=== PATIENT | female | born 1965 | race Caucasian/White ===

== ENCOUNTER 2023-01-03 08:41 | Emergency (ER) | payer OTHER, SELFPAY ==
[2023-01-03 08:52] VITALS: BP 118/71; PULSE 103; RESP 18; TEMP 38; O2SAT 95; BMI 29.5
--- NOTE | 2023-01-03 09:05 | ED.SOB1 ---
HPI - SOB/Dyspnea General Chief Complaint: Shortness of Breath/Dyspnea Time Seen by Provider: 01/03/23 08:57 Source: patient Mode of arrival: walk-in Limitations: no limitations History of Present Illness HPI Narrative: 57-year-old female presents for cough back pain and some shortness of breath. She was found to have a fever at triage and had had Tylenol and Motrin about an hour ago. She has an area of pain in her left back that started after coughing. There was no trauma. symptoms present for a week. Related Data Home Medications Medication Instructions Recorded Confirmed albuterol sulfate 90 mcg/actuation 2 puff inhalation Q6H PRN 01/03/23 01/03/23 aerosol inhaler shortness of breath or wheezing amantadine HCl 100 mg capsule mg 01/03/23 amitriptyline 50 mg tablet 50 mg PO 01/03/23 baclofen 10 mg tablet 10 mg PO Q8H 01/03/23 01/03/23 bupropion HCl 150 mg 24 hr tablet, 150 mg PO .morning 01/03/23 01/03/23 extended release buspirone 30 mg tablet 30 mg PO BID 01/03/23 01/03/23 dalfampridine 10 mg 10 mg PO Q12H 01/03/23 01/03/23 tablet,extended release,12 hr diazepam 5 mg tablet 5 mg PO Q8H PRN muscle spasm 01/03/23 01/03/23 glatiramer 40 mg/mL subcutaneous 40 mg subcut Q24H 01/03/23 01/03/23 syringe meclizine 25 mg tablet 25 mg PO .every 6 hours PRN 01/03/23 01/03/23 dizziness montelukast 10 mg tablet 10 mg PO QDAY 01/03/23 01/03/23 omeprazole 40 mg capsule,delayed 40 mg PO DAILY 01/03/23 01/03/23 release primidone 50 mg tablet 50 mg PO Q8H 01/03/23 01/03/23 propranolol 40 mg tablet 40 mg PO Q12H 01/03/23 01/03/23 quetiapine 50 mg tablet 50 mg PO .qhs 01/03/23 01/03/23 rizatriptan 10 mg tablet 10 mg PO .daily 01/03/23 01/03/23 sucralfate 1 gram tablet 1 g PO Q6H 01/03/23 01/03/23 Previous Rx's Medication Instructions Recorded benzonatate 100 mg capsule 100 mg PO TID PRN cough #20 caps 01/03/23 levofloxacin 750 mg tablet 750 mg PO DAILY 7 days #7 tabs 01/03/23 Allergies Allergy/AdvReac Type Severity Reaction Status Date / Time codeine Allergy Intermediate Verified 01/03/23 08:52 acetaminophen [From Percocet] AdvReac Intermediate Verified 01/03/23 09:06 amoxicillin AdvReac Intermediate Verified 01/03/23 08:52 clavulanic acid AdvReac Intermediate Verified 01/03/23 08:52 [From Augmentin] fentanyl AdvReac Intermediate Verified 01/03/23 08:52 morphine AdvReac Intermediate Verified 01/03/23 08:52 oxycodone [From Percocet] AdvReac Intermediate Verified 01/03/23 09:06 tizanidine [From Zanaflex] AdvReac Intermediate Verified 01/03/23 08:52 Review of Systems ROS Narrative A ten point review of systems is negative except as noted above. PFSH PFSH Social History Smoking status: Current every day smoker Exam Narrative Exam Narrative: Nurses note and vital signs reviewed and patient is not hypoxic. General: The patient appears well and in no apparent distress. Patient is resting comfortably on cart. Skin: Warm, dry, no pallor noted. There is no rash noted. Head: Normocephalic, atraumatic Eye: Normal conjunctiva, no drainage Ears, Nose, Mouth, and Throat: oral mucosa is moist. Nares patent. Mouth without vesicles. Ear canals patent. Tm's without Erythema Cardiovascular: Regular Rate and Rhythm Respiratory: patient seems reluctant to take in a deep breath. No rhonchi noted. Right thoracotomy scar well-healed. Back: non-tender, no CVA tenderness bilaterally to percussion. GI: nontender Musculoskeletal: The patient has no evidence of calf tenderness, no pitting edema, symmetrical pulses noted bilaterally Neurological: A&O, normal speech Psychiatric: Cooperative Constitutional Vital Signs, click to edit/add: Last Vital Signs Temp 100.4 F 01/03/23 08:52 Pulse 103 H 01/03/23 08:52 Resp 18 01/03/23 08:52 BP 118/71 01/03/23 08:52 Pulse Ox 95 01/03/23 08:52 O2 Del Method Room Air 01/03/23 08:52 Course Vital Signs Vital signs: Vital Signs Temperature 100.4 F 01/03/23 08:52 Pulse Rate 103 H 01/03/23 08:52 Respiratory Rate 18 01/03/23 08:52 Blood Pressure 118/71 01/03/23 08:52 Pulse Oximetry 95 01/03/23 08:52 Oxygen Delivery Method Room Air 01/03/23 08:52 Temperature 100.4 F 01/03/23 08:52 Pulse Rate 103 H 01/03/23 08:52 Respiratory Rate 18 01/03/23 08:52 Blood Pressure 118/71 01/03/23 08:52 Pulse Oximetry 95 01/03/23 08:52 Oxygen Delivery Method Room Air 01/03/23 08:52 MDM - SOB/Dyspnea MDM Narrative Medical decision making narrative: chest x-ray is improved from a year ago and Covid test is negative. She is prescribed Levaquin and Tessalon and she'll follow-up with her doctor. Treatment diagnosis and follow-up were discussed with the patient. I've no clinical suspicion of pulmonary embolism. Differential Diagnosis Differential diagnosis: Likely community acquired pneumonia and other (Covid, upper respiratory infection) Lab Data Attestation: I reviewed the patient's lab results. Labs: Lab Results 01/03/23 Range/Units 09:10 SARS-CoV-2 (PCR) Negative (NEGATIVE) Imaging Data Chest x-ray: Radiologist's impression: Procedure: XR chest 1V EXAMINATION: XR chest 1V HISTORY: cough, fever COMPARISON: XR chest 01/09/2022 FINDINGS: LUNGS: Underexpanded lungs with mild infiltrates within right lung apex. VASCULATURE: No increased pulmonary vasculature. PLEURA: No pneumothorax, effusion, or pleural thickening. CARDIAC: No cardiomegaly or cardiac silhouette abnormality. MEDIASTINUM: No visible mass or adenopathy. BONES: No fracture or visible bone lesion. OTHER: Negative. IMPRESSION: 1. Mild right apical infiltrates but significantly improved compared to 01/09/2022. Electronically authenticated by: ALIN ALEXANDRE Date: 01/03/2023 09:41 Discharge Plan Discharge Chief Complaint: Shortness of Breath/Dyspnea Clinical Impression: Upper respiratory infection Patient Disposition: Home, Self-Care Time of Disposition Decision: 09:51 Condition: Good Mode of Transportation: Private Vehicle Prescriptions / Home Meds: New levofloxacin 750 mg tablet 750 mg PO DAILY 7 Days Qty: 7 0RF benzonatate 100 mg capsule 100 mg PO TID PRN (Reason: cough) Qty: 20 0RF No Action albuterol sulfate 90 mcg/actuation HFA aerosol inhaler 2 puff INHALATION Q6H PRN (Reason: shortness of breath or wheezing) amantadine HCl 100 mg capsule amitriptyline 50 mg tablet 50 mg PO Patient Comments: 1 and 03/27 tab baclofen 10 mg tablet 10 mg PO Q8H bupropion HCl 150 mg tablet extended release 24 hr 150 mg PO .morning buspirone 30 mg tablet 30 mg PO BID dalfampridine 10 mg tablet extended release 12 hr 10 mg PO Q12H diazepam 5 mg tablet 5 mg PO Q8H PRN (Reason: muscle spasm) glatiramer 40 mg/mL syringe 40 mg SUBCUT Q24H meclizine 25 mg tablet 25 mg PO .every 6 hours PRN (Reason: dizziness) montelukast 10 mg tablet 10 mg PO QDAY omeprazole 40 mg capsule,delayed release(DR/EC) 40 mg PO DAILY primidone 50 mg tablet 50 mg PO Q8H propranolol 40 mg tablet 40 mg PO Q12H quetiapine 50 mg tablet 50 mg PO .qhs rizatriptan 10 mg tablet 10 mg PO .daily sucralfate 1 gram tablet 1 g PO Q6H Patient Comments: with meals Instructions: Upper Respiratory Infection (ED) Stand Alone Forms: Portal Instructions Referrals: Physician,Non-Staff, MD [Primary Care Provider] - 1 week
--- NOTE | 2023-01-03 09:15 | XR_ITS ---
The [address] [address] Patient Name: ELVIRA STAPLETON MRN: [id number] date: 1965 Sex: F Assigned Patient Location: ER Current Patient Location: ER Accession/Order Number: [id number] Exam Date: 01/03/2023 09:10 Report Date: 01/03/2023 09:41 At the request of: СЕРГЕЙ LOZANO Procedure: XR chest 1V EXAMINATION: XR chest 1V HISTORY: cough, fever COMPARISON: XR chest 01/09/2022 FINDINGS: LUNGS: Underexpanded lungs with mild infiltrates within right lung apex. VASCULATURE: No increased pulmonary vasculature. PLEURA: No pneumothorax, effusion, or pleural thickening. CARDIAC: No cardiomegaly or cardiac silhouette abnormality. MEDIASTINUM: No visible mass or adenopathy. BONES: No fracture or visible bone lesion. OTHER: Negative. XR/XR chest 1V IMPRESSION: 1. Mild right apical infiltrates but significantly improved compared to 01/09/2022. Electronically authenticated by: ALIN ALEXANDRE Date: 01/03/2023 09:41
[2023-01-03 09:34] LABS: SARS-CoV-2 Ag NEGATIVE (NEGATIVE)
[2023-01-03 16:00] LABS: SARS-CoV-2 NAA NOT DETECTED (NOT DETECTE)
== END 2023-01-03 10:01 | disposition home or self-care (01) ==
PROVIDERS: Emergency Provider Emergency Medicine
DX: J06.9 Acute upper respiratory infection, unspecified (principal); Z20.822 Contact with and (suspected) exposure to COVID-19
CPT/HCPCS: 71045; 87635; 87811; 99284; U0003

== ENCOUNTER 2023-01-22 06:02 | Emergency (ER) | payer OTHER, SELFPAY ==
[2023-01-22 06:06] VITALS: BP 146/75; PULSE 79; RESP 18; TEMP 36.8; O2SAT 95; BMI 28.3
--- NOTE | 2023-01-22 06:25 | ED_ITS ---
HPI - SOB/Dyspnea General Chief Complaint: Shortness of Breath/Dyspnea Stated Complaint: COUGH UP BLOOD Time Seen by Provider: 01/22/23 06:14 Source: patient Mode of arrival: walk-in Limitations: no limitations History of Present Illness HPI Narrative: ex smoker with history of COPD. Known history of inflammatory pulmonary nodules. Had PET scan ordered by her PCP 09/2022 which demonstrated inflammatory nodules. Had CT chest ordered last week by her [employer]. She does not know the results of the recent CT. Hemoptysis started 3 days ago. Hemoptysis again this AM and she feels short of breath. has pain right posterior chest which is reminiscent of the last time she had pneumonia. fever, nausea, abdominal pain. Does not take blood thinners Related Data Home Medications Medication Instructions Recorded Confirmed albuterol sulfate 90 mcg/actuation 2 puff inhalation Q6H PRN 01/03/23 01/03/23 aerosol inhaler shortness of breath or wheezing amantadine HCl 100 mg capsule mg 01/03/23 amitriptyline 50 mg tablet 50 mg PO 01/03/23 baclofen 10 mg tablet 10 mg PO Q8H 01/03/23 01/03/23 bupropion HCl 150 mg 24 hr tablet, 150 mg PO .morning 01/03/23 01/03/23 extended release buspirone 30 mg tablet 30 mg PO BID 01/03/23 01/03/23 dalfampridine 10 mg 10 mg PO Q12H 01/03/23 01/03/23 tablet,extended release,12 hr diazepam 5 mg tablet 5 mg PO Q8H PRN muscle spasm 01/03/23 01/03/23 glatiramer 40 mg/mL subcutaneous 40 mg subcut Q24H 01/03/23 01/03/23 syringe meclizine 25 mg tablet 25 mg PO .every 6 hours PRN 01/03/23 01/03/23 dizziness montelukast 10 mg tablet 10 mg PO QDAY 01/03/23 01/03/23 omeprazole 40 mg capsule,delayed 40 mg PO DAILY 01/03/23 01/03/23 release primidone 50 mg tablet 50 mg PO Q8H 01/03/23 01/03/23 propranolol 40 mg tablet 40 mg PO Q12H 01/03/23 01/03/23 quetiapine 50 mg tablet 50 mg PO .qhs 01/03/23 01/03/23 rizatriptan 10 mg tablet 10 mg PO .daily 01/03/23 01/03/23 sucralfate 1 gram tablet 1 g PO Q6H 01/03/23 01/03/23 Previous Rx's Medication Instructions Recorded benzonatate 100 mg capsule 100 mg PO TID PRN cough #20 caps 01/03/23 levofloxacin 750 mg tablet 750 mg PO DAILY 7 days #7 tabs 01/03/23 Allergies Allergy/AdvReac Type Severity Reaction Status Date / Time hydromorphone [From Dilaudid] Allergy Severe Verified 01/22/23 06:14 codeine Allergy Intermediate Verified 01/22/23 06:14 doxycycline Allergy Mild Rash Verified 01/22/23 06:14 acetaminophen [From Percocet] AdvReac Intermediate Verified 01/22/23 06:14 amoxicillin AdvReac Intermediate Verified 01/22/23 06:14 clavulanic acid AdvReac Intermediate Verified 01/22/23 06:14 [From Augmentin] fentanyl AdvReac Intermediate Verified 01/22/23 06:14 morphine AdvReac Intermediate Verified 01/22/23 06:14 oxycodone [From Percocet] AdvReac Intermediate Verified 01/22/23 06:14 tizanidine [From Zanaflex] AdvReac Intermediate Verified 01/22/23 06:14 Review of Systems ROS Status of ROS 10 or more systems reviewed and unremarkable except as noted in history and below Cardiovascular Reports: chest pain Respiratory Reports: shortness of breath and cough PFSH PFSH Social History Smoking status: Current every day smoker Exam Constitutional Vital Signs, click to edit/add: Last Vital Signs Temp 98.3 F 01/22/23 06:06 Pulse 79 01/22/23 06:06 Resp 18 01/22/23 06:06 BP 146/75 H 01/22/23 06:06 Pulse Ox 95 01/22/23 06:06 O2 Del Method Room Air 01/22/23 06:06 Common normals: no apparent distress, average body habitus, oriented x3, healthy appearing, alert and well nourished [facility] Common normals: normocephalic and head/scalp atraumatic Eye Common normals: EOMs intact bilaterally Respiratory Common normals: normal respiratory effort, no retractions, no use of accessory muscles and clear to auscultation bilaterally Cardio Common normals: regular rate, regular rhythm, S1 normal heart sound and S2 normal heart sound GI Common normals: Normal to inspection, nondistended, normoactive bowel sounds pre sent, soft to palpation and non-tender Extremity Common normals: normal to inspection and full ROM Neuro Common normals: oriented x3, CN's II-XII intact bilaterally, moves all extremities, no focal motor deficits and no sensory deficits noted Psych Appearance: grossly normal Course Vital Signs Vital signs: Vital Signs Temperature 98.3 F 01/22/23 06:06 Pulse Rate 79 01/22/23 06:06 Respiratory Rate 18 01/22/23 06:06 Blood Pressure 146/75 H 01/22/23 06:06 Pulse Oximetry 95 01/22/23 06:06 Oxygen Delivery Method Room Air 01/22/23 06:06 Temperature 98.3 F 01/22/23 06:06 Pulse Rate 79 01/22/23 06:06 Respiratory Rate 18 01/22/23 06:06 Blood Pressure 146/75 H 01/22/23 06:06 Pulse Oximetry 95 01/22/23 06:06 Oxygen Delivery Method Room Air 01/22/23 06:06 MDM - SOB/Dyspnea MDM Narrative Medical decision making narrative: patient had PET scan performed 09/2022 by her PCP that demonstrated inflammatory nodules DD included neoplastic vs sarcoidosis. She is ex cigarette smoker. Had CT performed last week ordered by her [employer] but does not know the results. Presents now with complaint of hemoptysis that first occurred this past Sunday. States she feels short of breath. Her exam is normal and she does not appear SOB. Has RR 18 and is afebrile. Pain right posterior chest reminiscent of the last time she had pneumonia. EKG NSR with RAD. Workup initiated to included d-dimer , troponin and cxray. Care transferred to Dr Landis at change of shift. Lab Data Labs: Lab Results 01/22/23 Range/Units 06:30 WBC 11.6 H (4.0-11.0) 10^3/uL RBC 4.32 (4.20-5.40) 10^6/uL Hgb 12.7 (12.0-16.0) g/dL Hct 40.9 (36.0-48.0) % MCV 94.7 (81.0-99.0) fL MCH 29.4 (26.7-34.0) pg MCHC 31.1 (29.9-35.2) g/dL RDW 13.9 (11.0-15.0) % Plt Count 282 (150-450) 10^3/uL MPV 10.1 (9.5-13.5) fL Neut % (Auto) 67.7 (43.0-75.0) % Lymph % (Auto) 16.7 L (20.5-60.0) % [place] % (Auto) 9.4 (1.7-12.0) % Eos % (Auto) 5.4 (0.9-7.0) % Baso % (Auto) 0.5 (0.2-2.0) % Neut # (Auto) 7.9 H (1.4-6.5) 10^3/uL Lymph # (Auto) 1.9 (1.2-3.8) 10^3/uL [place] # (Auto) 1.1 H (0.3-0.8) 10^3/uL Eos # (Auto) 0.6 (0.0-0.7) 10^3/uL Baso # (Auto) 0.1 (0.0-0.1) 10^3/uL Abs Immat Gran (auto) 0.04 H (0.00-0.03) 10^3/uL Imm/Tot Granulo (auto) 0.3 (0.0-0.5) % Discharge Plan Discharge Patient Disposition: Still a Patient
--- NOTE | 2023-01-22 06:33 | PC.NURSE ---
pt presents to ED because patient states that she was here 2 weeks ago for cough and fever. patient had swabs and chest x-ray done and everything came back negative and pt was dx with uri and sent home on an antibiotic. pt states that she got better and then on Sunday started up with a cough and occasionally would have blood mixed in with sputum. patient states that this morning around 5am she woke up and was coughing and states that she coughed up a lot of blood and that it covered her bathroom sink. patient stats that there were some clumps mixed in with blood. patient is c/o pain to right upper back and sob and states that it feels similar to when she has had pneumonia in the past. patient has been seeing her doctor out of [place] and had a ct scan done in august that showed a nodule in the left upper lung. patient states that she had a pet scan on Sunday that showed multiple pulmonary lesions with mildly enlarged lymph nodes and suspicious for multifocal metastatic neoplastic process vs sarcoidosis. patient is suppose to have a follow up ct scan with contrast done based on the past ct and pet scan results.
--- NOTE | 2023-01-22 06:34 | ECG_ITS ---
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
--- NOTE | 2023-01-22 06:34 | XR_ITS ---
The [address] [address] Patient Name: ELVIRA STAPLETON MRN: [id number] date: 1965 Sex: F Assigned Patient Location: ER Current Patient Location: ER Accession/Order Number: [id number] Exam Date: 01/22/2023 06:50 Report Date: 01/22/2023 07:06 At the request of: PATRICIA BROUSSARD Procedure: XR chest 1V EXAMINATION: XR chest 1V HISTORY: hemoptysis COMPARISON: XR chest 01/03/2023, 01/09/2022, 12/28/2021 FINDINGS: LUNGS: Patchy and strandy opacities within right lung apex. Left lung is clear. VASCULATURE: No increased pulmonary vasculature. PLEURA: No pneumothorax, effusion, or pleural thickening. CARDIAC: No cardiomegaly or cardiac silhouette abnormality. MEDIASTINUM: No visible mass or adenopathy. BONES: No fracture or visible bone lesion. OTHER: Negative. XR/XR chest 1V IMPRESSION: 1. Right upper lobe patchy and strandy opacities which appears stable dating back to 12/28/2021 and may represent scarring, but an underlying neoplastic process cannot be excluded. CT chest with IV contrast should be considered for comparison to the November 13, 2019 CT chest study showing what was suspected to be pneumonia at that time. Electronically authenticated by: ALIN ALEXANDRE Date: 01/22/2023 07:06
[2023-01-22 06:41] VITALS: PULSE 86; RESP 27; O2SAT 96
[2023-01-22 06:46] LABS: Basophils Absolute Auto 0.1 10^3/uL (0.0-0.1); Basophils Percent Auto 0.5 % (0.2-2.0); Eosinophils Absolute Auto 0.6 10^3/uL (0.0-0.7); Eosinophils Percent Auto 5.4 % (0.9-7.0); Hematocrit 40.9 % (36.0-48.0); Hemoglobin 12.7 g/dL (12.0-16.0); Immature Granulocytes Abs Auto 0.04 10^3/uL (0.00-0.03); Immature Granulocytes Pct Auto 0.3 % (0.0-0.5); Lymphocytes Absolute Auto 1.9 10^3/uL (1.2-3.8); Lymphocytes Percent Auto 16.7 % (20.5-60.0); Mean Corpuscular HGB Conc 31.1 g/dL (29.9-35.2); Mean Corpuscular Hemoglobin 29.4 pg (26.7-34.0); Mean Corpuscular Volume 94.7 fL (81.0-99.0); Mean Platelet Volume 10.1 fL (9.5-13.5); Monocytes Absolute Auto 1.1 10^3/uL (0.3-0.8); Monocytes Percent Auto 9.4 % (1.7-12.0); Neutrophils Absolute Auto 7.9 10^3/uL (1.4-6.5); Neutrophils Percent Auto 67.7 % (43.0-75.0); Platelet Count 282 10^3/uL (150-450); Red Blood Count 4.32 10^6/uL (4.20-5.40); Red Cell Distribution Width 13.9 % (11.0-15.0); White Blood Count 11.6 10^3/uL (4.0-11.0)
[2023-01-22 06:50] VITALS: PULSE 92; RESP 19; O2SAT 95
[2023-01-22 07:00] VITALS: PULSE 84; RESP 24; O2SAT 98
[2023-01-22 07:02] LABS: Anion Gap 9.9; BUN Creatinine Ratio 16.2; Calcium 8.6 mg/dL (8.5-10.1); Carbon Dioxide 29.9 mmol/L (21.0-32.0); Chloride 103 mmol/L (98-107); Estimated GFR (African America >60 (>=60); Estimated GFR (Non-African Ame >60 (>=60); Glucose 98 mg/dL (74-106); Potassium 3.8 mmol/L (3.5-5.1); Sodium 139 mmol/L (136-145); Troponin I High Sensitivity 5.6 pg/mL (4.0-51.3)
[2023-01-22 07:10] VITALS: PULSE 82; RESP 22; O2SAT 95
== END 2023-01-22 07:19 | disposition home or self-care (01) ==
PROVIDERS: Emergency Provider Internal Medicine
DX: R04.2 Hemoptysis (principal); J44.9 Chronic obstructive pulmonary disease, unspecified; R91.8 Other nonspecific abnormal finding of lung field; Z87.891 Personal history of nicotine dependence; Z79.899 Other long term (current) drug therapy
CPT/HCPCS: 36415; 71045; 80048; 84484; 85025; 85378; 93005; 99285

== ENCOUNTER 2023-02-06 20:00 | Emergency (ER) | payer OTHER, SELFPAY ==
[2023-02-06] VITALS (16 sets, daily range): BP systolic 118–142; BP diastolic 48–74; PULSE 83–104; RESP 18–20; TEMP 37.6; O2SAT 93–97; BMI 29.3
--- NOTE | 2023-02-06 20:43 | ECG_ITS ---
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
--- NOTE | 2023-02-06 20:44 | XR_ITS ---
The [address] [address] Patient Name: ELVIRA STAPLETON MRN: [id number] date: 1965 Sex: F Assigned Patient Location: ER Current Patient Location: ER Accession/Order Number: [id number] Exam Date: 02/06/2023 20:55 Report Date: 02/06/2023 21:12 At the request of: TATE BOURGEOIS Procedure: XR chest 1V EXAMINATION: CHEST RADIOGRAPH (PORTABLE SINGLE VIEW AP) Exam Date/Time: 02/06/2023 8:55 PM EST Clinical History: Cough Comparison: 01/22/2023 RESULT: Lines, tubes, and devices: None. Lungs and pleura: Interval worsening right upper lobe airspace opacity, since 01/22/2023, concerning for worsening pneumonia. No pneumothorax. No pleural effusion. Cardiomediastinal silhouette: Stable cardiomediastinal silhouette. Other: No acute osseous process. XR/XR chest 1V IMPRESSION: Interval worsening right upper lobe airspace opacity, concerning for worsening pneumonia. Recommend further evaluation with CT of the chest. Electronically authenticated by: ROGER HENSLEY Date: 02/06/2023 21:12
--- NOTE | 2023-02-06 21:08 | ED.GENADUL1 ---
Documented by User: MARY KATE Smart 02/06/23 21:49 HPI - General Adult General Chief complaint: Upper Respiratory Infection Stated complaint: COUGH FEVER Time Seen by Provider: 02/06/23 20:15 Source: patient Mode of arrival: walk-in Limitations: no limitations History of Present Illness HPI narrative: patient is a 57-year-old female who returns to the emergency department for continued cough, congestion, shortness of breath. Patient states she has been seen multiple times in this emergency department as well as by her telephone exchange operator in her PCP. This is been ongoing for weeks. Her telephone exchange operator ordered an outpatient CT scan of her chest, results show multiple groundglass opacities and cavitary lesions as well as nodules. She has been on azithromycin, she recently just finished prednisone and a Medrol Dosepak. She uses regular breathing treatments. Her PCP gave her Tessalon Perles. She states she is coughing up blood. She has had no objective fevers or vomiting. Her telephone exchange operator is at [facility]. Related Data Home Medications Medication Instructions Recorded Confirmed albuterol sulfate 90 mcg/actuation 2 puff inhalation Q6H PRN 01/03/23 01/03/23 aerosol inhaler shortness of breath or wheezing amantadine HCl 100 mg capsule mg 01/03/23 amitriptyline 50 mg tablet 50 mg PO 01/03/23 baclofen 10 mg tablet 10 mg PO Q8H 01/03/23 01/03/23 bupropion HCl 150 mg 24 hr tablet, 150 mg PO .morning 01/03/23 01/03/23 extended release buspirone 30 mg tablet 30 mg PO BID 01/03/23 01/03/23 dalfampridine 10 mg 10 mg PO Q12H 01/03/23 01/03/23 tablet,extended release,12 hr diazepam 5 mg tablet 5 mg PO Q8H PRN muscle spasm 01/03/23 01/03/23 glatiramer 40 mg/mL subcutaneous 40 mg subcut Q24H 01/03/23 01/03/23 syringe meclizine 25 mg tablet 25 mg PO .every 6 hours PRN 01/03/23 01/03/23 dizziness montelukast 10 mg tablet 10 mg PO QDAY 01/03/23 01/03/23 omeprazole 40 mg capsule,delayed 40 mg PO DAILY 01/03/23 01/03/23 release primidone 50 mg tablet 50 mg PO Q8H 01/03/23 01/03/23 propranolol 40 mg tablet 40 mg PO Q12H 01/03/23 01/03/23 quetiapine 50 mg tablet 50 mg PO .qhs 01/03/23 01/03/23 rizatriptan 10 mg tablet 10 mg PO .daily 01/03/23 01/03/23 sucralfate 1 gram tablet 1 g PO Q6H 01/03/23 01/03/23 Previous Rx's Medication Instructions Recorded benzonatate 100 mg capsule 100 mg PO TID PRN cough #20 caps 01/03/23 levofloxacin 750 mg tablet 750 mg PO DAILY 7 days #7 tabs 01/03/23 Allergies Allergy/AdvReac Type Severity Reaction Status Date / Time hydromorphone [From Dilaudid] Allergy Severe Verified 01/22/23 06:14 codeine Allergy Intermediate Verified 01/22/23 06:14 doxycycline Allergy Mild Rash Verified 01/22/23 06:14 acetaminophen [From Percocet] AdvReac Intermediate Verified 01/22/23 06:14 amoxicillin AdvReac Intermediate Verified 01/22/23 06:14 clavulanic acid AdvReac Intermediate Verified 01/22/23 06:14 [From Augmentin] fentanyl AdvReac Intermediate Verified 01/22/23 06:14 morphine AdvReac Intermediate Verified 01/22/23 06:14 oxycodone [From Percocet] AdvReac Intermediate Verified 01/22/23 06:14 tizanidine [From Zanaflex] AdvReac Intermediate Verified 01/22/23 06:14 Review of Systems ROS Constitutional Reports: chills; Denies: fever Ears, nose, mouth, and throat Reports: nasal congestion Respiratory Reports: shortness of breath, cough, wheezing and coughing up blood Gastrointestinal Denies: nausea or vomiting Genitourinary Denies: painful urination Musculoskeletal Denies: back pain Integumentary/Breast Denies: rash Neurological Denies: headache PFSH PFSH Social History Smoking status: Former smoker Exam Narrative Exam Narrative: Gen.: Awake, alert, in no distress Head: Normocephalic, atraumatic ENT: Moist mucous membranes Respiratory: No respiratory distress, lungs clear bilaterally Cardio: Regular rate and rhythm Gastrointestinal: Abdomen is soft, nondistended and nontender to palpation Extremities: Moves extremities equally, no injuries noted Psych: Normal mood and affect Neuro: No focal neuro deficit Skin: Warm, dry, intact Constitutional Vital Signs, click to edit/add: Last Vital Signs Temp 99.7 F 02/06/23 20:10 Pulse 83 02/06/23 21:37 Resp 18 02/06/23 21:37 BP 118/48 L 02/06/23 21:14 Pulse Ox 95 02/06/23 22:00 O2 Del Method Room Air 02/06/23 21:37 Course Vital Signs Vital signs: Vital Signs Temperature 99.7 F 02/06/23 20:10 Pulse Rate 104 H 02/06/23 20:10 Respiratory Rate 20 02/06/23 20:10 Blood Pressure 142/74 H 02/06/23 20:10 Pulse Oximetry 95 02/06/23 20:10 Oxygen Delivery Method Room Air 02/06/23 20:10 Temperature 99.7 F 02/06/23 20:10 Pulse Rate 83 02/06/23 21:37 Respiratory Rate 18 02/06/23 21:37 Blood Pressure 118/48 L 02/06/23 21:14 Pulse Oximetry 95 02/06/23 22:00 Oxygen Delivery Method Room Air 02/06/23 21:37 Medical Decision Making [facility] Narrative Medical decision making narrative: 2139: respiratory panel, lab studies ordered for the patient in addition to fluids, breathing treatments and Solu-Medrol. She was given Hycodan for cough. The chest x-ray was read by the radiologist showing a worsening opacity in the right upper lobe concerning for pneumonia versus neoplasm. A CT of the chest was recommended. I discussed the CT of the chest with contrast with the patient and her significant other at bedside as she recently had a noncontrast CT. Results of that CT show groundglass opacities and multiple lesions, there is no mention of a specific right upper lobe mass or opacity per her online report. Patient is in agreement with doing the CT, this is pending as well as the remainder of her lab studies and respiratory panel at this time. Case is turned over to attending physician at this time. Medical Records Medical records reviewed: Yes I reviewed the patient's medical records Lab Data Lab results reviewed: Yes I reviewed the patient's lab results Labs: Lab Results 02/06/23 02/06/23 Range/Units 21:10 21:53 WBC 16.5 H (4.0-11.0) 10^3/uL RBC 3.60 L (4.20-5.40) 10^6/uL Hgb 10.4 L (12.0-16.0) g/dL Hct 33.1 L (36.0-48.0) % MCV 91.9 (81.0-99.0) fL MCH 28.9 (26.7-34.0) pg MCHC 31.4 (29.9-35.2) g/dL RDW 14.1 (11.0-15.0) % Plt Count 360 (150-450) 10^3/uL MPV 9.2 L (9.5-13.5) fL Neut % (Auto) 82.6 H (43.0-75.0) % Lymph % (Auto) 8.5 L (20.5-60.0) % Posey % (Auto) 5.9 (1.7-12.0) % Eos % (Auto) 1.7 (0.9-7.0) % Baso % (Auto) 0.2 (0.2-2.0) % Neut # (Auto) 13.6 H (1.4-6.5) 10^3/uL Lymph # (Auto) 1.4 (1.2-3.8) 10^3/uL Posey # (Auto) 1.0 H (0.3-0.8) 10^3/uL Eos # (Auto) 0.3 (0.0-0.7) 10^3/uL Baso # (Auto) 0.0 (0.0-0.1) 10^3/uL Abs Immat Gran (auto) 0.18 H (0.00-0.03) 10^3/uL Imm/Tot Granulo (auto) 1.1 H (0.0-0.5) % PT 10.2 (9.0-11.6) sec INR 0.96 Sodium 139 (136-145) mmol/L Potassium 3.5 (3.5-5.1) mmol/L Chloride 102 (98-107) mmol/L Carbon Dioxide 25.6 (21.0-32.0) mmol/L Anion Gap 14.9 BUN 14.0 (7.0-18.0) mg/dL Creatinine 0.90 (0.55-1.02) mg/dL Est GFR ( Amer) >60 (>=60) Est GFR (Non-Af Amer) >60 (>=60) BUN/Creatinine Ratio 15.6 Glucose 159 H (74-106) mg/dL Lactate 2.1 H (0.4-2.0) mmol/L Calcium 8.3 L (8.5-10.1) mg/dL Total Bilirubin 0.2 (0.2-1.0) mg/dL AST 33 (15-37) U/L ALT 61 H (14-59) U/L Alkaline Phosphatase 164 H (46-116) U/L Troponin I High Sens 5.1 (4.0-51.3) pg/mL NT-Pro-B Natriuret Pep 318.0 (<=900.0) pg/mL Total Protein 6.6 (6.4-8.2) g/dL Albumin 2.1 L (3.4-5.0) g/dL Globulin 4.5 g/dL Albumin/Globulin Ratio 0.5 Adenovirus (PCR) Not detected (NOT DETECTE) C. pneumoniae DNA (PCR) Not detected (NOT DETECTE) Coronavirus Type OC43 Not detected (NOT DETECTE) Coronavirus Type HKU1 Not detected (NOT DETECTE) Coronavirus Type 229E Not detected (NOT DETECTE) Coronavirus Type NL63 Not detected (NOT DETECTE) Human Metapneumovir PCR Not detected (NOT DETECTE) M. pneumoniae (PCR) Not detected (NOT DETECTE) Parainfluenza PCR Not detected (NOT DETECTE) Parainfluenza 2 (PCR) Not detected (NOT DETECTE) Parainfluenza 3 (PCR) Not detected (NOT DETECTE) Parainfluenza 4 (PCR) Not detected (NOT DETECTE) RSV (RT-PCR) Not detected (NOT DETECTE) Entero/Rhino (PCR) Not detected (NOT DETECTE) SARS-CoV-2 (PCR) Not detected (NOT DETECTE) Bordetella pertussis (PCR) Not detected (NOT DETECTE) B parapertussis DNA PCR Not detected (NOT DETECTE) Influenza Type A (PCR) Not detected (NOT DETECTE) Influenza Type B (PCR) Not detected (NOT DETECTE) Imaging Data Chest x-ray: Attestation: I have reviewed the pertinent imaging results. Radiologist's impression: Procedure: XR chest 1V EXAMINATION: CHEST RADIOGRAPH (PORTABLE SINGLE VIEW AP) Exam Date/Time: 02/06/2023 8:55 PM EST Clinical History: Cough Comparison: 01/22/2023 RESULT: Lines, tubes, and devices: None. Lungs and pleura: Interval worsening right upper lobe airspace opacity, since 01/22/2023, concerning for worsening pneumonia. No pneumothorax. No pleural effusion. Cardiomediastinal silhouette: Stable cardiomediastinal silhouette. Other: No acute osseous process. IMPRESSION: Interval worsening right upper lobe airspace opacity, concerning for worsening pneumonia. Recommend further evaluation with CT of the chest. Electronically authenticated by: ROGER HENSLEY Date: 02/06/2023 21:12 ECG Data Attestation: I personally reviewed and interpreted this ECG as follows: (normal sinus rhythm at a rate of ninety, no acute ST elevation or ectopy. EKG reviewed by attending physician) Discharge Plan Discharge Chief Complaint: Upper Respiratory Infection Clinical Impression: Shortness of breath, Cough with hemoptysis, Pneumonia Patient Disposition: Home, Self-Care Prescriptions / Home Meds: No Action albuterol sulfate 90 mcg/actuation HFA aerosol inhaler 2 puff INHALATION Q6H PRN (Reason: shortness of breath or wheezing) amantadine HCl 100 mg capsule amitriptyline 50 mg tablet 50 mg PO Patient Comments: 1 and 1/2 tab baclofen 10 mg tablet 10 mg PO Q8H bupropion HCl 150 mg tablet extended release 24 hr 150 mg PO .morning buspirone 30 mg tablet 30 mg PO BID dalfampridine 10 mg tablet extended release 12 hr 10 mg PO Q12H diazepam 5 mg tablet 5 mg PO Q8H PRN (Reason: muscle spasm) glatiramer 40 mg/mL syringe 40 mg SUBCUT Q24H meclizine 25 mg tablet 25 mg PO .every 6 hours PRN (Reason: dizziness) montelukast 10 mg tablet 10 mg PO QDAY omeprazole 40 mg capsule,delayed release(DR/EC) 40 mg PO DAILY primidone 50 mg tablet 50 mg PO Q8H propranolol 40 mg tablet 40 mg PO Q12H quetiapine 50 mg tablet 50 mg PO .qhs rizatriptan 10 mg tablet 10 mg PO .daily sucralfate 1 gram tablet 1 g PO Q6H Patient Comments: with meals levofloxacin 750 mg tablet 750 mg PO DAILY 7 Days Qty: 7 0RF benzonatate 100 mg capsule 100 mg PO TID PRN (Reason: cough) Qty: 20 0RF Instructions: Community Acquired Pneumonia (ED) Additional Instructions: follow up with Dr Degroot Stand Alone Forms: Portal Instructions Referrals: Physician,Non-Staff, MD [Primary Care Provider] - 1 week Documented by User: Moose Valencia MD 02/07/23 00:05 HPI - General Adult General Chief complaint: Upper Respiratory Infection Stated complaint: COUGH FEVER Time Seen by Provider: 02/06/23 20:15 Related Data Home Medications Medication Instructions Recorded Confirmed albuterol sulfate 90 mcg/actuation 2 puff inhalation Q6H PRN 01/03/23 01/03/23 aerosol inhaler shortness of breath or wheezing amantadine HCl 100 mg capsule mg 01/03/23 amitriptyline 50 mg tablet 50 mg PO 01/03/23 baclofen 10 mg tablet 10 mg PO Q8H 01/03/23 01/03/23 bupropion HCl 150 mg 24 hr tablet, 150 mg PO .morning 01/03/23 01/03/23 extended release buspirone 30 mg tablet 30 mg PO BID 01/03/23 01/03/23 dalfampridine 10 mg 10 mg PO Q12H 01/03/23 01/03/23 tablet,extended release,12 hr diazepam 5 mg tablet 5 mg PO Q8H PRN muscle spasm 01/03/23 01/03/23 glatiramer 40 mg/mL subcutaneous 40 mg subcut Q24H 01/03/23 01/03/23 syringe meclizine 25 mg tablet 25 mg PO .every 6 hours PRN 01/03/23 01/03/23 dizziness montelukast 10 mg tablet 10 mg PO QDAY 01/03/23 01/03/23 omeprazole 40 mg capsule,delayed 40 mg PO DAILY 01/03/23 01/03/23 release primidone 50 mg tablet 50 mg PO Q8H 01/03/23 01/03/23 propranolol 40 mg tablet 40 mg PO Q12H 01/03/23 01/03/23 quetiapine 50 mg tablet 50 mg PO .qhs 01/03/23 01/03/23 rizatriptan 10 mg tablet 10 mg PO .daily 01/03/23 01/03/23 sucralfate 1 gram tablet 1 g PO Q6H 01/03/23 01/03/23 Previous Rx's Medication Instructions Recorded benzonatate 100 mg capsule 100 mg PO TID PRN cough #20 caps 01/03/23 levofloxacin 750 mg tablet 750 mg PO DAILY 7 days #7 tabs 01/03/23 Allergies Allergy/AdvReac Type Severity Reaction Status Date / Time hydromorphone [From Dilaudid] Allergy Severe Verified 01/22/23 06:14 codeine Allergy Intermediate Verified 01/22/23 06:14 doxycycline Allergy Mild Rash Verified 01/22/23 06:14 acetaminophen [From Percocet] AdvReac Intermediate Verified 01/22/23 06:14 amoxicillin AdvReac Intermediate Verified 01/22/23 06:14 clavulanic acid AdvReac Intermediate Verified 01/22/23 06:14 [From Augmentin] fentanyl AdvReac Intermediate Verified 01/22/23 06:14 morphine AdvReac Intermediate Verified 01/22/23 06:14 oxycodone [From Percocet] AdvReac Intermediate Verified 01/22/23 06:14 tizanidine [From Zanaflex] AdvReac Intermediate Verified 01/22/23 06:14 PFS PFS Social History Smoking status: Former smoker Exam Constitutional Vital Signs, click to edit/add: Last Vital Signs Temp 99.7 F 02/06/23 20:10 Pulse 83 02/06/23 21:37 Resp 18 02/06/23 21:37 BP 118/48 L 02/06/23 21:14 Pulse Ox 95 02/06/23 22:00 O2 Del Method Room Air 02/06/23 21:37 Course Vital Signs Vital signs: Vital Signs Temperature 99.7 F 02/06/23 20:10 Pulse Rate 104 H 02/06/23 20:10 Respiratory Rate 20 02/06/23 20:10 Blood Pressure 142/74 H 02/06/23 20:10 Pulse Oximetry 95 02/06/23 20:10 Oxygen Delivery Method Room Air 02/06/23 20:10 Temperature 99.7 F 02/06/23 20:10 Pulse Rate 83 02/06/23 21:37 Respiratory Rate 18 02/06/23 21:37 Blood Pressure 118/48 L 02/06/23 21:14 Pulse Oximetry 95 02/06/23 22:00 Oxygen Delivery Method Room Air 02/06/23 21:37 Medical Decision Making MDM Narrative Medical decision making narrative: 2139: respiratory panel, lab studies ordered for the patient in addition to fluids, breathing treatments and Solu-Medrol. She was given Hycodan for cough. The chest x-ray was read by the radiologist showing a worsening opacity in the right upper lobe concerning for pneumonia versus neoplasm. A CT of the chest was recommended. I discussed the CT of the chest with contrast with the patient and her significant other at bedside as she recently had a noncontrast CT. Results of that CT show groundglass opacities and multiple lesions, there is no mention of a specific right upper lobe mass or opacity per her online report. Patient is in agreement with doing the CT, this is pending as well as the remainder of her lab studies and respiratory panel at this time. Case is turned over to attending physician at this time. care transferred at change of shift. CT with finding of large confluent areas within the right lung suspicious for chronic consolidation intermixed with fluid filled cavitary lesions. Areas of Neoplasm cannot be excluded . Patient informed of the above report. She received levaquin here in the department and is discharged home with levaquin and Tussionex cough syrup. She is to follow up with Pulmonary Lab Data Labs: Lab Results 02/06/23 02/06/23 Range/Units 21:10 21:53 WBC 16.5 H (4.0-11.0) 10^3/uL RBC 3.60 L (4.20-5.40) 10^6/uL Hgb 10.4 L (12.0-16.0) g/dL Hct 33.1 L (36.0-48.0) % MCV 91.9 (81.0-99.0) fL MCH 28.9 (26.7-34.0) pg MCHC 31.4 (29.9-35.2) g/dL RDW 14.1 (11.0-15.0) % Plt Count 360 (150-450) 10^3/uL MPV 9.2 L (9.5-13.5) fL Neut % (Auto) 82.6 H (43.0-75.0) % Lymph % (Auto) 8.5 L (20.5-60.0) % Posey % (Auto) 5.9 (1.7-12.0) % Eos % (Auto) 1.7 (0.9-7.0) % Baso % (Auto) 0.2 (0.2-2.0) % Neut # (Auto) 13.6 H (1.4-6.5) 10^3/uL Lymph # (Auto) 1.4 (1.2-3.8) 10^3/uL Posey # (Auto) 1.0 H (0.3-0.8) 10^3/uL Eos # (Auto) 0.3 (0.0-0.7) 10^3/uL Baso # (Auto) 0.0 (0.0-0.1) 10^3/uL Abs Immat Gran (auto) 0.18 H (0.00-0.03) 10^3/uL Imm/Tot Granulo (auto) 1.1 H (0.0-0.5) % PT 10.2 (9.0-11.6) sec INR 0.96 Sodium 139 (136-145) mmol/L Potassium 3.5 (3.5-5.1) mmol/L Chloride 102 (98-107) mmol/L Carbon Dioxide 25.6 (21.0-32.0) mmol/L Anion Gap 14.9 BUN 14.0 (7.0-18.0) mg/dL Creatinine 0.90 (0.55-1.02) mg/dL Est GFR ( Amer) >60 (>=60) Est GFR (Non-Af Amer) >60 (>=60) BUN/Creatinine Ratio 15.6 Glucose 159 H (74-106) mg/dL Lactate 2.1 H (0.4-2.0) mmol/L Calcium 8.3 L (8.5-10.1) mg/dL Total Bilirubin 0.2 (0.2-1.0) mg/dL AST 33 (15-37) U/L ALT 61 H (14-59) U/L Alkaline Phosphatase 164 H (46-116) U/L Troponin I High Sens 5.1 (4.0-51.3) pg/mL NT-Pro-B Natriuret Pep 318.0 (<=900.0) pg/mL Total Protein 6.6 (6.4-8.2) g/dL Albumin 2.1 L (3.4-5.0) g/dL Globulin 4.5 g/dL Albumin/Globulin Ratio 0.5 Adenovirus (PCR) Not detected (NOT DETECTE) C. pneumoniae DNA (PCR) Not detected (NOT DETECTE) Coronavirus Type OC43 Not detected (NOT DETECTE) Coronavirus Type HKU1 Not detected (NOT DETECTE) Coronavirus Type 229E Not detected (NOT DETECTE) Coronavirus Type NL63 Not detected (NOT DETECTE) Human Metapneumovir PCR Not detected (NOT DETECTE) M. pneumoniae (PCR) Not detected (NOT DETECTE) Parainfluenza PCR Not detected (NOT DETECTE) Parainfluenza 2 (PCR) Not detected (NOT DETECTE) Parainfluenza 3 (PCR) Not detected (NOT DETECTE) Parainfluenza 4 (PCR) Not detected (NOT DETECTE) RSV (RT-PCR) Not detected (NOT DETECTE) Entero/Rhino (PCR) Not detected (NOT DETECTE) SARS-CoV-2 (PCR) Not detected (NOT DETECTE) Bordetella pertussis (PCR) Not detected (NOT DETECTE) B parapertussis DNA PCR Not detected (NOT DETECTE) Influenza Type A (PCR) Not detected (NOT DETECTE) Influenza Type B (PCR) Not detected (NOT DETECTE) Discharge Plan Discharge Chief Complaint: Upper Respiratory Infection Clinical Impression: Shortness of breath, Cough with hemoptysis, Pneumonia Patient Disposition: Home, Self-Care Prescriptions / Home Meds: No Action albuterol sulfate 90 mcg/actuation HFA aerosol inhaler 2 puff INHALATION Q6H PRN (Reason: shortness of breath or wheezing) amantadine HCl 100 mg capsule amitriptyline 50 mg tablet 50 mg PO Patient Comments: 1 and 1/2 tab baclofen 10 mg tablet 10 mg PO Q8H bupropion HCl 150 mg tablet extended release 24 hr 150 mg PO .morning buspirone 30 mg tablet 30 mg PO BID dalfampridine 10 mg tablet extended release 12 hr 10 mg PO Q12H diazepam 5 mg tablet 5 mg PO Q8H PRN (Reason: muscle spasm) glatiramer 40 mg/mL syringe 40 mg SUBCUT Q24H meclizine 25 mg tablet 25 mg PO .every 6 hours PRN (Reason: dizziness) montelukast 10 mg tablet 10 mg PO QDAY omeprazole 40 mg capsule,delayed release(DR/EC) 40 mg PO DAILY primidone 50 mg tablet 50 mg PO Q8H propranolol 40 mg tablet 40 mg PO Q12H quetiapine 50 mg tablet 50 mg PO .qhs rizatriptan 10 mg tablet 10 mg PO .daily sucralfate 1 gram tablet 1 g PO Q6H Patient Comments: with meals levofloxacin 750 mg tablet 750 mg PO DAILY 7 Days Qty: 7 0RF benzonatate 100 mg capsule 100 mg PO TID PRN (Reason: cough) Qty: 20 0RF Instructions: Community Acquired Pneumonia (ED) Additional Instructions: follow up with Dr Degroot Stand Alone Forms: Portal Instructions Referrals: Physician,Non-Staff, MD [Primary Care Provider] - 1 week
[2023-02-06 21:25] LABS: Basophils Percent Auto 0.2 % (0.2-2.0); Eosinophils Absolute Auto 0.3 10^3/uL (0.0-0.7); Eosinophils Percent Auto 1.7 % (0.9-7.0); Hematocrit 33.1 % (36.0-48.0); Hemoglobin 10.4 g/dL (12.0-16.0); Immature Granulocytes Abs Auto 0.18 10^3/uL (0.00-0.03); Immature Granulocytes Pct Auto 1.1 % (0.0-0.5); Lymphocytes Absolute Auto 1.4 10^3/uL (1.2-3.8); Lymphocytes Percent Auto 8.5 % (20.5-60.0); Mean Corpuscular HGB Conc 31.4 g/dL (29.9-35.2); Mean Corpuscular Hemoglobin 28.9 pg (26.7-34.0); Mean Corpuscular Volume 91.9 fL (81.0-99.0); Mean Platelet Volume 9.2 fL (9.5-13.5); Monocytes Percent Auto 5.9 % (1.7-12.0); Neutrophils Absolute Auto 13.6 10^3/uL (1.4-6.5); Neutrophils Percent Auto 82.6 % (43.0-75.0); Platelet Count 360 10^3/uL (150-450); Red Cell Distribution Width 14.1 % (11.0-15.0); White Blood Count 16.5 10^3/uL (4.0-11.0)
[2023-02-06] MEDS: METHYLPREDNISOLONE SOD SUCC PF 125 MG/2 ML VIAL IVP (21:29)
[2023-02-06] MEDS: 0.9 % SODIUM CHLORIDE 1,000 ML 999 ML IV (21:29)
--- NOTE | 2023-02-06 21:33 | CT_ITS ---
[address] [address] Patient Name: ELVIRA STAPLETON MRN: [id number] date: 1965 Sex: F Assigned Patient Location: ER Current Patient Location: Accession/Order Number: [id number] Exam Date: 02/06/2023 22:05 Report Date: 02/06/2023 22:35 At the request of: TATE BOURGEOIS Procedure: CT chest w con EXAMINATION: CT chest w con HISTORY: hemoptysis, abnormal CT , cough, shortness of breath with exertion COMPARISON: CT chest 11/13/2019 TECHNIQUE: Multi-planar CT images were obtained without and/or with IV contrast as indicated by examination type. Axial, Coronal, and Sagittal images. Dose reduction techniques were achieved by using automated exposure control and/or adjustment of mA and/or kV according to patient size and/or use of iterative reconstruction technique. FINDINGS: LUNGS: Heterogeneous enhancement and density of multiple small and large areas of consolidation versus infiltrates versus masses within right lung and scattered small areas within left lung. A few scattered pockets of air within right lung consolidations suspected represent sequela of previously seen cavitary lesions. PLEURA: No mass, effusion, or pneumothorax. VASCULATURE: No abnormality. TAD: No mass or adenopathy. MEDIASTINUM: No mass or adenopathy. CARDIAC: No enlargement, pericardial thickening, or significant calcification. AORTA: No aneurysm or dissection. CHEST WALL: No mass or axillary adenopathy. BONES: No bone lesion or fracture. LIMITED ABDOMEN: No suspicious findings Limited images of the upper abdomen. OTHER: Negative. CT/CT chest w con IMPRESSION: 1. Progression of bilateral lung disease compared to 11/13/2019 with multiple large confluent areas within the right lung demonstrate heterogeneous enhancement and density suspicious for chronic consolidation intermixed with fluid-filled cavitary lesions. Areas of neoplasm cannot be excluded. Scattered infiltrates versus additional small soft tissue masses within left lung; also increased since prior study. 2. No lymphadenopathy. 3. No pulmonary embolism, aortic dissection, or aneurysm. Electronically authenticated by: ALIN ALEXANDRE Date: 02/06/2023 22:35
[2023-02-06] MEDS: IPRATROPIUM/ALBUTEROL SULFATE 3 ML AMPUL.NEB IH (21:35)
[2023-02-06 21:42] LABS: INR 0.96; Prothrombin Time 10.2 sec (9.0-11.6)
[2023-02-06 21:52] LABS: Alanine Aminotransferase 61 U/L (14-59); Albumin Globulin Ratio 0.5; Albumin Level 2.1 g/dL (3.4-5.0); Alkaline Phosphatase 164 U/L (46-116); Anion Gap 14.9; Aspartate Amino Transferase 33 U/L (15-37); BUN Creatinine Ratio 15.6; Bilirubin Total 0.2 mg/dL (0.2-1.0); Calcium 8.3 mg/dL (8.5-10.1); Carbon Dioxide 25.6 mmol/L (21.0-32.0); Chloride 102 mmol/L (98-107); Estimated GFR (African America >60 (>=60); Estimated GFR (Non-African Ame >60 (>=60); Globulin 4.5 g/dL; Glucose 159 mg/dL (74-106); Potassium 3.5 mmol/L (3.5-5.1); Sodium 139 mmol/L (136-145); Total Protein 6.6 g/dL (6.4-8.2); Troponin I High Sensitivity 5.1 pg/mL (4.0-51.3)
[2023-02-06 21:57] LABS: Lactate/Lactic Acid 2.1 mmol/L (0.4-2.0)
[2023-02-06 22:30] LABS: Adenovirus NOT DETECTED (NOT DETECTE); Bordetella parapertussis NOT DETECTED (NOT DETECTE); Coronavirus 229E NOT DETECTED (NOT DETECTE); Coronavirus HKU1 NOT DETECTED (NOT DETECTE); Coronavirus NL63 NOT DETECTED (NOT DETECTE); Coronavirus OC43 NOT DETECTED (NOT DETECTE); Human Metapneumovirus NOT DETECTED (NOT DETECTE); Human Rhinovirus/Enterovirus NOT DETECTED (NOT DETECTE); Influenza A NOT DETECTED (NOT DETECTE); Influenza B NOT DETECTED (NOT DETECTE); Mycoplasma pneumoniae NOT DETECTED (NOT DETECTE); Parainfluenza Virus 1 NOT DETECTED (NOT DETECTE); Parainfluenza Virus 2 NOT DETECTED (NOT DETECTE); Parainfluenza Virus 3 NOT DETECTED (NOT DETECTE); Parainfluenza Virus 4 NOT DETECTED (NOT DETECTE); Respiratory Syncytial Virus NOT DETECTED (NOT DETECTE); SARS-CoV-2 NOT DETECTED (NOT DETECTE)
[2023-02-06] MEDS: LEVOFLOXACIN IN DEXTROSE 5 % 750 MG/150 ML IV.SOLN 100 MG IV (22:45)
== END 2023-02-07 00:45 | disposition home or self-care (01) ==
PROVIDERS: Physician Assistant; Emergency Provider Internal Medicine
DX: J18.9 Pneumonia, unspecified organism (principal); R04.2 Hemoptysis; R06.02 Shortness of breath; Z79.899 Other long term (current) drug therapy; Z87.891 Personal history of nicotine dependence; R05.9 Cough, unspecified
CPT/HCPCS: 0202U; 36415; 71045; 71260; 80053; 83605; 83880; 84484; 85025; 85610; 87040; 93005; 94640; 96374; 96375; 99285; J2930; Q9967

== ENCOUNTER 2023-03-15 16:46 | Emergency (ER) | payer OTHER, SELFPAY ==
[2023-03-15 16:51] VITALS: BP 106/62; PULSE 97; RESP 20; TEMP 37.3; O2SAT 96; BMI 28.2
--- OUTSIDE RECORDS SUMMARY | 2023-03-15 16:55 | XMS_ITS | CCD ---
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 Name Role Phone Cyndie Hopkins DO Primary Care Provider Kristen Arias Unavailable BILL, DR GAO Primary Care Unavailable YOLANDA ., DR ZUNIGA Admitting Unavailable YOLANDA ., DR ZUNIGA Attending Unavailable MALACHI .KANDCAE Consulting Unavailable YOLANDA ., DR ZUNIGA Consulting Unavailable Farhad Ramírez Consulting Unavailable JUDITH VAUGHAN Admitting Unavailable JUDITH VAUGHAN Attending Unavailable BILL, DR GAO Primary Care Unavailable CHRISTELLE .MARY KATE Consulting UnavailNANY Ramirez Consulting Unavailable PABLITO JONES Consulting Unavailable PATRICIA CANNON Consulting Unavailable BILL, DR GAO Primary Care Unavailable JUDITH VAUGHAN Admitting Unavailable JUDITH VAUGHAN Attending Unavailable CHRISTELLE .MARY KATE Consulting Unavailarmani e Minda, Cady Consulting Unavailable TRAM CARBONE Referring Unavailable CYNDIE HOPKINS Primary Care Unavailable STEVEN ZUNIGA Attending Unavailable AL-TKRIT, SURYA Attending Unavailable PASTOR, CLAUDE Attending Unavailable STUART, SAMEH Attending Unavailable ASSALY, RAGHEB Referring Unavailable AL AZZAWI MOHAMMED Attending Unavailable HINCH JEROMY Referring Unavailable TRAM, FRIEDA Referring Unavailable ASSALY, RAGHEB Attending Unavailable ASSALY, RAGHEB Referring Unavailable ASSALY, RAGHEB Admitting Unavailable ASSALY, RAGHEB Referring Unavailable Allergies Allergy Classification Reported Allergen(s) Allergy Type Date of Onset Reaction(s) Facility (3 sources) Acetaminophen; Translations: [ACETAMINOPHEN] Drug Allergy 08-25-19 21 [facility] (3 sources) Acetaminophen / oxyCODONE; Translations: [OXYCODONE-ACETAM INOPHEN] Drug Allergy 03-13-20 14 Itching [facility] Work Phone: (3 sources) Amoxicillin; Translations: [AMOXICILLIN] Drug Allergy 08-25-19 21 [facility] Phone: (4 sources) Azithromycin; Translations: [AZITHROMYCIN] Drug Allergy 03-13-20 14 Itching [facility] Other (3 sources) Codeine; Translations: [CODEINE] Drug Allergy 03-13-20 14 Itching [facility] Work Phone: (3 sources) Doxycycline Drug Allergy 09-15-19 16 Rash [facility] Other (4 sources) fentaNYL; Translations: [FENTANYL] Drug Allergy 03-13-20 14 Itching [facility] Other (4 sources) HYDROmorphone; Translations: [HYDROMORPHONE] Drug Allergy 03-13-20 14 Itching, Rash [facility] Other (4 sources) Morphine; Translations: [MORPHINE] Drug Allergy 03-13-20 14 Itching [facility] Other (4 sources) tiZANidine; Translations: [TIZANIDINE] Drug Allergy 03-14-20 17 Rash [facility] Other (4 sources) traZODone; Translations: [TRAZODONE] Drug Allergy 03-13-20 14 Unknown [facility] Other (1 source) Acetaminophen / oxyCODONE Drug Allergy Unknown [facility] Other (1 source) Amoxicillin-Pot Clavulanate Propensity to adverse reactions to drug 12-29-19 21 [facility] (1 source) Acetaminophen / oxyCODONE Drug Allergy 09-15-19 16 [facility] (1 source) Amoxicillin Drug Allergy [facility] (1 source) Codeine Drug Allergy 09-15-19 16 [facility] (1 source) Doxycycline Drug Allergy 09-15-19 16 [facility] (1 source) fentaNYL Drug Allergy 09-15-19 16 [facility] (1 source) HYDROmorphone Drug Allergy 09-15-19 16 [facility] (1 source) Morphine Drug Allergy 09-15-19 16 [facility] (1 source) tiZANidine Drug Allergy 02-13-20 19 [facility] (1 source) traZODone Drug Allergy 09-15-19 16 [facility] (1 source) benzonatate; Translations: [BENZONATATE] Drug Allergy 02-14-20 23 [facility] (1 source) Doxycycline; Translations: [DOXYCYCLINE HYCLATE] Drug Allergy 03-13-20 14 [facility] Medications Current Medications Medication Drug Class(es) Dates Sig (Normalized) Sig (Original) [id number] 200 actuat albuterol 0.09 mg/actuat metered dose inhaler (3 sources) beta2-Adrenergic Agonist take 2 puff(s) by inhalation every six hours as needed albuterol sulfate HFA 108 (90 Base) MCG/ACT inhaler Inhale 2 puffs into the lungs every 6 hours as needed 0 Active Albuterol Sulfat e HFA Active amantadine hydrochloride 100 mg oral capsule (3 sources) Influenza A M2 Protein Inhibitor Start: 08-25-2021 take 1 capsule by mouth twice daily amantadine (SYMMETREL) 100 MG capsule Take 1 capsule by mouth 2 times daily 180 capsule 1 08/25/2021 Active Start: 03-29-2021 take 1 capsule by mo [facility] twice daily amantadine (SYMMETREL) 100 MG capsule Take 1 capsule by mouth 2 times daily 180 capsule 1 03/29/2021 Active Amantadine HCl A ctive amitriptyline hydrochloride 50 mg oral tablet (3 sources) Tricyclic Antidepressant Start: 05-31-2021 End: 05-31-2022 take 1.5 tablets by mouth once daily amitriptyline (ELAVIL) 50 MG tablet Take 1.5 tablets by mouth nightly 135 tablet 3 05/31/2021 05/31/2022 Active Elavil Active azithromycin 250 mg oral tablet (3 sources) Macrolide Antimicrobial take 1 tablet by mouth every other day azithromycin (ZITHROMAX) 250 MG tablet Take 250 mg by mouth every other day 0 Active Azithromycin Act michelet baclofen 10 mg oral tablet (3 sources) gamma-Aminobutyric Acid-ergic Agonist Start: 05-31-2021 End: 05-31-2022 take 1.5 tablets by mouth three times daily baclofen (LIORESAL) 10 MG tablet Indications: Multiple sclerosis (HCC) Take 1.5 tablets by mouth 3 times daily 405 tablet 3 05/31/2021 05/31/2022 Active Baclofen Active 24 hr buPROPion hydrochloride 300 mg extended release oral tablet (3 sources) Aminoketone take 1 tablet by mouth once daily buPROPion (WELLBUTRIN XL) 300 MG extended release tablet Take 300 mg by mouth daily 0 Active take 1 tablet by mouth once courtney y buPROPion (WELLBUTRIN XL) 150 MG extended release tablet Take 150 mg by mouth daily 0 Active buPROPion HCl ER (XL) Active busPIRone hydrochloride 30 m g oral tablet (3 sources) take 1 tablet by flaco th twice daily busPIRone (BUSPAR) 30 MG tablet Take 30 mg by mouth 2 times daily 0 Active busPIRone HCl Ac tive cyclobenzaprine hydrochloride 5 mg oral tablet (2 sources) Muscle Relaxant cyclobenzaprine (FLEXERIL) 5 MG tablet Take 5 mg by mouth as needed 0 Active 12 hr dalfampridine 10 mg extended release oral tablet (3 sources) Potassium Channel Jovon Start: 09-21-19 take 1 tablet by mouth every twelve hours dalfampridine (AMPYRA) 10 MG extended release tablet Indications: Multiple sclerosis (HCC) Take 1 tablet by mouth every 12 hours 180 tablet 1 09/20/2021 Active Start: 03-11-2021 take 1 tablet by flaco th every twelve hours dalfampridine (AMPYRA) 10 MG extended release tablet Indications: Multiple sclerosis (HCC) Take 1 tablet by mouth every 12 hours 180 tablet 1 03/11/2021 Active Dalfampridine Ac tive diazePAM 5 mg oral tablet (2 sources) Benzodiazepine Start: 05-29-2021 take 1 tablet by mouth once daily diazePAM (VALIUM) 5 MG tablet Take 5 mg by mouth nightly. 0 05/29/2021 Active docosahexaenoic acid 120 mg / eicosapentaenoic acid 180 mg oral capsule (2 sources) take 1 capsule by mouth three times daily Gorman-3 Fatty Acids (FISH OIL) 1000 MG CAPS Take 2,000 mg by mouth 3 times daily 0 Active take 1 capsule by mouth three ti mes daily Gorman-3 Fatty Acids (FISH OIL) 1000 MG CAPS Take 3,000 mg by mouth 3 times daily 0 Active Eszopiclone (1 source) Lunesta Active fluticasone (1 source) Corticosteroid Fluticasone Prop ionate (Inhal) Active gabapentin 100 mg oral capsule (1 source) Anti-epileptic Agent Start: 11-29-2021 End: 05-28-2022 gabapentin (NEURONTIN) 100 MG capsule Take 1 capsule by mouth 2 times daily for 180 days. Intended supply: 30 90 capsule 5 11/29/2021 05/28/2022 Active 1 ml glatiramer acetate 40 mg/ml prefilled syringe (3 sources) Start: 09-22-2021 glatiramer (COPAXONE) 40 MG/ML injection Indications: Multiple sclerosis (HCC) INJECT ONE SYRINGE SUBCUTANEOUSLY 3 TIMES A WEEK AT LEAST 48 HOURS APART. ALLOW TO WARM TO ROOM TEMP FOR 20 MINUTES. REFRIGERATE. 36 each 3 09/22/2021 Active Start: 03-30-2021 glatiramer (CO PAXONE) 40 MG/ML injection Indications: Multiple sclerosis (HCC) Inject 1 mL into the skin three times a week 36 each 1 03/30/2021 Active Glatiramer Aceta te Active ibuprofen 600 mg oral tablet (1 source) Nonsteroidal Anti-inflammatory Drug Start: 2021 take 1 tablet by mouth three times daily at mealtime as needed ibuprofen (ADVIL;MOTRIN) 600 MG tablet TAKE 1 TABLET BY MOUTH THREE TIMES A DAY WITH FOOD OR MILK NEEDED FOR 30 DAYS 0 2021 Active meclizine hydrochloride 25 mg oral tablet (1 source) Antiemetic Start: 11-29-2021 End: 12-09-2021 take 1 tablet by mouth three times daily as needed for dizziness meclizine (ANTIVERT) 25 MG tablet Take 1 tablet by mouth 3 times daily as needed for Dizziness 15 tablet 0 11/29/2021 12/09/2021 Active methylPREDNISolone 4 mg oral tablet (1 source) Corticosteroid Start: 12-09-2015 Medrol (Mookie) 4 MG as directed Orally Nov, Active montelukast 10 mg oral tablet (3 sources) Leukotriene Receptor Antagonist take 1 tablet by mouth once daily montelukast (SINGULAIR) 10 MG tablet Take 10 mg by mouth nightly 0 Active Montelukast Sodi um Active Multiple Vitamins-Minerals (THERAPEUTIC MULTIVITAMIN-MINERALS) tablet (2 sources) take 1 tablet by mouth once daily Multiple Vitamins-Minerals (THERAPEUTIC MULTIVITAMIN-MINERALS) tablet Take 1 tablet by mouth daily 0 Active omeprazole 20 mg delayed release oral capsule (2 sources) Proton Pump Inhibitor take 1 capsule by mouth once daily omeprazole (PRILOSEC) 20 MG delayed release capsule Take 20 mg by mouth daily 0 Active predniSONE 20 mg oral tablet (1 source) Start : 01-21 take 1 tablet by mouth every twelve hours predniSONE 20 MG 1 tablet Orally bid for 5 day(s) Dec, Active primidone 50 mg oral tablet (2 sources) Anti-epileptic Agent Start : 08-25 take 1 tablet by mouth three times daily primidone (MYSOLINE) 50 MG tablet Indications: Multiple sclerosis (HCC) Take 1 tablet by mouth 3 times daily 270 tablet 1 08/25/2021 Active Start: 02-28-2021 take 1 tablet by flaco th three times daily primidone (MYSOLINE) 50 MG tablet Indications: Multiple sclerosis (HCC) Take 1 tablet by mouth 3 times daily 90 tablet 5 02/28/2021 Active promethazine hydrochloride 25 mg oral tablet (3 sources) Phenothiazine take 1 tablet by mouth every six hours as needed promethazine (PHENERGAN) 25 MG tablet Take 25 mg by mouth every 6 hours as needed 0 Active Promethazine HCl Active propranolol hydrochloride 40 mg oral tablet (3 sources) beta-Adrenergic Jovon take 1 tablet by mouth three times daily propranolol (INDERAL) 40 MG tablet Take 40 mg by mouth 3 times daily 0 Active Propranolol HCl Active rimegepant 75 mg disintegrating oral tablet (1 source) Start: 05-31-2021 Rimegepant Sulfate (NURTEC) 75 MG TBDP Take 75 mg by mouth as needed (as needed) 15 tablet 2 05/31/2021 Active rizatriptan 10 mg oral tablet (1 source) Serotonin-1b and Serotonin-1d Receptor Agonist Start: 11-29-2021 rizatriptan (MAXALT) 10 MG tablet Take 1 tablet by mouth once as needed for Migraine May repeat in 2 hours if needed 10 tablet 3 11/29/2021 Active sucralfate 1000 mg oral tablet (1 source) Aluminum Complex Start: 11-18-2021 take 1 tablet by mouth every 30 days before mealtime sucralfate (CARAFATE) 1 GM tablet TAKE 1 TABLET ON AN EMPTY STOMACH ORALLY BEFORE MEALS AND BEDTIME 30 DAY(S) 0 11/18/2021 Active VITAMIN D PO (2 sources) VITAMIN D PO Demetri e by mouth daily 0 Active Problems Active Problems Problem Classification Problem Date Documented Da te Episodic/Chronic Chronic obstructive pulmonary disease and bronchiectasis (6 sources) Unspecified chronic bronchitis; Translations: [Bronchiectasis, uncomplicated] Onset: 12-14-2021 Chronic Conditions associated with dizziness or vertigo (5 sources) Dizziness and giddiness; Translations: [DIZZINESS AND GIDDINESS] Onset: 12-29-2021 Episodic Multiple sclerosis (3 sources) Multiple sclerosis; Translations: [Multiple sclerosis] Onset: 11-29-2021 Chronic Nutritional deficiencies (2 sources) Vitamin D deficiency; Translations: [Vitamin D deficiency, unspecified] Onset: 11-29-2021 Chronic Other aftercare (1 source) Other fci (current) drug therapy; Translations: [OTH WARHEAD 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 CURRENT DRUG THERAPY] Onset: 06-12-2022 Episodic Other ear and sense organ disorders (1 source) Impacted cerumen, right ear; Translations: [IMPACTED CERUMEN RIGHT EAR] Onset: 06-12-2022 Episodic Pneumonia (except that caused by tuberculosis or sexually transmitted disease) (5 sources) Pneumonia, unspecified organism; Translations: [Pneumonia due to Pseudomonas] Onset: 01-10-2022 Episodic Unclassified (1 source) Cough, unspecified; Translations: [Cough, unspecified] Onset: 05-03-2022 Viral infection (1 source) COVID-19; Translations: [COVID-19] Onset: 01-10-2022 Past or Other Problems Problem Classification Problem Date Documented Date Episodic/Chronic Allergic reactions (1 source) Unspecified contact dermatitis, unspecified cause; Translations: [Contact dermatitis, unspecified contact dermatitis type, unspecified trigger L25.9] Onset: 01-21-2021 Resolved: 01-21-2021 Episodic Chronic obstructive pulmonary disease and bronchiectasis (2 sources) Bronchitis, not specified as acute or chronic; Translations: [Bronchitis, not specified as acute or chronic] Onset: 05-03-2022 Episodic E Codes: Struck by; against (1 source) Walked into wall, initial encounter; Translations: [WALKED INTO WALL INITIAL ENCOUNTER] Onset: 12-29-2021 Episodic Intestinal infection (2 sources) Enterocolitis due to Clostridium difficile, not specified as recurrent; Translations: [Enterocolitis due to Clostridium difficile, not specified as recurrent] Onset: 04-05-2022 Episodic Other injuries and conditions due to external causes (1 source) Other specified injuries of head, initial encounter; Translations: [OTH SPEC INJURIES HEAD INITIAL ENC] Onset: 12-29-2021 Episodic Other lower respiratory disease (3 sources) Shortness of breath; Translations: [SHORTNESS OF BREATH] Onset: 01-09-2022 Episodic Other upper respiratory infections (2 sources) Postnasal drip; Translations: [Postnasal drip] Onset: 04-05-2022 Episodic Residual codes; unclassified (1 source) Acquired absence of lung [part of]; Translations: [ACQUIRED ABSENCE OF LUNG] Onset: 01-10-2022 Episodic Screening and history of mental health and substance abuse codes (1 source) Personal history of nicotine dependence; Translations: [PERSONAL HISTORY OF NICOTINE DEPEND] Onset: 01-10-2022 Episodic Syncope (4 sources) Syncope and collapse; Translations: [SYNCOPE AND COLLAPSE] Onset: 12-28-2021 Episodic Unclassified (1 source) Cough, unspecified; Translations: [Cough, unspecified] Onset: 05-03-2022 Results Test Name Value Interpretation Reference Range Facility 36on 03-13-2023 36 I called the patient and let her know we will need her to get this done again. I am faxing the order to [facility] 36 Thank you Cecilia [facility] Follow-Upon 02-13-2023 Follow-Up [id number] Diamante Stapleton 1965 F Date Provider Department Center 02/13/2023 [id number] [facility] Comprehensiv No family history on file Level of Service:67363 MS OFFICE/OUTPATIENT ESTABLISHED MOD MDM 30-39 MIN (GC) [facility] 36on 02-05-2023 36 I spoke with patient , she will be coming to see you in clinic next week at [facility] 36on 01-29-2023 36 Surya. Can you call t he patient, thanks [facility] Telephoneon 01-22-2023 Telephone [id number] Diamante Stapleton 1965 F Date Provider Department [place] 01/22/2023 CLAUDE LORENZ [facility] No family history on file [facility] Refillon 01-04-2023 Refill [id number] Diamante Stapleton 1965 F Date Provider Department [place] 01/04/2023 STEVEN HOUSE [facility] No family history on file Reason for Visit and Comments: Med Refill [[id number]] [facility] Orders Onlyon 12-29-2022 Orders Only [id number] Diamante Stapleton 1965 Provider Department [place] 12/29/2022 [id number], SURYA [facility] MED Comprehensiv No family history on file [facility] Office Visiton 11-15-2022 Follow-up visit [id number] Diamante Stapleton 1965 Provider Department [place] 11/15/2022 [id number], SURYA [facility] No family history on file Level of Service:96342 MS OFFICE/OUTPATIENT ESTABLISHED LOW MDM 20-29 MIN (GC) Reason for Visit and Comments: Follow-up [[id number]] - Results for ct and pets scan [facility] Refillon 09-14-2022 Refill [id number] Diamante Stapleton 1965 F Date Provider Department [place] 09/14/2022 STEVEN HOUSE [facility] No family history on file Reason for Visit and Comments: Med Refill [[id number]] [facility] 36on 09-06-2022 36 Called and left message on patients voicemail. [facility] Telephoneon 09-05-2022 Telephone [id number] Diamante Stapleton 1965 Date Provider Department [place] 09/05/2022 CLAUDE LORENZ [facility] No family history on file [facility] 3608-22-2022 36 Pt reports pharmacy did not receive rx for Singulair. When it was approved, the status was set to 'print', so it did not go electronically. I called in and left on pharmacy voicemail. [facility] Orders 08-19-2022 Orders Only [id number] Diamante Stapleton 1965 [facility] Department [place] 08/19/2022 MaikolCLAUDE MONAE [facility] No family history on file [facility] Refillon 08-18-2022 Refill [id number] Diamante Stapleton 1965 [facility] 08/18/2022 STEVEN HOUSE [facility] No family history on file Reason for Visit and Comments: Med Refill [[id number]] [facility] 37on 08-16-2022 37 IgG, IgM, IgA, IgE Singulair, Azithromycin CT chest w/o contrast RTC in 3 months [facility] Follow-Upon 08-16-2022 Follow-Up [id number] Diamante Stapleton 1965 [facility] 08/16/2022 CLAUDE LORENZ [facility] No family history on file Level of Service:24240 MS OFFICE/OUTPATIENT ESTABLISHED MOD MDM 30-39 MIN (GC) Reason for Visit and Comments: Follow-up [[id number]] - 3 month follow up [facility] 36on 06-20-2022 36 Spoke with patient, she said she went to her PCP, the dizziness came from her having wax in her ear. She did do the labs. I let Dr. Zuniga know that has been done patient is due to russian her antibiotic on today [facility] Orders Onlyon 06-16-2022 Orders Only [id number] Diamante Stapleton 1965 Provider Department [place] 06/16/2022 ELIZABETH DOMINGO [facility] No family history on file [facility] 36on 06-14-2022 36 I called and left a message on the voicemail for the patient. Detailed message letting her know that lab work is needed. Normal [facility] Orders Onlyon 06-14-2022 Orders Only [id number] Diamante Stapleton 1965 F Date Provider Department Center 06/14/2022 STEVEN HOUSE [facility] No family history on file [facility] CBC AUTO DIFFon 06-08-2022 BASO # 0.0 103/ul Normal 0.0-0.1 [facility] Comment on above: Performed By: #### T SH, CMP, HSTROPN #### [facility] [address] [place] [address] Dr. Addy Reyes Basophils/100 WBC (Bld) 0.5 % Normal 0.2-2.0 [facility] Comment on above: Performed By: #### T SH, CMP, HSTROPN #### [facility] [address] [place] [address] Dr. Addy Reyes EO # 0.4 103/ul Normal 0.0-0.7 [facility] Comment on above: Performed By: #### T SH, CMP, HSTROPN #### [facility] [address] [place] [address] Dr. Addy Reyes Eosinophils/100 WBC (Bld) 5.0 % Normal 0.9-7.0 [facility] Comment on above: Performed By: #### T SH, CMP, HSTROPN #### [facility] [address] [address] [address] Addy Reyes Erythrocyte distribution width (RBC) [Ratio] 13.9 % Normal 11.0-15.0 [facility] Comment on above: Performed By: #### T SH, CMP, HSTROPN #### [facility] [address] [place] [address] Dr. Addy Reyes Hematocrit (Bld) [Volume fraction] 41.5 % Normal 36.0-48.0 [facility] Comment on above: Performed By: #### T SH, CMP, HSTROPN #### [facility] [address] [place] [address] Dr. Addy Reyes Hemoglobin (Bld) [Mass/Vol] 13.2 g/dL Normal 12.0-16.0 [facility] Comment on above: Performed By: #### T SH, CMP, HSTROPN #### [facility] [address] [place] [address] Dr. Addy Reyes IG # 0.01 10e3/ul Normal 0.00-0.03 [facility] Comment on above: Performed By: #### T SH, CMP, HSTROPN #### [facility] [address] [place] [address] Dr. Addy Reyes IG % 0.1 % Normal 0.0-0.5 [facility] Comment on above: Performed By: #### T SH, CMP, HSTROPN #### [facility] [address] [place] [address] Dr. Addy Reyes LYMPH # 1.7 103/ul Normal 1.2-3.8 [facility] Comment on above: Performed By: #### T SH, CMP, HSTROPN #### [facility] [address] [place] [address] Dr. Addy Reyes Lymphocytes/100 WBC (Bld) 22.4 % Normal 20.5-60.0 [facility] Comment on above: Performed By: #### T SH, CMP, HSTROPN #### [facility] [address] [place] [address] Dr. Addy Reyes MANUAL DIFF REQ NO Normal [facility] Comment on above: Performed By: #### T SH, CMP, HSTROPN #### [facility] [address] [place] [address] Dr. Addy Reyes MCH (RBC) [Entitic mass] 29.5 pg Normal 26.7-34.0 [facility] Comment on above: Performed By: #### T SH, CMP, HSTROPN #### [facility] [address] [place] [address] Dr. Addy Reyes MCHC (RBC) [Mass/Vol] 31.8 g/dL Normal 29.9-35.2 [facility] Comment on above: Performed By: #### T SH, CMP, HSTROPN #### [facility] [address] [place] [address] Dr. Addy Reyes MCV (RBC) [Entitic vol] 92.8 fL Normal 81.0-99.0 [facility] Comment on above: Performed By: #### T SH, CMP, HSTROPN #### [facility] [address] [place] [address] Dr. Addy Reyes MONO # 0.7 103/ul Normal 0.3-0.8 [facility] Comment on above: Performed By: #### T SH, CMP, HSTROPN #### [facility] [address] [place] [address] Dr. Addy Reyes Monocytes/100 WBC (Bld) 8.5 % Normal 1.7-12.0 [facility] Comment on above: Performed By: #### T SH, CMP, HSTROPN #### [facility] [address] [place] [address] Dr. Addy Reyes NEUT # 4.9 103/ul Normal 1.4-6.5 [facility] Comment on above: Performed By: #### T SH, CMP, HSTROPN #### [facility] [address] [place] [address] Dr. Addy Reyes Neutrophils/100 WBC (Bld) 63.5 % Normal 43.0-75.0 [facility] Comment on above: Performed By: #### T SH, CMP, HSTROPN #### [facility] [address] [place] [address] Dr. Addy Reyes Platelet mean volume (Bld) [Entitic vol] 10.7 fL Normal 9.5-13.5 [facility] Comment on above: Performed By: #### T SH, CMP, HSTROPN #### [facility] [address] [place] [address] Dr. Addy Reyes PLT 221 103/ul Normal 150-450 [facility] Comment on above: Performed By: #### T CAROLYN CMP, HSTROPN #### [facility] [address] [address] [address] Addy Reyes RBC 4.47 106/ul Normal 4.20-5.40 [facility] Health Comment on above: Performed By: #### T CAROLYN CMP, HSTROPN #### [facility] [address] [address] [address] Addy Reyes WBC 7.7 103/ul Normal 4.0-11.0 [facility] Comment on above: Performed By: #### T CAROLYN CMP, HSTROPN #### [facility] [address] HEAD WO CONon 06-08-2022 CT HEAD WO CON EXAMINATION: CT HEAD WO CON HISTORY: BENIGN PAROXYSMAL VERTIGO, UNSPECIFIED EAR COMPARISON: 12/28/2021 TECHNIQUE: CT examination of the head without IV contrast. Dose reduction techniques were achieved by using automated exposure control and/or adjustment of mA and/or kV according to patient size and/or use of iterative reconstruction technique. FINDINGS: No acute intracranial hemorrhage. No acute loss of barba/white differentiation. The ventricles and sulci are normal in appearance. The osseous structures are unremarkable. No soft tissue abnormality identified. The paranasal sinuses and mastoid air cells are clear. IMPRESSION: 1. No acute intracranial abnormality. Electronically authenticated by: CADY BROWNLEE Date: 2022-06-08 16:26 Normal [facility] PROF CHEM 8 (BAS METB)on Anion gap [Moles/Vol] 10.4 mmol/L Normal [facility] Comment on above: Performed By: #### T CAROLYN CMP, HSTROPN #### [facility] [id number] Addy Reyes Calcium [Mass/Vol] 8.6 mg/dL Normal 8.5-10.1 [facility] Comment on above: Performed By: #### T SH, CMP, HSTROPN #### [facility] [address] [address] [address] Addy Reyes Chloride [Moles/Vol] 106 mmol/L Normal 98-107 [facility] Comment on above: Performed By: #### T SH, CMP, HSTROPN #### [facility] [address] [place] [address] Dr. Addy Reyes CO2 [Moles/Vol] 28.3 mmol/L Normal 21.0-32.0 [facility] Comment on above: Performed By: #### T SH, CMP, HSTROPN #### [facility] [address] [address] [address] Addy Reyes Creatinine [Mass/Vol] 0.76 mg/dL Normal 0.55-1.02 [facility] Comment on above: Performed By: #### T SH, CMP, HSTROPN #### [facility] [address] [place] [address] Dr. Addy Reyes EGFR-AF QATARI >60 Normal >=60 [facility] Comment on above: Performed By: #### T SH, CMP, HSTROPN #### [facility] [address] [place] [address] Dr. Addy Reyes EGFR-NON AF QATARI >60 Normal >=60 [facility] Comment on above: Performed By: #### T SH, CMP, HSTROPN #### [facility] [address] [place] [address] Dr. Addy Reyes Glucose [Mass/Vol] 104 mg/dL Normal 74-106 [facility] Comment on above: Performed By: #### T SH, CMP, HSTROPN #### [facility] [address] [address] [address] Addy Reyes Potassium [Moles/Vol] 3.7 mmol/L Normal 3.5-5.1 [facility] Comment on above: Performed By: #### T SH, CMP, HSTROPN #### [facility] [address] [address] [address] Addy Reyes Sodium [Moles/Vol] 141 mmol/L Normal 136-145 [facility] Comment on above: Performed By: #### T SH, CMP, HSTROPN #### [facility] [address] [address] [address] Addy Reyes Urea nitrogen [Mass/Vol] 18.0 mg/dL Normal 7.0-18.0 [facility] Comment on above: Performed By: #### T SH, CMP, HSTROPN #### [facility] [address] [address] [address] Addy Reyes Urea nitrogen/Creatinine [Mass ratio] 23.7 mg/mg Normal [facility] Comment on above: Performed By: #### T SH, CMP, HSTROPN #### [facility] [address] [address] [address] Addy Reyes Telephoneon 06-08-2022 Telephone [id number] Diamante Stapleton 1965 Provider Department Center 06/08/2022 [facility] No family history on file [facility] 36on 05-23-2022 [address] 08/16/22. Does he need one sooner. 3 mo supply ordered. [facility] 36 Approving, but needs appt for additional refills. Normal [facility] 36 I called and left a message on the voicemail for patient letting her know that [facility] doesn't normally deal with nebulizers, she would need to get that from a [facility] company. I asked her to call back if the message was to be something different. [facility] Telephoneon 05-23-2022 Telephone [id number] Diamante Stapleton 1965 Provider Department Center 05/23/2022 [facility] No family history on file Reason for Visit and Comments: Med Refill [643939] Nebulizer [Other] [facility] Follow-Upon 05-17-2022 Follow-Up [id number] Diamante Stapleton 1965 Provider Department Center [facility] family history on file Level of Service:31937 MS OFFICE/OUTPATIENT ESTABLISHED MOD MDM 30-39 MIN () Reason for Visit and Comments: Follow-up [[id number]] - Go over test results from Bronch and discuss medications. [facility] Letter (Out)on 05-12-2022 Letter (Out) [id number] Diamante Stapleton 1965 F Provider Department Center 05/12/[address] [place] [address] [facility] OR [facility] C No family history on file [facility] Orders Onlyon 05-12-2022 Orders Only [id number] Diamante Stapleton 1965 F Provider Department Center 05/12/[address] [place] [address] OR [facility] C No family history on file [facility] Telephoneon 05-12-2022 Telephone [id number] Diamante Stapleton 1965 F Provider Department [place] 05/12/2022 [facility] No family history on file Reason for Visit and Comments: Med Refill [[id number]] - Pharmacy states they need additional info on the sig for the tobramycin inhaler. Please give them a call. [facility] Orders Onlyon 05-10-2022 Orders Only [id number] Diamante Stapleton 1965 Provider Department Center 05/10/2022 [facility] Comprehensiv No family history on file [facility] Orders Onlyon 05-05-2022 Orders Only [id number] Ofelia Stapletonalanna Parish 1965 Provider Department Center 05/05/2022 [facility] No family history on file [facility] 29on 05-03-2022 29 Encounter addended b y: Jimmy Burciaga MD on: 07/12/2022 4:53 PM Actions taken: Clinical Note Signed [facility] 29 Encounter addended b y: Lalito Bourgeois MD on: 07/13/2022 1:15 PM Actions taken: Cosign clinical note with attestation [facility] Center AFB CULTUREon 05-03-2022 AFB CULTURE No growth at 42 days Normal [facility] Comment on above: Performed By: #### L [id number] #### [facility] [address] [place] [address] AFB STAIN No acid fast bacilli seen Normal [facility] Comment on above: Performed By: #### L [id number] #### [facility] ([facility]) [address] [place] [address] AFB CULTURE No growth at 42 days Normal [facility] Comment on above: Performed By: #### L [id number] #### [facility]) [address] [place] [address] AFB STAIN No acid fast bacilli seen Normal [facility] Comment on above: Performed By: #### L [id number] #### [facility]) [address] [place] [address] ANESon 05-03-2022 ANES -- Attestation signed by Lalito Bourgeois MD at 05/03/2022 10:19 AM Agree Indication Bronchiectasis unknown etiology immotile cilia? 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 Previously had normal immunoglobulins and negative hypersensitivity panel Negative work-up for Ig E Negative work-up for cystic fibrosis with negative sweat chloride in the past She had infectious bronchiectasis in the right upper lobe. She required multiple rounds of antibiotics. She also had complications of collapsed lung after a transbronchial biopsy was performed. She had empyema with a subsegment of the right middle lobe ultimately being removed. Currently maintained on LABA/ICS, 3 times weekly Zithromax due to recurrent exacerbations of bronchiectasis.She does have shortness of breath with considerable exertion but does not feel that this is worsening. Patient was seen in the clinic on 04/05/2022 and plan was schedule for bronch. Past Medical History Anxiety COPD (chronic obstructive pulmonary disease) ([facility]) Depression Migraines Vertigo Allergies Acetaminophen Other reaction(s): Rash Zanaflex [Tizanidine] Amoxicillin Rash Other reaction(s): Rash Azithromycin Itching and Rash Codeine Itching and Rash Doxycycline Hyclate Itching and Rash Fentanyl Itching and Rash Hydromorphone Itching and Rash Morphine Itching and Rash Oxycodone-Acetaminophe n Itching and Rash Trazodone Itching and Rash Medications Reviewed Review of Systems All other systems reviewed and are negative. test completed prior to procedure on any menstruating female: none NPO guidelines met: Yes Physical Exam Airway Mallampati: 3 Neck ROM: full Cardiovascular Rhythm: regular (-) murmur, friction rub Dental Pulmonary (-) rhonchi, decreased breath sounds, wheezes, rales Normal [facility] BODY FLUID CELL DIFFERENTIAL on 05-03-2022 BASOPHILS TOTAL PER COUNTED LEUKOCYTES IN BODY FLUID BY MANUAL COUNT Normal [facility] Comment on above: Order Comment: Diffe rential performed on cytospin Performed By: #### L [id number] ####[facility] ([facility])[address] [place] [address] CELLS COUNTED TOTAL (#) IN BODY FLUID 100 Normal [facility] Comment on above: Order Comment: Diffe rential performed on cytospin Performed By: #### L [id number] ####[facility] ([facility])[address] [place] [address] EOSINOPHILS TOTAL PER COUNTED LEUKOCYTES IN BODY FLUID BY MANUAL COUNT Normal [facility] Comment on above: Order Comment: Diffe rential performed on cytospin Performed By: #### L [id number] ####[facility] ([facility])[address] [place] [address] LYMPHOCYTES TOTAL PER COUNTED LEUKOCYTES IN BODY FLUID BY MANUAL COUNT 6 [facility] Comment on above: Order Comment: Diffe rential performed on cytospin Performed By: #### L [id number] ####[facility] [place] [address] MESOTHELIAL CELLS TOTAL PER COUNTED LEUKOCYTES IN BODY FLUID BY MANUAL COUN [facility] Comment on above: Order Comment: Diffe rential performed on cytospin Performed By: #### L [id number] ####[facility] ([facility])[address] [place] [address] MONOCYTES+MACROPHAG ES TOTAL PER COUNTED LEUKOCYTES IN BODY FLUID BY MANUAL 5 [facility] Comment on above: Order Comment: Diffe rential performed on cytospin Performed By: #### L [id number] ####[facility] ([facility])[address] [place] [address] NEUTROPHILS TOTAL PER COUNTED LEUKOCYTES IN BODY FLUID BY MANUAL COUNT 89 [facility] Comment on above: Order Comment: Diffe rential performed on cytospin Performed By: #### L [id number] ####[facility] ([facility])[address] [place] [address] OTHER CELLS BODY FLUID (MANUAL) [facility] Comment on above: Order Comment: Diffe rential performed on cytospin Performed By: #### L [id number] ####[facility] ([facility])[address] [place] [address] ELECTRON MICROSCOPYon 2022 LAB AP DIAGNOSIS COMMENT [facility] Comment on above: Result Comment: I am reluctant to diagnose Ms. Diamante Stapleton with Kartagener syndrome for three specific reasons: 1). She does not have situs inversus (present in ~50% of Kartagener patients), 2). Synchronous ciliary motion was observed, albeit less frequent than expected at 4-5 beats per second (normal ~7-22 bps), 3). Some cilia observed on cross section appear to have normal outer dynein arms. Inner dynein arms are rarely seen but the inner arms are extremely difficult to observe in any evaluation of ciliary morphology. Kartagener syndrome has been diagnosed in some studies with as few as 25% of the cilia lacking outer dynein arms. If situs inversus was present, I would state that the ciliary abnormalities would support a diagnosis of Kartagener syndrome. Performed By: #### E LECTRON MICROSCOPY ####[facility] ([facility])[address] [place] [address] LAB AP MICROSCOPIC DESCRIPTION Normal [facility] Comment on above: Result Comment: A. T maynor brushing biopsy: Numerous ciliated cells are identified upon review by light microscopy. Many fragments of tissue are observed related to the mechanical damage related to the biopsy technique. Necrosis is not present nor are inflammatory cells. At the ultrastructural level, there is no evidence of pathologic alteration of ciliary cell structure including kinetochores, basal feet, and anchoring cytoplasmic filaments. The ciliary necklace is intact with no evidence ciliary shaft fractures. Cilia examined in cross section have a normal number of microtubules (9 + 2) with associated radial spikes and no evidence of translocation of doublets or singlet microtubules. There is also no evidence of compound cilia. However, many of the outer dynein arms of microtubular doublets appear to be abnormal. Some dynein arms appear to be residual or totally lacking and some cilia have a normal complement of dynein arms (see images). B. Right lower lobe bronchial brushing biopsy: Examination of a wet prep for light microscopy reveals some ciliated cells with robust ciliary motion that appears to be synchronous. The ciliary beat frequency is less than expected with approximately 4-5 beats per second (normal 7-22 bps). The number of ciliated cells are few. This sample was subsequently placed into 3% glutaraldehyde and processed for ultrastructural examination. Using light microscopy to inspect epoxy embedded tissue, fewer ciliated cells were observed than in sample A, the tracheal brushing biopsy. Similar fragmented cells were also observed as in sample A, but some necrotic tissue and associated neutrophils were found. Using electron microscopy, ciliated cells had similar morphology to that observed in sample A. C. Right upper lobe bronchial brushing biopsy: Most of the sample at the light microscopic level is necrotic with numerous neutrophils present. At the ultrastructural level, a few ciliated cells are observed with only the cytoplasmic apparatus present as ciliary shafts have been sheared form the apex of all cells observed. As noted by light microscopy, essentially the entire mucosa is necrotic with a number of neutrophils phagocytizing diplococcal organisms. Performed By: #### E LECTRON MICROSCOPY ####[facility] ([facility])[address] [place] [address] LAB AP CASE REPORT Normal [facility] Comment on above: Result Comment: Elec simona Microscopy Case: [id number] Authorizing Provider: James Bourgeois Collected: 05/03/2022 0000 Ordering Location: [facility] Received: 05/03/2022 1319 Pathologist: Wade Patten, PhD Cosigner: Cheryl Nolan MD Specimen: Bronchial brushing Performed By: #### E LECTRON MICROSCOPY ####[facility] [place] [address] Result Comment: Non- gynecologic Cytology Case: [id number] Authorizing Provider: Lalito Bourgeois MD Collected: 05/03/2022 1052 Ordering Location: [facility] Received: 05/03/2022 1222 [facility] Pathologist: Cheryl Nolan MD Specimen: Bronchoalveolar lavage, right upper lobe Performed By: #### L [id number] #### [facility] ([facility]) [address] [place] [address] LAB AP GROSS DESCRIPTION Normal [facility] Comment on above: Result Comment: A. B ronchial brushing. Received fresh is a brushing biopsy of tracheal mucosa submitted for electron microscopy to evaluate ciliary morphology. Dimensions: the tip of a cytology biopsy brush which is immediately placed into 3% glutaraldehyde fixative. B. Bronchial brushing. Received fresh is a brushing biopsy of bronchial mucosa from the right lower lung lobe, submitted for electron microscopy to evaluate ciliary morphology. Dimensions: the tip of a cytology biopsy brush which is submitted fresh for light microscopic evaluation of ciliary motion and subsequently placed into 3% glutaraldehyde fixative. C. Bronchial brushing. Received fresh is a brushing biopsy of bronchial mucosa from the right upper lung lobe, submitted for electron microscopy to evaluate ciliary morphology. Dimensions: the tip of a cytology biopsy brush which is immediately placed into 3% glutaraldehyde fixative. . Performed By: #### E LECTRON MICROSCOPY ####[facility] ([facility])[address] [place] [address] Result Comment: 15 m L pink, cloudy fluid Performed By: #### L [id number] #### [facility] ([facility]) [address] [place] [address] LAB AP REPORT FINAL DIAGNOSIS NARRATIVE Normal [facility] Comment on above: Result Comment: A., B., and C. Tracheal and right lung brushing biopsies have abnormal microtubular dynein arms, suggestive of ciliary dyskinesia. (See comment, microscopy descriptions, and direct marketing representative images). Performed By: #### E LECTRON MICROSCOPY ####[facility] ([facility])[address] [place] [address] Result Comment: A. L demond, right upper lobe, bronchoalveolar lavage: - Negative for malignancy. - Marked acute inflammation and blood. B. Trachea, brushing: - Specimen received for electron microscopy. (See [id number]). C. Lung, right upper lobe, bronchial brushing. - Specimen received for electron microscopy. (See [id number]). D. Lung, right lower lobe, bronchial brushing: - Specimen received for electron microscopy. (See [id number]). Performed By: #### L [id number] #### [facility] ([facility]) [address] [place] [address] FUNGAL CULTUREon 05-03-2022 FUNGAL SMEAR No yeast or fungal elements seen Normal [facility] Comment on above: Performed By: #### L [id number] #### [facility] ([facility]) [address] [place] [address] FUNGAL SMEAR No yeast or fungal elements seen Normal [facility] Comment on above: Performed By: #### L [id number] #### [facility] ([facility]) [address] [place] [address] [facility] 05-03-2022 -- Attestation signed by Lalito Bourgeois MD at 07/13/2022 12:50 PM (Updated) I personally saw and examined the patient on the same date of service as resident/fellow salvatore. I discussed the findings and therapeutic plan with the resident/fellow salvatore. I agree with the documentation, except for any edits/updates below. Teaching Physician's Revisions: Lalito Bourgeois MD Pulmonology Note Patient : Diamante Stapleton : 1965 Location: No information available for this encounter. 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 Previously had normal immunoglobulins and negative hypersensitivity panel Negative work-up for Ig E Negative work-up for cystic fibrosis with negative sweat chloride in the past She had infectious bronchiectasis in the right upper lobe. She required multiple rounds of antibiotics. She also had complications of collapsed lung after a transbronchial biopsy was performed. She had empyema with a subsegment of the right middle lobe ultimately being removed. Currently maintained on LABA/ICS, 3 times weekly Zithromax due to recurrent exacerbations of bronchiectasis.She does have shortness of breath with considerable exertion but does not feel that this is worsening. Patient was seen in the clinic on 04/05/2022 and plan was schedule for bronch. Assessment: Chronic bronchitis, unspecified chronic bronchitis Bronchiectasis without acute exacerbation Plan: Will proceed with Bronch with BAL and cytology Patient has been NPO since midnight Consent in the chart Further recommendations to follow Past History/Allergies?Soci al History: Past Medical History: Diagnosis Date Anxiety COPD (chronic obstructive pulmonary disease) ([facility]) Depression Migraines Vertigo Allergies Allergen Reactions Acetaminophen Other reaction(s): Rash Zanaflex [Tizanidine] Amoxicillin Rash Other reaction(s): Rash Azithromycin Itching and Rash Codeine Itching and Rash Doxycycline Hyclate Itching and Rash Fentanyl Itching and Rash Hydromorphone Itching and Rash Morphine Itching and Rash Oxycodone-Acetaminophe n Itching and Rash Trazodone Itching and Rash Social History Socioeconomic History Marital status: Spouse name: Not on file Number of children: Not on file Years of education: Not on file Highest education level: Not on file Occupational History Not on file Tobacco Use Smoking status: Never Smokeless tobacco: Never Substance and Sexual Activity Alcohol use: Never Drug use: Never Sexual activity: Yes Partners: Male Other Topics Concern Not on file Social History Narrative Not on file Social Determinants of Health Financial Resource Strain: Not on file Food Insecurity: Not on file Transportation Needs: Not on file Physical Activity: Not on file Stress: Not on file Social Connections: Not on file Intimate Partner Violence: Not on file Housing Stability: Not on file Family History: No family history on file. Outpatient Medications: Current Outpatient Medications: albuterol 2.5 mg /3 mL (0.083 %) nebulizer solution, Inhale 3 mL every 4-6 hours by nebulization route as needed., Disp: , Rfl: albuterol 90 mcg/actuation inhaler, Inhale 2 puffs every 4 hours by inhalation route for 90 days., Disp: 18 g, Rfl: 11 amantadine (Symmetrel) 100 mg capsule, amantadine HCl 100 mg capsule TAKE 1 CAPSULE BY MOUTH TWICE A DAY, Disp: , Rfl: amitriptyline (Elavil) 50 mg tablet, amitriptyline 50 mg tablet TAKE 1 AND 1/2 TABLETS BY MOUTH NIGHTLY, Disp: , Rfl: azithromycin (Zithromax) 250 mg tablet, Zithromax 250 mg tablet Take 1 tablet every 72 hours by oral route in the morning for 365 days., Disp: 90 tablet, Rfl: 1 baclofen (Lioresal) 10 mg tablet, baclofen 10 mg tablet TAKE 1.5 TABLETS BY MOUTH 3 TIMES DAILY., Disp: , Rfl: benzonatate (Tessalon) 100 mg capsule, benzonatate 100 mg capsule TAKE 1 CAPSULE BY MOUTH THREE TIMES A DAY NEEDED, Disp: , Rfl: buPROPion XL (Wellbutrin XL) 300 mg 24 hr tablet, bupropion HCl XL 300 mg 24 hr tablet, extended release TAKE 1 TABLET BY MOUTH EVERY DAY IN THE MORNING, Disp: , Rfl: busPIRone (Buspar) 30 mg tablet, Take 30 mg by mouth., Disp: , Rfl: cyclobenzaprine (Flexeril) 10 mg tablet, cyclobenzaprine 10 mg tablet, Disp: , Rfl: cyclobenzaprine (Flexeril) 5 mg tablet, cyclobenzaprine 5 mg tablet TAKE 1 TABLET BY MOUTH THREE TIMES A DAY NEEDED, Disp: , Rfl: dalfampridine 10 mg tablet extended release 12 hr, dalfampridine ER 10 mg tablet,extended release,12 hr, Disp: , Rfl: diazePAM (Valium) 5 mg tablet, Take 5 mg by mouth., Disp: , Rfl: fish oil concentrate (Gorman-3) 120-180 mg ca (more content not included)... Normal [facility] NON-BOILER INSPECTOR CYTOLOGY - CELLULAR EXAMon 05-03-2022 LAB AP CLINICAL INFORMATION J47.9 - Bronchiectasis without acute exacerbation (CMS/HCC) [ICD-10-CM]. [facility] Comment on above: Performed By: #### L [id number] #### [facility]) [address] [place] [address] OPNOTEon 05-03-2022 OPNOTE -- Attestation signed by Lalito Bourgeois MD at 07/13/2022 12:50 PM agree Flexible fiberoptic bronchoscopy with BAL Pre-op Diagnosis: Chronic bronchitis and bronchiectasis Post-op Diagnosis: Same Attending physician: Dr. Bourgeois was present during the entire procedure Fellow: Jimmy Burciaga Anesthesia: 8 mg of Versed used during the procedure Starting time: 10:30 am, ending time 11am Procedure: 1. Flexible fiberoptic bronchoscopy with BAL, and cytology brush Indications and History (Please see today's progress notes for the latest issues, physical exam and lab data) Consent to Procedure The risks, benefits, complications, treatment options and expected outcomes were discussed with patient. The possibilities of reaction to medication, pulmonary aspiration, perforation of a viscus, bleeding, failure to diagnose a condition and creating a complication requiring transfusion or operation were discussed with the patient and/or POA who freely signed the consent. Description of Procedure Patient was placed on nasal cannula A Time Out was held and the above information confirmed. Lidocaine gel was applied in the left nostril, The bronchoscope was then passed into left nostril. Lidocaine 1% solution 10 ml at a time was applied topically to the vocal cord tre. After careful inspection of the tracheal, lidocaine was applied to the tre and then the bronchoscope was sequentially passed into all segments of right and left endobronchial trees to the second and/or third divisions. Then a brush cytology was applied in the trachea/ right lower and upper lobe. Then the bronch was wedged in the right upper lobe and about 60 ml instilled with 25 ml of fluid retrieved, after the BAL bleeding was noticed from the right upper lobe, bronch was immediatly wedged there for tamponading and epinephrine was injected to control the bleeding. Bleeding was stopped after and quick inspection with the bronch didn't show any further bleeding, airway was cleaned and Bronch was removed. Endobronchial findings Distal trachea: Normal with no significant lesion. Tre: Sharp with no mass. Right endobronchial trees: Normal with no significant lesion. Left endobronchial trees: Normal with no significant lesion. Specimens Taken: cytological brush from the trachea, right upper and lower lobe. BAL from the right upper lobe. After the procedure, patient was having high blood pressure to 220s/110s mmHg, at which 10 mg of hydralazine was given. Patient was moved to PACU after. In PACU, patient blood pressure dropped to mid 80s which was improved after the fluid bolus. Also she had a panic attack and she received 1 dose of Ativan. Patient was observed in PACU for 5 hrs, patient reports improvement in her breathing also she was vitally stable. Patient to be discharged home and to [facility] Dr[facility] and critical [facility] fellow [facility] Normal [facility] PATHOLOGY REVIEWon PATHOLOGY REVIEW Electronically reji d by Carissa Mancuso MD on 05/08/22 at 12:20 PM. Normal [facility] Comment on above: Order Comment: Intra cellular bacteria present. Performed By: #### L [id number] ####[facility])[address] [place] [address] RESPIRATORY CULTUREon 2022 Bacteria identified Cx Nom (Unsp spec) Abnormal [facility] Comment on above: Result Comment: STAP HYLOCOCCUS AUREUS >27959 CFU/mL Staphylococcus aureus For Susceptibility Results Please Refer to PSEUDOMONAS AERUGINOSA >01447 CFU/mL Pseudomonas aeruginosa For Susceptibility Results Please Refer to Performed By: #### L [id number] #### [facility]) [address] [place] [address] GRAM STAIN RESULT Normal [facility] Comment on above: Result Comment: Poly morphonuclear leukocytes Gram positive cocci in clusters Cytocentrifuge sample Performed By: #### L [id number] #### [facility] [address] [place] [address] Aztreonam [Susc] <=2 Susceptible [facility] Comment on above: Performed By: #### L [id number] ####[facility])[address] [place] [address] Cefepime [Susc] 8 ug/ml Susceptible [facility] Comment on above: Performed By: #### L [id number] ####[facility])[address] [facility] [place] [address] Ciprofloxacin [Susc] >2 Resistant [facility] Comment on above: Performed By: #### L [id number] ####[facility])[address] [facility] [place] [address] Gentamicin [Susc] <=2 Susceptible [facility] Comment on above: Performed By: #### L [id number] ####[facility])[address] [facility] [place] [address] levoFLOXacin [Susc] 4 ug/ml Resistant [facility] Comment on above: Result Comment: This is an appended report. These results have been appended to a previously final verified report. Performed By: #### L [id number] ####[facility])[address] [facility] [place] [address] Meropenem [Susc] <=0.5 Susceptible [facility] Comment on above: Performed By: #### L [id number] ####[facility])[address] [facility] [place] [address] Piperacillin+Tazoba ctam [Susc] <=2/4 Susceptible [facility] Comment on above: Performed By: #### L [id number] ####[facility])[address] [facility] [place] [address] Tobramycin [Susc] <=2 Susceptible [facility] Comment on above: Performed By: #### L [id number] ####[facility])[address] [facility] [place] [address] Prep for Procedureon 023 Prep for Procedure [id number] Diamante Stapleton 1965 F Date Provider Department Center 04/14/2022 [facility] Medical C No family history on file Normal [facility] SCREENING MAMMOGRAM W/LIBRA, BILATERAL*on 04-14-2022 SCREENING MAMMOGRAM W/LIBRA, BILATERAL* COMPARISON: Dating back to January 21, 2021, January 20, 2020 and September 04, 2018. TECHNIQUE: 2D and 3D Tomosynthesis of the right and left breasts was performed. FINDINGS: Breast composition demonstrates scattered fibroglandular densities. Overall appearance stable. No suspicious microcalcifications, dominant mass lesions, or distortion is present. IMPRESSION: BI-RADS 1- Negative Mammogram Board Certified Radiologist. Accredited by the ACR and FDA. MAMMOGRAPHY IS VERY IMPORTANT TO YOUR HEALTH. THE CURRENT [employer] OF [employer] AND N[employer] COMPREHENSIVE CANC[employer] NETWORK GUIDELINES RECOMMENDS ANNUAL MAMMOGRAPHY BEGINNING AT AGE 39 THIS FACILITY USES A REMINDER SYSTEM TO ENSURE ALL PATIENTS RECEIVE REMINDER NOTIFICATIONS AT THE APPROPRIATE TIME BASED ON THE RECOMMENDATIONS OF THIS EXAM. Report reported and signed by Gopi Renteria on 04/14/2022 1009 Normal [facility] XR Chest 2 Views*on 04-13-19 23 XR Chest 2 Views* FINDINGS: Comparison made with prior chest x-ray December 04, 2019. Right hilar surgical material, post-surgical volume loss status post right middle lobectomy. New blunting of the right lateral CP angle with slight diffuse interstitial prominence within the remaining right lower lobe. Decreased nodularity within the upper lobe and retracted minor and major fissures. No pulmonary edema. IMPRESSION: 1. Right lower lobe interstitial findings can be consistent with interstitial pneumonia given this history 2. Severe right upper lobe bullous formation, presumed bronchiectassis status post right middle lobectomy, thoracotomy Report reported and signed by Gopi Renteria on 04/14/2022 0741 Normal [facility] Orders Onlyon 04-12-2022 Orders Only [id number] Diamnate Stapleton 1965 F Date Provider Department Center 04/12/2022 [facility] No family history on file Normal [facility] Follow-Upon 04-05-2022 Follow-Up [id number] Diamante Stapleton 1965 F Date Provider Department Center 04/05/2022 [facility] No family history on file Level of Service:88085 MS OFFICE/OUTPATIENT ESTABLISHED [facility] 30-39 MIN () Reason for Visit and Comments: Follow-up [[id number]] - 4 month f/u Normal [facility] XR CHEST 1 Von 01-09-2022 XR CHEST 1 V EXAM: XR CHEST 1 V a t 1652 hours HISTORY: SHORTNESS OF BREATH . The patient also has cough and a history of Covid-19. COMPARISON: 12/28/2021 TECHNIQUE: AP upright portable chest x-ray FINDINGS: Significant interval worsening of the infiltrate involving the upper right lung, with multiple small cavities. The right lower lung and left lung remain clear and there is no evidence of effusion or pneumothorax. The heart is not enlarged and the vasculature is not distended. The osseous structures are grossly intact. IMPRESSION: Significant interval worsening of the infiltrate with multiple small cavities seen in the mid to upper right lung. There is no evidence of overt cardiac decompensation. The overall appearance of the chest is otherwise unchanged. Electronically authenticated by: FARHAD RAMÍREZ Date: 2022-01-09 17:43 Normal [facility] CBC AUTO DIFFon 12-28-2021 BASO # 0.0 103/ul Normal 0.0-0.1 [facility] Comment on above: Performed By: #### T SH, CMP, HSTROPN #### [facility] [address] [address] [address] Addy Reyes Basophils/100 WBC (Bld) 0.3 % Normal 0.2-2.0 [facility] Comment on above: Performed By: #### T SH, CMP, HSTROPN #### [facility] [address] [address] [address] Addy Reyes EO # 0.2 103/ul Normal 0.0-0.7 [facility] Comment on above: Performed By: #### T SH, CMP, HSTROPN #### [facility] [address] [address] [address] Addy Reyes Eosinophils/100 WBC (Bld) 1.3 % Normal 0.9-7.0 [facility] Comment on above: Performed By: #### T SH, CMP, HSTROPN #### [facility] [address] [address] [address] Addy Reyes Erythrocyte distribution width (RBC) [Ratio] 13.8 % Normal 11.0-15.0 [facility] Comment on above: Performed By: #### T SH, CMP, HSTROPN #### [facility] [address] [place] [address] Dr. Addy Reyes Hematocrit (Bld) [Volume fraction] 40.1 % Normal 36.0-48.0 [facility] Comment on above: Performed By: #### T SH, CMP, HSTROPN #### [facility] [address] [place] [address] Dr. Addy Reyes Hemoglobin (Bld) [Mass/Vol] 13.0 g/dL Normal 12.0-16.0 [facility] Comment on above: Performed By: #### T SH, CMP, HSTROPN #### [facility] [address] [place] [address] Dr. Addy Reyes IG # 0.05 10e3/ul Critically high 0.00-0.03 [facility] Comment on above: Performed By: #### T SH, CMP, HSTROPN #### [facility] [address] [place] [address] Dr. Addy Reyes IG % 0.4 % Normal 0.0-0.5 [facility] Comment on above: Performed By: #### T SH, CMP, HSTROPN #### [facility] [address] [place] [address] Dr. Addy Reyes LYMPH # 1.4 103/ul Normal 1.2-3.8 [facility] Comment on above: Performed By: #### T SH, CMP, HSTROPN #### [facility] [address] [place] [address] Dr. Addy Reyes Lymphocytes/100 WBC (Bld) 11.9 % Critically low 20.5-60.0 [facility] Comment on above: Performed By: #### T SH, CMP, HSTROPN #### [facility] [address] [place] [address] Dr. Addy Reyes MANUAL DIFF REQ NO Normal [facility] Comment on above: Performed By: #### T SH, CMP, HSTROPN #### [facility] [address] [place] [address] Dr. Addy Reyes MCH (RBC) [Entitic mass] 30.2 pg Normal 26.7-34.0 [facility] Comment on above: Performed By: #### T SH, CMP, HSTROPN #### [facility] [address] [place] [address] Dr. Addy Reyes MCHC (RBC) [Mass/Vol] 32.4 g/dL Normal 29.9-35.2 [facility] Comment on above: Performed By: #### T SH, CMP, HSTROPN #### [facility] [address] [place] [address] Dr. Addy Reyes MCV (RBC) [Entitic vol] 93.3 fL Normal 81.0-99.0 [facility] Comment on above: Performed By: #### T SH, CMP, HSTROPN #### [facility] [address] [place] [address] Dr. Addy Reyes MONO # 1.0 103/ul Critically high 0.3-0.8 [facility] Comment on above: Performed By: #### T SH, CMP, HSTROPN #### [facility] [address] [place] [address] Dr. Addy Reyes Monocytes/100 WBC (Bld) 8.1 % Normal 1.7-12.0 [facility] Comment on above: Performed By: #### T SH, CMP, HSTROPN #### [facility] [address] [place] [address] Dr. Addy Reyes NEUT # 9.2 103/ul Critically high 1.4-6.5 [facility] Comment on above: Performed By: #### T SH, CMP, HSTROPN #### [facility] [address] [place] [address] Dr. Addy Reyes Neutrophils/100 WBC (Bld) 78.0 % Critically high 43.0-75.0 [facility] Comment on above: Performed By: #### T SH, CMP, HSTROPN #### [facility] [address] [place], [place] [address] Dr. Addy Reyes Platelet mean volume (Bld) [Entitic vol] 10.2 fL Normal 9.5-13.5 [facility] Comment on above: Performed By: #### T SH, CMP, HSTROPN #### [facility] [address] [place], [place] [address] Dr. Addy Reyes PLT 213 103/ul Normal 150-450 [facility] Comment on above: Performed By: #### T SH, CMP, HSTROPN #### [facility] [address] [address] [address] Addy Reyes RBC 4.30 106/ul Normal 4.20-5.40 [facility] Comment on above: Performed By: #### T SH, CMP, HSTROPN #### [facility] [address] [address] [address] Addy Reyes WBC 11.8 103/ul Critically high 4.0-11.0 [facility] Comment on above: Performed By: #### T SH, CMP, HSTROPN #### [facility] [address] CSPINE WO CONon 2 CT CSPINE WO CON CT CERVICAL SPINE WITHOUT IV CONTRAST. INDICATION: Syncope. COMPARISON: CTA chest dated 11/13/2019 TECHNIQUE: CT of the cervical spine without contrast. Orthogonal sagittal and coronal multiplanar reformatted images were created. . FINDINGS: BONY ALIGNMENT: There is normal cervical lordosis. No spondylolisthesis. VERTEBRAL BODY: No acute fracture of the cervical spine. Intervertebral disc spaces are intact. CENTRAL CANAL/NEURAL FORAMINA: No high-grade central canal or neuroforaminal stenosis. Moderate right C3-C4 neural foraminal stenosis. SOFT TISSUE: No mass or inflammation. UPPER LUNGS: Redemonstrated cavitary nodules in the apices. IMPRESSION: 1. No acute cervical spinal fracture. 2. No high-grade central canal or neuroforaminal stenosis. 3. Moderate right C3-C4 neural foraminal stenosis. 4. Redemonstrated biapical cavitary pulmonary nodules. Electronically authenticated by: PATRICIA CANNON Date: 2021-12-28 16:58 Normal [facility] CT HEAD WO CONon 12-28-2021 CT HEAD WO CON CT head without contrast CLINICAL: Syncope. History of MS. TECHNIQUE: Contiguous transaxial images were obtained from skull base to vertex without administration of intravenous contrast. Dose reduction: mA and/or kV are were adjusted by automated exposure control software based upon patients height and weight. FINDINGS: Comparison made to brain MRI dated 12/23/[address] dated 10/08/2011. There is no focal scalp soft tissue swelling or acute calvarial fracture. The visualized globes and orbits are grossly normal. There is opacification of the right maxillary sinus. There are no paranasal sinus air-fluid levels Bilateral mastoid air cells are clear. The ventricles and sulci are normal and symmetric bilaterally. There is minimal periventricular and deep subcortical white matter low-attenuation. There is no intraparenchymal hemorrhage, extraaxial fluid collection, mass lesion, or acute large territory ischemia by noncontrast CT. IMPRESSION: 1. No acute intracranial hemorrhage or acute large territory ischemia by noncontrast CT. 2. Minimal periventricular and deep subcortical white matter low-attenuation may represent sequela of small vessel ischemic disease versus demyelinating disease given patient's history of MS. Electronically authenticated by: NANY CHOWDHURY Date: 2021-12-28 16:46 Normal [facility] ER URINE PROFILEon 2 Bilirubin Ql (U) Negative Normal NEGATIVE [facility] Comment on above: Performed By: #### T CAROLYN, CMP, HSTROPN #### [facility] [address] [place] [address] Dr. Addy Reyes Clarity (U) CLEAR Normal CLEAR [facility] Comment on above: Performed By: #### T SH, CMP, HSTROPN #### [facility] [address] [address] [address] Addy Ryees Color (U) LT. YELLOW Normal YELLOW [facility] Comment on above: Performed By: #### T SH, CMP, HSTROPN #### [facility] [address] [place] [address] Dr. Addy Reyes ERUAHD A micrscopic examination will be performed if indicated. Normal [facility] Comment on above: Performed By: #### T SH, CMP, HSTROPN #### [facility] [address] [address] [address] Addy Reyes Glucose Ql (U) Negative Normal NEGATIVE [facility] Comment on above: Performed By: #### T SH, CMP, HSTROPN #### [facility] [address] [address] [address] Addy Reyes Hemoglobin Ql (U) Negative Normal NEGATIVE [facility] Comment on above: Performed By: #### T SH, CMP, HSTROPN #### [facility] [address] [address] [address] Addy Reyes Ketones Ql (U) Negative Normal NEGATIVE [facility] Comment on above: Performed By: #### T SH, CMP, HSTROPN #### [facility] [address] [place] [address] Dr. Addy Reyes LEUKOCYTES TRACE Abnormal NEGATIVE [facility] Comment on above: Performed By: #### T SH, CMP, HSTROPN #### [facility] [address] [address] [address] Addy Reyes Nitrite Ql (U) Negative Normal NEGATIVE [facility] Comment on above: Performed By: #### T SH, CMP, HSTROPN #### [facility] [address] [address] [address] Addy Reyes pH (U) 6.0 [pH] Normal 5-9 [facility] Comment on above: Performed By: #### T SH, CMP, HSTROPN #### [facility] [address] [address] [address] Addy Reyes SPEC GRAVITY <=1.005 Abnormal 1.005-<=1.025 [facility] Comment on above: Performed By: #### T SH, CMP, HSTROPN #### [facility] [address] [address] [address] Addy Reyes UA PROTEIN Negative Normal NEGATIVE/ TRACE [facility] Comment on above: Performed By: #### T SH, CMP, HSTROPN #### [facility] [address] [place] [address] Dr. Addy Reyes UR MICRO IND INDICATED Normal [facility] Comment on above: Performed By: #### T SH, CMP, HSTROPN #### [facility] [address] [address] [address] Addy Reyes Urobilinogen Qn (U) 0.2 {Ritesh'U}/dL Normal 0.2 - 1. 0 [facility] Comment on above: Performed By: #### T SH, CMP, HSTROPN #### [facility] [address] [address] [address] Addy Reyes PROF 14(COMP METB)on 022 Albumin [Mass/Vol] 3.3 g/dL Critically low 3.4-5.[address] [facility] Comment on above: Performed By: #### T SH, CMP, HSTROPN #### [facility] [address] [address] [address] Addy Reyes Albumin/Globulin [Mass ratio] 0.9 {ratio} Normal [facility] Comment on above: Performed By: #### T SH, CMP, HSTROPN #### [facility] [address] [place] [address] Dr. Addy Reyes ALP [Catalytic activity/Vol] 115 U/L Normal 46-116 [facility] Comment on above: Performed By: #### T SH, CMP, HSTROPN #### [facility] [address] [place] [address] Dr. Addy Reyes ALT [Catalytic activity/Vol] 32 U/L Normal 14-59 [facility] Comment on above: Performed By: #### T SH, CMP, HSTROPN #### [facility] [address] [place] [address] Dr. Addy Reyes Anion gap [Moles/Vol] 4.6 mmol/L Normal [facility] Comment on above: Performed By: #### T SH, CMP, HSTROPN #### [facility] [address] [address] [address] Addy Reyes AST [Catalytic activity/Vol] 17 U/L Normal 15-37 [facility] Comment on above: Performed By: #### T SH, CMP, HSTROPN #### [facility] [address] [place] [address] Dr. Addy Reyes Bilirubin [Mass/Vol] 0.3 mg/dL Normal 0.2-1.0 [facility] Comment on above: Performed By: #### T SH, CMP, HSTROPN #### [facility] [address] [address] [address] Addy Reyes Calcium [Mass/Vol] 8.7 mg/dL Normal 8.5-10.1 [facility] Comment on above: Performed By: #### T SH, CMP, HSTROPN #### [facility] [address] [place] [address] Dr. Addy Reyes Chloride [Moles/Vol] 103 mmol/L Normal 98-107 [facility] Comment on above: Performed By: #### T SH, CMP, HSTROPN #### [facility] [address] [place] [address] Dr. Addy Reyes CO2 [Moles/Vol] 32.3 mmol/L Critically high 21.0-32.0 [facility] Comment on above: Performed By: #### T SH, CMP, HSTROPN #### [facility] [address] [place] [address] Dr. Addy Reyes Creatinine [Mass/Vol] 0.90 mg/dL Normal 0.55-1.02 [facility] Comment on above: Performed By: #### T SH, CMP, HSTROPN #### [facility] [address] [place] [address] Dr. Addy Reyes EGFR-AF QATARI >60 Normal >=60 [facility] Comment on above: Performed By: #### T SH, CMP, HSTROPN #### [facility] [address] [place] [address] Dr. Addy Reyes EGFR-NON AF QATARI >60 Normal >=60 [facility] Comment on above: Performed By: #### T SH, CMP, HSTROPN #### [facility] [address] [address] [address] Addy Reyes Globulin (S) [Mass/Vol] 3.7 g/dL Normal [facility] Comment on above: Performed By: #### T SH, CMP, HSTROPN #### [facility] [address] [address] [address] Addy Reyes Glucose [Mass/Vol] 101 mg/dL Normal 74-106 [facility] Comment on above: Performed By: #### T SH, CMP, HSTROPN #### [facility] [address] [place] [address] Dr. Addy Reyes Potassium [Moles/Vol] 3.9 mmol/L Normal 3.5-5.1 [facility] Comment on above: Performed By: #### T SH, CMP, HSTROPN #### [facility] [address] [place] [address] Dr. Addy Reyes Protein [Mass/Vol] 7.0 g/dL Normal 6.4-8.2 [facility] Comment on above: Performed By: #### T SH, CMP, HSTROPN #### [facility] [address] [place] [address] Dr. Addy Reyes Sodium [Moles/Vol] 136 mmol/L Normal 136-145 [facility] Comment on above: Performed By: #### T SH, CMP, HSTROPN #### [facility] [address] [place] [address] Dr. Addy Reyes Urea nitrogen [Mass/Vol] 17.0 mg/dL Normal 7.0-18.0 [facility] Comment on above: Performed By: #### T SH, CMP, HSTROPN #### [facility] [address] [place] [address] Dr. Addy Reyes Urea nitrogen/Creatinine [Mass ratio] 18.9 mg/mg Normal [facility] Comment on above: Performed By: #### T SH, CMP, HSTROPN #### [facility] [address] [place] [address] Dr. Addy Reyes PROTIMEon 12-28-2021 INR Coag (PPP) [Relative time] 0.98 {INR} Normal [facility] Comment on above: Performed By: #### P TT, PT #### [facility] [address] [place] [address] Dr. Addy Reyes INR GUIDELINES SEE BELOW Normal [facility] Comment on above: Result Comment: ANDREI RED INR: 2.0 - 3.0 CONDITIONS NOT LISTED BELOW 2.5 - 3.5 FOR PROSTHETIC HEART VALVE REPLACEMENT 2.5 - 3.5 RECURRENT THROMBOSIS Performed By: #### P TT, PT #### [facility] [address] [place] [address] Dr. Addy Reyes PT Coag (PPP) [Time] 10.6 s Normal 9.0-11.6 [facility] Comment on above: Performed By: #### P TT, PT #### [facility] [address] [place] [address] Dr. Addy Reyes PTTon 12-28-2021 aPTT Coag (Bld) [Time] 30.8 s Normal 22.3-36.2 [facility] Comment on above: Performed By: #### P TT, PT #### [facility] [address] [place] [address] Dr. Addy Reyes TROPONIN, HIGH SENSITIVITYon 12-28-2021 HSTROP 5.3 pg/mL Normal 4.0-51.3 [facility] Comment on above: Result Comment: CUT- OFF POINTS HAVE BEEN ESTABLISHED BASED ON THE FOURTH UNIVERSAL DEFINITIONS OF MYOCARDIAL INFARCTION. THE UPPER REFERENCE LIMIT (URL) OF TROPONIN, DEFINED THE 99TH PERCENTILE OF cTnI DISTRIBUTION IN A REFERENCE POPULATION, HAS BEEN CONFIRMED THE DECISION THRESHOLD FOR WI DIAGNOSIS. Performed By: #### T SH, CMP, HSTROPN #### [facility] [address] [place] [address] Dr. Addy Reyes TSHon 12-28-2021 TSH 0.969 uIU/mL Normal 0.358-3.740 [facility] Comment on above: Performed By: #### T SH, CMP, HSTROPN #### [facility] [address] [address] [address] Addy Reyes URINE MICROSCOPIC ONLYon BACTERIA NONE SEEN Normal NONE SEEN [facility] Comment on above: Performed By: #### T SH, CMP, HSTROPN #### [facility] [address] [address] [address] Addy Reyes Bacteria identified Cx Nom (U) NOT INDICATED Normal [facility] Comment on above: Performed By: #### T SH, CMP, HSTROPN #### [facility] [address] [address] [address] Addy Reyes CAST NONE SEEN Normal NONE SEEN [facility] Comment on above: Performed By: #### T SH, CMP, HSTROPN #### [facility] [address] [place] [address] Dr. Addy Reyes Crystals LM Nom (Urine sed) NONE SEEN Normal NONE SEEN [facility] Comment on above: Performed By: #### T SH, CMP, HSTROPN #### [facility] [address] [address] [address] Addy Reyes Epithelial cells LM Ql (Urine sed) RARE Normal NONE SEEN /RARE [facility] Comment on above: Performed By: #### T SH, CMP, HSTROPN #### [facility] [address] [place] [address] Dr. Addy Reyes MUCOUS TRACE Abnormal NONE SEEN [facility] Comment on above: Performed By: #### T SH, CMP, HSTROPN #### [facility] [address] [address] [address] Addy Reyes RBC 0-2 Normal 0-2 [facility] Comment on above: Performed By: #### T SH, CMP, HSTROPN #### [facility] [address] [place] [address] Dr. Addy Reyes WBC 0-2 Abnormal NONE SEEN [facility] Comment on above: Performed By: #### T SH, CMP, HSTROPN #### [facility] [address] [place], [place] [address] Dr. Addy Reyes XR CHEST 2 Von 12-28-2021 XR CHEST 2 V EXAM: XR CHEST 2 V HISTORY: Syncope COMPARISON: Chest CT 11/13/2019 TECHNIQUE: PA and lateral chest FINDINGS: Again demonstrated are numerous cavitary foci within the right upper lobe with adjacent consolidation. No gross visualized acute consolidation or infiltrate. Persistent prominence of the right major fissure. No pneumothorax or pleural effusion. The cardiac, mediastinal and hilar contours are unremarkable. IMPRESSION: Persistent right upper lobe cavitary foci suggestive of a fungal infection. CT imaging with contrast is recommended and compared with the prior CT on 11/13/2019. Electronically authenticated by: PABLITO JONES Date: 2021-12-28 17:49 Normal [facility] CBC with Diffon 11-30-2021 Abs. Basophil 0.04 k/uL Normal 0.00-0.20 [facility] Comment on above: Performed By: #### FRANCOISE Shea, CP #### [facility] [employer] [address] [place] [address] [employer]ist: Zion Mcgee MD Abs.Imm.Granulocyte <0.03 Normal 0.00-0.30 [facility] Comment on above: Performed By: #### FRANCOISE Shea, CP #### [facility] [address] [place] [address] [employer]gr[employer]ist: Zion Mcgee MD Abs.Neutrophil (Seg) 5.85 k/uL Normal 1.50-8.10 [facility] Comment on above: Performed By: #### FRANCOISE Shea, CP #### [facility] [employer] [address] [place] [address] [employer]ist: Zion Mcgee MD Basophils/100 WBC (Bld) 0 % Normal 0-2 [facility] Comment on above: Performed By: #### FRANCOISE Shea, CP #### [facility] [employer] [address] [place] [address] [employer]ist: Zion Mcgee MD Eosinophils (Bld) [#/Vol] 0.37 10*3/uL Normal 0.00-0.44 [facility] Comment on above: Performed By: #### FRANCOISE Shea, CP #### [address] [address] [employer]ist: Zion Mcgee MD Eosinophils/100 WBC (Bld) 4 % Normal 1-4 [facility] Comment on above: Performed By: #### FRANCOISE Shea, CP #### [facility] [employer] [address] [place] [address] [employer]ist: Zion Mcgee MD Erythrocyte distribution width (RBC) [Ratio] 13.6 % Normal 11.8-14.4 [facility] Comment on above: Performed By: #### FRANCOISE Shea, CP #### [place] [address] [employer]ist: Zion Mcgee MD Hematocrit (Bld) [Volume fraction] 44.4 % Normal 36.3-47.1 [facility] Comment on above: Performed By: #### FRANCOISE Shea, CP #### [address] [address] [employer]ist: Zion Mcgee MD Hemoglobin (Bld) [Mass/Vol] 13.5 g/dL Normal 11.9-15.1 [facility] Comment on above: Performed By: #### FRANCOISE Shea, CP #### [facility] [address] [place] [address] [employer]ist: Zion Mcgee MD Immature granulocytes/100 WBC (Bld) 0 % Normal 0 [facility] Comment on above: Performed By: #### FRANCOISE Shea, CP #### [facility] [address] [place] [address] [employer]ist: Zion Mcgee MD Lymphocytes (Bld) [#/Vol] 2.06 10*3/uL Normal 1.10-3.70 [facility] Comment on above: Performed By: #### FRANCOISE Shea, CP #### [address] [address] [employer]ist: Zion Mcgee MD Lymphocytes/100 WBC (Bld) 22 % Low 24-43 [facility] Comment on above: Performed By: #### FRANCOISE Shea, CP #### [address] [address] [employer]ist: Zion Mcgee MD MCH (RBC) [Entitic mass] 29.3 pg Normal 25.2-33.5 [facility] Comment on above: Performed By: #### FRANCOISE Shea, CP #### [address] [address] [employer]ist: Zion Mcgee MD MCHC (RBC) [Mass/Vol] 30.4 g/dL Normal 28.4-34.8 [facility] Comment on above: Performed By: #### FRANCOISE Shea, CP #### [address] [address] [employer]ist: Zion Mcgee MD MCV (RBC) [Entitic vol] 96.3 fL Normal 82.6-102.9 [facility] Comment on above: Performed By: #### FRANCOISE Shea, CP #### [address] [address] [employer]ist: Zion Mcgee MD Monocytes (Bld) [#/Vol] 0.87 10*3/uL Normal 0.10-1.20 [facility] Comment on above: Performed By: #### FRANCOISE Shea, CP #### [facility] [employer] [address] [place] [address] [employer]ist: Zion Mcgee MD Monocytes/100 WBC (Bld) 9 % Normal 3-12 [facility] Comment on above: Performed By: #### V D25, CDP, CP #### [address] [address] [employer]ist: Zion Mcgee MD Neutrophil (Seg) 65 % Normal 36-65 [facility] Comment on above: Performed By: #### V D25, CDP, CP #### [address] [address] [employer]ist: Zion Mcgee MD NRBC Automated 0.0 per 100 WBC Normal 0.0 [facility] Comment on above: Performed By: #### V D25, CDP, CP #### [address] [address] [employer]ist: Zion Mcgee MD Platelet mean volume (Bld) [Entitic vol] 11.1 fL Normal 8.1-13.5 [facility] Comment on above: Performed By: #### V D25, CDP, CP #### [address] [address] [employer]ist: Zion Mcgee MD Platelets (Bld) [#/Vol] 278 10*3/uL Normal 138-453 [facility] Comment on above: Performed By: #### V D25, CDP, CP #### [address] [address] [employer]ist: Zion Mcgee MD RBC (Bld) [#/Vol] 4.61 10*6/uL Normal 3.95-5.11 [facility] Comment on above: Performed By: #### V D25, CDP, CP #### [address] [address] [employer]ist: Zion Mcgee MD WBC (Bld) [#/Vol] 9.2 10*3/uL Normal 3.5-11.3 [facility] Comment on above: Performed By: #### FRANCOISE Shea, CP #### [facility] [address] [place] [address] [employer]gr[employer]ist: Zion Mcgee MD Comp Metabolic Profon 2021 Bilirubin [Mass/Vol] mg/dL Low 0.3-1.2 [facility] Comment on above: Performed By: #### V FRANCOISE Orr, CP #### [facility] [address] [place] [address] [employer] Agr[employer]ist: Zion Mcgee MD (cont.) [facility] Comment on above: Result Comment: Aver age GFR for 50-59 years old: 93 mL/min/1.73sq m Chronic Kidney Disease: <60 mL/min/1.73sq m Kidney failure: <15 mL/min/1.73sq m eGFR calculated using average adult body mass. Additional eGFR calculator available at: http://www.ecoInsight/multiple_crcl_2012.htm Performed By: #### FRANCOISE Shea, CP #### [facility] [address] [place] [address] [employer]ist: Zion Mcgee MD Albumin [Mass/Vol] 4.1 g/dL Normal 3.5-5.2 [facility] Comment on above: Performed By: #### FRANCOISE Shea, CP #### [facility] [address] [place] [address] [employer] Agr[employer]ist: Zion Mcgee MD Albumin/Glob Ratio 1.5 Normal 1.0-2.5 [facility] Comment on above: Performed By: #### FRANCOISE Shea, CP #### [facility] [address] [place] [address] [employer] Agr[employer]ist: Zion Mcgee MD Alkaline Phos 114 U/L High 35-104 [facility] Comment on above: Performed By: #### V FRANCOISE Orr, CP #### [facility] [address] [place] [address] [employer] Agr[employer]ist: Zion Mcgee MD ALT [Catalytic activity/Vol] 22 U/L Normal 5-33 [facility] Comment on above: Performed By: #### V D25, CDP, CP #### [facility] [address] [place] [address] [employer] Agr[employer]ist: Zion Mcgee MD Anion gap [Moles/Vol] 11 mmol/L Normal 9-17 [facility] Comment on above: Performed By: #### V D25, CDP, CP #### [facility] [address] [place] [address] [employer] Agr[employer]ist: Zion Mcgee MD AST [Catalytic activity/Vol] 20 U/L Normal <32 [facility] Comment on above: Performed By: #### V D25, CDP, CP #### [facility] [address] [place] [address] [employer] Agr[employer]ist: Zion Mcgee MD Calcium [Mass/Vol] 9.0 mg/dL Normal 8.6-10.4 [facility] Comment on above: Performed By: #### V D25, CDP, CP #### [facility] [address] [place] [address] [employer] Agr[employer]ist: Zion Mcgee MD Chloride [Moles/Vol] 103 mmol/L Normal 98-107 [facility] Comment on above: Performed By: #### V D25, CDP, CP #### [facility] [address] [place] [address] [employer] A[employer]ist: Zion Mcgee MD CO2 [Moles/Vol] 26 mmol/L Normal 20-31 [facility] Comment on above: Performed By: #### V D25, CDP, CP #### [facility] [address] [place] [address] [employer] Agr[employer]ist: Zion Mcgee MD Creatinine [Mass/Vol] 0.81 mg/dL Normal 0.50-0.90 [facility] Comment on above: Performed By: #### V Dominga CDP, CP #### [facility] [address] [place] [address] [employer] Agr[employer]ist: Zion Mcgee MD GFR, Amer >60 Normal >60 [facility] Comment on above: Performed By: #### V D2Kishor, CDP, CP #### [facility] [address] [place] [address] [employer] Agr[employer]ist: Zion Mcgee MD GFR,non Amer >60 Normal >60 [facility] Comment on above: Performed By: #### V FRANCOISE Orr, CP #### [facility] [address] [place] [address] [employer] Agr[employer]ist: Zion Mcgee MD Glucose [Mass/Vol] 81 mg/dL Normal 70-99 [facility] Comment on above: Performed By: #### V FRANCOISE Orr, CP #### [facility] [address] [place] [address] [employer] Agr[employer]ist: Zion Mcgee MD Potassium [Moles/Vol] 4.2 mmol/L Normal 3.7-5.3 [facility] Comment on above: Performed By: #### V FRANCOISE Orr, CP #### [facility] [address] [place] [address] [employer] Agr[employer]ist: Zion Mcgee MD Protein [Mass/Vol] 6.8 g/dL Normal 6.4-8.3 [facility] Comment on above: Performed By: #### V D2Kishor, CDP, CP #### [facility] [address] [place] [address] [employer] Agr[employer]ist: Zion Mcgee MD Sodium [Moles/Vol] 140 mmol/L Normal 135-144 [facility] Comment on above: Performed By: #### V D25, FRANCOISE, CP #### [facility] [address] [place], [place] [phone] [employer] Agronomist: Zion Mcgee MD Urea nitrogen [Mass/Vol] 9 mg/dL Normal 6-20 [facility] Comment on above: Performed By: #### V D25, FRANCOISE, CP #### [facility] [address] [place], [place] [phone] [employer] Agronomist: Zion Mcgee MD Vitamin D 25 Hydroxyon 11-30 Vit D, 25-Hydroxy 38 ng/mL 29.9 - PIN F ng/mL [facility] Comment on above: Reference Range: Vitamin D status Range Deficiency <20 ng/mL Mild Deficiency 20-30 ng/mL Sufficiency 30-100 ng/mL Toxicity >100 ng/mL [facility] Vitamin D 25 OHon 11-30-2021 Vitamin D 25 OH 38.0 ng/mL Normal >29.9 [facility] Comment on above: Result Comment: Reference Range: Vitamin D status Range Deficiency <20 ng/mL Mild Deficiency 20-30 ng/mL Sufficiency 30-100 ng/mL Toxicity >100 ng/mL Performed By: #### V D25, FRANCOISE, CP #### [facility] [address] [place], [place] [phone] [employer] Agronomist: Zion Mcgee MD CBC with Auto Differentialon 11-29-2021 Absolute Eos # 0.37 [facility] Absolute Immature Granulocyte [facility] Absolute Lymph # 2.06 [facility] [employer] Absolute [place] # 0.87 [facility] [employer] Basophils (Bld) [#/Vol] 0.04 10*3/uL [facility] Basophils/100 WBC (Bld) 0 % 0 - 2 % [facility] Eosinophils/100 WBC (Bld) 4 % 1 - 4 % [facility] Hematocrit (Bld) [Volume fraction] 44.4 % 36.3 - 47.1 % [facility] Hemoglobin (Bld) [Mass/Vol] 13.5 g/dL 11.9 - 15.1 g/dL [facility] Immature granulocytes/100 WBC (Bld) 0 % 0 [facility] Interpretation and review of laboratory results Abnormal [facility] Lymphocytes/100 WBC (Bld) 22 % Low 24 - 43 % [facility] MCH (RBC) [Entitic mass] 29.3 pg 25.2 - 33.5 pg [facility] MCHC (RBC) [Mass/Vol] 30.4 g/dL 28.4 - 34.8 g/dL [facility] MCV (RBC) [Entitic vol] 96.3 fL 82.6 - 102.9 fL [facility] Monocytes/100 WBC (Bld) 9 % 3 - 12 % [facility] NRBC Automated 0.0 0.0 per 100 WBC [facility] Platelet distribution width (Bld) [Ratio] 13.6 % 11.8 - 14.4 % [facility] Platelet mean volume (Bld) [Entitic vol] 11.1 fL 8.1 - 13.5 fL [facility] Platelets (Bld) [#/Vol] 278 10*3/uL [facility] RBC (Bld) [#/Vol] 4.61 10*6/uL 3.95 - 5.1 1 m/uL [facility] Segmented neutrophils/100 WBC (Bld) 65 % 36 - 65 % [facility] Segs Absolute 5.85 [facility] WBC (Bld) [#/Vol] 9.2 10*3/uL [facility] Comprehensive Metabolic Pane kimberlee 11-29-2021 Albumin [Mass/Vol] 4.1 g/dL 3.5 - 5.2 g/dL [facility] Albumin/Globulin [Mass ratio] 1.5 {ratio} 1 - 2.5 [facility] ALP (Bld) [Catalytic activity/Vol] 114 U/L High 35 - 104 U/L [facility] ALT [Catalytic activity/Vol] 22 U/L 5 - 33 U/L [facility] Anion gap [Moles/Vol] 11 mmol/L 9 - 17 mmol/L [facility] AST [Catalytic activity/Vol] 20 U/L NINF - 32 U/L [facility] Bilirubin [Mass/Vol] mg/dL Low 0.3 - 1.2 mg/dL [facility] Calcium [Mass/Vol] 9.0 mg/dL 8.6 - 10. 4 mg/dL [facility] Chloride [Moles/Vol] 103 mmol/L 98 - 107 mmol/L [facility] CO2 [Moles/Vol] 26 mmol/L 20 - 31 mmol/L [facility] Creatinine [Mass/Vol] 0.81 mg/dL 0.5 - 0.9 mg/dL [facility] Free PSA/Total PSA [Mass fraction] 6.8 g/dL 6.4 - 8.3 g/dL [facility] GFR >60 60 - PINF mL/min [facility] GFR Non- >60 60 - PINF mL/min [facility] GFR/1.73 sq M.predicted MDRD (S/P/Bld) [Vol rate/Area] [facility] Comment on above: Average GFR for 50-5 9 years old: 93 mL/min/1.73sq m Chronic Kidney Disease: <60 mL/min/1.73sq m Kidney failure: <15 mL/min/1.73sq m eGFR calculated using average adult body mass. Additional eGFR calculator available at: http://www.ecoInsight/multiple_crcl_2012.htm Glucose [Mass/Vol] 81 mg/dL 70 - 99 mg/dL [facility] Interpretation and review of laboratory results Abnormal [facility] Potassium [Moles/Vol] 4.2 mmol/L 3.7 - 5.3 mmol/L [facility] Sodium [Moles/Vol] 140 mmol/L 135 - 144 mmol/L [facility] Urea nitrogen (BldV) [Mass/Vol] 9 mg/dL 6 - 20 mg/dL [facility] XR Abdomen Single View (KUB) *on 09-29-2021 XR Abdomen Single View (KUB)* HISTORY: Abdominal pain FINDINGS: Large volume of colon stool ascending, transverse and descending colon regions, air filled non-distended rectosigmoid colon. No mass effect or free air. Several millimeter calcification likely left kidney possibly within the renal pelvis. Right hemipelvic 2-4 calcifications, probable phleboliths. Unremarkable lung bases. IMPRESSION: 1. Large volume of colon stool, no obstruction at this time or free air. If symptoms persist following appropriate medical management, CT imaging maybe of assistance. Report reported and signed by Gopi Renteria on 09/29/2021 1435 Normal [place] [employer] Person Pulmonary Functionon 022 Pulmonary Function MR #: [id number] [facility] PT. Name: Diamante Stapleton Date: 06/06/2021 Date of : 1965 Patient Type: D Pulmonary Function INTERPRETATION CLINICAL INDICATION: The patient is 55-year-old female with BMI of 28.2. Indication is COPD. Patient smokes 0.5 pack/day for 20 years and quit 11 years ago. Patient has history of right middle lobe lobectomy LUNG MECHANICS: FEV1 is moderately reduced to 1.33 L which is 66% of predicted with no change after bronchodilators. FVC is mildly reduced 1.89 L which is 78% of predicted with no change after bronchodilators. FEV1/FVC ratio is 0.70, there is obstruction at the level of small airway with some bronchospastic component. This is spirometry and flow volume loop is suggestive of mixed obstructive and restrictive pattern. MVV is mild reduced to 73%. LUNG VOLUMES: (NITROGEN WASHOUT TECHNIQUE) Not ordered. LUNG VOLUMES: (BODY BOX TECHNIQUE) Residual volume is enlarged 167% of predicted indicating hyperinflation. Total capacity continues within normal limit at 108% of predicted. LUNG DIFFUSION: Uncorrected DLCO is reduced to 61% of predicted. Corrected DLCO cannot be calculated because of lack of hemoglobin level. DLCO corrected to alveolar volume is 79%. The patient has history of right middle lobe lobectomy. CLINICAL IMPRESSION: The study is consistent with mixed obstructive and restrictive pattern however the residual volume is enlarged indicating gas trapping. There is reduction in diffusion capacity which is most likely secondary to the obstructive pattern and history of right middle lobe lobectomy. The study is consistent with history of COPD. Electronically Signed by: Sreedhar Dickens MD 06/24/2021 01:39 P Peace Islas MD [facility] Date Dict: 06/24/2021/12:46 P/Sreedhar Dickens MD Date Trans: 06/24/2021 12:46 P/ [id number] cc: Gamaliel Dennison M.D. [address] [facility] [address] [facility] [address] [facility] CBC with Auto Differentialon 05-31-2021 Absolute Eos # 0.21 [facility] th Absolute Immature Granulocyte 0.04 [facility] Absolute Lymph # 2.17 [facility] Absolute [place] # 0.67 [facility] Basophils (Bld) [#/Vol] 0.05 10*3/uL [facility] Basophils/100 WBC (Bld) 1 % 0 - 2 % [facility] Eosinophils/100 WBC (Bld) 2 % 1 - 4 % [facility] Hematocrit (Bld) [Volume fraction] 46.4 % 36.3 - 47.1 % [facility] Hemoglobin.gastroin testinal spec 1 Ql (Stl) 14.5 g/dL 11.9 - 15.1 g/dL [facility] Immature granulocytes/100 WBC (Bld) 0 % 0 [facility] Interpretation and review of laboratory results Abnormal [facility] Lymphocytes/100 WBC (Bld) 20 % Low 24 - 43 % [facility] MCH (RBC) [Entitic mass] 29.5 pg 25.2 - 33.5 pg [facility] MCHC (RBC) [Mass/Vol] 31.3 g/dL 28.4 - 34.8 g/dL [facility] MCV (RBC) [Entitic vol] 94.5 fL 82.6 - 102.9 fL [facility] Monocytes/100 WBC (Bld) 6 % 3 - 12 % [facility] NRBC Automated 0.0 0.0 per 100 WBC [facility] Platelet distribution width (Bld) [Ratio] 12.8 % 11.8 - 14.4 % [facility] Platelet mean volume (Bld) [Entitic vol] 10.9 fL 8.1 - 13.5 fL [facility] Platelets (Bld) [#/Vol] 283 10*3/uL [facility] RBC (Bld) [#/Vol] 4.91 10*6/uL 3.95 - 5.1 1 m/uL [facility] Segmented neutrophils/100 WBC (Bld) 71 % High 36 - 65 % [facility] Segs Absolute [facility].48 [facility] [#/Vol] 10.6 10*3/uL [facility] Comprehensive Metabolic Pane k[place]berlee 05-31-2021 Albumin [Mass/Vol] 4.3 g/dL 3.5 - 5.2 g/dL [facility] Albumin/Globulin [Mass ratio] 1.8 {ratio} [facility] ALP (Bld) [Catalytic activity/Vol] 110 U/L High 35 - 104 U/L [facility] ALT [Catalytic activity/Vol] 20 U/L 5 - 33 U/L [facility] Anion gap [Moles/Vol] 11 mmol/L 9 - 17 mmol/L [facility] AST [Catalytic activity/Vol] 19 U/L <32 [facility] Bilirubin [Mass/Vol] mg/dL Low 0.3 - 1.2 mg/dL [facility] Calcium [Mass/Vol] 9.5 mg/dL 8.6 - 10. 4 mg/dL [facility] Chloride [Moles/Vol] 101 mmol/L 98 - 107 mmol/L [facility] CO2 [Moles/Vol] 28 mmol/L 20 - 31 mmol/L [facility] Creatinine [Mass/Vol] 0.72 mg/dL 0.50 - 0.90 mg/dL [facility] Free PSA/Total PSA [Mass fraction] 6.7 g/dL 6.4 - 8.3 g/dL [facility] GFR >60 >60 mL/min [facility] GFR Non- >60 >60 mL/min [facility] GFR/1.73 sq M.predicted MDRD (S/P/Bld) [Vol rate/Area] [facility] Comment on above: Average GFR for 50-5 9 years old: 93 mL/min/1.73sq m Chronic Kidney Disease: <60 mL/min/1.73sq m Kidney failure: <15 mL/min/1.73sq m eGFR calculated using average adult body mass. Additional eGFR calculator available at: http://www.KwiClick.com/multiple_crcl_2012.htm Glucose [Mass/Vol] 99 mg/dL 70 - 99 mg/dL [facility] Interpretation and review of laboratory results Abnormal [facility] Potassium [Moles/Vol] 4.3 mmol/L 3.7 - 5.3 mmol/L [facility] Sodium [Moles/Vol] 140 mmol/L 135 - 144 mmol/L [facility] Urea nitrogen (BldV) [Mass/Vol] 11 mg/dL 6 - 20 mg/dL [facility] MR head/brain wo/w conon MR head/brain wo/w con [facility] [facility] [place] [address] [place] [address] MRI Report Signed Patient: Diamante Stapleton MR#: [id number] 9 : 1965 Acct:[id number] Age/Sex: 54 / F ADM Date: 08/24/20 Loc: MR Room: Type: [facility] Attending Dr: Kristen Mcclure PA-C Ordering Provider: Kristen Mcclure PA-C Date of Service: 08/24/20 MR/MR head/brain wo/w con: [id number] Copies to: Kristen Mcclure PA-C MRI head 08/24/2020. CLINICAL DATA: Multiple sclerosis. TECHNIQUE: MRI of the head was performed without and with intravenous contrast. COMPARISON: None. FINDINGS: The ventricles, sulci, and cisterns are normal in size and configuration. There are multiple lesions demonstrating hypointense T1-weighted signal and hyperintense T2-weighted/FLAIR signal predominantly in the pericallosal/periventr icular white matter but also in the subcortical and deep white matter of both cerebral hemispheres. Additional lesions are noted in the corpus callosum. These findings are consistent with demyelination related to multiple sclerosis. No lesions are visualized in the cerebellum, in the brainstem, or in the upper cervical spine. There is no abnormal contrast enhancement to indicate active demyelination. Otherwise, there is no restricted diffusion to indicate acute ischemia or infarction. No intracranial mass or mass effect is seen. No abnormal extra-axial fluid collection is visualized. There is mucoperiosteal thickening in the right maxillary sinus. The mastoids appear unremarkable. MR/MR head/brain wo/w con IMPRESSION: 1. Findings consistent with demyelination related to multiple sclerosis. No abnormal contrast enhancement to indicate active demyelination. 2. No acute intracranial abnormality. 3. No intracranial mass or mass effect. 4. Chronic right maxillary sinusitis. Impression dictated by: Prudencio Summers Jr., M.D.08/24/2020 3:34 PM Dictation Location: [place] [address] Transcribed By: [facility] 08/24/20 1534 Dictated By: Prudencio Summers Jr, MD 08/24/20 1518 Signed By: 08/24/20 1534 [facility] Vital Signs Date Time Vital Sign Value Performing Clinician Facility 01-21-2021 12:45-0400 Body height 147.32 cm Kristen Arias Other [facility] Other 01-21-2021 12:45-0400 Body mass index (BMI) [Ratio] 28 kg/m2 Kristen Arias Other [facility] Other 01-21-2021 12:45-0400 Body temperature 96.8 [degF] Kristen Arias Other [facility] Other 01-21-2021 12:45-0400 Body weight 60.78 kg Kristen Arias Other [facility] Other 01-21-2021 12:45-0400 Diastolic blood pressure 45 mm[Hg] Kristen Arias Other [facility] Other 01-21-2021 12:45-0400 Respiratory rate 18 /min Kristen Arias Other [facility] Other 01-21-2021 12:45-0400 SaO2% (BldA) [Mass fraction] 97 % Kristen Arias Other [facility] Other 01-21-2021 12:45-0400 Systolic blood pressure 106 mm[Hg] Kristen Arias Other [facility] Other Encounters Encounter Date Encounter Type Care Provider Facility Start: 02-20-2023 End: [facility]: 02-13-2023 End: 02-13-2023 ambulatory CEBRYCE BURCIAGA [facility] Start: 11-15-2022 End: 11-15-2022 ambulatory SURYA COBURN [facility] Start: 08-16-2022 End: 08-16-2022 ambulatory CLAUDE VERA [facility] Start: 06-08-2022 End: 06-08-[address] DOCTOR KHAN Facility:[facility] Start: 05-17-2022 End: 05-17-2022 ambulatory ELIZABETH STUART [facility] Start: 05-03-2022 End: 05-04-2022 ambulatory LALITO [facility] Start: 05-03-2022 End: 05-03-2022 ambulatory NATALIARonald [facility] Start: 05-01-2022 End: 05-02-2022 ambulatory FRIEDA UGALDE [facility] Start: 04-05-2022 End: 04-05-2022 ambulatory LALITO [facility] Start: 01-09-2022 End: 01-09-[address] DOCTOR KHAN Facility:[facility] Start: 12-28-2021 End: 12-28-2021 ambulatory JUDITH Bhandari Facility:[facility] Start: 11-29-2021 End: 11-30-2021 ambulatory TRAM [facility] Start: 11-29-2021 End: 11-29-2021 Subsequent hospital visit by physician Cyndie Hopkins DO Work Phone: [facility] Comment on above: Multiple sclerosis ( HCC); Vitamin D deficiency Start: 05-31-2021 End: 05-31-2021 Subsequent hospital visit by physician Cyndie Hopkins DO Work Phone: [facility] Start: 01-21-2021 Office outpatient ne w 20 minutes Kristen Arias [facility] Procedures Date Procedure Procedure Detail Performing Clinician Start: 05-17-2022 Follow-up visit Follow-up ELIZABETH SILVA Start: 11-29-2021 Comprehensive metabo lic panel Tram Carbone MD Work Phone: Start: 05-31-2021 Comprehensive metabo lic panel Tram Carbone MD Work Phone: Plan of Treatment Date Care Activity Detail Author Start: 03-16-2026 Lipid panel Lipids [facility] SEVERIANO Griffith [facility] Start: 01-21-2023 Screening for malign ant neoplasm of breast Breast cancer screen [facility] Start: 07-03-2022 End: 07-03-2022 Patient encounter procedure 07/03/2022 Office Visit Neurology Tram Carbone MD [address] [id number] [facility] Start: 11-29-2021 End: 11-29-2021 Patient encounter procedure 11/29/2021 Office Visit Neurology [facility]bone [facility] [address] [place], [place] [id number] [facility] Neu[facility] Start: 11-24-2021 Influenza vaccination Flu vaccine (# 1) [facility] Start: 11-24-2020 Influenza vaccination Flu vaccine (# 1) [facility] Start: 2014 Shingles Vaccine (1 of 2) Shingles Vaccine (1 of 2) [facility] Start: 2009 Screening for malign ant neoplasm of colon [facility] Start: 2004 Lipid panel Lipid screen [facility] Start: 11-24-1999 Diabetes screen Diabetes screen [facility] Start: 1994 Screening for malign ant neoplasm of cervix [facility] Start: 1985 Screening for malign ant neoplasm of cervix Pap smear [facility] Start: 11-24-1983 DTaP/Tdap/Td vaccine (1 - Tdap) DTaP/Tdap/Td vaccine (1 - Tdap) [facility] Start: 1982 Hepatitis C screening Hepatitis C sc sandi [facility] Start: 11-24-1979 HIV screening HIV screen [facility] Start: 1976 Depression Screen Depression Screen [facility] Start: 1969 COVID-19 Vaccine (1) COVID-19 Vaccin e (1) [facility] Start: 05-23-1965 COVID-19 Vaccine (#1) COVID-19 Vacci ne (#1) [facility] Start: 1964 Hepatitis C screening Hepatitis C [facility] Immunizations Immunization Date Immunization Notes Care Provider Thelma mina 01-21-2021 KENALOG - 10 mg Kristen Dymon d Other [facility] Other 12-09-2015 KENALOG - 10 mg Kristen Dymon d Other [facility] Other Payers Date Payer Category Payer Unknown [id number] [id number] [id number] 1965 Unknown [id number] 1965 Unknown [id number] [id number] [id number] 1965 Unknown [id number] 1960 Unknown [id number] [facility] [id number] Social History Date Type Detail Facility Start: 12-01-2020 Tobacco smoking stat [facility] Never smoked tobacco [facility] Other Start: 12-01-2020 Tobacco use and exposure Smokeless tobacco non-user [employer] Phone: Start: 05-31-2021 End: 11-29-2021 Alcohol intake Lifetime non-drinker (finding) [employer] Phone: Start: 12-01-2020 History SDOH Alcohol Frequency 1 [employer] Phone: Start: 1965 Sex Assigned At Not on file [employer] Phone: Start: 11-19-2021 End: 11-29-2021 Exposure to SARS-CoV-2 (event) Not sure [place] Sex Assigned At Sex Assigned At [facility] Other Clinical Notes 01-21-2021 to 02-13-2023 Note Date & Type Note Facility 02-13-2023 Note ------ Attestation signed by Jesse Martel MD at 02/28/2023 1:06 PM I personally saw and examined the patient on the same date of service as resident/fellow . I discussed the findings and therapeutic plan with the resident/fellow . I agree with the documentation, except for any edits/updates below. ------ Pulmonary Clinic Visit Note Patient: Diamante Stapleton Age: 57 y.o. : 1965 Account No.: [id number] Chief complaint: Follow up HPI 56 y.o. female with a past medical history of COPD, bronchiectasis, previous Pseudomonas infection,multiple sclerosis, anxiety/depression among others who presents for a follow-up visit. Of note Patient underwent bronchoscopy with BAL on 05/03/2022. Results of cultures showed Pseudomonas, Staph aureus, and Aspergillus. AFB was negative. Cell count differential showed 89% neutrophils. Was treated with Voriconazole IgE level was normal at 7. She also underwent pulmonary function testing in March with showed a likely combined obstructive and restrictive disease process with decreased DLCO. PFTs 04/05/2022: FEV1 1.18L/59% FVC 1.67L/70% FEV1/FVC 71% RV 1.85L/139% TLC 3.56L/96% DLCO 63% DLCOcor 61% DL/VA 85% Patient completed 30 days of voriconazole, 1 week of Levaquin, 30 days of Tobramycin nebulizer, and was started on 250 mg azithromycin 3 times a week . Interval Hx: This month she had 3 trips to [facility] ER for worsening shortness of breath, cough with green/brown/and yellow phlegm, was diagnosed with upper respiratory tract infection on the first visit, and antibiotics were prescribed, on her third visit was diagnosed with pneumonia, no sputum culture were sent, and started on Levaquin for 10 days. Patient reported not compliant with airway clearance technique including Aerobika, was denied before for vest. Patient had to stop azithromycin, now she feels better on Levaquin, her cough and phlegm are slowing down. Past Medical History: Diagnosis Date Anxiety COPD (chronic obstructive pulmonary disease) ([facility]) Depression Migraines Vertigo Past Surgical History: Procedure Laterality Date HYSTERECTOMY MANDIBLE SURGERY UMBILICAL HERNIA REPAIR Allergies: Zanaflex [tizanidine], Acetaminophen, Tessalon [benzonatate], Amoxicillin, Azithromycin, Codeine, Doxycycline hyclate, Fentanyl, Hydromorphone, Morphine, Oxycodone-acetaminophen, and Trazodone Prior to Admission medications Medication Sig Start Date End Date Taking? Authorizing Provider albuterol 2.5 mg /3 mL (0.083 %) nebulizer solution Inhale 3 mL every 4-6 hours by nebulization route as needed. Historical Provider, albuterol 90 mcg/actuation inhaler Inhale 2 puffs every 4 hours by inhalation route for 90 days. 04/05/22 Steven Zuniga MD amantadine (Symmetrel) 100 mg capsule amantadine HCl 100 mg capsule TAKE 1 CAPSULE BY MOUTH TWICE A DAY 02/27/22 Historical Provider, amitriptyline (Elavil) 50 mg tablet amitriptyline 50 mg tablet TAKE 1 AND 1/2 TABLETS BY MOUTH NIGHTLY 05/31/21 Historical Provider, azithromycin (Zithromax) 250 mg tablet TAKE 1 TABLET BY MOUTH EVERY 72 HOURS IN THE MORNING 01/08/23 Claude Vera MD baclofen (Lioresal) 10 mg tablet baclofen 10 mg tablet TAKE 1.5 TABLETS BY MOUTH 3 TIMES DAILY. 05/31/21 Historical Provider, benzonatate (Tessalon) 100 mg capsule benzonatate 100 mg capsule TAKE 1 CAPSULE BY MOUTH THREE TIMES A DAY NEEDED Historical Provider, gozvmsknnyhiicb-yohezlayv-FV 2-30-10 mg/5 mL syrup TAKE 10ML BY MOUTH EVERY 8 HOURS NEEDED FOR COUGH 01/09/22 Historical Provider, budesonide-formoteroL (Symbicort) 160-4.5 mcg/actuation inhaler every 12 (twelve) hours. 07/16/14 Historical Provider, buPROPion XL (Wellbutrin XL) 300 mg 24 hr tablet bupropion HCl XL 300 mg 24 hr tablet, extended release TAKE 1 TABLET BY MOUTH EVERY DAY IN THE MORNING Historical Provider, busPIRone (Buspar) 30 mg tablet Take 30 mg by mouth. Historical Provider, cyclobenzaprine (Flexeril) 10 mg tablet cyclobenzaprine 10 mg tablet Historical Provider, cyclobenzaprine (Flexeril) 5 mg tablet cyclobenzaprine 5 mg tablet TAKE 1 TABLET BY MOUTH THREE TIMES A DAY NEEDED Historical Provider, dalfampridine 10 mg tablet extended release 12 hr dalfampridine ER 10 mg tablet,extended release,12 hr 02/27/22 Historical Provider, diazePAM (Valium) 5 mg tablet Take 5 mg by mouth. 05/29/21 Historical Provider, diphenhydrAMINE 25 mg capsule 1 capsule every 8 (eight) hours. 10/19/04 Historical Provider, erythromycin (Romycin) 5 mg/gram (0.5 %) ophthalmic ointment 06/05/21 Historical Provider, fish oil concentrate (Gorman-3) 120-180 mg capsule Take 2,000 mg by mouth. Historical Provider, fluoride, sodium, 1.1 % gel DentaGel 1.1 % APPLY A THIN RIBBON OF (more content not included)... [facility] 11-15-2022 Note ------ Attestation signed by Claude Vera MD at 11/26/2022 7:46 PM I personally saw and examined the patient on the same date of service as resident/fellow Dr. Coburn. I discussed the findings and therapeutic plan with the resident/fellow Dr. Coburn. I agree with the documentation, except for any edits/updates below. ------ Pulmonary Clinic Visit Note Patient: Diamante Stapleton Age: 56 y.o. : 1965 Account No.: [id number] HPI Diamante Stapleton is a 56 y.o. female with a past medical history of COPD, bronchiectasis, multiple sclerosis, anxiety/depression among others who presents for a follow-up visit. Was last seen on July 2022. For which CT chest was ordered. Since last visit, patient feels at her baseline, denies any recent exacerbation of her symptoms or worsening of her symptoms. Reports no recent hospitalization or ER visits. Continues to have intermittent nonproductive cough, dyspnea on exertion however she feels her symptoms much better than before. She was prescribed Zithromax 3 times a day which helped she has been using it. She feels much better after starting the Zithromax. She also was given an Aerobika however she has not been using it. She reported that she coughs however its not productive. She had a CT scan chest done on August 2022, imaging reviewed. Which showed new spiculated left upper lobe nodule measuring 9 mm. Afterward patient visited her primary care physician who ordered PET/CT scan. PET CT scan was done on September 2022 which was significant for multiple and bilateral pulmonary lesions which was mildly PET avid. Enlarged right hilar lymph node/PET avid. Currently patient denies having any of chest pain, fever, night sweating or chills. No hemoptysis or weight loss. She is currently on Advair and Spiriva, Singulair, and as needed albuterol. She recently underwent bronchoscopy with BAL. Results of cultures showed Pseudomonas, Staph aureus, and Aspergillus. AFB was negative. Cell count differential showed 89% neutrophils. IgE level was normal at 7. She also underwent pulmonary function testing in March with showed a likely combined obstructive and restrictive disease process with decreased DLCO. PFTs 04/05/2022: FEV1 1.18L/59% FVC 1.67L/70% FEV1/FVC 71% RV 1.85L/139% TLC 3.56L/96% DLCO 63% DLCOcor 61% DL/VA 85% Past Medical History: Diagnosis Date Anxiety COPD (chronic obstructive pulmonary disease) ([facility]) Depression Migraines Vertigo Past Surgical History: Procedure Laterality Date HYSTERECTOMY MANDIBLE SURGERY UMBILICAL HERNIA REPAIR Allergies: Acetaminophen, Zanaflex [tizanidine], Amoxicillin, Azithromycin, Codeine, Doxycycline hyclate, Fentanyl, Hydromorphone, Morphine, Oxycodone-acetaminophen, and Trazodone Prior to Admission medications Medication Sig Start Date End Date Taking? Authorizing Provider albuterol 2.5 mg /3 mL (0.083 %) nebulizer solution Inhale 3 mL every 4-6 hours by nebulization route as needed. Yes Historical Provider, albuterol 90 mcg/actuation inhaler Inhale 2 puffs every 4 hours by inhalation route for 90 days. 04/05/22 Yes Steven Zuniga MD amantadine (Symmetrel) 100 mg capsule amantadine HCl 100 mg capsule TAKE 1 CAPSULE BY MOUTH TWICE A DAY 02/27/22 Yes Historical Provider, amitriptyline (Elavil) 50 mg tablet amitriptyline 50 mg tablet TAKE 1 AND 1/2 TABLETS BY MOUTH NIGHTLY 05/31/21 Yes Historical Provider, azithromycin (Zithromax) 250 mg tablet Zithromax 250 mg tablet Take 1 tablet every 72 hours by oral route in the morning for 365 days. 08/16/22 Yes Claude Vera MD baclofen (Lioresal) 10 mg tablet baclofen 10 mg tablet TAKE 1.5 TABLETS BY MOUTH 3 TIMES DAILY. 05/31/21 Yes Historical Provider, benzonatate (Tessalon) 100 mg capsule benzonatate 100 mg capsule TAKE 1 CAPSULE BY MOUTH THREE TIMES A DAY NEEDED Yes Historical Provider, wuzzljbxgyqpesx-prjqkypdy-TX 2-30-10 mg/5 mL syrup TAKE 10ML BY MOUTH EVERY 8 HOURS NEEDED FOR COUGH 01/09/22 Yes Historical Provider, budesonide-formoteroL (Symbicort) 160-4.5 mcg/actuation inhaler every 12 (twelve) hours. 07/16/14 Yes Historical Provider, buPROPion XL (Wellbutrin XL) 300 mg 24 hr tablet bupropion HCl XL 300 mg 24 hr tablet, extended release TAKE 1 TABLET BY MOUTH EVERY DAY IN THE MORNING Yes Historical Provider, busPIRone (Buspar) 30 mg tablet Take 30 mg by mouth. Yes Historical Provider, cyclobenzaprine (Flexeril) 10 mg tablet cyclobenzaprine 10 mg tablet Yes Historical Provider, cyclobenzaprine (Flexeril) 5 mg tablet cyclobenzaprine 5 mg tablet TAKE 1 TABLET BY MOUTH THREE TIMES A DAY NEEDED Yes Historical Provider, dalfampridine 10 mg tablet extended release 12 hr dalfampridine ER 10 mg tablet,extended release,12 hr 02/27/22 Yes Histori (more content not included)... [facility] 08-16-2022 Note ------ Attestation signed by Richard Restrepo MD at 08/18/2022 9:35 AM Patient was seen and examined with the resident on the same date of service, I discussed the findings and therapeutic plan with the resident/fellow, I agree with the documentation, assessment and plan as above except for any edits/updates below. Richard Restrepo MD Pulmonary and critical care ------ Pulmonary Clinic Visit Note Patient: Diamante Stapleton Age: 56 y.o. : 1965 Account No.: [id number] HPI Interval update: Patient completed voriconazole for about 30 days, tobramycin for 28 days. She remains on Advair and Spiriva with albuterol as needed. She uses Singulair on daily basis. She also uses Aerobika regularly she tried to obtain the vest however her insurance denied coverage she stated that she has been feeling better however recently she has been complaining of difficulty breathing along with pain that started on her back and now extending into the left side of her chest, she believes that she had the same pain before the last time that she had exacerbation/pneumonia. She has a regular follow-up with neurology and had recent work-up including MRI spine. HPI on 05/17/2022: Diamante Stapleton is a 56 y.o. female with a past medical history of COPD, bronchiectasis, multiple sclerosis, anxiety/depression among others who presents for a follow-up visit. She is currently on Advair and Spiriva, Singulair, and as needed albuterol. She recently underwent bronchoscopy with BAL. Results of cultures showed Pseudomonas, Staph aureus, and Aspergillus. AFB was negative. Cell count differential showed 89% neutrophils. IgE level was normal at 7. She also underwent pulmonary function testing in March with showed a likely combined obstructive and restrictive disease process with decreased DLCO. She has been on Keflex since 05/05 and will continue this until Sunday. She was prescribed inhaled tobramycin and voriconazole, however these have not yet been approved by her insurance. Currently, patient states that she continues to have cough with production of mucus. She also has a lot of greenish mucus whenever she blows her nose. She sometimes has a sore throat. She currently denies fevers, chills, nausea, vomiting. Her activity level has been generally okay and she has been able to work the past few days. The Sunday following the bronchoscopy procedure, she stated she had a panic attack while at work and felt she could not breathe. A couple of weeks ago, she said she had an episode of syncope after using the bathroom. She has been worked up by neurology followed by neurology who stated she likely has vasovagal syncope. Overall, she states she is feeling better since she started taking Keflex. She was previously on Zithromax and fluconazole. PFTs 04/05/2022: FEV1 1.18L/59% FVC 1.67L/70% FEV1/FVC 71% RV 1.85L/139% TLC 3.56L/96% DLCO 63% DLCOcor 61% DL/VA 85% Past Medical History: Diagnosis Date Anxiety COPD (chronic obstructive pulmonary disease) ([facility]) Depression Migraines Vertigo Past Surgical History: Procedure Laterality Date HYSTERECTOMY MANDIBLE SURGERY UMBILICAL HERNIA REPAIR Allergies: Acetaminophen, Zanaflex [tizanidine], Amoxicillin, Azithromycin, Codeine, Doxycycline hyclate, Fentanyl, Hydromorphone, Morphine, Oxycodone-acetaminophen, and Trazodone Prior to Admission medications Medication Sig Start Date End Date Taking? Authorizing Provider albuterol 90 mcg/actuation inhaler Inhale 2 puffs every 4 hours by inhalation route for 90 days. 04/05/22 Yes Steven Zuniga MD amantadine (Symmetrel) 100 mg capsule amantadine HCl 100 mg capsule TAKE 1 CAPSULE BY MOUTH TWICE A DAY 02/27/22 Yes Historical Provider, amitriptyline (Elavil) 50 mg tablet amitriptyline 50 mg tablet TAKE 1 AND 1/2 TABLETS BY MOUTH NIGHTLY 05/31/21 Yes Historical Provider, azithromycin (Zithromax) 250 mg tablet Zithromax 250 mg tablet Take 1 tablet every 72 hours by oral route in the morning for 365 days. 08/16/22 Yes Claude Vera MD baclofen (Lioresal) 10 mg tablet baclofen 10 mg tablet TAKE 1.5 TABLETS BY MOUTH 3 TIMES DAILY. 05/31/21 Yes Historical Provider, benzonatate (Tessalon) 100 mg capsule benzonatate 100 mg capsule TAKE 1 CAPSULE BY MOUTH THREE TIMES A DAY NEEDED Yes Historical Provider, buPROPion XL (Wellbutrin XL) 300 mg 24 hr tablet bupropion HCl XL 300 mg 24 hr tablet, extended release TAKE 1 TABLET BY MOUTH EVERY DAY IN THE MORNING Yes Historical Provider, busPIRone (Buspar) 30 mg tablet Take 30 mg by mouth. Yes Historical Provider, cyclobenzaprine (Flexeril) 10 mg tablet cyclobenzaprine 10 mg tablet Yes Historical Provider, cyclobenzaprine (Flexeril) 5 mg tablet cyclobenzaprine 5 mg tablet TAKE 1 TABLET BY MOUTH THRE (more content not included)... [facility] 05-17-2022 Note ------ Attestation signed by Richard Restrepo MD at 05/29/2022 9:10 AM Patient was seen and examined with the resident, agree with assesment and plan as above Richard Restrepo MD Pulmonary and critical care ------ Pulmonology Outpatient Note Patient : Diamante Stapleton : 1965 HPI: Diamante Stapleton is a 56 y.o. female with a past medical history of COPD, bronchiectasis, multiple sclerosis, anxiety/depression among others who presents for a follow-up visit. She is currently on Advair and Spiriva, Singulair, and as needed albuterol. She recently underwent bronchoscopy with BAL. Results of cultures showed Pseudomonas, Staph aureus, and Aspergillus. AFB was negative. Cell count differential showed 89% neutrophils. IgE level was normal at 7. She also underwent pulmonary function testing in March with showed a likely combined obstructive and restrictive disease process with decreased DLCO. She has been on Keflex since 05/05 and will continue this until Sunday. She was prescribed inhaled tobramycin and voriconazole, however these have not yet been approved by her insurance. Currently, patient states that she continues to have cough with production of mucus. She also has a lot of greenish mucus whenever she blows her nose. She sometimes has a sore throat. She currently denies fevers, chills, nausea, vomiting. Her activity level has been generally okay and she has been able to work the past few days. The Sunday following the bronchoscopy procedure, she stated she had a panic attack while at work and felt she could not breathe. A couple of weeks ago, she said she had an episode of syncope after using the bathroom. She has been worked up by neurology followed by neurology who stated she likely has vasovagal syncope. Overall, she states she is feeling better since she started taking Keflex. She was previously on Zithromax and fluconazole. PFTs 04/05/2022: FEV1 1.18L/59% FVC 1.67L/70% FEV1/FVC 71% RV 1.85L/139% TLC 3.56L/96% DLCO 63% DLCOcor 61% DL/VA 85% Assessment/Plan: 1. Pneumonia due to Pseudomonas aeruginosa ([facility]) - Ordering inhaled tobramycin for use with nebulizer - Previously ordered [employer]WOOD pod inhaler but was not approved by insurance - tobramycin (Bethkis) 300 mg/4 mL solution for nebulization; Take 4 mL (300 mg) by nebulization every 12 (twelve) hours. Dispense: 240 mL; Refill: 0 - Home nebulizer 2. Bronchiectasis with acute exacerbation ([facility]) - PFTs as above - IgE level normal - Respiratory cultures positive for Aspergillus and Pseudomonas - Treating with inhaled tobramycin and voriconazole, prior authorization pending 3. Chronic bronchitis, unspecified chronic bronchitis type ([facility]) - Continue ICS/LABA with Advair, LAMA with Spiriva - Continue Singulair - Albuterol as needed 4. 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[facility]) -Treating with oral voriconazole, prior authorization pending Past History/Allergies?Social History: Past Medical History: Diagnosis Date Anxiety COPD (chronic obstructive pulmonary disease) ([facility]) Depression Migraines Vertigo Past Surgical History: Procedure Laterality Date HYSTERECTOMY MANDIBLE SURGERY UMBILICAL HERNIA REPAIR Allergies Allergen Reactions Acetaminophen Other reaction(s): Rash Zanaflex [Tizanidine] Amoxicillin Rash Other reaction(s): Rash Azithromycin Itching and Rash Codeine Itching and Rash Doxycycline Hyclate Itching and Rash Fentanyl Itching and Rash Hydromorphone Itching and Rash Morphine Itching and Rash Oxycodone-Acetaminophen Itching and Rash Trazodone Itching and Rash Social History Socioeconomic History Marital status: Spouse name: Not on file Number of children: Not on file Years of education: Not on file Highest education level: Not on file Occupational History Not on file Tobacco Use Smoking status: Never Smokeless tobacco: Never Substance and Sexual Activity Alcohol use: Never Drug use: Never Sexual activity: Yes Partners: Male Other Topics Concern Not on file Social History Narrative Not on file Social Determinants of Health Financial Resource Strain: Not on file Food Insecurity: Not on file Transportation Needs: Not on file Physical Activity: Not on file Stress: Not on file Social Connections: Not on file Intimate Partner Violence: Not on file Housing Stability: Not on file Family History: No family history on file. Outpatient Medications: Current Outpatient Medications Medication Instructions albuterol 2.5 mg /3 mL (0.083 %) nebulizer solution Inhale 3 mL every 4-6 hours by nebulization route as needed. albuterol 90 mcg/actuation inhaler Inhale 2 puffs every 4 hours by inhalation route for 90 days. amantadine (Symmetrel) 100 mg capsule amantadine HCl 100 mg capsul (more content not included)... [facility] 05-10-2022 Note ------ Attestation signed by Lalito Bourgeois MD at 07/05/2022 12:[address] Mehta starting antifungal. ------ Updated the patient about the BAL result (growing Aspergillus) and the need to be on Voriconazole 200 mg BID for 8 weeks. Prescription was sent to the patient pharmacy. Will try to get her in the clinic on 05/17/[address]geois at [facility] 05-03-2022 Note Pt stated she has a migraine and blacked out three times today. RN recommended patient seek care from ER visit. Pt stated she called neurologist and made an appt to be seen this afternoon and has a responsible adult to be with her and take her to appt. RN recommended pt follow neurologist recommendations, but seek emergency care if symptoms persist or worsen prior to neurology appt. [facility] 05-03-2022 Note A. Satisfactory for evaluation. Examination of the ThinPrep slide and cell block reveals few alveolar macrophages amid abundant acute inflammation and blood. [facility] Comment on above: Performed By: #### L [id number] #### [facility] ([facility]) [address] [place] [address] 05-03-2022 Note IGE was normal in 2019 [facility] 04-05-2022 Note ------ Attestation signed by Lalito Bourgeois MD at 04/10/2022 2:58 PM I personally saw and examined the patient on the same date of service as resident/fellow Billie. I discussed the findings and therapeutic plan with the resident/fellow Billie. I agree with the documentation, except for any edits/updates below. Teaching Physician's Revisions: Lalito Bourgeois MD ------ Patient - Diamante Stapleton Age - 56 y.o. - 1965 [employer] # - [id number] ASSESSMENT and PLAN Diagnoses and all orders for this visit: Bronchiectasis without acute exacerbation (CMS/HCC) - Pulmonary function test; Future - CBC and differential; Future - Aspergillus fumagatus IgE; Future - Allergen mold profile IgE; Future - Immunoglobulin E; Future - azithromycin (Zithromax) 250 mg tablet; Zithromax 250 mg tablet Take 1 tablet every 72 hours by oral route in the morning for 365 days. - fluconazole (Diflucan) 200 mg tablet; Take 1 tablet (200 mg) by mouth in the morning for 3 days. Post-nasal drip Simple chronic bronchitis (CMS/HCC) - Pulmonary function test; Future Chronic bronchitis, unspecified chronic bronchitis type (CMS/HCC) - albuterol 90 mcg/actuation inhaler; Inhale 2 puffs every 4 hours by inhalation route for 90 days. - fluticasone propion-salmeteroL (Advair HFA) 230-21 mcg/actuation inhaler; Inhale 2 puffs in the morning and at bedtime. Rinse mouth with water after use to reduce aftertaste and incidence of candidiasis. Do not swallow. - montelukast (Singulair) 10 mg tablet; montelukast 10 mg tablet TAKE 1 TABLET BY MOUTH EVERY DAY We will get pulmonary function tests along with refilling her above inhalers. Most interested to know tracking her progression of obstructive disease. Suspect that her bronchiectasis is postinfectious in nature however because she has frequent exacerbations it seems that she is having ongoing inflammation and tissue destruction which is contributing to her shortness of breath. Her insurance did not allow for vest therapy but currently she does not have purulent sputum. 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 Previously had normal immunoglobulins and negative hypersensitivity panel Negative work-up for Ig E Negative work-up for cystic fibrosis with negative sweat chloride in the past She had infectious bronchiectasis in the right upper lobe. She required multiple rounds of antibiotics. She also had complications of collapsed lung after a transbronchial biopsy was performed. She had empyema with a subsegment of the right middle lobe ultimately being removed. Currently maintained on LABA/ICS, 3 times weekly Zithromax due to recurrent exacerbations of bronchiectasis. States that she had a difficult fall after having COVID-19. After recovery with prednisone and Levaquin therapy for superimposed bacterial pneumonia currently feels like she is at her baseline. States that she has a dry cough but denies any purulent sputum denies any fevers or chills or hemoptysis. Her appetite is okay. She does have shortness of breath with considerable exertion but does not feel that this is worsening. PFT in May 2021 showing FEV1 1.33, 66% FVC 1.89, 78% FEV1 FVC ratio of 70% residual volume by plethysmography of 167% predicted DLCO uncorrected for hemoglobin of 61% predicted with actual value of 12.95. PFTs performed in office on today's visit showing FEV1 of 1.18 to 59% predicted, FVC of 1.67 which is 70% predicted FEV1 to FVC ratio of 71% with RV by plethysmography of 139% DLCO uncorrected for hemoglobin of 13.49 which is 63% predicted and DLCO corrected for hemoglobin is 13.65 which is 61% predicted She has complications of yeast infections with scheduled Zithromax. She is needing refills on her albuterol, Advair, and Singulair No past medical history on file. No family history on file. Social History Socioeconomic History Marital status: Spouse name: Not on file Number of children: Not on file Years of education: Not on file Highest education level: Not on file Occupational History Not on file Tobacco Use Smoking status: Never Smokeless tobacco: Never Substance and Sexual Activity Alcohol use: Never Drug use: Never Sexual activity: Yes Partners: Male Other Topics Concern Not on file Social History Narrative Not on file Social Determinants of Health Financial Resource Strain: Not on file Food Insecurity: Not on file Transportation Needs: Not on file Physical Activity: Not on file Stress: Not on file Social Connections: Not on file Intimate Partner Violence: Not on file Housing Stability: Not on file Allergies Allergen Re (more content not included)... [facility] 12-21-2021 Note PROCEDURE: [employer] VCT 64, 5 mm slice axial images were acquired with coronal reconstruction through the abdomen and pelvis without contrast. HISTORY: Left flank pain FINDINGS: Comparison made with prior KUB of September 29, 2021. Both kidneys and collecting systems: Normal cortical volume. Peripheral caliceal non-obstructing stones, majority 1-2 mm, largest left inferior pole calyx 2 x 5 mm. No stones within either renal pelvis or ureter. No collecting system dilatation, inflammation or evidence of obstruction. No bladder stone, air collection or focal wall thickening. Bliateral pelvic phleboliths. Hysterectomy. Left adnexal 6 x 8 mm peripherally calcified nodule, non-aggressive, benign appearance. Large volume of colon stool, no inflammation or obstruction. Fluid filled non-distended small bowel normally distributed throughout the abdomen and pelvis. No ascites or pelvic fluid. No free air. Unremarkable liver, spleen, gallbladder, biliary tree, pancreas and adrenal glands. Subtle interstitial prominence right middle lobe, likely post-inflammatory sequela. IMPRESSION: 1. Bilateral peripheral caliceal stones, left greater than right, no inflammation or obstruction. 2. Large volume of colon stool, no inflammatory changes, mass or obstruction. Report reported and signed by Gopi Renteria on 12/21/[address] [place] [address] [employer] 01-21-2021 Evaluation note Encounter Date Diagnosis Assessment Notes Dec, Contact dermatitis, unspecified contact dermatitis type, unspecified trigger (ICD-10 - L25.9) Continue your home medications as prescribed. Take the prednisone as prescribed until gone starting tomorrow. Continue use hydrocortisone cream to the rash as well as Benadryl for itching. Follow-up with your family physician if no improvement in 2 to 3 days Dec, Other Contact dermatitis home care material was printed [employer] Other Evaluation note* Diagnosis Multiple sclerosis (HCC) Multiple sclerosis Vitamin D deficiency Unspecified vitamin D deficiency documented in this encounter [employer] Phone: History general Narrative - Reported* Type Description Date Medical History ms Medical History [place] Medical History asthma Surgical History reconstructive jaw surgeries Surgical History 2 [facility] Surgical History hysterectomy Surgical History kidney stone Hospitalization History see abovr [employer] Other Summary Purpose Family History No Family History Records FoundNo Family History Records FoundNo Family History Records FoundNo Family History Records FoundNo Family History Records FoundNo Family History Records Found Advance Directives No Advanced Directives Records FoundNo Advanced Directives Records FoundNo Advanced Directives Records FoundNo Advanced Directives Records FoundNo Advanced Directives Records FoundNo Advanced Directives Records Found Additional Source Comments INFORMATION SOURCE (unrecogn ized section and content) DATE CREATED AUTHOR 04/13/2021 [facility] DATE CREATED AUTHOR AUTHOR'S ORGANIZ ATION 06/27/2021 [facility] DATE CREATED AUTHOR AUTHOR'S ORGANIZ ATION 04/19/2022 [facility] dical Specialist DATE CREATED AUTHOR AUTHOR'S ORGANIZ ATION 06/12/2022 [facility] DATE CREATED AUTHOR AUTHOR'S ORGANIZ ATION 07/21/2022 [facility] DATE CREATED AUTHOR AUTHOR'S ORGANIZ ATION 03/14/2023 [facility] Care Teams (unrecognized sec tion and content) 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 This clinical summary was aggregated from multiple sources. Caution should be exercised in using it in the provision of clinical care. This summary normalizes information from multiple sources, and as a consequence, information in this document may materially change the coding, format and clinical context of patient data. In addition, data may be omitted in some cases. CLINICAL DECISIONS SHOULD BE BASED ON THE PRIMARY CLINICAL RECORDS. [facility] [employer] [facility]. provides no warranty or guarantee of the accuracy or completeness of information in this document.
--- NOTE | 2023-03-15 17:00 | XR_ITS ---
The [address] [address] Patient Name: ELVIRA STAPLETON MRN: [id number] date: 1965 Sex: F Assigned Patient Location: ER Current Patient Location: ER Accession/Order Number: [id number] Exam Date: 03/15/2023 17:20 Report Date: 03/15/2023 17:42 At the request of: СЕРГЕЙ LOZANO Procedure: XR chest 1V EXAMINATION: XR chest 1V 03/15/2023 2:41 PM PST HISTORY: cough TECHNIQUE: Single frontal view of the chest acquired. COMPARISONS: Chest x-ray 02/06/[address] chest 02/06/2023. FINDINGS: Lines/tubes/other: None. Heart and mediastinum: The heart and the mediastinum are within normal limits for technique. Bones: No acute osseous abnormality. Lungs: Right upper lobe patchy opacification, mildly improved. Mild patchy opacification of the left lateral base, mildly worse. No layering fluid. Pleura: There is no significant pleural effusion or pneumothorax. Other: None. XR/XR chest 1V IMPRESSION: 1. Right pulmonary opacification is mildly improved. 2. Mildly worsening opacification of the left lateral base. Electronically authenticated by: DEVAN BINGHAM Date: 03/15/2023 17:42
--- NOTE | 2023-03-15 17:02 | ED.URI1 ---
HPI - URI/Sore Throat General Chief Complaint: Upper Respiratory Infection Stated Complaint: Shortness of Breath Time Seen by Provider: 03/15/23 16:50 Source: patient History of Present Illness HPI Narrative: 57-year-old female presents for cough and shortness of breath. She was diagnosed with influenza last week, about nine days ago. She doesn't feel better. She's been coughing up green phlegm. No hemoptysis or known fever. Related Data Home Medications Medication Instructions Recorded Confirmed albuterol sulfate 90 mcg/actuation 2 puff inhalation Q6H PRN 01/03/23 01/03/23 aerosol inhaler shortness of breath or wheezing amantadine HCl 100 mg capsule mg 01/03/23 amitriptyline 50 mg tablet 50 mg PO 01/03/23 baclofen 10 mg tablet 10 mg PO Q8H 01/03/23 01/03/23 bupropion HCl 150 mg 24 hr tablet, 150 mg PO .morning 01/03/23 01/03/23 extended release buspirone 30 mg tablet 30 mg PO BID 01/03/23 01/03/23 dalfampridine 10 mg 10 mg PO Q12H 01/03/23 01/03/23 tablet,extended release,12 hr diazepam 5 mg tablet 5 mg PO Q8H PRN muscle spasm 01/03/23 01/03/23 glatiramer 40 mg/mL subcutaneous 40 mg subcut Q24H 01/03/23 01/03/23 syringe meclizine 25 mg tablet 25 mg PO .every 6 hours PRN 01/03/23 01/03/23 dizziness montelukast 10 mg tablet 10 mg PO QDAY 01/03/23 01/03/23 omeprazole 40 mg capsule,delayed 40 mg PO DAILY 01/03/23 01/03/23 release primidone 50 mg tablet 50 mg PO Q8H 01/03/23 01/03/23 propranolol 40 mg tablet 40 mg PO Q12H 01/03/23 01/03/23 quetiapine 50 mg tablet 50 mg PO .qhs 01/03/23 01/03/23 rizatriptan 10 mg tablet 10 mg PO .daily 01/03/23 01/03/23 sucralfate 1 gram tablet 1 g PO Q6H 10/11/23 10/11/23 Previous Rx's Medication Instructions Recorded benzonatate 100 mg capsule 100 mg PO TID PRN cough #20 caps 01/03/23 levofloxacin 750 mg tablet 750 mg PO DAILY 7 days #7 tabs 01/03/23 levofloxacin 750 mg tablet 750 mg PO DAILY 10 days #10 tabs 03/15/23 Allergies Allergy/AdvReac Type Severity Reaction Status Date / Time hydromorphone [From Dilaudid] Allergy Severe Verified 01/22/23 06:14 codeine Allergy Intermediate Verified 01/22/23 06:14 doxycycline Allergy Mild Rash Verified 01/22/23 06:14 acetaminophen [From Percocet] AdvReac Intermediate Verified 01/22/23 06:14 amoxicillin AdvReac Intermediate Verified 01/22/23 06:14 clavulanic acid AdvReac Intermediate Verified 01/22/23 06:14 [From Augmentin] fentanyl AdvReac Intermediate Verified 01/22/23 06:14 morphine AdvReac Intermediate Verified 01/22/23 06:14 oxycodone [From Percocet] AdvReac Intermediate Verified 01/22/23 06:14 tizanidine [From Zanaflex] AdvReac Intermediate Verified 01/22/23 06:14 Review of Systems ROS Narrative A ten point review of systems is negative except as noted above. PFSH PFS Social History Smoking status: Former smoker Exam Narrative Exam Narrative: Nurses note and vital signs reviewed and patient is not hypoxic. General: The patient appears well and in no apparent distress. Patient is resting comfortably on cart. Skin: Warm, dry, no pallor noted. There is no rash noted. Head: Normocephalic, atraumatic Eye: Normal conjunctiva, no drainage Ears, Nose, Mouth, and Throat: oral mucosa is moist. Nares patent. Cardiovascular: Regular Rate and Rhythm Respiratory: Patient is in no distress, no accessory muscle use, lungs are clear to auscultation, no wheezing, rales or rhonchi Back: non-tender GI: soft and nontender Musculoskeletal: The patient has no evidence of calf tenderness, no pitting edema, symmetrical pulses noted bilaterally Neurological: A&O, normal speech Psychiatric: Cooperative Constitutional Vital Signs, click to edit/add: Last Vital Signs Temp 99.2 F 03/15/23 16:51 Pulse 97 H 03/15/23 16:51 Resp 20 03/15/23 16:51 BP 106/62 03/15/23 16:51 Pulse Ox 96 03/15/23 16:51 O2 Del Method Room Air 03/15/23 16:51 Course Vital Signs Vital signs: Vital Signs Temperature 99.2 F 03/15/23 16:51 Pulse Rate 97 H 03/15/23 16:51 Respiratory Rate 20 03/15/23 16:51 Blood Pressure 106/62 03/15/23 16:51 Pulse Oximetry 96 03/15/23 16:51 Oxygen Delivery Method Room Air 03/15/23 16:51 Temperature 99.2 F 03/15/23 16:51 Pulse Rate 97 H 03/15/23 16:51 Respiratory Rate 20 03/15/23 16:51 Blood Pressure 106/62 03/15/23 16:51 Pulse Oximetry 96 03/15/23 16:51 Oxygen Delivery Method Room Air 03/15/23 16:51 MDM - URI/Sore Throat MDM Narrative Medical decision making narrative: Covid test is negative. Chest x-ray findings are discussed with the patient. I reviewed her CAT scan of her chest from five weeks ago and she'll be put on Levaquin. 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 Degroot at her request. Treatment diagnosis and follow-up were discussed with the patient. Differential Diagnosis Differential diagnosis: Likely upper respiratory infection and other (pneumonia, Covid) Lab Data Attestation: I reviewed the patient's lab results. Labs: Lab Results 03/15/23 03/15/23 Range/Units 17:08 17:10 WBC 12.1 H (4.0-11.0) 10^3/uL RBC 4.09 L (4.20-5.40) 10^6/uL Hgb 12.0 (12.0-16.0) g/dL Hct 38.3 (36.0-48.0) % MCV 93.6 (81.0-99.0) fL MCH 29.3 (26.7-34.0) pg MCHC 31.3 (29.9-35.2) g/dL RDW 14.4 (11.0-15.0) % Plt Count 240 (150-450) 10^3/uL MPV 10.5 (9.5-13.5) fL Neut % (Auto) 78.8 H (43.0-75.0) % Lymph % (Auto) 10.0 L (20.5-60.0) % [place] % (Auto) 8.3 (1.7-12.0) % Eos % (Auto) 2.1 (0.9-7.0) % Baso % (Auto) 0.2 (0.2-2.0) % Neut # (Auto) 9.6 H (1.4-6.5) 10^3/uL Lymph # (Auto) 1.2 (1.2-3.8) 10^3/uL [place] # (Auto) 1.0 H (0.3-0.8) 10^3/uL Eos # (Auto) 0.3 (0.0-0.7) 10^3/uL Baso # (Auto) 0.0 (0.0-0.1) 10^3/uL Abs Immat Gran (auto) 0.07 H (0.00-0.03) 10^3/uL Imm/Tot Granulo (auto) 0.6 H (0.0-0.5) % Sodium 136 (136-145) mmol/L Potassium 3.2 L (3.5-5.1) mmol/L Chloride 101 (98-107) mmol/L Carbon Dioxide 28.4 (21.0-32.0) mmol/L Anion Gap 9.8 BUN 9.0 (7.0-18.0) mg/dL Creatinine 0.78 (0.55-1.02) mg/dL Est GFR ( Amer) >60 (>=60) Est GFR (Non-Af Amer) >60 (>=60) BUN/Creatinine Ratio 11.5 Glucose 107 H (74-106) mg/dL Calcium 9.1 (8.5-10.1) mg/dL SARS-CoV-2 (PCR) Negative (NEGATIVE) Imaging Data Chest x-ray: Radiologist's impression: Procedure: XR chest 1V EXAMINATION: XR chest 1V 03/15/2023 2:41 PM PST HISTORY: cough TECHNIQUE: Single frontal view of the chest acquired. COMPARISONS: Chest x-ray 02/06/[address] chest 02/06/2023. FINDINGS: Lines/tubes/other: None. Heart and mediastinum: The heart and the mediastinum are within normal limits for technique. Bones: No acute osseous abnormality. Lungs: Right upper lobe patchy opacification, mildly improved. Mild patchy opacification of the left lateral base, mildly worse. No layering fluid. Pleura: There is no significant pleural effusion or pneumothorax. Other: None. IMPRESSION: 1. Right pulmonary opacification is mildly improved. 2. Mildly worsening opacification of the left lateral base. Electronically authenticated by: DEVAN BINGHAM Date: 03/15/2023 17:42 Discharge Plan Discharge Chief Complaint: Upper Respiratory Infection Clinical Impression: Community acquired pneumonia Patient Disposition: Home, Self-Care Time of Disposition Decision: 18:02 Condition: Good Mode of Transportation: Private Vehicle Prescriptions / Home Meds: New levofloxacin 750 mg tablet 750 mg PO DAILY 10 Days Qty: 10 0RF No Action albuterol sulfate 90 mcg/actuation HFA aerosol inhaler 2 puff INHALATION Q6H PRN (Reason: shortness of breath or wheezing) amantadine HCl 100 mg capsule amitriptyline 50 mg tablet 50 mg PO Patient Comments: 1 and 1/2 tab baclofen 10 mg tablet 10 mg PO Q8H bupropion HCl 150 mg tablet extended release 24 hr 150 mg PO .morning buspirone 30 mg tablet 30 mg PO BID dalfampridine 10 mg tablet extended release 12 hr 10 mg PO Q12H diazepam 5 mg tablet 5 mg PO Q8H PRN (Reason: muscle spasm) glatiramer 40 mg/mL syringe 40 mg SUBCUT Q24H meclizine 25 mg tablet 25 mg PO .every 6 hours PRN (Reason: dizziness) montelukast 10 mg tablet 10 mg PO QDAY omeprazole 40 mg capsule,delayed release(DR/EC) 40 mg PO DAILY primidone 50 mg tablet 50 mg PO Q8H propranolol 40 mg tablet 40 mg PO Q12H quetiapine 50 mg tablet 50 mg PO .qhs rizatriptan 10 mg tablet 10 mg PO .daily sucralfate 1 gram tablet 1 g PO Q6H Patient Comments: with meals levofloxacin 750 mg tablet 750 mg PO DAILY 7 Days Qty: 7 0RF benzonatate 100 mg capsule 100 mg PO TID PRN (Reason: cough) Qty: 20 0RF Instructions: Community Acquired Pneumonia (ED) Additional Instructions: follow-up with Dr. Degroot Stand Alone Forms: Portal Instructions Referrals: Physician,Non-Staff, MD [Primary Care Provider] - 1 week
[2023-03-15 17:24] LABS: Basophils Percent Auto 0.2 % (0.2-2.0); Eosinophils Absolute Auto 0.3 10^3/uL (0.0-0.7); Eosinophils Percent Auto 2.1 % (0.9-7.0); Hematocrit 38.3 % (36.0-48.0); Immature Granulocytes Abs Auto 0.07 10^3/uL (0.00-0.03); Immature Granulocytes Pct Auto 0.6 % (0.0-0.5); Lymphocytes Absolute Auto 1.2 10^3/uL (1.2-3.8); Mean Corpuscular HGB Conc 31.3 g/dL (29.9-35.2); Mean Corpuscular Hemoglobin 29.3 pg (26.7-34.0); Mean Corpuscular Volume 93.6 fL (81.0-99.0); Mean Platelet Volume 10.5 fL (9.5-13.5); Monocytes Percent Auto 8.3 % (1.7-12.0); Neutrophils Absolute Auto 9.6 10^3/uL (1.4-6.5); Neutrophils Percent Auto 78.8 % (43.0-75.0); Platelet Count 240 10^3/uL (150-450); Red Blood Count 4.09 10^6/uL (4.20-5.40); Red Cell Distribution Width 14.4 % (11.0-15.0); White Blood Count 12.1 10^3/uL (4.0-11.0)
[2023-03-15 17:32] LABS: Anion Gap 9.8; BUN Creatinine Ratio 11.5; Calcium 9.1 mg/dL (8.5-10.1); Carbon Dioxide 28.4 mmol/L (21.0-32.0); Chloride 101 mmol/L (98-107); Estimated GFR (African America >60 (>=60); Estimated GFR (Non-African Ame >60 (>=60); Glucose 107 mg/dL (74-106); Potassium 3.2 mmol/L (3.5-5.1); Sodium 136 mmol/L (136-145)
[2023-03-15 17:34] LABS: SARS-CoV-2 Ag NEGATIVE (NEGATIVE)
[2023-03-16 11:26] LABS: SARS-CoV-2 NAA NOT DETECTED (NOT DETECTE)
== END 2023-03-15 18:16 | disposition home or self-care (01) ==
PROVIDERS: Emergency Provider Emergency Medicine
DX: J18.9 Pneumonia, unspecified organism (principal); Z87.891 Personal history of nicotine dependence
CPT/HCPCS: 36415; 71045; 80048; 85025; 87635; 87811; 99285

== ENCOUNTER 2023-04-30 16:41 | Inpatient (IN) | payer OTHER, MEDICARE, SELFPAY ==
[2023-04-30] VITALS (15 sets, daily range): BP systolic 91–132; BP diastolic 51–68; PULSE 108–126; RESP 14–27; TEMP 37.1–38.4; O2SAT 87–99; BMI 28.0; BMI 26.2
--- NOTE | 2023-04-30 16:45 | XR_ITS ---
The [address] [address] Patient Name: ELVIRA STAPLETON MRN: [id number] date: 1965 Sex: F Assigned Patient Location: ER Current Patient Location: ER Accession/Order Number: [id number] Exam Date: 04/30/2023 16:53 Report Date: 04/30/2023 17:24 At the request of: TATE BOURGEOIS Procedure: XR chest 1V CXR HISTORY: Shortness of breath COMPARISON: March 15, 2023 chest x-ray TECHNIQUE: 1 view chest submitted for review. FINDINGS: The lungs are adequately expanded with airspace opacities demonstrated in the right lung greatest in the right upper lobe.. The cardiac silhouette measures within normal. Pulmonary vascularity is unremarkable. Osseous structures do not demonstrate any acute abnormality. XR/XR chest 1V IMPRESSION: Interstitial and airspace opacities greatest in the right lung, increased compared to prior exam. Differential could include worsening of pneumonia versus fluid overload and/or underlying nodule. CT scan of the chest is recommended for further evaluation. Electronically authenticated by: AQUILINO MORALES Date: 04/30/2023 17:24
--- OUTSIDE RECORDS SUMMARY | 2023-04-30 16:58 | XMS_ITS | CCD ---
Author Name Unknown Address [address] [place] [address] Organization [facility] Care Team Providers Care 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 Name Role Phone Cyndie Hopkins DO Primary Care Provider [phone] Kristen Arias Unavailable BILL, DR GAO Primary Care Unavailable YOLANDA Bhandari, DR ZUNIGA Admitting Unavailable YOLANDA ., DR ZUNIGA Attending Unavailable MALACHI .KANDACE Consulting Unavailable YOLANDA Bhandari, DR ZUNIGA Consulting Unavailable Farhad Ramírez Consulting Unavailable JUDITH VAUGHAN Admitting Unavailable JUDITH VAUGHAN Attending Unavailable BILL, DR GAO Primary Care Unavailable MARY KATE VARGAS Consulting UnavailNANY Ramirez Consulting Unavailable PABLITO JONES Consulting Unavailable PATRICIA CANNON Consulting [facility]available [facility] Primary Care Unavailable JUDITH VAUGHAN Admitting Unavailable JUDITH VAUGHAN Attending Unavailable MARY KATE VARGAS Consulting UnavailCady Jiang Consulting Unavailable TRAM CARBONE Referring Unavailable ASHLEY, CYNDIE Primary Care Unavailable Garrett Thorpe MD Primary Care Provider NANY BRO Attending Unavailable GARRETT THORPE Referring Unavailable GARRETT THORPE Primary Care Unavailable STUARTDIANA WUH Attending Unavailable ALBERTO TUTTLE Attending Unavailable JIMMY BURCIAGA Attending Unavailable JEROMY LUCERO Referring Unavailable TRAM, FRIEDA Referring Unavailable ASSALY RAGHEB Attending Unavailable ASSALY, RAGHEB Referring Unavailable ASSALY, RAGHEB Admitting Unavailable ASSALY, RAGHEB Referring Unavailable AL-TKRIT, SURYA Attending Unavailable CLAUDE VERA Attending Unavailable Allergies Allergy Classification Reported Allergen(s) Allergy Type Date of Onset Reaction(s) Facility (8 sources) Acetaminophen; Translations: [ACETAMINOPHEN] Drug Allergy 08-25-19 21 [facility] (8 sources) Acetaminophen / oxyCODONE; Translations: [OXYCODONE-ACETAM INOPHEN] Drug Allergy 03-13-20 14 Itching [facility] Work Phone: (8 sources) Amoxicillin; Translations: [AMOXICILLIN] Drug Allergy 08-25-19 21 Hives [facility] Work Phone: (9 sources) Azithromycin; Translations: [AZITHROMYCIN] Drug Allergy 03-13-20 14 Itching [employer] Other (8 sources) Codeine; Translations: [CODEINE] Drug Allergy 03-13-20 14 Itching [facility] Work Phone: (8 sources) Doxycycline; Translations: [DOXYCYCLINE] Drug Allergy 09-15-19 16 Rash [employer] Other (9 sources) fentaNYL; Translations: [FENTANYL] Drug Allergy 03-13-20 14 Itching [employer] Other (9 sources) HYDROmorphone; Translations: [HYDROMORPHONE] Drug Allergy 03-13-20 14 Itching, Rash [employer] Other (9 sources) Morphine; Translations: [MORPHINE] Drug Allergy 03-13-20 14 Itching [employer] Other (9 sources) tiZANidine; Translations: [TIZANIDINE] Drug Allergy 03-14-20 17 Rash [employer] Other (9 sources) traZODone; Translations: [TRAZODONE] Drug Allergy 03-13-20 14 Unknown [employer] Other (1 source) Acetaminophen / oxyCODONE Drug Allergy Unknown [employer] Other (1 source) Amoxicillin-Pot Clavulanate Propensity to adverse reactions to drug 12-29-[address] [facility] (1 source) Acetaminophen / oxyCODONE Drug Allergy 09-15-19 16 [facility] (1 source) Amoxicillin Drug Allergy [facility] (1 source) Codeine Drug Allergy 09-15-19 16 [facility] (1 source) Doxycycline Drug Allergy 09-15-19 16 [facility] (1 source) fentaNYL Drug Allergy 09-15-19 16 [facility] (1 source) HYDROmorphone Drug Allergy 09-15-19 16 [facility] (1 source) Morphine Drug Allergy 09-15-19 16 [facility] (1 source) tiZANidine Drug Allergy 02-13-20 19 [facility] (1 source) traZODone Drug Allergy 09-15-19 16 [facility] (1 source) benzonatate; Translations: [BENZONATATE] Drug Allergy 02-14-20 23 [facility] (1 source) Doxycycline; Translations: [DOXYCYCLINE HYCLATE] Drug Allergy 03-13-20 14 [facility] Medications Current Medications Medication Drug Class(es) Dates Sig (Normalized) Sig (Original) albuterol 0.83 mg/ml inhalation solution (11 sources) beta2-Adrenergic Agonist Start: 01-30-2023 take 3 mL by inhalation every six hours as needed for wheezing albuterol (PROVENTIL,VENTOLIN) 2.5 mg /3 mL (0.083 %) nebulizer solution Indications: Subacute cough , Bronchiectasis ([facility]) Inhale 3 mL (2.5 mg total) by nebulization every 6 (six) hours as needed for wheezing. 75 mL 2 01/30/2023 Active take 2 puff(s) by in halation every six hours as needed for wheezing albuterol (PROVENTIL HFA;VENTOLIN HFA) 9 0 mcg/actuation inhaler Inhale 2 puffs every 6 (six) hours as needed for wheezing. 0 Active Albuterol Sulfat e HFA Active amantadine hydrochloride 100 mg oral capsule (7 sources) Influenza A M2 Protein Inhibitor Start: 03-29-2021 take 1 capsule by mouth twice daily amantadine (SYMMETREL) 100 MG capsule Take 1 capsule by mouth 2 times daily 180 capsule 1 08/25/2021 Active Amantadine HCl A ctive amitriptyline hydrochloride [...] other day 0 Active Azithromycin Act michelet b complex vitamins capsule (3 sources) take 1 capsule by mouth in the morning b complex vitamins capsule Take 1 capsule by mouth in the morning. 0 Active baclofen 10 mg oral tablet (7 sources) gamma-Aminobutyric Acid-ergic Agonist Start: 05-31-2021 End: 05-31-2022 take 1.5 tablets by mouth three times daily baclofen (LIORESAL) 10 MG tablet Indications: Multiple sclerosis (HCC) Take 1.5 tablets by mouth 3 times daily 405 tablet 3 05/31/2021 05/31/2022 Active take 0.5 tablet by m outh three times daily baclofen (LIORESAL) 20 mg tablet Take 0. 5 tablets (10 mg total) by mouth 3 (three) times a day. 0 Active Baclofen Active 24 hr buPROPion hydrochloride 300 mg extended release oral tablet (7 sources) Aminoketone Start: 08-24-2022 take 1 tablet by mouth every twenty-four hours in the morning buPROPion XL (WELLBUTRIN XL) 300 mg 24 hr tablet Indications: Mood disorder (CMS-HCC) Take 1 tablet (300 mg total) by mouth in the morning. 90 tablet 2 08/24/2022 Active take 1 tablet by mouth once courtney y buPROPion (WELLBUTRIN XL) 300 MG extended release tablet Take 300 mg by mouth daily 0 Active take 1 tablet by mouth once courtney y buPROPion (WELLBUTRIN XL) 150 MG extended release tablet Take 150 mg by mouth daily 0 Active buPROPion HCl ER (XL) Active busPIRone hydrochloride 30 mg oral tablet (7 sources) Start: 07-18-2022 take 1 tablet by mouth in the morning, then take 1 tablet by mouth at bedtime busPIRone (BUSPAR) 30 mg tablet Indications: Generalized anxiety disorder Take 1 tablet (30 mg total) by mouth in the morning and 1 tablet (30 mg total) before bedtime. 180 tablet 2 07/18/2022 Active take 1 tablet by mouth twice julianne ly busPIRone (BUSPAR) 30 MG tablet Take 30 mg by mouth 2 times daily 0 Active busPIRone HCl Ac tive cholecalciferol 0.05 mg oral capsule (3 sources) Vitamin D take 1 capsule by mouth in the morning cholecalciferol, vitamin D3, 2,000 units capsule Take 1 capsule (2,000 Units total) by mouth in the morning. 0 Active cyclobenzaprine hydrochloride 10 mg oral tablet (6 sources) Muscle Relaxant Start: 07-19-19 take 1 tablet by mouth every eight hours as needed for muscle spasms cyclobenzaprine (FLEXERIL) 10 mg tablet Indications: Multiple sclerosis (CMS-HCC) Take 1 tablet (10 mg total) by mouth every 8 (eight) hours as needed for muscle spasms. 270 tablet 2 07/18/2022 Active cyclobenzaprine (FLEXERIL) 5 MG tablet Take 5 mg by mouth as needed 0 Active 12 hr dalfampridine 10 mg extended release oral tablet (7 sources) Potassium Channel Jovon Start: 09-20-2021 take 1 tablet by mouth every twelve [...] 12 hours 180 tablet 1 03/11/2021 Active take 1 tablet by flaco th every hour dalfampridine (AMPYRA) 10 mg tablet extended release 12 hr Take 1 tablet (10 mg total) by mouth every 12 (twelve) hours. 0 Active Dalfampridine Ac tive dextromethorphan hydrobromide 3 mg/ml oral solution (4 sources) Uncompetitive F-adtvyi-R-aspartate Receptor Antagonist, Sigma-1 Agonist Start: 02-08-2023 take 15 mL by mouth every six hours for cough and cough dextromethorphan HBr 15 mg/5 mL liquid Indications: Acute cough Take 15 mL by mouth every 6 (six) hours. 420 mL 0 02/08/2023 Active diazePAM 5 mg oral tablet (6 sources) Benzodiazepine Start: 05-29-2021 take 1 tablet by mouth once daily diazePAM (VALIUM) 5 MG tablet Take 5 mg by mouth nightly. 0 05/29/2021 Active take 1 tablet by flaco th every six hours as needed for anxiety diazePAM (VALIUM) 5 mg tablet Take 1 tablet (5 mg total) by mouth every 6 (six) hours as needed for anxiety. 0 Active docosahexaenoic acid 120 mg / eicosapentaenoic acid 180 mg oral capsule (2 sources) take 1 capsule by mo uth three times daily [place]-3 Fatty Acids (FISH OIL) 1000 MG CAPS Take 2,000 mg by mouth 3 times daily 0 Active take 1 capsule by mouth three ti mes daily [place]-3 Fatty Acids (FISH OIL) 1000 MG CAPS Take 3,000 mg by mouth 3 times daily 0 Active Eszopiclone (1 source) Lunesta Active fluticasone propionate 0.05 mg/actuat metered dose nasal spray (5 sources) Corticosteroid Start: 03-07-2023 take 1 spray(s) nasal route in the morning fluticasone propionate (FLONASE) 50 mcg/actuation nasal spray Indications: Sinusitis, unspecified chronicity, unspecified location SPRAY 1 SPRAY INTO EACH NOSTRIL IN THE MORNING 16 mL 2 03/07/2023 Active Fluticasone Prop ionate (Inhal) Active 120 actuat fluticasone propionate 0.23 mg/actuat / salmeterol 0.021 mg/actuat metered dose inhaler (4 sources) Corticosteroid, beta2-Adrenergic Agonist Start: 04-05-2022 take 1 puff(s) by inhalation in the morning fluticasone propion-salmeteroL (ADVAIR HFA) 230-21 mcg/actuation inhaler Inhale 1 puff in the morning. 0 04/05/2022 Active fremanezumab-vfr m (AJOVY AUTOINJECTOR SUBQ) (4 sources) fremanezumab-vfr m (AJOVY AUTOINJECTOR SUBQ) Inject under the skin. 0 Active gabapentin 100 mg oral capsule (5 sources) Anti-epileptic Agent Start: 11-29-2021 End: 05-28-2022 gabapentin (NEURONTIN) 100 MG capsule Take 1 capsule by mouth 2 times daily for 180 days. Intended supply: 30 days 90 capsule 5 11/29/2021 05/28/2022 Active 1 ml glatiramer acetate 40 mg/ml prefilled syringe (11 sources) Start: 03-30-2021 glatiramer (COPAXONE) 40 MG/ML injection Indications: Multiple sclerosis (HCC) INJECT ONE SYRINGE SUBCUTANEOUSLY 3 TIMES A WEEK AT LEAST 48 HOURS APART. ALLOW TO WARM TO ROOM TEMP FOR 20 MINUTES. REFRIGERATE. 36 each 3 09/22/2021 Active Glatiramer Aceta te Active ibuprofen 600 mg oral tablet (5 sources) Nonsteroidal Anti-inflammatory Drug Start: 2021 take 1 tablet by mouth three times daily at mealtime as needed ibuprofen (ADVIL;MOTRIN) 600 MG tablet TAKE 1 TABLET BY MOUTH THREE TIMES A DAY WITH FOOD OR MILK NEEDED FOR 30 DAYS 0 2021 Active Start: 02-07-2020 take 1 tablet by flaco th every six hours as needed for pain ibuprofen (ADVIL,MOTRIN) 600 mg tablet Take 1 tablet (600 mg total) by mouth every 6 (six) hours as needed for pain. 30 tablet 0 02/07/2020 Active L.acidophil/L.plantar/Bifido 7 (UP4 PROBIOTICS ADULT ORAL) (3 sources) L.acidophil/L.pl barb/Bifido 7 (UP4 PROBIOTICS ADULT ORAL) Take by mouth. 0 Active latanoprost 0.05 mg/ml ophthalmic solution (4 sources) Prostaglandin Analog take 1 drop(s) into the eye(s) once daily latanoprost (XALATAN) 0.005 % ophthalmic solution 1 drop nightly. 0 Active levoFLOXacin 750 mg oral tablet (4 sources) Quinolone Antimicrobial take 1 tablet by mouth in the morning levoFLOXacin (LEVAQUIN) 750 mg tablet Take 1 tablet (750 mg total) by mouth in the morning. 0 Active meclizine hydrochloride 25 m g oral tablet (1 source) Antiemetic S t a r t : 0 9 - 0 6 - 2 0 2 2 E n d : 0 9 - 1 6 - 2 0 2 2 take 1 tablet by mouth three times daily as needed for dizziness meclizine (ANTIVERT) 25 MG tablet Take 1 tablet by mouth 3 times daily as needed for Dizziness 15 tablet 0 11/29/2021 12/09/2021 Active melatonin 1 mg sublingual tablet (3 sources) melatonin 1 mg t ablet, sublingual Place under the tongue. 0 Active methylPREDNISolone (5 sources) Corticosteroid S t a r t : 1 1 - 0 7 - 2 0 2 3 methylPREDNISolone (MEDROL, ERIC,) 4 mg tablet Indications: Subacute cough , Bronchiectasis (CMS-HCC) follow package directions 21 tablet 0 01/30/2023 Active Start: 12-09-2015 Medrol (Eric) 4 MG as directed Orally Nov, Active montelukast 10 mg oral tablet (7 sources) Leukotriene Receptor Antagonist take 1 tablet by mouth once daily montelukast (SINGULAIR) 10 mg tablet Take 1 tablet (10 mg total) by mouth nightly. 0 Active Montelukast Sodi um Active Multiple Vitamins-Minerals (THERAPEUTIC MULTIVITAMIN-MINERALS) tablet (2 sources) take 1 tablet by mouth once daily Multiple Vitamins-Minerals (THERAPEUTIC MULTIVITAMIN-MINERALS) tablet Take 1 tablet by mouth daily 0 Active omeprazole 40 mg delayed release oral capsule (7 sources) Proton Pump Inhibitor Start : 12-30 End: 03-30 take 1 capsule by mouth once daily at bedtime omeprazole (PriLOSEC) 40 mg capsule Indications: Gastro-esophageal reflux disease with esophagitis, without bleeding TAKE 1 CAPSULE BY MOUTH EVERY DAY IN THE MORNING AND AT BEDTIME 180 capsule 0 03/30/2023 Active take 1 capsule by mouth once julianne ly omeprazole (PRILOSEC) 20 MG delayed release capsule Take 20 mg by mouth daily 0 Active predniSONE 20 mg oral tablet (1 source) Start: 01-21-2021 take 1 tablet by mouth every twelve hours predniSONE 20 MG 1 tablet Orally bid for 5 day(s) Dec, Active primidone 50 mg oral tablet (6 sources) Anti-epileptic Agent Start: 02-28-2021 take 1 tablet by mouth three times daily primidone (MYSOLINE) 50 MG tablet Indications: Multiple sclerosis (HCC) Take 1 tablet by mouth 3 times daily 270 tablet 1 08/25/2021 Active promethazine hydrochloride 25 mg oral tablet (7 sources) Phenothiazine take 1 tablet by mouth every six hours as needed for nausea and vomiting promethazine (PHENERGAN) 25 mg tablet Take 1 tablet (25 mg total) by mouth every 6 (six) hours as needed for nausea or vomiting. 0 Active Promethazine HCl Active propranolol hydrochloride 40 mg oral tablet (8 sources) beta-Adrenergic Jovon Start: 01-15-2023 End: 04-16-2023 take 1 tablet by mouth three times daily propranoloL (INDERAL) 40 mg tablet Indications: Generalized anxiety disorder TAKE 1 TABLET BY MOUTH THREE TIMES A DAY 270 tablet 0 04/16/2023 Active take 1 tablet by flaco three times daily propranolol (INDERAL) 40 MG tablet Take 40 mg by mouth 3 times daily 0 Active Propranolol HCl Active QUEtiapine 50 mg oral tablet (5 sources) Atypical Antipsychotic Start: 04-09-2023 take 1 tablet by mouth once daily QUEtiapine (SEROquel) 50 mg tablet Indications: Mood disorder (CMS-HCC) TAKE 1 TABLET BY MOUTH EVERY DAY AT NIGHT 90 tablet 0 04/09/2023 Active Start: 01-09-2023 End: 04-09-2023 take 1 tablet by mouth once daily QUEtiapine (SEROquel) 50 mg tablet Indications: Mood disorder (CMS-HCC) TAKE 1 TABLET BY MOUTH EVERY DAY AT NIGHT 90 tablet 0 01/09/2023 04/09/2023 Discontinued rimegepant 75 mg disintegrating oral tablet (1 source) Start: 05-31-2021 Rimegepant Sul fate (NURTEC) 75 MG TBDP Take 75 mg by mouth as needed (as needed) 15 tablet 2 05/31/2021 Active rizatriptan 10 mg oral tablet (1 source) Serotonin-1b and Serotonin-1d Receptor Agonist Start: 11-29-2021 rizatriptan (MAXALT) 10 MG tablet Take 1 tablet by mouth once as needed for Migraine May repeat in 2 hours if needed 10 tablet 3 11/29/2021 Active soy isofl/blk coh/gr tea/yerba (ESTROVEN ENERGY ORAL) (3 sources) soy isofl/blk coh/gr tea/yerba (ESTROVEN ENERGY ORAL) Take by mouth. 0 Active sucralfate 1000 mg oral tablet (5 sources) Aluminum Complex Start: 12-10-2022 take 1 tablet by mouth three times daily sucralfate (CARAFATE) 1 gram tablet Indications: Gastro-esophageal reflux disease with esophagitis, without bleeding TAKE 1 TABLET BY MOUTH 3 TIMES A DAY. 270 tablet 2 12/10/2022 Active Start: 11-18-2021 take 1 tablet by flaco th every 30 days before mealtime sucralfate (CARAFATE) 1 GM tablet TAKE 1 TABLET ON AN EMPTY STOMACH ORALLY BEFORE MEALS AND BEDTIME 30 DAY(S) 0 11/18/2021 Active VITAMIN D PO (2 sources) VITAMIN D PO Demetri e by mouth daily 0 Active zinc gluconate 50 mg oral tablet (3 sources) take 1 tablet by flaco th in the morning zinc gluconate 50 mg tablet Take 1 tablet (50 mg total) by mouth in the morning. 0 Active Problems Active Problems Problem Classification Problem Date Documented Da te Episodic/Chronic Anxiety disorders (5 sources) Generalized anxiety disorder; Translations: [Generalized anxiety disorder] Onset: 05-26-2019 06-20-2022 Chronic Chronic obstructive pulmonary disease and bronchiectasis (8 sources) Bronchiectasis; Translations: [Bronchiectasis, uncomplicated] Onset: 07-25-2019 07-25-2019 Chronic Conditions associated with dizziness or vertigo (5 sources) Dizziness and giddiness; Translations: [DIZZINESS AND GIDDINESS] Onset: 12-29-2021 Episodic Esophageal disorders (5 sources) Gastro-esophageal reflux disease with esophagitis; Translations: [Gastro-esophageal reflux disease with esophagitis, without bleeding] Onset: 05-17-2020 03-29-2023 Chronic Headache; including migraine (4 sources) Migraine; Translations: [Migraine, unspecified, not intractable, without status migrainosus] Onset: 01-31-2016 06-20-2022 Chronic Miscellaneous mental health disorders (4 sources) Insomnia disorder related to another mental disorder; Translations: [Insomnia due to other mental disorder] Onset: 05-26-2019 06-20-2022 Chronic Mood disorders (5 sources) Severe recurrent major depression without psychotic features; Translations: [Major depressive disorder, recurrent severe without psychotic features] Onset: 11-19-2019 06-20-2022 Chronic Multiple sclerosis (7 sources) Multiple sclerosis; Translations: [Multiple sclerosis] Onset: 02-14-2011 Chronic Nutritional deficiencies (2 sources) Vitamin D deficiency; Translations: [Vitamin D deficiency, unspecified] Onset: 11-29-2021 Chronic Other aftercare (1 source) Other snf (current) drug therapy; Translations: [OTH LONGTERM CURRENT DRUG THERAPY] Onset: 06-12-2022 Episodic Other ear and sense organ disorders (1 source) Impacted cerumen, right ear; Translations: [IMPACTED CERUMEN RIGHT EAR] Onset: 06-12-2022 Episodic Other gastrointestinal disorders (1 source) Altered bowel function; Translations: [Change in bowel habit] 04-04-2023 Episodic Other upper respiratory disease (4 sources) Allergic rhinitis; Translations: [Allergic rhinitis, unspecified] Onset: 09-04-2013 06-20-2022 Chronic Pneumonia (except that caused by tuberculosis or sexually transmitted disease) (5 sources) Pneumonia, unspecified organism; Translations: [Pneumonia due to Pseudomonas] Onset: 01-10-2022 Episodic Substance-related disorders (4 sources) Tobacco dependence syndrome; Translations: [Nicotine dependence, unspecified, uncomplicated] Onset: 01-16-2012 06-20-2022 Chronic Unclassified (1 source) Cough, unspecified; Translations: [Cough, [...] not specified as recurrent] Onset: 04-05-2022 Episodic Mood disorders (4 sources) Mood disorders Onset: 07-18-2022 07-18-2022 Other injuries and conditions due to external causes (1 source) Other specified injuries of head, initial encounter; Translations: [OTH SPEC INJURIES HEAD INITIAL ENC] Onset: 12-29-2021 Episodic Other lower respiratory disease (3 sources) Shortness of breath; Translations: [SHORTNESS OF BREATH] Onset: 01-09-2022 Episodic Residual codes; unclassified (1 source) Acquired [...] Name Value Interpretation Reference Range Facility 36on 04-23-2023 36 Approving, but needs appt for additional refills. Normal [facility] Orders Onlyon 04-16-2023 Orders Only [id number] Diamante Stapleton 1965 F Date Provider Department Center 04/16/[id number] TUTTLE [facility] No family history on file [facility] Documentationon 04-10-2023 Documentation [id number] Diamante Stapleton 1965 F Date Provider Department Center 04/10/[id number]-[id number] TUTTLE [facility] No family history on file [facility] Office Visiton 04-03-2023 Follow-up visit [id number] Navas 1965 F Date Provider Department Center 04/03/[id number] TUTTLE [facility] PUL Comprehensiv No family history on file Level of Service:37813 [place] OFFICE/OUTPATIENT ESTABLISHED MOD MDM 30 MIN () Reason for Visit and Comments: 6 month follow-up [Other] - Patient states she dropped sample off to the lab for the sputum and she got a call from the lab saying the numbers did not match Normal [facility] 36on 03-13-2023 36 I called the patient and let her know we will need her to get this done again. I am faxing the order to [facility] [place]. [facility] 36 Thank you Cecilia [facility] Follow-Upon 02-13-2023 Follow-Up [id number] Diamante Stapleton 1965 F Date Provider Department Center 02/13/2023 An[facility] Comprehensiv No family history on file Level of Service:22562 [place] OFFICE/OUTPATIENT ESTABLISHED MOD MDM 30-39 MIN (GC) [facility] 36on 02-05-2023 36 I spoke with patient , she will be coming to see you in clinic next week at [facility] 36on 01-29-2023 36 Surya. Can you call t he patient, thanks [facility] Telephoneon 01-22-2023 Telephone [id number] Diamante Stapleton 1965 F Date Provider Department [place] 01/22/2023 CLAUDE LORENZ [facility] No family history on file [facility] Refillon 01-04-2023 Refill [id number] Diamante Stapleton 1965 F Date Provider Department [place] 01/04/2023 STEVEN HOUSE [facility] No family history on file Reason for Visit and Comments: Med Refill [[id number]] [facility] Orders Onlyon 12-29-2022 Orders Only [id number] Diamante Stapleton 1965 Provider Department [place] 12/29/2022 [id number], SURYA [facility] INT MED Comprehensiv No family history on file [facility] Office Visiton 11-15-2022 Follow-up visit [id number] Diamante Stapleton 1965 F Date Provider Department [place] 11/15/2022 [id number], SURYA [facility] No family history on file Level of Service:75313 [place] OFFICE/OUTPATIENT ESTABLISHED LOW MDM 20-29 MIN (GC) Reason for Visit and Comments: Follow-up [[id number]] - Results for ct and pets scan [facility] Refillon 09-14-2022 Refill [id number] Diamante Stapleton 1965 Provider Department [place] 09/14/2022 AN[facility] No family history on file Reason for Visit and Comments: Med Refill [[id number]] [facility] 36on 09-06-2022 36 Called and left message on patients voicemail. [facility] Telephoneon 09-05-2022 Telephone [id number] Diamante Stapleton 1965 Provider Department [place] [facility] No family history on file [facility] 36on 08-22-2022 36 Pt reports pharmacy did not receive rx for Singulair. When it was approved, the status was set to 'print', so it did not go electronically. I called in and left on pharmacy voicemail. [facility] Orders Onlyon 08-19-2022 Orders Only [id number] Diamante Stapleton 1965 Provider Department [place] 08/19[facility]2022 [facility] No family history on file [facility] [facility] Refillon 08-18-2022 Refill [id number] Diamante Stapleton 1965 Provider Department [place] 08/18/2022 [facility] family history on file Reason for Visit and Comments: Med Refill [[id number]] [facility] 37on 08-16-2022 37 IgG, IgM, IgA, IgE Singulair, Azithromycin CT chest w/o contrast RTC in [address] [facility] Follow-Upon 08-16-2022 Follow-Up [id number] Diamante Stapleton 1965 Provider Department [place] 08/16/2022 [facility] No family history on file Level of Service:71988 [place] OFFICE/OUTPATIENT ESTABLISHED MOD MDM 30-39 MIN () Reason for Visit and Comments: Follow-up [297683] - 3 month follow up [facility] 36on 06-20-2022 36 Spoke with patient, she said she went to her PCP, the dizziness came from her having wax in her ear. She did do the labs. I let Dr. Zuniga know that has been done patient is due to nepalese her antibiotic on today [facility] Orders Onlyon 06-16-2022 Orders Only [id number] Diamante Stapleton 1965 F Date Provider Department Center 06/16/2022 ELIZABETH DOMINGO [facility] No family history on file [facility] 36on 06-14-2022 36 I called and left a message on the voicemail for the patient. Detailed message letting her know that lab work is needed. [facility] Orders Onlyon 06-14-2022 Orders Only [id number] Diamante Stapleton 1965 F Date Provider Department [place] 06/14/2022 STEVEN HOUSE [facility] No family history on file [facility] CBC AUTO DIFFon 06-08-2022 BASO # 0.0 103/ul Normal 0.0-0.1 [facility] Comment on above: Performed By: #### T SH, CMP, HSTROPN #### [facility] [address] [place] [address] Dr. Addy Reyes Basophils/100 WBC (Bld) 0.5 % Normal 0.2-2.0 [facility] Comment on above: Performed By: #### T SH, CMP, HSTROPN #### [facility] [address] [address] [address] Addy Reyes EO # 0.4 103/ul Normal 0.0-0.7 [facility] Comment on above: Performed By: #### T SH, CMP, HSTROPN #### [facility] [address] [address] [address] Addy Reyes Eosinophils/100 WBC (Bld) 5.0 % Normal 0.9-7.0 [facility] Comment on above: Performed By: #### T SH, CMP, HSTROPN #### [facility] [address] [place] [address] Dr. Addy Reyes Erythrocyte distribution width (RBC) [Ratio] 13.9 % Normal 11.0-15.0 [facility] Comment on above: Performed By: #### T SH, CMP, HSTROPN #### [facility] [address] [place] [address] Dr. Addy Reyes Hematocrit (Bld) [Volume fraction] 41.5 % Normal 36.0-48.0 [facility] Comment on above: Performed By: #### T SH, CMP, HSTROPN #### [facility] [address] [place] [address] Dr. Addy Reyes Hemoglobin (Bld) [Mass/Vol] 13.2 g/dL Normal 12.0-16.0 [facility] Comment on above: Performed By: #### T SH, CMP, HSTROPN #### [facility] [address] [place] [address] Dr. Addy Reyes IG # 0.01 10e3/ul Normal 0.00-0.03 [facility] Comment on above: Performed By: #### T SH, CMP, HSTROPN #### [facility] [address] [place] [address] Dr. Addy Reyes IG % 0.1 % Normal 0.0-0.5 [facility] Comment on above: Performed By: #### T SH, CMP, HSTROPN #### [facility] [address] [place] [address] Dr. Addy Reyes LYMPH # 1.7 103/ul Normal 1.2-3.8 [facility] Comment on above: Performed By: #### T SH, CMP, HSTROPN #### [facility] [address] [place] [address] Dr. Addy Reyes Lymphocytes/100 WBC (Bld) 22.4 % Normal 20.5-60.0 [facility] Comment on above: Performed By: #### T SH, CMP, HSTROPN #### [facility] [address] [place] [address] Dr. Addy Reyes MANUAL DIFF REQ NO Normal [facility] Comment on above: Performed By: #### T SH, CMP, HSTROPN #### [facility] [address] [place] [address] Dr. Addy Reyes MCH (RBC) [Entitic mass] 29.5 pg Normal 26.7-34.0 [facility] Comment on above: Performed By: #### T SH, CMP, HSTROPN #### [facility] [address] [place] [address] Dr. Addy Reyes MCHC (RBC) [Mass/Vol] 31.8 g/dL Normal 29.9-35.2 [facility] Comment on above: Performed By: #### T SH, CMP, HSTROPN #### [facility] [address] [place] [address] Dr. Addy Reyes MCV (RBC) [Entitic vol] 92.8 fL Normal 81.0-99.0 [facility] Comment on above: Performed By: #### T SH, CMP, HSTROPN #### [facility] [address] [place] [address] Dr. Addy Reyes MONO # 0.7 103/ul Normal 0.3-0.8 [facility] Comment on above: Performed By: #### T SH, CMP, HSTROPN #### [facility] [address] [place] [address] Dr. Addy Reyes Monocytes/100 WBC (Bld) 8.5 % Normal 1.7-12.0 [facility] Comment on above: Performed By: #### T SH, CMP, HSTROPN #### [facility] [address] [place] [address] Dr. Addy Reyes NEUT # 4.9 103/ul Normal 1.4-6.5 [facility] Comment on above: Performed By: #### T SH, CMP, HSTROPN #### [facility] [address] [place] [address] Dr. Addy Reyes Neutrophils/100 WBC (Bld) 63.5 % Normal 43.0-75.0 [facility] Comment on above: Performed By: #### T SH, CMP, HSTROPN #### [facility] [address] [place] [address] Dr. Addy Reyes Platelet mean volume (Bld) [Entitic vol] 10.7 fL Normal 9.5-13.5 [facility] Comment on above: Performed By: #### T SH CMP, HSTROPN #### [facility] [address] [address] [address] Addy Reyes PLT 221 103/ul Normal 150-450 [facility] Comment on above: Performed By: #### T CAROLYN CMP, HSTROPN #### [facility] [address] [place] [address] Dr. Addy Reyes RBC 4.47 106/ul Normal 4.20-5.40 [facility] Comment on above: Performed By: #### T CAROLYN CMP, HSTROPN #### [facility] [address] [place] [address] Dr. Addy Reyes WBC 7.7 103/ul Normal 4.0-11.0 [facility] Comment on above: Performed By: #### T THONY LEON, HSTROPN #### [facility] [address] [place] [address] HEAD WO CONon [...] CADY BROWNLEE Date: 2022-06-08 16:26 Normal [facility] PROF CHEM 8 (BAS METB)on Anion gap [Moles/Vol] 10.4 mmol/L Normal [facility] Comment on above: Performed By: #### T SH, CMP, HSTROPN #### [facility] [address] [address] [address] Addy Reyes Calcium [Mass/Vol] 8.6 mg/dL Normal 8.5-10.1 [facility] Comment on above: Performed By: #### T SH, CMP, HSTROPN #### [facility] [address] [place] [address] Dr. Addy Reyes Chloride [Moles/Vol] 106 mmol/L Normal 98-107 [facility] Comment on above: Performed By: #### T SH, CMP, HSTROPN #### [facility] [address] [place] [address] Dr. Addy Reyes CO2 [Moles/Vol] 28.3 mmol/L Normal 21.0-32.0 [facility] Comment on above: Performed By: #### T SH, CMP, HSTROPN #### [facility] [address] [place] [address] Dr. Addy Reyes Creatinine [Mass/Vol] 0.76 mg/dL Normal 0.55-1.02 [facility] Comment on above: Performed By: #### T SH, CMP, HSTROPN #### [facility] [address] [place] [address] Dr. Addy Reyes EGFR-AF TANZANIAN >60 Normal >=60 [facility] Comment on above: Performed By: #### T SH, CMP, HSTROPN #### [facility] [address] [place] [address] Dr. Addy Reyes EGFR-NON AF TANZANIAN >60 Normal >=60 [facility] Comment on above: Performed By: #### T SH, CMP, HSTROPN #### [facility] [address] [place] [address] Dr. Addy Reyes Glucose [Mass/Vol] 104 mg/dL Normal 74-106 [facility] Comment on above: Performed By: #### T SH, CMP, HSTROPN #### [facility] [address] [address] [address] Addy Reyes Potassium [Moles/Vol] 3.7 mmol/L Normal 3.5-5.1 [facility] Comment on above: Performed By: #### T SH, CMP, HSTROPN #### [facility] [address] [address] [address] Addy Reyes Sodium [Moles/Vol] 141 mmol/L Normal 136-145 [facility] Comment on above: Performed By: #### T SH, CMP, HSTROPN #### [facility] [address] [address] [address] Addy Reyes Urea nitrogen [Mass/Vol] 18.0 mg/dL Normal 7.0-18.0 [facility] Comment on above: Performed By: #### T SH, CMP, HSTROPN #### [facility] [address] [address] [address] Addy Reyes Urea nitrogen/Creatinine [Mass ratio] 23.7 mg/mg Normal [facility] Comment on above: Performed By: #### T SH, CMP, HSTROPN #### [facility] [address] [address] [address] Addy Reyes Telephoneon 06-08-2022 Telephone [id number] Diamante Stapleton 1965 F Date Provider Department Center 06/08/2022 [facility]EV[facility]ES [facility] family history on file [facility] 36on 05-23-2022 36 Apt 08/16/22. Does he need one sooner. 3 mo supply ordered. [facility] 36 Approving, but needs appt for additional refills. [facility] 36 I called and left a message on the voicemail for patient letting her know that [facility] doesn't normally deal with nebulizers, she would need to get that from a [employer] company. I asked her to call back if the message was to be something different. [facility] Telephoneon 05-23-2022 Telephone [id number] Diamante Stapleton 1965 Provider Department Center 05/23/2022 STEVEN HOUSE [facility] No family history on file Reason for Visit and Comments: Med Refill [[id number]] Nebulizer [Other] [facility] Follow-Upon 05-17-2022 Follow-Up [id number] Diamante Stapleton 1965 Provider Department Center 05/17/2022 Viki-STUART [facility] No family history on file Level of Service:41849 [place] OFFICE/OUTPATIENT ESTABLISHED MOD MDM 30-39 MIN () Reason for Visit and Comments: Follow-up [[id number]] - Go over test results from [facility] and discuss medications. [facility] Letter (Out)on 05-12-2022 Letter (Out) [id number] Diamante Stapleton 1965 Provider Department [place] 05/12/2022 [facility] No family history on file [facility] Orders Onlyon 05-12-2022 Orders Only [id number] Diamante Stapleton 1965 Provider Department [place] 05/12/[address] [place] [address] [facility] No family history on file [facility] Telephoneon 05-12-2022 Telephone [id number] Diamante Stapleton 1965 Provider Department Center 05/12/2022 AnishaSTEVEN ZUNIGA [facility] No family history on file Reason for Visit and Comments: Med Refill [[id number]] - Pharmacy states they need additional info on the sig for the tobramycin inhaler. Please give them a call. [facility] Orders Onlyon 05-10-2022 Orders Only [id number] Diamante Stapleton 1965 Date Provider Department Center 05/10/2022 [address] [facility] PUL Comprehensiv No family history on file [facility] Orders Onlyon 05-05-2022 Orders Only [id number] Diamante Stapleton 1965 F Date Provider Department Center 05/05/2022 STEV[facility] HOUSE [facility] P[facility]M [facility] No family history on file Normal [facility] 29on 05-03-2022 29 Encounter addended b y: Lalito Bourgeois MD on: 07/13/2022 1:15 PM Actions taken: Cosign clinical note with attestation Normal [facility] 29 Encounter addended b y: Jimmy Burciaga MD on: 07/12/2022 4:53 PM Actions taken: Clinical Note Signed Normal [facility] AFB CULTUREon 05-03-2022 AFB CULTURE No growth at 42 days Normal [facility] Comment on above: Performed By: #### L [id number] #### [facility] ([facility]) [address] [place] [address] AFB STAIN No acid fast bacilli seen Normal [facility] Comment on above: Performed By: #### L [id number] #### [facility] ([facility]) [address] [place] [address] AFB CULTURE No growth at 42 days Normal [facility] Comment on above: Performed By: #### L [id number] #### [facility] ([facility]) [address] [place] [address] AFB STAIN No acid fast bacilli seen Normal [facility] Comment on above: Performed By: #### L [id number] #### [facility] ([facility]) [address] [place] [address] ANESon 05-03-2022 ANES -- Attestation signed by [...] History Anxiety COPD (chronic obstructive pulmonary disease) ([facility]) Depression Migraines Vertigo Allergies Acetaminophen Other reaction(s): [...] rhonchi, decreased breath sounds, wheezes, rales Normal [facility] BODY FLUID CELL DIFFERENTIAL on 05-03-2022 BASOPHILS TOTAL PER COUNTED LEUKOCYTES IN BODY FLUID BY MANUAL COUNT Normal [facility] Comment on above: Order Comment: Diffe rential performed on cytospin Performed By: #### L [id number] ####[facility] ([facility])[address] [place] [address] CELLS COUNTED TOTAL (#) IN BODY FLUID [address] [facility] Comment on above: Order Comment: Diffe rential performed on cytospin Performed By: #### L [id number] ####[facility] ([facility])[address] [place] [address] EOSINOPHILS TOTAL PER COUNTED LEUKOCYTES IN BODY FLUID BY MANUAL COUNT [facility] Comment on above: Order Comment: Diffe rential performed on cytospin Performed By: #### L [id number] ####[facility] ([facility])[address] [place] [address] LYMPHOCYTES TOTAL PER COUNTED LEUKOCYTES IN BODY FLUID BY MANUAL COUNT [address] [facility] Comment on above: Order Comment: Diffe rential performed on cytospin Performed By: #### L [id number] ####[facility] ([facility])[address] [place] [address] MESOTHELIAL CELLS TOTAL PER COUNTED LEUKOCYTES IN BODY FLUID BY MANUAL COUN [facility] Comment on above: Order Comment: Diffe rential performed on cytospin Performed By: #### L [id number] ####[facility] ([facility])[address] [place] [address] MONOCYTES+MACROPHAGE S TOTAL PER COUNTED LEUKOCYTES IN BODY FLUID BY MANUAL [address] [facility] Comment on above: Order Comment: Diffe rential performed on cytospin Performed By: #### L [id number] ####[facility] ([facility])[address] [place] [address] NEUTROPHILS TOTAL PER COUNTED LEUKOCYTES IN BODY FLUID BY MANUAL COUNT [address] [facility] Comment on above: Order Comment: Diffe rential performed on cytospin Performed By: #### L [id number] ####[facility] ([facility])[address] [place] [address] OTHER CELLS BODY FLUID (MANUAL) [facility] Comment on above: Order Comment: Diffe rential performed on cytospin Performed By: #### L [id number] ####[facility] ([facility])[address] [place] [address] ELECTRON MICROSCOPYon 2022 LAB AP DIAGNOSIS COMMENT Normal [facility] Comment on above: Result Comment: I am [...] syndrome. Performed By: #### E LECTRON MICROSCOPY ####[facility] ([facility])[address] [place] [address] LAB AP MICROSCOPIC DESCRIPTION Normal [facility] Comment on above: Result Comment: A. T [...] organisms. Performed By: #### E LECTRON MICROSCOPY ####[facility] ([facility])[address] [place] [address] LAB AP CASE REPORT Normal [facility] Comment on above: Result Comment: Elec simona Microscopy Case: [id number] Authorizing Provider: James Bourgeois Collected: 05/03/2022 0000 Ordering Location: [facility] Received: 05/03/2022 1319 Pathologist: Wade Patten, PhD Cosigner: Cheryl Nolan MD Specimen: Bronchial brushing Performed By: #### E LECTRON MICROSCOPY ####[facility] ([facility])[address] [place] [address] Result Comment: Non- gynecologic Cytology Case: [id number] Authorizing Provider: Lalito Bourgeois MD Collected: 05/03/2022 1052 [facility] Received: 05/03/2022 1222 [facility] Pathologist: Cheryl Nolan MD Specimen: Bronchoalveolar lavage, right upper lobe Performed By: #### L [id number] #### [facility] ([facility]) [address] [place] [address] LAB AP GROSS DESCRIPTION Normal [facility] Comment on above: Result Comment: A. B [...] . Performed By: #### E LECTRON MICROSCOPY ####[facility] ([facility])[address] [place] [address] Result Comment: 15 m L pink, cloudy fluid Performed By: #### L [id number] #### [facility] ([facility]) [address] [place] [address] LAB AP REPORT FINAL DIAGNOSIS NARRATIVE Normal [facility] Comment on above: Result Comment: A., B., and C. Tracheal and right lung brushing biopsies have abnormal microtubular dynein arms, suggestive of ciliary dyskinesia. (See comment, microscopy descriptions, and sales representative business courses images). Performed By: #### E LECTRON MICROSCOPY ####[facility] ([facility])[address] [place] [address] Result Comment: A. L demond, right upper lobe, bronchoalveolar lavage: - Negative for malignancy. - Marked acute inflammation and blood. B. Trachea, brushing: - Specimen received for electron microscopy. (See [id number]). C. Lung, right upper lobe, bronchial brushing. - Specimen received for electron microscopy. (See [id number]). D. Lung, right lower lobe, bronchial brushing: - Specimen received for electron microscopy. (See [id number]). Performed By: #### L [id number] #### [facility] ([facility]) [address] [facility] [place] [address] FUNGAL CULTUREon 05-03-2022 FUNGAL SMEAR No yeast or fungal elements seen Normal [facility] Comment on above: Performed By: #### L [id number] #### [facility] ([facility]) [address] [facility] [place] [address] FUNGAL SMEAR No yeast or fungal elements seen Normal [facility] Comment on above: Performed By: #### L [id number] ####[facility] ([facility])[address] [place] [address] HPon 05-03-2022 HP -- Attestation signed by Lalito Bourgeois MD [...] No information available for this encounter. Attending: Lalito Bourgeois MD Admit Date: 05/03/2022 Hospital Day: [...] Date Anxiety COPD (chronic obstructive pulmonary disease) ([facility]) Depression Migraines Vertigo Allergies Allergen Reactions Acetaminophen [...] mouth., Disp: , Rfl: fish oil concentrate ([place]-3) 120-180 mg ca (more content not included)... Normal [facility] NON-STATE'S ATTORNEY CYTOLOGY - CELLULAR EXAMon 05-03-2022 LAB AP CLINICAL INFORMATION J47.9 - Bronchiectasis without acute exacerbation (CMS/HCC) [ICD-10-CM]. [facility] Comment on above: Performed By: #### L [id number] #### [facility] ([facility]) [address] [place] [address] OPNOTEon 05-03-2022 OPNOTE -- Attestation signed by [...] Dr. Bourgeois in 2 weeks in the [facility] Jimmy Burciaga Pulmonary and critical care fellow [facility] Normal [facility] PATHOLOGY REVIEWon PATHOLOGY REVIEW Electronically reji d by Carissa Mancuso MD on 05/08/22 at 12:20 PM. Normal [facility] Comment on above: Order Comment: Intra cellular bacteria present. Performed By: #### L [id number] ####[facility] ([facility])[address] [place] [address] RESPIRATORY CULTUREon 2022 Bacteria identified Cx Nom (Unsp spec) Abnormal [facility] Comment on above: Result Comment: STAP HYLOCOCCUS AUREUS >41414 CFU/mL Staphylococcus aureus For Susceptibility Results Please Refer to PSEUDOMONAS AERUGINOSA >04650 CFU/mL Pseudomonas aeruginosa For Susceptibility Results Please Refer to Performed By: #### L [id number] #### [facility] ([employer]) [address] [place] [address] GRAM STAIN RESULT Normal [facility] Comment on above: Result Comment: Poly morphonuclear leukocytes Gram positive cocci in clusters Cytocentrifuge sample Performed By: #### L [id number] #### [facility] ([facility]) [address] [place] [address] Aztreonam [Susc] <=2 Susceptible [facility] Comment on above: Performed By: #### L [id number] #### [facility] ([facility]) [address] [place] [address] Cefepime [Susc] 8 ug/ml Susceptible [facility] Comment on above: Performed By: #### L [id number] #### [facility] ([facility]) [address] [place] [address] Ciprofloxacin [Susc] >2 Resistant [facility] Comment on above: Performed By: #### L [id number] #### [facility] ([facility]) [address] [place] [address] Gentamicin [Susc] <=2 Susceptible [facility] Comment on above: Performed By: #### L [id number] #### [facility] ([facility]) [address] [place] [address] levoFLOXacin [Susc] 4 ug/ml Resistant [facility] Comment on above: Result Comment: This is an appended report. These results have been appended to a previously final verified report. Performed By: #### L [id number] #### [facility] ([facility]) [address] [place] [address] Meropenem [Susc] <=0.5 Susceptible [facility] Comment on above: Performed By: #### L [id number] #### [facility] ([facility]) [address] [place] [address] Piperacillin+Tazobac white [Susc] <=2/4 Susceptible [facility] Comment on above: Performed By: #### L [id number] #### [facility] [facility] ([facility]) [address] [place] [address] Tobramycin [Susc] <=2 Susceptible Ana garcia of [facility] Comment on above: Performed By: #### L [id number] #### [facility] ([facility]) [address] [place] [address] SCREENING MAMMOGRAM W/LIBRA, BILATERAL*on 04-14-2022 SCREENING MAMMOGRAM [...] VERY IMPORTANT TO YOUR HEALTH. THE CURRENT [employer] GUIDELINES RECOMMENDS ANNUAL MAMMOGRAPHY BEGINNING AT AGE 39 THIS FACILITY USES A REMINDER SYSTEM TO ENSURE ALL PATIENTS RECEIVE REMINDER NOTIFICATIONS AT THE APPROPRIATE TIME BASED ON THE RECOMMENDATIONS OF THIS EXAM. Report reported and signed by Gopi Renteria on 04/14/2022 1009 Normal [facility] Tube Depatcher XR Chest 2 Views*on 04-13-19 23 XR [...] by Gopi Renteria on 04/14/2022 0741 Normal [facility] Tube Depatcher XR CHEST 1 Von 01-09-2022 XR CHEST [...] FARHAD RAMÍREZ Date: 2022-01-09 17:43 Normal [facility] CBC AUTO DIFFon 12-28-2021 BASO # 0.0 103/ul Normal 0.0-0.1 [facility] Comment on above: Performed By: #### T THONY LEON HSTROPN #### [facility] [address] [place] [address] Dr. Addy Reyes Basophils/100 WBC (Bld) 0.3 % Normal 0.2-2.0 [facility] Comment on above: Performed By: #### T CAROLYN CMP, HSTROPN #### [facility] [address] [place] [address] Dr. Addy Reyes EO # 0.2 103/ul Normal 0.0-0.7 [facility] Comment on above: Performed By: #### T CAROLYN CMP, HSTROPN #### [facility] [address] [place] [address] Dr. Addy Reyes Eosinophils/100 WBC (Bld) 1.3 % Normal 0.9-7.0 [facility] Comment on above: Performed By: #### T CAROLYN CMP, HSTROPN #### [facility] [address] [address] [address] Addy Reyes Erythrocyte distribution width (RBC) [Ratio] 13.8 % Normal 11.0-15.0 [facility] Comment on above: Performed By: #### T CAROLYN CMP, HSTROPN #### [facility] [address] [place] [address] Dr. Addy Reyes Hematocrit (Bld) [Volume fraction] 40.1 % Normal 36.0-48.0 [facility] Comment on above: Performed By: #### T SH, CMP, HSTROPN #### [facility] [address] [place] [address] Dr. Addy Reyes Hemoglobin (Bld) [Mass/Vol] 13.0 g/dL Normal 12.0-16.0 [facility] Comment on above: Performed By: #### T SH, CMP, HSTROPN #### [facility] [address] [place] [address] Dr. Addy Reyes IG # 0.05 10e3/ul Critically high 0.00-0.03 [facility] Comment on above: Performed By: #### T SH, CMP, HSTROPN #### [facility] [address] [place] [address] Dr. Addy Reyes IG % 0.4 % Normal 0.0-0.5 [facility] Comment on above: Performed By: #### T SH, CMP, HSTROPN #### [facility] [address] [place] [address] Dr. Addy Reyes LYMPH # 1.4 103/ul Normal 1.2-3.8 [facility] Comment on above: Performed By: #### T SH, CMP, HSTROPN #### [facility] [address] [place] [address] Dr. Addy Reyes Lymphocytes/100 WBC (Bld) 11.9 % Critically low 20.5-60.0 [facility] Comment on above: Performed By: #### T SH, CMP, HSTROPN #### [facility] [address] [place] [address] Dr. Addy Reyes MANUAL DIFF REQ NO Normal [facility] Comment on above: Performed By: #### T SH, CMP, HSTROPN #### [facility] [address] [place] [address] Dr. Addy Reyes MCH (RBC) [Entitic mass] 30.2 pg Normal 26.7-34.0 [facility] Comment on above: Performed By: #### T SH, CMP, HSTROPN #### [facility] [address] [place] [address] Dr. Addy Reyes MCHC (RBC) [Mass/Vol] 32.4 g/dL Normal 29.9-35.2 [facility] Comment on above: Performed By: #### T SH, CMP, HSTROPN #### [facility] [address] [place] [address] Dr. Addy Reyes MCV (RBC) [Entitic vol] 93.3 fL Normal 81.0-99.0 [facility] Comment on above: Performed By: #### T SH, CMP, HSTROPN #### [facility] [address] [place] [address] Dr. Addy Reyes MONO # 1.0 103/ul Critically high 0.3-0.8 [facility] Comment on above: Performed By: #### T SH, CMP, HSTROPN #### [facility] [address] [place] [address] Dr. Addy Reyes Monocytes/100 WBC (Bld) 8.1 % Normal 1.7-12.0 [facility] Comment on above: Performed By: #### T SH, CMP, HSTROPN #### [facility] [address] [place] [address] Dr. Addy Reyes NEUT # 9.2 103/ul Critically high 1.4-6.5 [facility] Comment on above: Performed By: #### T SH, CMP, HSTROPN #### [facility] [address] [place] [address] Dr. Addy Reyes Neutrophils/100 WBC (Bld) 78.0 % Critically high 43.0-75.0 [facility] Comment on above: Performed By: #### T SH, CMP, HSTROPN #### [facility] [address] [place] [address] Dr. Addy Reyes Platelet mean volume (Bld) [Entitic vol] 10.2 fL Normal 9.5-13.5 [facility] Comment on above: Performed By: #### T SH, CMP, HSTROPN #### [facility] [address] [place] [address] Dr. Addy Reyes PLT 213 103/ul Normal 150-450 [facility] Comment on above: Performed By: #### T THONY LEON, HSTROPN #### [facility] [address] [address] [address] Addy Reyes RBC 4.30 106/ul Normal 4.20-5.40 [facility] Comment on above: Performed By: #### T THONY LEON, HSTROPN #### [facility] [address] [address] [address] Addy Reyes WBC 11.8 103/ul Critically high 4.0-11.0 [facility] Comment on above: Performed By: #### T THONY LEON, HSTROPN #### [facility] [address] [address] [address] [facility] WITHOUT IV CONTRAST. INDICATION: [...] PATRICIA CANNON Date: 2021-12-28 16:58 Normal [facility] CT HEAD WO CONon 12-28-[address] head without contrast CLINICAL: Syncope. [...] NANY CHOWDHURY Date: 2021-12-28 16:46 Normal [facility] ER URINE PROFILEon 2 Bilirubin Ql (U) Negative Normal NEGATIVE [facility] Comment on above: Performed By: #### T CAROLYN CMP, HSTROPN #### [facility] [address] [place] [address] Dr. Addy Reyes Clarity (U) CLEAR Normal CLEAR [facility] Comment on above: Performed By: #### T CAROLYN CMP, HSTROPN #### [facility] [address] [address] [address] Addy Reyes Color (U) LT. YELLOW Normal YELLOW [facility] Comment on above: Performed By: #### T CAROLYN CMP, HSTROPN #### [facility] [address] [address] [address] Addy Reyes ERUAHD A micrscopic examination will be performed if indicated. Normal [facility] Comment on above: Performed By: #### T CAROLYN CMP, HSTROPN #### [facility] [address] [address] [address] Addy Reyes Glucose Ql (U) Negative Normal NEGATIVE [facility] Comment on above: Performed By: #### T CAROLYN, CMP, HSTROPN #### [facility] [address] [place] [address] Dr. Addy Reyes Hemoglobin Ql (U) Negative Normal NEGATIVE [facility] Comment on above: Performed By: #### T SH, CMP, HSTROPN #### [facility] [address] [place] [address] Dr. Addy Reyes Ketones Ql (U) Negative Normal NEGATIVE [facility] Comment on above: Performed By: #### T SH, CMP, HSTROPN #### [facility] [address] [place] [address] Dr. Addy Reyes LEUKOCYTES TRACE Abnormal NEGATIVE [facility] Comment on above: Performed By: #### T SH, CMP, HSTROPN #### [facility] [address] [place] [address] Dr. Addy Reyes Nitrite Ql (U) Negative Normal NEGATIVE [facility] Comment on above: Performed By: #### T SH, CMP, HSTROPN #### [facility] [address] [place] [address] Dr. Addy Reyes pH (U) 6.0 [pH] Normal 5-9 [facility] Comment on above: Performed By: #### T SH, CMP, HSTROPN #### [facility] [address] [place] [address] Dr. Addy Reyes SPEC GRAVITY <=1.005 Abnormal 1.005-<=1.025 [facility] Comment on above: Performed By: #### T SH, CMP, HSTROPN #### [facility] [address] [place] [address] Dr. Addy Reyes UA PROTEIN Negative Normal NEGATIVE/ TRACE [facility] Comment on above: Performed By: #### T SH, CMP, HSTROPN #### [facility] [address] [place] [address] Dr. Addy Reyes UR MICRO IND INDICATED Normal [facility] Comment on above: Performed By: #### T SH, CMP, HSTROPN #### [facility] [address] [place] [address] Dr. Addy Reyes Urobilinogen Qn (U) 0.2 {Ritesh'U}/dL Normal 0.2 - 1. 0 [facility] Comment on above: Performed By: #### T SH, CMP, HSTROPN #### [facility] [address] [address] [address] Addy Reyes PROF 14(COMP METB)on 022 Albumin [Mass/Vol] 3.3 g/dL Critically low 3.4-5.0 [facility] Comment on above: Performed By: #### T SH, CMP, HSTROPN #### [facility] [address] [address] [address] Addy Reyes Albumin/Globulin [Mass ratio] 0.9 {ratio} Normal [facility] Comment on above: Performed By: #### T SH, CMP, HSTROPN #### [facility] [address] [place] [address] Dr. Addy Reyes ALP [Catalytic activity/Vol] 115 U/L Normal 46-116 [facility] Comment on above: Performed By: #### T SH, CMP, HSTROPN #### [facility] [address] [address] [address] Addy Reyes ALT [Catalytic activity/Vol] 32 U/L Normal 14-59 [facility] Comment on above: Performed By: #### T SH, CMP, HSTROPN #### [facility] [address] [address] [address] Addy Reyes Anion gap [Moles/Vol] 4.6 mmol/L Normal [facility] Comment on above: Performed By: #### T SH, CMP, HSTROPN #### [facility] [address] [address] [address] Addy Reyes AST [Catalytic activity/Vol] 17 U/L Normal 15-37 [facility] Comment on above: Performed By: #### T SH, CMP, HSTROPN #### [facility] [address] [address] [address] Addy Reyes Bilirubin [Mass/Vol] 0.3 mg/dL Normal 0.2-1.0 [facility] Comment on above: Performed By: #### T SH, CMP, HSTROPN #### [facility] [address] [address] [address] Addy Reyes Calcium [Mass/Vol] 8.7 mg/dL Normal 8.5-10.1 [facility] Comment on above: Performed By: #### T SH, CMP, HSTROPN #### [facility] [address] [address] [address] Addy Reyes Chloride [Moles/Vol] 103 mmol/L Normal 98-107 [facility] Comment on above: Performed By: #### T SH, CMP, HSTROPN #### [facility] [address] [place] [address] Dr. Addy Reyes CO2 [Moles/Vol] 32.3 mmol/L Critically high 21.0-32.0 [facility] Comment on above: Performed By: #### T SH, CMP, HSTROPN #### [facility] [address] [place] [address] Dr. Addy Reyes Creatinine [Mass/Vol] 0.90 mg/dL Normal 0.55-1.02 [facility] Comment on above: Performed By: #### T SH, CMP, HSTROPN #### [facility] [address] [place] [address] Dr. Addy Reyes EGFR-AF TANZANIAN >60 Normal >=60 [facility] Comment on above: Performed By: #### T SH, CMP, HSTROPN #### [facility] [address] [place] [address] Dr. Addy Reyes EGFR-NON AF TANZANIAN >60 Normal >=60 [facility] Comment on above: Performed By: #### T SH, CMP, HSTROPN #### [facility] [address] [place] [address] Dr. Addy Reyes Globulin (S) [Mass/Vol] 3.7 g/dL Normal [facility] Comment on above: Performed By: #### T SH, CMP, HSTROPN #### [facility] [address] [address] [address] Addy Reyes Glucose [Mass/Vol] 101 mg/dL Normal 74-106 [facility] Comment on above: Performed By: #### T SH, CMP, HSTROPN #### [facility] [address] [address] [address] Addy Reyes Potassium [Moles/Vol] 3.9 mmol/L Normal 3.5-5.1 [facility] Comment on above: Performed By: #### T SH, CMP, HSTROPN #### [facility] [address] [address] [address] Addy Reyes Protein [Mass/Vol] 7.0 g/dL Normal 6.4-8.2 [facility] Comment on above: Performed By: #### T SH, CMP, HSTROPN #### [facility] [address] [place] [address] Dr. Addy Reyes Sodium [Moles/Vol] 136 mmol/L Normal 136-145 [facility] Comment on above: Performed By: #### T SH, CMP, HSTROPN #### [facility] [address] [address] [address] Addy Reyes Urea nitrogen [Mass/Vol] 17.0 mg/dL Normal 7.0-18.0 [facility] Comment on above: Performed By: #### T SH, CMP, HSTROPN #### [facility] [address] [address] [address] Addy Reyes Urea nitrogen/Creatinine [Mass ratio] 18.9 mg/mg Normal [facility] Comment on above: Performed By: #### T SH, CMP, HSTROPN #### [facility] [address] [address] [address] Addy Reyes PROTIMEon 12-28-2021 INR Coag (PPP) [Relative time] 0.98 {INR} Normal [facility] Comment on above: Performed By: #### P TT, PT #### [facility] [address] [place] [address] Dr. Addy Reyes INR GUIDELINES SEE BELOW Normal [facility] Comment on above: Result Comment: ANDREI RED INR: 2.0 - 3.0 CONDITIONS NOT LISTED BELOW 2.5 - 3.5 FOR PROSTHETIC HEART VALVE REPLACEMENT 2.5 - 3.5 RECURRENT THROMBOSIS Performed By: #### P TT, PT #### [facility] [address] [place] [address] Dr. Addy Reyes PT Coag (PPP) [Time] 10.6 s Normal 9.0-11.6 [facility] Comment on above: Performed By: #### P TT, PT #### [facility] [address] [address] [address] Addy Reyes PTTon 12-28-2021 aPTT Coag (Bld) [Time] 30.8 s Normal 22.3-36.2 [facility] Comment on above: Performed By: #### P TT, PT #### [facility] [address] [place] [address] Dr. Addy Reyes TROPONIN, HIGH SENSITIVITYon 12-28-2021 HSTROP 5.3 pg/mL Normal 4.0-51.3 [facility] Comment on above: Result Comment: CUT- OFF POINTS HAVE BEEN ESTABLISHED BASED ON THE FOURTH UNIVERSAL DEFINITIONS OF MYOCARDIAL INFARCTION. THE UPPER REFERENCE LIMIT (URL) OF TROPONIN, DEFINED THE 99TH PERCENTILE OF cTnI DISTRIBUTION IN A REFERENCE POPULATION, HAS BEEN CONFIRMED THE DECISION THRESHOLD FOR MO DIAGNOSIS. Performed By: #### T SH, CMP, HSTROPN #### [facility] [address] [place] [address] Dr. Addy Reyes TSHon 12-28-2021 TSH 0.969 uIU/mL Normal 0.358-3.740 [facility] Comment on above: Performed By: #### T SH, CMP, HSTROPN #### [facility] [address] [place] [address] Dr. Addy Reyes URINE MICROSCOPIC ONLYon BACTERIA NONE SEEN Normal NONE SEEN [facility] Comment on above: Performed By: #### T SH, CMP, HSTROPN #### [facility] [address] [place] [address] Dr. Addy Reeys Bacteria identified Cx Nom (U) NOT INDICATED Normal [facility] Comment on above: Performed By: #### T SH, CMP, HSTROPN #### [facility] [address] [place] [address] Dr. Addy Reyes CAST NONE SEEN Normal NONE SEEN [facility] Comment on above: Performed By: #### T SH, CMP, HSTROPN #### [facility] [address] [place] [address] Dr. Addy Reyes Crystals LM Nom (Urine sed) NONE SEEN Normal NONE SEEN [facility] Comment on above: Performed By: #### T SH, CMP, HSTROPN #### [facility] [address] [place] [address] Dr. Addy Reyes Epithelial cells LM Ql (Urine sed) RARE Normal NONE SEEN /RARE [facility] Comment on above: Performed By: #### T SH, CMP, HSTROPN #### [facility] [address] [place] [address] Dr. Addy Reyes MUCOUS TRACE Abnormal NONE SEEN [facility] Comment on above: Performed By: #### T SH, CMP, HSTROPN #### [facility] [address] [place] [address] Dr. Addy Reyes RBC 0-2 Normal 0-2 [facility] Comment on above: Performed By: #### T SH, CMP, HSTROPN #### [facility] [address] [place] [address] Dr. Addy Reyes WBC 0-2 Abnormal NONE SEEN [facility] Comment on above: Performed By: #### T SH, CMP, HSTROPN #### [facility] [address] [place] [address] Dr. Addy Reyes XR CHEST 2 Von [...] PABLITO JONES Date: 2021-12-28 17:49 Normal [facility] CBC with Diffon 11-30-2021 Abs. Basophil 0.04 k/uL Normal 0.00-0.20 [facility] Comment on above: Performed By: #### V D25FRANCOISE, CP #### [facility] [address] [place] [phone] [employer] Operator Helper: Zion Mcgee MD Abs.Imm.Granulocyte <0.03 Normal 0.00-0.30 [facility] Comment on above: Performed By: #### V D25FRANCOISE, CP #### [facility] [address] [place] [phone] [employer] Operator Helper: Zion Mcgee MD Abs.Neutrophil (Seg) 5.85 k/uL Normal 1.50-8.10 [facility] Comment on above: Performed By: #### V D2FRANCOISE Iverson, CP #### [facility] [address] [place] [phone] [employer] Operator Helper: Zion Mcgee MD Basophils/100 WBC (Bld) 0 % Normal 0-2 [facility] Comment on above: Performed By: #### V D25FRANCOISE, CP #### [facility] [address] [place] [phone] [employer] Helper: Zion Mcgee MD Eosinophils (Bld) [#/Vol] 0.37 10*3/uL Normal 0.00-0.44 [facility] Comment on above: Performed By: #### V D25FRANCOISE, CP #### [facility] [address] [place] [phone] [employer] Operator Helper: Zion Mcgee MD Eosinophils/100 WBC (Bld) 4 % Normal 1-4 [facility] Comment on above: Performed By: #### V D25FRANCOISE, CP #### [facility] [address] [place] [phone] [employer] Operator Helper: Zion Mcgee MD Erythrocyte distribution width (RBC) [Ratio] 13.6 % Normal 11.8-14.4 [facility] Comment on above: Performed By: #### V Dominga, FRANCOISE, CP #### [facility] [address] [place] [phone] [employer] Operator Helper: Zion Mcgee MD Hematocrit (Bld) [Volume fraction] 44.4 % Normal 36.3-47.1 [facility] Comment on above: Performed By: #### V D2FRANCOISE Iverson, CP #### [facility] [address] [place] [phone] [employer] Operator Helper: Zion Mcgee MD Hemoglobin (Bld) [Mass/Vol] 13.5 g/dL Normal 11.9-15.1 [facility] Comment on above: Performed By: #### V FRANCOISE Orr, CP #### [facility] [address] [place] [phone] [employer] Operator Helper: Zion Mcgee MD Immature granulocytes/100 WBC (Bld) 0 % Normal 0 [facility] Comment on above: Performed By: #### V FRANCOISE Orr, CP #### [facility] [address] [place] [phone] [employer] Operator Helper: Zion Mcgee MD Lymphocytes (Bld) [#/Vol] 2.06 10*3/uL Normal 1.10-3.70 [facility] Comment on above: Performed By: #### V D2FRANCOISE Iverson, CP #### [facility] [address] [place] [phone] [employer] Operator Helper: Zion Mcgee MD Lymphocytes/100 WBC (Bld) 22 % Low 24-43 [facility] Comment on above: Performed By: #### V FRANCOISE Orr, CP #### [address] [id number] [employer] Operator Helper: Zion Mcgee MD MCH (RBC) [Entitic mass] 29.3 pg Normal 25.2-33.5 [facility] Comment on above: Performed By: #### V FRANCOISE Orr, CP #### [address] [id number] [employer] Operator Helper: Zion Mcgee MD MCHC (RBC) [Mass/Vol] 30.4 g/dL Normal 28.4-34.8 [facility] Comment on above: Performed By: #### FRANCOISE Shea, CP #### [address] [phone] [employer] Operator Helper: Zion Mcgee MD MCV (RBC) [Entitic vol] 96.3 fL Normal 82.6-102.9 [facility] Comment on above: Performed By: #### FRANCOISE Shea, CP #### [address] [address] [employer] Operator Helper: Zion Mcgee MD Monocytes (Bld) [#/Vol] 0.87 10*3/uL Normal 0.10-1.20 [facility] Comment on above: Performed By: #### FRANCOISE Shea, CP #### [place] [address] [employer] Operator Helper: Zion Mcgee MD Monocytes/100 WBC (Bld) 9 % Normal 3-12 [facility] Comment on above: Performed By: #### V FRANCOISE Orr, CP #### [address] [phone] [employer] Operator Helper: Zion Mcgee MD Neutrophil (Seg) 65 % Normal 36-65 [facility] Comment on above: Performed By: #### V Dominga CDP, CP #### [facility] [address] [place] [phone] [employer] Operator Helper: Zion Mcgee MD NRBC Automated 0.0 per 100 WBC Normal 0.0 [facility] Comment on above: Performed By: #### V FRANCOISE Orr, CP #### [facility] [address] [place] [phone] [employer] Operator Helper: Zion Mcgee MD Platelet mean volume (Bld) [Entitic vol] 11.1 fL Normal 8.1-13.5 [facility] Comment on above: Performed By: #### FRANCOISE Shea, CP #### [facility] [address] [place] [phone] [employer] Operator Helper: Zion Mcgee MD Platelets (Bld) [#/Vol] 278 10*3/uL Normal 138-453 [facility] Comment on above: Performed By: #### FRANCOISE Shea, CP #### [facility] [address] [place] [phone] [employer] Operator Helper: Zion Mcgee MD RBC (Bld) [#/Vol] 4.61 10*6/uL Normal 3.95-5.11 [facility] Comment on above: Performed By: #### FRANCOISE Shea, CP #### [address] [phone] [employer] Operator Helper: Zion Mcgee MD WBC (Bld) [#/Vol] 9.2 10*3/uL Normal 3.5-11.3 [facility] Comment on above: Performed By: #### V FRANCOISE Orr, CP #### [address] [id number] [employer] Helper: Zion Mcgee MD Comp Metabolic Profon 2021 Bilirubin [Mass/Vol] mg/dL Low 0.3-1.2 [facility] Comment on above: Performed By: #### Kayden D2FRANCOISE Iverson, CP #### [employer] [address] [place] [phone] [employer] Helper: Zion Mcgee MD (cont.) [facility] Comment on above: Result Comment: Aver age GFR for 50-59 years old: 93 mL/min/1.73sq m Chronic Kidney Disease: <60 mL/min/1.73sq m Kidney failure: <15 mL/min/1.73sq m eGFR calculated using average adult body mass. Additional eGFR calculator available at: http://www.Edufii.Newsgrape/multiple_crcl_2012.htm Performed By: #### FRANCOISE Shea, CP #### [facility] [address] [place] [phone] [employer] Helper: Zion Mcgee MD Albumin [Mass/Vol] 4.1 g/dL Normal 3.5-5.2 [facility] Comment on above: Performed By: #### FRANCOISE Shea, CP #### [facility] [address] [place] [phone] [employer] Helper: Zion Mcgee MD Albumin/Glob Ratio 1.5 Normal 1.0-2.5 [facility] Comment on above: Performed By: #### FRANCOISE Shea, CP #### [facility] [address] [place] [phone] [employer] Helper: Zion Mcgee MD Alkaline Phos 114 U/L High 35-104 [facility] Comment on above: Performed By: #### V FRANCOISE Orr, CP #### [employer] [facility] [place] [address] [employer] Helper: Zion Mcgee MD ALT [Catalytic activity/Vol] 22 U/L Normal 5-33 [facility] Comment on above: Performed By: #### V D2Kishor, CDP, CP #### [facility] [address] [place] [address] [phone] [employer] Helper: Zion Mcgee MD Anion gap [Moles/Vol] 11 mmol/L Normal 9-17 [facility] Comment on above: Performed By: #### V Dominga CDP, CP #### [address] [address] [employer] Helper: Zion Mcgee MD AST [Catalytic activity/Vol] 20 U/L Normal <32 [facility] Comment on above: Performed By: #### V Dominga, CDP, CP #### [facility] [address] [place] [phone] [employer] Helper: Zion Mcgee MD Calcium [Mass/Vol] 9.0 mg/dL Normal 8.6-10.4 [facility] Comment on above: Performed By: #### V FRANCOISE Orr, CP #### [address] [address] [employer] Helper: Zion Mcgee MD Chloride [Moles/Vol] 103 mmol/L Normal 98-107 [facility] Comment on above: Performed By: #### V FRANCOISE Orr, CP #### [facility] [address] [place] [phone] [employer] Helper: Zion Mcgee MD CO2 [Moles/Vol] 26 mmol/L Normal 20-31 [facility] Comment on above: Performed By: #### V Dominga CDP, CP #### [facility] [address] [place] [id number] [employer] Helper: Zion Mcgee MD Creatinine [Mass/Vol] 0.81 mg/dL Normal 0.50-0.90 [facility] Comment on above: Performed By: #### V Dominga, CDP, CP #### [facility] [address] [place] [phone] [employer] Helper: Zion Mcgee MD GFR, Amer >60 Normal >60 [facility] Comment on above: Performed By: #### V D25, CDP, CP #### [facility] [address] [place] [phone] [employer] Helper: Zion Mcgee MD GFR,non Amer >60 Normal >60 [facility] Comment on above: Performed By: #### V D25, CDP, CP #### [facility] [address] [place] [phone] [employer] Helper: Zion Mcgee MD Glucose [Mass/Vol] 81 mg/dL Normal 70-99 [facility] Comment on above: Performed By: #### V D25, CDP, CP #### [facility] [address] [place] [phone] [employer] Helper: Zion Mcgee MD Potassium [Moles/Vol] 4.2 mmol/L Normal 3.7-5.3 [facility] Comment on above: Performed By: #### V D25, CDP, CP #### [facility] [address] [place] [phone] [employer] Helper: Zion Mcgee MD Protein [Mass/Vol] 6.8 g/dL Normal 6.4-8.3 [facility] Comment on above: Performed By: #### V D25, CDP, CP #### [facility] [address] [place] [phone] [employer] Helper: Zion Mcgee MD Sodium [Moles/Vol] 140 mmol/L Normal 135-144 [facility] Comment on above: Performed By: #### V D25, CDP, CP #### [facility] [address] [place] [phone] [employer] Helper: Zion Mcgee MD Urea nitrogen [Mass/Vol] 9 mg/dL Normal 6-20 [facility] Comment on above: Performed By: #### V D25, CDP, CP #### [facility] [address] [place] [address], [place] [phone] [employer] Helper: Zion Mcgee MD Vitamin D 25 Hydroxyon 11-30 Vit D, 25-Hydroxy 38 ng/mL 29.9 - PIN F ng/mL [facility] Comment on above: Reference Range: Vitamin D status Range Deficiency <20 ng/mL Mild Deficiency 20-30 ng/mL Sufficiency 30-100 ng/mL Toxicity >100 ng/mL [facility] Vitamin D 25 OHon 11-30-2021 Vitamin D 25 OH 38.0 ng/mL Normal >29.9 [facility] Comment on above: Result Comment: Reference Range: Vitamin D status Range Deficiency <20 ng/mL Mild Deficiency 20-30 ng/mL Sufficiency 30-100 ng/mL Toxicity >100 ng/mL Performed By: #### V D25, CDP, CP #### [facility] [address] [place] [phone] [employer] Helper: Zion Mcgee MD CBC with Auto Differentialon 11-29-2021 Absolute Eos # 0.37 [place] [facility] Absolute Immature Granulocyte [facility] Absolute Lymph # 2.06 [facility] Absolute [place] # 0.87 [facility] Basophils (Bld) [#/Vol] 0.04 10*3/uL [facility] Basophils/100 WBC (Bld) 0 % 0 - 2 % [facility] Eosinophils/100 WBC (Bld) 4 % 1 - 4 % [facility] Hematocrit (Bld) [Volume fraction] 44.4 % 36.3 - 47.1 % [facility] Hemoglobin (Bld) [Mass/Vol] 13.5 g/dL 11.9 - 15.1 g/dL [facility] Immature granulocytes/100 WBC (Bld) 0 % 0 [facility] Interpretation and review of laboratory results Abnormal [facility] Lymphocytes/100 WBC (Bld) 22 % Low 24 - 43 % [facility] MCH (RBC) [Entitic mass] 29.3 pg 25.2 - 33.5 pg [facility] MCHC (RBC) [Mass/Vol] 30.4 g/dL 28.4 - 34.8 g/dL [facility] MCV (RBC) [Entitic vol] 96.3 fL 82.6 - 102.9 fL [facility] Monocytes/100 WBC (Bld) 9 % 3 - 12 % [facility] NRBC Automated 0.0 0.0 per 100 WBC [facility] Platelet distribution width (Bld) [Ratio] 13.6 % 11.8 - 14.4 % [facility] Platelet mean volume (Bld) [Entitic vol] 11.1 fL 8.1 - 13.5 fL [facility] Platelets (Bld) [#/Vol] 278 10*3/uL [facility] RBC (Bld) [#/Vol] 4.61 10*6/uL 3.95 - 5.1 1 m/uL [facility] Segmented neutrophils/100 WBC (Bld) 65 % 36 - 65 % [facility] Segs Absolute 5.85 [facility] WBC (Bld) [#/Vol] 9.2 10*3/uL [facility] Comprehensive Metabolic Pane kimberlee 11-29-2021 Albumin [Mass/Vol] 4.1 g/dL 3.5 - 5.2 g/dL [facility] Albumin/Globulin [Mass ratio] 1.5 {ratio} 1 - 2.5 [facility] ALP (Bld) [Catalytic activity/Vol] 114 U/L High 35 - 104 U/L [facility] ALT [Catalytic activity/Vol] 22 U/L 5 - 33 U/L [facility] Anion gap [Moles/Vol] 11 mmol/L 9 - 17 mmol/L [facility] AST [Catalytic activity/Vol] 20 U/L NINF - 32 U/L [facility] Bilirubin [Mass/Vol] mg/dL Low 0.3 - 1 .2 mg/dL [facility] Calcium [Mass/Vol] 9.0 mg/dL 8.6 - 10. 4 mg/dL [facility] Chloride [Moles/Vol] 103 mmol/L 98 - 10 7 mmol/L [facility] CO2 [Moles/Vol] 26 mmol/L 20 - 31 mmol/L [facility] Creatinine [Mass/Vol] 0.81 mg/dL 0.5 - 0.9 mg/dL [facility] Free PSA/Total PSA [Mass fraction] 6.8 g/dL 6.4 - 8.3 g/dL [facility] GFR >60 60 - PI NF mL/min [facility] GFR Non- >60 60 - PINF mL/min [facility] GFR/1.73 sq M.predicted MDRD (S/P/Bld) [Vol rate/Area] [facility] Comment on above: Average GFR for 50-5 9 years old: 93 mL/min/1.73sq m Chronic Kidney Disease: <60 mL/min/1.73sq m Kidney failure: <15 mL/min/1.73sq m eGFR calculated using average adult body mass. Additional eGFR calculator available at: http://www.Be[employer] capital online science and technology/multiple_crcl_2012.htm Glucose [Mass/Vol] 81 mg/dL 70 - 99 mg/dL [facility] Interpretation and review of laboratory results Abnormal [facility] Potassium [Moles/Vol] 4.2 mmol/L 3.7 - 5.3 mmol/L [facility] Sodium [Moles/Vol] 140 mmol/L 135 - 144 mmol/L [facility] Urea nitrogen (BldV) [Mass/Vol] 9 mg/dL 6 - 20 mg/dL [facility] XR Abdomen Single View (KUB) *on [...] by Gopi Renteria on 09/29/2021 1435 Normal [facility] [employer]atcher Pulmonary Functionon 022 Pulmonary Function MR #: [id number] [facility] PT. Name: Diamante Stapleton Date: 06/06/2021 Date [...] Dickens MD Date Trans: 06/24/2021 12:46 P/ CHANTAL_[id number] cc: Gamaliel Dennison M.D. [address] [facility] [address] Normal [facility] CBC with Auto Differentialon 05-31-2021 Absolute Eos # 0.21 [facility] th Absolute Immature Granulocyte 0.04 [facility] Absolute Lymph # 2.17 [facility] Absolute [place] [facility] 0[facility] Basophils (Bld) [#/Vol] 0.05 10*3/uL [facility] Basophils/100 WBC (Bld) 1 % 0 - 2 % [facility] Eosinophils/100 WBC (Bld) 2 % 1 - 4 % [facility] Hematocrit (Bld) [Volume fraction] 46.4 % 36.3 - 47.1 % [facility] Hemoglobin.gastroint estinal spec 1 Ql (Stl) 14.5 g/dL 11.9 - 15.1 g/dL [facility] Immature granulocytes/100 WBC (Bld) 0 % 0 [facility] Interpretation and review of laboratory results Abnormal [facility] Lymphocytes/100 WBC (Bld) 20 % Low 24 - 43 % [facility] MCH (RBC) [Entitic mass] 29.5 pg 25.2 - 33.5 pg [facility] MCHC (RBC) [Mass/Vol] 31.3 g/dL 28.4 - 34.8 g/dL [facility] MCV (RBC) [Entitic vol] 94.5 fL 82.6 - 102.9 fL [facility] Monocytes/100 WBC (Bld) 6 % 3 - 12 % [facility] NRBC Automated 0.0 0.0 per 100 WBC [facility] Platelet distribution width (Bld) [Ratio] 12.8 % 11.8 - 14.4 % [facility] Platelet mean volume (Bld) [Entitic vol] 10.9 fL 8.1 - 13.5 fL [facility] Platelets (Bld) [#/Vol] 283 10*3/uL [facility] RBC (Bld) [#/Vol] 4.91 10*6/uL 3.95 - 5.1 1 m/uL [facility] Segmented neutrophils/100 WBC (Bld) 71 % High 36 - 65 % [facility] Segs [facility]ld[facility] [#/Vol] 10.6 10*3/uL [facility] Comprehensive Metabolic Pane kimberlee 05-31-2021 Albumin [Mass/Vol] 4.3 g/dL 3.5 - 5.2 g/dL [facility] Albumin/Globulin [Mass ratio] 1.8 {ratio} [facility] ALP (Bld) [Catalytic activity/Vol] 110 U/L High 35 - 104 U/L [facility] ALT [Catalytic activity/Vol] 20 U/L 5 - 33 U/L [facility] Anion gap [Moles/Vol] 11 mmol/L 9 - 17 mmol/L [facility] AST [Catalytic activity/Vol] 19 U/L <32 [facility] Bilirubin [Mass/Vol] mg/dL Low 0.3 - 1 .2 mg/dL [facility] Calcium [Mass/Vol] 9.5 mg/dL 8.6 - 10. 4 mg/dL [facility] Chloride [Moles/Vol] 101 mmol/L 98 - 10 7 mmol/L [facility] CO2 [Moles/Vol] 28 mmol/L 20 - 31 mmol/L [facility] Creatinine [Mass/Vol] 0.72 mg/dL 0.50 - 0.90 mg/dL [facility] Free PSA/Total PSA [Mass fraction] 6.7 g/dL 6.4 - 8.3 g/dL [facility] GFR >60 >60 mL/min [facility] GFR Non- >60 >60 mL/min [facility] GFR/1.73 sq M.predicted MDRD (S/P/Bld) [Vol rate/Area] [facility] Comment on above: Average GFR for 50-5 9 years old: 93 mL/min/1.73sq m Chronic Kidney Disease: <60 mL/min/1.73sq m Kidney failure: <15 mL/min/1.73sq m eGFR calculated using average adult body mass. Additional eGFR calculator available at: http://www.Edufii.Newsgrape/multiple_crcl_2012.htm Glucose [Mass/Vol] 99 mg/dL 70 - 99 mg/dL [facility] Interpretation and review of laboratory results Abnormal [facility] Potassium [Moles/Vol] 4.3 mmol/L 3.7 - 5.3 mmol/L [facility] Sodium [Moles/Vol] 140 mmol/L 135 - 144 mmol/L [facility] Urea nitrogen (BldV) [Mass/Vol] 11 mg/dL 6 - 20 mg/dL [facility] MR head/brain wo/w conon MR head/brain wo/w con [facility] Main [place] [address] [place], [place] [id number] MRI Report Signed Patient: Diamante Stapleton MR#: [id number] 9 : 1965 Acct:[id number] Age/Sex: 54 / F ADM Date: 08/24/20 Loc: MR Room: Type: [facility] Attending Dr: Kristen Mcclure PA-C Ordering [...] Summers Jr., M.D.08/24/2020 3:34 PM Dictation Location: [place] [address] Transcribed By: JOHN 08/24/20 1534 Dictated By: Prudencio Summers Jr, MD 08/24/20 1518 Signed By: 08/24/20 1534 [facility] Vital Signs Date Time Vital Sign Value Performing Clinician Facility 04-04-2023 09:58-0500 Body height 147.3 cm Nany Bro Work Phone: [facility] 04-04-2023 09:58-0500 Body mass index (BMI) [Ratio] 27.59 kg/m2 Nany Bro Work Phone: [facility] 04-04-2023 09:58-0500 Body weight 59.88 kg Nany Bro Work Phone: [facility] 04-04-2023 09:58-0500 Diastolic blood pressure 76 mm[Hg] Nany Bro DO Work Phone: [facility] 04-04-2023 09:58-0500 Systolic blood pressure 122 mm[Hg] Nany Bro DO Work Phone: [facility] 01-21-2021 12:45-0400 Body height 147.32 cm Kristen Juana Other [employer] Other 01-21-2021 12:45-0400 Body mass index (BMI) [Ratio] 28 kg/m2 Kristen Arias Other [employer] Other 01-21-2021 12:45-0400 Body temperature 96.8 [degF] Kristen Juana Other [employer] Other 01-21-2021 12:45-0400 Body weight 60.78 kg Kristen Juana Other [employer] Other 01-21-2021 12:45-0400 Diastolic blood pressure 45 mm[Hg] Kristen Arias Other [employer] Other 01-21-2021 12:45-0400 Respiratory rate 18 /min Kristen Arias Other [employer] Other 01-21-2021 12:45-0400 SaO2% (BldA) [Mass fraction] 97 % Kristen Arias Other [employer] Other 01-21-2021 12:45-0400 Systolic blood pressure 106 mm[Hg] Kristen Arias Other [employer] Other Encounters Encounter Date Encounter Type Care Provider Facility Start: 04-16-2023 Jenna Thorpe MD [facility] Phone: [facility] Comment on above: Generalized anxiety disorder Start: 04-07-2023 Jenna Thorpe MD Work Phone: [facility] Comment on above: Mood disorder (CMS-H CC) Start: 04-04-2023 End: 04-04-2023 ambulatory NANY BRO [facility] Start: 04-04-2023 End: 04-04-2023 Office outpatient visit 15 minutes Nany Bro DO Work Phone: [facility] Comment on above: Change in bowel habi ts (Primary Dx) Start: 04-03-2023 End: 04-03-2023 ambulatory ALBERTO TUTTLE [facility] Start: 03-29-2023 Jenna Thorpe MD Work Phone: [facility] Comment on above: Gastro-esophageal re flux disease with esophagitis, without bleeding Start: 02-20-2023 End: 02-21-2023 ambulatory JEROMY LUCERO [facility] Start: 02-13-2023 End: 02-13-2023 ambulatory JIMMY BURCIAGA [facility] Start: 11-15-2022 End: 11-15-2022 ambulatory SURYA AL-CRISRIT [facility] Start: 08-16-2022 End: 08-16-2022 ambulatory CLAUDE PASTOR [facility] Start: 06-08-2022 End: 06-08-[address] DOCTOR KHAN Facility:[facility] Start: 05-17-2022 End: 05-17-2022 ambulatory ELIZABETH RODRIGUEZED [facility] Start: 05-03-2022 End: 05-04-2022 ambulatory RAGHEB [facility] Start: 05-03-2022 End: 05-03-2022 ambulatory RAGHEB [facility] Start: 05-01-2022 End: 05-02-2022 ambulatory RFIEDA TRAM [facility] Start: 01-09-2022 End: 01-09-[address] DOCTOR KHAN Facility:[facility] Start: 12-28-2021 End: 12-28-2021 ambulatory JUDITH Bhandari Facility:[facility] Start: 11-29-2021 End: 11-30-2021 ambulatory TRAM CARBONE [facility] Start: 11-29-2021 End: 11-29-2021 Subsequent hospital visit by physician Cyndie Hopkins DO Work Phone: [facility] Comment on above: Multiple sclerosis ( HCC); Vitamin D deficiency Start: 05-31-2021 End: 05-31-2021 Subsequent hospital visit by physician Cyndie Hopkins DO Work Phone: [facility] Start: 01-21-2021 Office outpatient ne w 20 minutes Kristen [facility] Procedures Date Procedure Procedure Detail Performing Clinician Start: 02-20-2023 Mammography Garrett As if Work Phone: Start: 07-18-2022 Adult depression scr eening assessment Garrett Thorpe MD Work Phone: Start: 05-17-2022 Follow-up visit Follow-up ELIZABETH SILVA Start: 11-29-2021 Comprehensive metabo lic panel Tram Carbone MD Work Phone: Start: 05-31-2021 Comprehensive metabo lic panel Tram Carbone MD Work Phone: Start: 09-18-2019 Colonoscopy Garrett As if Work Phone: Start: 05-05-2016 H/O: hysterectomy H/O: hysterectomy Garrett Thorpe MD Work Phone: Plan of Treatment Date Care Activity Detail Author Start: 09-17-2029 Screening for malignant neoplasm of colon Colonoscopy [facility] Start: 03-16-2026 Lipid panel Lipids [facility] Start: 04-04-2024 Adult BMI Screening Adult BMI Screening [facility] Start: 04-04-2024 Tobacco Screening Tobacco Screening [facility] Start: 03-07-2024 Adult BMI Screening Adult BMI Screening [facility] Start: 03-07-2024 Tobacco Screening Tobacco Screening [facility] Start: 02-21-2024 Screening for malignant neoplasm of breast Mammogram [facility] Start: 07-19-2023 Depression Screening Depression Screening [facility] Start: 04-04-2023 End: 04-04-2023 Patient encounter procedure 04/04/2023 10:00 AM EST Office Visit [facility] [address] [place], [place] [id number] [place] [address] [place] [address] [phone] [facility] Start: 01-21-2023 Screening for malignant neoplasm of breast Breast cancer screen [facility] Start: 11-24-2022 Influenza vaccination Influenza Vaccine [facility] Start: 07-03-2022 End: 07-03-2022 Patient encounter procedure 07/03/2022 Office Visit Neurology Tram Carbone MD [address] [facility] Neurology Start: 11-29-2021 End: 11-29-2021 Patient encounter procedure 11/29/2021 Office Visit Neurology Tram Carbone MD [address] [facility] Neurology Start: 11-24-2021 Influenza vaccination Flu vaccine (#1) [facility] Start: 11-24-2020 Influenza vaccination Flu vaccine (#1) [facility] Start: 2014 Administration of varicella zoster vaccine Zoster (Shingles) Vaccine (1 of 2) [facility] Start: 2014 Shingles Vaccine (1 of 2) Shingles Vaccine (1 of 2) [facility] Start: 2009 Screening for malignant neoplasm of colon [facility] Start: 2004 Lipid panel Lipid screen [facility] Start: 11-24-1999 Diabetes screen Diabetes screen [facility] Start: 1994 Screening for malignant neoplasm of cervix [facility] Start: 1985 Screening for malignant neoplasm of cervix Pap smear [facility] Start: 11-24-1983 DTaP,Tdap and Td Vaccines (1 - Tdap) DTaP,Tdap and Td Vaccines (1 - Tdap) [facility] Start: 11-24-1983 DTaP/Tdap/Td vaccine (1 - Tdap) DTaP/Tdap/Td vaccine (1 - Tdap) [facility] Start: 1982 Adult BMI Follow Up Plan Adult BMI Follow Up Plan [facility] Start: 1982 Hepatitis C screening Hepatitis C screen [facility] Start: 11-24-1979 HIV screening HIV screen [facility] Start: 1976 Depression Screen Depression Screen [facility] Start: 1969 COVID-19 Vaccine (1) COVID-19 Vaccine (1) [facility] Start: 05-23-1965 COVID-19 Vaccine (#1) COVID-19 Vaccine (#1) [facility] Start: 1964 Hepatitis C screening Hepatitis C screen [facility] Immunizations Immunization Date Immunization Notes Care Provider Fa cility 04-04-2022 pneumococcal polysaccharide vaccine, 23 valent Garrett Thorpe MD Work Phone: [facility] 01-21-2021 KENALOG - 10 mg Kristen Dymon d Other [employer] Other 04-09-2017 pneumococcal conjuga te vaccine, 13 valdeshawn Thorpe MD Work Phone: [facility] 04-05-2017 pneumococcal polysaccharide vaccine, 23 valdeshawn Thorpe MD Work Phone: [facility] 12-09-2015 KENALOG - 10 mg Kristenamirah willett Other [employer] Other Payers Date Payer Category Payer Unknown [employer] ELIZABETH [employer] [id number] 2021-Present [phone] [address] [place] [address] [id number] 1965 Unknown [id number] 1965 Unknown [id number] 1965 Unknown [id number] 1965 Unknown [id number] 1965 Unknown [id number] 1959 Unknown [id number] [facility] [id number] Social History Date Type Detail Facility Start: 12-01-2020 Tobacco smoking stat [facility] Never smoked tobacco [employer] Other Start: 12-01-2020 End: 06-20-2022 Tobacco use and exposure Smokeless tobacco non-user [employer] Phone: Start: 05-31-2021 End: 11-29-2021 Alcohol intake Lifetime non-drinker (finding) [employer] Phone: Start: 12-01-2020 History SDOH Alcohol Frequency 1 [employer] Phone: Start: 1965 Sex Assigned At Not on file [employer] Phone: Start: 11-19-2021 End: 11-29-2021 Exposure to SARS-CoV-2 (event) Not sure [employer] Start: 05-06-2020 End: 03-07-2023 [facility] Start: 06-20-2022 Tobacco smoking stat [facility] Ex-smoker [facility] History of tobacco use Current smoker [facility] Start: 03-07-2023 End: 04-04-2023 Alcohol intake [facility] Start: 05-06-2020 End: 03-07-2023 [facility] of [facility] Adolescent depressio n screening assessment 0 [facility] Clinical Notes 01-21-2021 to 04-04-2023 Nany Bro, DO - 04/04/2023 10:00 AM EST Note Date & Type Note Facility 04-04-2023 History of Present illness Narrative Images from the original note were not included. [facility] [address] [facility] [id number] CONSULT NOTE Diamante Stapleton 57 y.o. CHIEF COMPLAINT Chief Complaint Patient presents with Other ANAL DISCHARGE, SOFT STOOLS, LAST COLONOSCOPY 09/18/[address] Zhang PATIENT HAS IMPROVED & SAYS SHE IS BETTER Diamante Stapleton is a 57-year-old female who presents with complaints of slimy stools for the last 6+ months up until recently now the stools are more normal. She states the problem is worse when she has been constipated which she has not been the best historian about the frequency of that. She had a colonoscopy by me in August of 2019 and it was completely normal. She does take Zithromax on a frequent basis due to history of bronchiectasis pneumonia and COPD for which she sees pulmonology at [facility]. She denies any diarrhea or bloody stools. She was diagnosed with pneumonia in January and prior to [place]. She has a history of multiple sclerosis. Last colonoscopy September 18, 2019 by me and was normal. MEDICATION Current Outpatient Medications: albuterol (PROVENTIL HFA;VENTOLIN HFA) 90 mcg/actuation inhaler, Inhale 2 puffs every 6 (six) hours as needed for wheezing., Disp: , Rfl: albuterol (PROVENTIL,VENTOLIN) 2.5 mg /3 mL (0.083 %) nebulizer solution, Inhale 3 mL (2.5 mg total) by nebulization every 6 (six) hours as needed for wheezing., Disp: 75 mL, Rfl: 2 amantadine (SYMMETREL) 100 mg capsule, Take 1 capsule (100 mg total) by mouth in the morning and 1 capsule (100 mg total) before bedtime., Disp: , Rfl: b complex vitamins capsule, Take 1 capsule by mouth in the morning., Disp: , Rfl: baclofen (LIORESAL) 20 mg tablet, Take 0.5 tablets (10 mg total) by mouth 3 (three) times a day., Disp: , Rfl: buPROPion XL (WELLBUTRIN XL) 300 mg 24 hr tablet, Take 1 tablet (300 mg total) by mouth in the morning., Disp: 90 tablet, Rfl: 2 busPIRone (BUSPAR) 30 mg tablet, Take 1 tablet (30 mg total) by mouth in the morning and 1 tablet (30 mg total) before bedtime., Disp: 180 tablet, Rfl: 2 cholecalciferol, vitamin D3, 2,000 units capsule, Take 1 capsule (2,000 Units total) by mouth in the morning., Disp: , Rfl: cyclobenzaprine (FLEXERIL) 10 mg tablet, Take 1 tablet (10 mg total) by mouth every 8 (eight) hours as needed for muscle spasms., Disp: 270 tablet, Rfl: 2 dalfampridine (AMPYRA) 10 mg tablet extended release 12 hr, Take 1 tablet (10 mg total) by mouth every 12 (twelve) hours., Disp: , Rfl: dextromethorphan HBr 15 mg/5 mL liquid, Take 15 mL by mouth every 6 (six) hours., Disp: 420 mL, Rfl: 0 diazePAM (VALIUM) 5 mg tablet, Take 1 tablet (5 mg total) by mouth every 6 (six) hours as needed for anxiety., Disp: , Rfl: fluticasone propion-salmeteroL (ADVAIR HFA) 230-21 mcg/actuation inhaler, Inhale 1 puff in the morning., Disp: , Rfl: fluticasone propionate (FLONASE) 50 mcg/actuation nasal spray, SPRAY 1 SPRAY INTO EACH NOSTRIL IN THE MORNING, Disp: 16 mL, Rfl: 2 fremanezumab-vfrm (AdyliticaOVJanrain AUTOINJECTOR SUBQ), Inject under the skin., Disp: , Rfl: gabapentin (NEURONTIN) 100 mg capsule, Take 1 capsule (100 mg total) by mouth in the morning and 1 capsule (100 mg total) before bedtime., Disp: , Rfl: glatiramer (COPAXONE) 40 mg/mL syringe, Inject 1 mL (40 mg total) under the skin 3 (three) times a week., Disp: , Rfl: glatiramer (COPAXONE) 40 mg/mL syringe, glatiramer 40 mg/mL subcutaneous syringe, Disp: , Rfl: ibuprofen (ADVIL,MOTRIN) 600 mg tablet, Take 1 tablet (600 mg total) by mouth every 6 (six) hours as needed for pain., Disp: 30 tablet, Rfl: 0 L.acidophil/L.plantar/Bifido 7 (UP4 PROBIOTICS ADULT ORAL), Take by mouth., Disp: , Rfl: latanoprost (XALATAN) 0.005 % ophthalmic solution, 1 drop nightly., Disp: , Rfl: levoFLOXacin (LEVAQUIN) 750 mg tablet, Take 1 tablet (750 mg total) by mouth in the morning., Disp: , Rfl: melatonin 1 mg tablet, sublingual, Place under the tongue., Disp: , Rfl: methylPREDNISolone (MEDROL, ERIC,) 4 mg tablet, follow package directions, Disp: 21 tablet, Rfl: 0 montelukast (SINGULAIR) 10 mg tablet, Take 1 tablet (10 mg total) by mouth nightly., Disp: , Rfl: omeprazole (PriLOSEC) 40 mg capsule, TAKE 1 CAPSULE BY MOUTH EVERY DAY IN THE MORNING AND AT BEDTIME, Disp: 180 capsule, Rfl: 0 primidone (MYSOLINE) 50 mg tablet, Take 1 tablet (50 mg total) by mouth in the morning and 1 tablet (50 mg total) at noon and 1 tablet (50 mg total) in the evening and 1 tablet (50 mg total) before bedtime., Disp: , Rfl: promethazine (PHENERGAN) 25 mg tablet, Take 1 tablet (25 mg total) by mouth every 6 (six) hours as needed for nausea or vomiting., Disp: , Rfl: propranoloL (INDERAL) 40 mg tablet, TAKE 1 TABLET BY MOUTH 3 TIMES A DAY., Disp: 270 tablet, Rfl: 0 QUEtiapine (SEROquel) 50 mg tablet, TAKE 1 TABLET BY MOUTH EVERY DAY AT NIGHT, Disp: 90 tablet, Rfl: 0 soy isofl/blk coh/gr tea/yerba (ESTROVEN ENERGY ORAL), Take by mouth., Disp: , Rfl: sucralfate (CARAFATE) 1 gram tablet, TAKE 1 TABLET BY MOUTH 3 TIMES A DAY., Disp: 270 tablet, Rfl: 2 zinc gluconate 50 mg tablet, Take 1 tablet (50 mg total) by mouth in the morning., Disp: , Rfl: ALLERGY Allergies Allergen Reactions Amoxicillin Hives Fentanyl Itching Percocet [Oxycodone-Acetaminophen] Itching Acetaminophen Other reaction(s): Rash Other reaction(s): Rash Codeine Itching Dilaudid [Hydromorphone] Morphine Itching Trazodone Zithromax [Azithromycin] Itching Doxycycline Rash Zanaflex [Tizanidine] Rash MEDICAL HISTORY Past Medical History: Diagnosis Date Anxiety Asthma COPD (chronic obstructive pulmonary disease) ([facility]) Depression Glaucoma Kidney stone MS (multiple sclerosis) ([facility]) Pneumonia Shortness of breath SURGICAL HISTORY Past Surgical History: Procedure Laterality Date COLONOSCOPY N/A 09/18/2019 Performed by Nany Bro DO at [facility] EGD N/A 09/18/2019 Performed by Nany Bro DO at [facility] HERNIA REPAIR HYSTERECTOMY 2002 COMPLETE LUNG SURGERY rt middle lobe removed TUBAL LIGATION SOCIAL HISTORY Social History Socioeconomic History Marital status: Spouse name: Not on file Number of children: Not on file Years of education: Not on file Highest education level: Not on file Occupational History Not on file Tobacco Use Smoking status: Former Smokeless tobacco: Never Vaping Use Vaping Use: Never used Substance and Sexual Activity Alcohol use: No Drug use: No Sexual activity: Defer Partners: Male Comment: Other Topics Concern Not on file Social History Narrative Not on file Social Determinants of Health Financial Resource Strain: Not on file Food Insecurity: No Food Insecurity (03/07/2023) Hunger Screening Food Insecurity - Worry: Never True Food Insecurity - Inability: Never True Transportation Needs: Not on file Physical Activity: Not on file Stress: Not on file Social Connections: Not on file Interpersonal Safety: Not on file FAMILY HISTORY Family History Problem Relation Age of Onset Breast cancer Maternal Aunt Liver disease Mother Heart disease Father Breast cancer Maternal cousin REVIEW OF SYSTEMS: Constitutional: Denies fevers, denies recent illnesses. Rest review of systems negative except as above. PHYSICAL EXAM Constitutional: She is oriented to person, place, and time. Vital signs are normal. She appears well-developed and well-nourished. Abdomen soft nontender with no palpable masses or hernias noted. She has prominent fatty tissue beside her umbilicus on both sides but nothing palpable such as a hernia most likely secondary to body habitus. Neurological: She is alert and oriented to person, place, and time. Skin: Skin is warm, dry and intact. Psychiatric: She has a normal mood and affect. Her speech is normal and behavior is normal. Cognition and memory are normal. IMPRESSION 1. Change in bowel habits most likely secondary to frequent antibiotic use with Zithromax 2. History of MS, bronchiectasis COPD ASSESSMENT & PLAN Patient was offered repeat colonoscopy versus observation which I think would be in order. We discussed diet and she tells me she would yogurt daily and eats a few helpings of fruits and vegetables and I recommended probably increasing the fruits and vegetables and water to see if that makes a difference. If anything should change such as bloody stools or diarrhea she should contact me or her PCP or clinical haematologist to make sure she does not have C difficile because of the frequent use of Zithromax. She was offered a rectal exam today but declined. Otherwise she may follow up with me p.r.n.. Evaluation included: Preparing to see the patient (e.g., review of tests) Obtaining and/or reviewing separately obtained history Performing a medically appropriate examination and/or evaluation Counseling and educating the patient/family/caregiver Referring and communicating with other health care information associate No primary diagnosis found. Nany Bro DO This note was created with the assistance of a speech recognition program. While intending to generate a timely document that accurately reflects the content of the visit, no guarantee can be provided that every grammatical or spelling mistake has been or will be identified or corrected. Thank you for your understanding. documented in this encounter [facility] 04-03-2023 Note Outpatient Pulmonary Clinic Visit Note Patient: Diamante Stapleton Age: 57 y.o. : 1965 Account No.: [id number] Chief complaint: Recurrent pneumonia Bronchiectasis HPI / Follow up progress: Diamante Stapleton is a 56 y.o. female [...] 3.56L/96% DLCO 63% DLCOcor 61% DL/VA 85% Interval history 02/13/2023: This month she had 3 trips to [facility] ER for worsening shortness of breath, [...] her cough and phlegm are slowing down. 04/03/2023: The patient reports that she ended up with influenza A right before [place] and then had superimposed bacterial pneumonia for which she completed another course of antibiotics. She also reports that her hemoptysis did resolve after completing the course of antibiotics. Since her last visit the patient was able to get percussion vest approved from her insurance company which would help with airway clearance. She denies any signs or symptoms of acute infection at this point. Past Medical History: Diagnosis Date Anxiety COPD (chronic obstructive pulmonary disease) ([facility]) Depression Migraines Vertigo Past Surgical History: Procedure [...] DAY 02/27/22 Yes Historical Provider, amitriptyline (Elavil) 75 mg tablet amitriptyline 50 mg tablet TAKE 1 AND 1/2 TABLETS BY MOUTH NIGHTLY 05/31/21 Yes Historical Provider, baclofen (Lioresal) 10 mg tablet baclofen 10 mg tablet TAKE 1.5 TABLETS BY MOUTH 3 TIMES DAILY. 05/31/21 Yes Historical Provider, gzgivqjhjdlmxoc-cviqzbnhs-JW 2-30-10 mg/5 mL syrup TAKE 10ML BY MOUTH EVERY 8 HOURS NEEDED FOR COUGH 01/09/22 Yes Historical Provider, buPROPion XL (Wellbutrin XL) 300 mg 24 hr tablet bupropion HCl XL 300 mg 24 hr tablet, extended release TAKE 1 TABLET BY MOUTH EVERY DAY IN THE MORNING Yes Historical Provider, busPIRone (Buspar) 30 mg tablet Take 30 mg by mouth. Yes Historical Provider, cyclobenzaprine (Flexeril) 10 mg tablet cyclobenzaprine 10 mg tablet Yes Hi (more content not included)... [facility] 02-13-2023 Note Attestation signed by Jesse Martel MD at 02/28/2023 1:06 PM I personally saw and examined the patient on the same date of service as resident/fellow . I discussed the findings and therapeutic plan with the resident/fellow . I agree with the documentation, except for any edits/updates below. Pulmonary Clinic Visit Note Patient: Diamante Stapleton Age: 57 y.o. : 1965 Account No.: [id number] Chief complaint: Follow up HPI 56 y.o. [...] This month she had 3 trips to [facility] ER for worsening shortness of breath, [...] Date Anxiety COPD (chronic obstructive pulmonary disease) (CMS/HCC) Depression Migraines Vertigo Past Surgical History: Procedure [...] THREE TIMES A DAY NEEDED Historical Provider, hwkbfmubucnnzlz-edubvaodf-PW 2-30-10 mg/5 mL syrup TAKE 10ML BY [...] ointment 06/05/21 Historical Provider, fish oil concentrate ([place]-3) 120-180 mg capsule Take 2,000 mg by mouth. Historical Provider, fluoride, sodium, 1.1 % gel DentaGel 1.1 % APPLY A THIN RIBBON OF (more content not included)... [facility] 11-15-2022 Note Attestation signed by Claude Vera MD at 11/26/2022 7:46 PM I personally saw and examined the patient on the same date of service as resident/fellow Dr. Coburn. I discussed the findings and therapeutic plan with the resident/fellow Dr. Coburn. I agree with the documentation, except for any edits/updates below. Pulmonary Clinic Visit Note Patient: Diamante Stapleton Age: 56 y.o. : 1965 Account No.: [id number] HPI Diamante Stapleton is a 56 y.o. [...] Date Anxiety COPD (chronic obstructive pulmonary disease) ([facility]) Depression Migraines Vertigo Past Surgical History: Procedure [...] TIMES A DAY NEEDED Yes Historical Provider, wlpthheilrqfdcq-somjeseqj-KM 2-30-10 mg/5 mL syrup TAKE 10ML BY [...] 02/27/22 Yes Histori (more content not included)... [facility] 08-16-2022 Note Attestation signed by Richard Restrepo MD at 08/18/2022 9:35 AM Patient was seen and examined with the resident on the same date of service, I discussed the findings and therapeutic plan with the resident/fellow, I agree with the documentation, assessment and plan as above except for any edits/updates below. Richard Restrepo MD Pulmonary and critical care Pulmonary Clinic Visit Note Patient: Diamante Stapleton Age: 56 y.o. : 1965 Account No.: [id number] HPI Interval update: Patient completed voriconazole for [...] Date Anxiety COPD (chronic obstructive pulmonary disease) ([facility]) Depression Migraines Vertigo Past Surgical History: Procedure [...] BY MOUTH THRE (more content not included)... [facility] 05-17-2022 Note Attestation signed by Richard Restrepo MD at 05/29/2022 9:10 AM Patient was seen and examined with the resident, agree with assesment and plan as above Richard Restrepo MD Pulmonary and critical care Pulmonology Outpatient Note Patient : Diamante Stapleton [...] Assessment/Plan: 1. Pneumonia due to Pseudomonas aeruginosa ([facility]) - Ordering inhaled tobramycin for use with nebulizer - Previously ordered LINWOOD pod inhaler but was not approved by insurance - tobramycin (Bethkis) 300 mg/4 mL solution for nebulization; Take 4 mL (300 mg) by nebulization every 12 (twelve) hours. Dispense: 240 mL; Refill: 0 - Home nebulizer 2. Bronchiectasis with acute exacerbation ([facility]) - PFTs as above - IgE level normal - Respiratory cultures positive for Aspergillus and Pseudomonas - Treating with inhaled tobramycin and voriconazole, prior authorization pending 3. 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 [facility] 05-10-2022 Note Attestation signed by Lalito Bourgeois MD at 07/05/2022 12:[address] Mehta starting antifungal. Updated the patient about the BAL result (growing Aspergillus) and the need to be on Voriconazole 200 mg BID for 8 weeks. Prescription was sent to the patient pharmacy. Will try to get her in the clinic on 05/17/[address] Bourgeois at [facility] 05-03-2022 Note Pt stated she has [...] persist or worsen prior to neurology appt. [facility] 05-03-2022 Note A. Satisfactory for evaluation. Examination of the ThinPrep slide and cell block reveals few alveolar macrophages amid abundant acute inflammation and blood. [facility] Comment on above: Performed By: #### L [id number] #### [facility] ([facility]) [address] [place] [address] 05-03-2022 Note IGE was normal in 2019 [facility] 12-21-2021 Note PROCEDURE: [employer]T 64, 5 mm slice axial images were [...] and signed by Gopi Renteria on 12/21/[address] [place] [address] [employer] 01-21-2021 Evaluation note Encounter Date Diagnosis Assessment [...] Contact dermatitis home care material was printed [employer] Other Evaluation note* Diagnosis Multiple sclerosis (HCC) Multiple sclerosis Vitamin D deficiency Unspecified vitamin D deficiency documented in this encounter [facility] Phone: evaluation note* Diagnosis Gastro-esophageal reflux disease with esophagitis, without bleeding [facility] Diagnosis Change in bowel habits- Primary Other symptoms involving digestive system [facility] Diagnosis Mood disorder ([facility]) Unspecified episodic mood disorder documented [facility]* Diagnosis Generalized anxiety disorder [facility] N[facility] - Reported* Type Description Date Medical History ms Medical History [place] Medical History asthma Surgical History reconstructive jaw surgeries Surgical History 2 [facility] surgies Surgical History hysterectomy Surgical History kidney stone Hospitalization History see [employer] Other InstructionsNot on filedocumented in this encounter [facility] filed[facility] in [facility] filed[facility] in [facility] Summary Purpose Family History No Family History [...] section and content) DATE CREATED AUTHOR 04/13/2021 [facility] DATE CREATED AUTHOR AUTHOR'S ORGANIZ ATION 06/27/2021 [facility] DATE CREATED AUTHOR AUTHOR'S ORGANIZ ATION 04/19/2022 [facility] dical Specialist DATE CREATED AUTHOR AUTHOR'S ORGANIZ ATION 06/12/2022 [facility] DATE CREATED AUTHOR AUTHOR'S ORGANIZ ATION 07/21/2022 [facility] DATE CREATED AUTHOR AUTHOR'S ORGANIZ ATION 04/08/2023 [facility] DATE CREATED AUTHOR AUTHOR'S ORGANIZ ATION 04/23/2023 [facility] Care Teams (unrecognized sec tion and content) 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 Start Date End Date Cyndie Hopkins, DO [address] [place] [address] PCP - General 05/31/21 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 Start Date End Date Cyndie Hopkins, DO [address] [place] [address] PCP - General 05/31/21 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 Start Date End Date Garrett Thorpe MD [address] [place] [address] PCP - General Internal Medicine 06/20/22 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 Start Date End Date Garrett Thorpe MD [address] [place] [address] PCP - General Internal Medicine 06/20/22 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 [employer] provides no warranty or guarantee of the accuracy or completeness of information in this document.
--- NOTE | 2023-04-30 17:04 | ECG_ITS ---
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
[2023-04-30] MEDS: 0.9 % SODIUM CHLORIDE 1,000 ML 999 ML IV (17:15)
[2023-04-30] MEDS: HYDROCODONE BIT/HOMATROP 5 MG/1.5 MG TABLET 1 TAB PO (17:16)
[2023-04-30] MEDS: METHYLPREDNISOLONE SOD SUCC PF 125 MG/2 ML VIAL IVP (17:16)
[2023-04-30 17:33] LABS: Adenovirus NOT DETECTED (NOT DETECTE); Bordetella parapertussis NOT DETECTED (NOT DETECTE); Coronavirus 229E NOT DETECTED (NOT DETECTE); Coronavirus HKU1 NOT DETECTED (NOT DETECTE); Coronavirus NL63 NOT DETECTED (NOT DETECTE); Coronavirus OC43 NOT DETECTED (NOT DETECTE); Human Metapneumovirus NOT DETECTED (NOT DETECTE); Human Rhinovirus/Enterovirus NOT DETECTED (NOT DETECTE); Influenza A NOT DETECTED (NOT DETECTE); Influenza B NOT DETECTED (NOT DETECTE); Mycoplasma pneumoniae NOT DETECTED (NOT DETECTE); Parainfluenza Virus 1 NOT DETECTED (NOT DETECTE); Parainfluenza Virus 2 NOT DETECTED (NOT DETECTE); Parainfluenza Virus 3 NOT DETECTED (NOT DETECTE); Parainfluenza Virus 4 NOT DETECTED (NOT DETECTE); Respiratory Syncytial Virus NOT DETECTED (NOT DETECTE); SARS-CoV-2 NOT DETECTED (NOT DETECTE)
--- NOTE | 2023-04-30 17:33 | ED_ITS ---
HPI - General Adult General Chief complaint: Upper Respiratory Infection Stated complaint: severe cough, wants xray Time Seen by Provider: 04/30/23 16:44 Source: patient Mode of arrival: walk-in Limitations: no limitations History of Present Illness HPI narrative: Patient is a 57-year-old female who presents to the emergency department for uncontrolled coughing since 330 this morning. Patient is tearful, she states she saw her PCP today and the nurse practitioner swabbed her for COVID and influenza. These were negative and she was started on prednisone. She has not taken any prednisone prior to arrival. She has not taken any Motrin or Tylenol. She was unaware that she has a fever. She has had no vomiting or diarrhea, she did have posttussive nausea. She has not had any hemoptysis. 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 She had CT scans in the fall. She has not had any leg edema. She states she is going on a cruise next week and needs something . Related Data Home Medications Medication Instructions Recorded Confirmed albuterol sulfate 90 mcg/actuation 2 puff inhalation Q6H PRN 01/03/23 01/03/23 aerosol inhaler shortness of breath or wheezing amantadine HCl 100 mg capsule mg 01/03/23 amitriptyline 50 mg tablet 50 mg PO 01/03/23 baclofen 10 mg tablet 10 mg PO Q8H 01/03/23 01/03/23 bupropion HCl 150 mg 24 hr tablet, 150 mg PO .morning 01/03/23 01/03/23 extended release buspirone 30 mg tablet 30 mg PO BID 01/03/23 01/03/23 dalfampridine 10 mg 10 mg PO Q12H 01/03/23 01/03/23 tablet,extended release,12 hr diazepam 5 mg tablet 5 mg PO Q8H PRN muscle spasm 01/03/23 01/03/23 glatiramer 40 mg/mL subcutaneous 40 mg subcut Q24H 01/03/23 01/03/23 syringe meclizine 25 mg tablet 25 mg PO .every 6 hours PRN 01/03/23 01/03/23 dizziness montelukast 10 mg tablet 10 mg PO QDAY 01/03/23 01/03/23 omeprazole 40 mg capsule,delayed 40 mg PO DAILY 01/03/23 01/03/23 release primidone 50 mg tablet 50 mg PO Q8H 01/03/23 01/03/23 propranolol 40 mg tablet 40 mg PO Q12H 01/03/23 01/03/23 quetiapine 50 mg tablet 50 mg PO .qhs 01/03/23 01/03/23 rizatriptan 10 mg tablet 10 mg PO .daily 01/03/23 01/03/23 sucralfate 1 gram tablet 1 g PO Q6H 01/03/23 01/03/23 Previous Rx's Medication Instructions Recorded benzonatate 100 mg capsule 100 mg PO TID PRN cough #20 caps 01/03/23 levofloxacin 750 mg tablet 750 mg PO DAILY 7 days #7 tabs 01/03/23 levofloxacin 750 mg tablet 750 mg PO DAILY 10 days #10 tabs 03/15/23 Allergies Allergy/AdvReac Type Severity Reaction Status Date / Time hydromorphone [From Dilaudid] Allergy Severe Verified 01/22/23 06:14 codeine Allergy Intermediate Verified 01/22/23 06:14 doxycycline Allergy Mild Rash Verified 01/22/23 06:14 acetaminophen [From Percocet] AdvReac Intermediate Verified 01/22/23 06:14 amoxicillin AdvReac Intermediate Verified 01/22/23 06:14 clavulanic acid AdvReac Intermediate Verified 01/22/23 06:14 [From Augmentin] fentanyl AdvReac Intermediate Verified 01/22/23 06:14 morphine AdvReac Intermediate Verified 01/22/23 06:14 oxycodone [From Percocet] AdvReac Intermediate Verified 01/22/23 06:14 tizanidine [From Zanaflex] AdvReac Intermediate Verified 01/22/23 06:14 Review of Systems ROS Constitutional Reports: fever; Denies: chills Ears, nose, mouth, and throat Reports: throat pain; Denies: nasal congestion Cardiovascular Denies: chest pain Respiratory Reports: cough and wheezing; Denies: shortness of breath Gastrointestinal Reports: nausea; Denies: vomiting or diarrhea Musculoskeletal Denies: back pain Integumentary/Breast Denies: rash Neurological Denies: headache PFSH PFSH Social History Smoking status: Former smoker Exam Narrative Exam Narrative: Gen.: Awake, alert, in no distress Head: Normocephalic, atraumatic ENT: Moist mucous membranes Respiratory: No respiratory distress, lungs clear bilaterally; Harsh cough, faint expiratory wheezing Cardio: Tachycardia Extremities: Moves extremities equally, no Pedal edema Psych: Tearful Neuro: No focal neuro deficit Skin: Warm, dry, intact Constitutional Vital Signs, click to edit/add: Last Vital Signs Temp 100.8 F H 04/30/23 16:45 Pulse 112 H 04/30/23 17:30 Resp 21 04/30/23 17:30 BP 131/56 04/30/23 17:30 Pulse Ox 98 04/30/23 17:30 O2 Del Method Room Air, Nasal Cannula 04/30/23 17:29 O2 Flow Rate 2 04/30/23 17:29 Course Vital Signs Vital signs: Vital Signs Temperature 100.8 F H 04/30/23 16:45 Pulse Rate 125 H 04/30/23 16:45 Respiratory Rate 24 04/30/23 16:45 Blood Pressure 131/62 04/30/23 16:45 Pulse Oximetry 91 L 04/30/23 16:45 Oxygen Delivery Method Room Air 04/30/23 16:45 Temperature 100.8 F H 04/30/23 16:45 Pulse Rate 112 H 04/30/23 17:30 Respiratory Rate 21 04/30/23 17:30 Blood Pressure 131/56 04/30/23 17:30 Pulse Oximetry 98 04/30/23 17:30 Oxygen Delivery Method Room Air, Nasal Cannula 04/30/23 17:29 Oxygen Delivery Flow Rate 2 04/30/23 17:29 Medical Decision Making [facility] Narrative Medical decision making narrative: Patient treated with IV fluids, Solu-Medrol, Hycodan. She states she took a breathing treatment immediately prior to arrival. She was placed on oxygen by nasal cannula for borderline hypoxia with improvement. Heart rate improved with fluids and medications. Chest x-ray with multiple right lung infiltrates. No evidence of cavitary lesion or significant consolidation at this time. Patient with leukocytosis, fever, tachycardia and multifocal pneumonia, she meets sepsis criteria and blood cultures, lactic acid and procalcitonin were obtained. Troponin is within normal limits. It was discussed with the patient and her family that she should stay in the hospital for IV antibiotics at least overnight. She is agreeable to this and she is admitted to the hospitalist to Dr. Bertha gustafson for further evaluation and treatment. Medical Records Medical records reviewed: Yes I reviewed the patient's medical records Lab Data Lab results reviewed: Yes I reviewed the patient's lab results Labs: Lab Results 04/30/23 04/30/23 Range/Units 14:55 17:16 WBC 18.6 H (4.0-11.0) 10^3/uL RBC 4.16 L (4.20-5.40) 10^6/uL Hgb 12.3 (12.0-16.0) g/dL Hct 38.1 (36.0-48.0) % MCV 91.6 (81.0-99.0) fL MCH 29.6 (26.7-34.0) pg MCHC 32.3 (29.9-35.2) g/dL RDW 14.0 (11.0-15.0) % Plt Count 335 (150-450) 10^3/uL MPV 10.1 (9.5-13.5) fL Neut % (Auto) 85.0 H (43.0-75.0) % Lymph % (Auto) 6.3 L (20.5-60.0) % [place] % (Auto) 7.5 (1.7-12.0) % Eos % (Auto) 0.4 L (0.9-7.0) % Baso % (Auto) 0.2 (0.2-2.0) % Neut # (Auto) 15.8 H (1.4-6.5) 10^3/uL Lymph # (Auto) 1.2 (1.2-3.8) 10^3/uL [place]ton # (Auto) 1.4 H (0.3-0.8) 10^3/uL Eos # (Auto) 0.1 (0.0-0.7) 10^3/uL Baso # (Auto) 0.0 (0.0-0.1) 10^3/uL Abs Immat Gran (auto) 0.11 H (0.00-0.03) 10^3/uL Imm/Tot Granulo (auto) 0.6 H (0.0-0.5) % VBG pH 7.464 H (7.330-7.430) VBG pCO2 39.0 L (40.0-52.0) mmHg Lactate 1.1 (0.4-2.0) mmol/L Troponin I High Sens 7.1 (4.0-51.3) pg/mL Procalcitonin 0.08 (0.00-0.50) ng/mL Streptococcus Screen Negative Imaging Data Chest x-ray: Attestation: I have reviewed the pertinent imaging results. Radiologist's impression: ITS Impressions Chest X-Ray 04/30/23 16:45 IMPRESSION: Interstitial and airspace opacities greatest in the right lung, increased compared to prior exam. Differential could include worsening of pneumonia versus fluid overload and/or underlying nodule. CT scan of the chest is recommended for further evaluation. Electronically authenticated by: AQUILINO MORALES Date: 04/30/2023 17:24 ECG Data Attestation: I personally reviewed and interpreted this ECG as follows: (Sinus tachycardia at a rate of 109, no acute ST elevation, no ectopy. EKG reviewed by attending physician) Discharge Plan Discharge Chief Complaint: Upper Respiratory Infection Patient Disposition: Admitted As Inpatient Time of Disposition Decision: 18:24 Prescriptions / Home Meds: No Action levofloxacin 750 mg tablet 750 mg PO DAILY 10 Days Qty: 10 0RF albuterol sulfate 90 mcg/actuation HFA aerosol inhaler 2 puff INHALATION Q6H PRN (Reason: shortness of breath or wheezing) amantadine HCl 100 mg capsule amitriptyline 50 mg tablet 50 mg PO Patient Comments: 1 and 1/2 tab baclofen 10 mg tablet 10 mg PO Q8H bupropion HCl 150 mg tablet extended release 24 hr 150 mg PO .morning buspirone 30 mg tablet 30 mg PO BID dalfampridine 10 mg tablet extended release 12 hr 10 mg PO Q12H diazepam 5 mg tablet 5 mg PO Q8H PRN (Reason: muscle spasm) glatiramer 40 mg/mL syringe 40 mg SUBCUT Q24H meclizine 25 mg tablet 25 mg PO .every 6 hours PRN (Reason: dizziness) montelukast 10 mg tablet 10 mg PO QDAY omeprazole 40 mg capsule,delayed release(DR/EC) 40 mg PO DAILY primidone 50 mg tablet 50 mg PO Q8H propranolol 40 mg tablet 40 mg PO Q12H quetiapine 50 mg tablet 50 mg PO .qhs rizatriptan 10 mg tablet 10 mg PO .daily sucralfate 1 gram tablet 1 g PO Q6H Patient Comments: with meals levofloxacin 750 mg tablet 750 mg PO DAILY 7 Days Qty: 7 0RF benzonatate 100 mg capsule 100 mg PO TID PRN (Reason: cough) Qty: 20 0RF Referrals: Physician,Non-Staff, MD [Primary Care Provider] - 1 week
[2023-04-30 17:34] LABS: pH VBG 7.464 (7.330-7.430)
[2023-04-30 17:37] LABS: Basophils Percent Auto 0.2 % (0.2-2.0); Eosinophils Absolute Auto 0.1 10^3/uL (0.0-0.7); Eosinophils Percent Auto 0.4 % (0.9-7.0); Hematocrit 38.1 % (36.0-48.0); Hemoglobin 12.3 g/dL (12.0-16.0); Immature Granulocytes Abs Auto 0.11 10^3/uL (0.00-0.03); Immature Granulocytes Pct Auto 0.6 % (0.0-0.5); Lymphocytes Absolute Auto 1.2 10^3/uL (1.2-3.8); Lymphocytes Percent Auto 6.3 % (20.5-60.0); Mean Corpuscular HGB Conc 32.3 g/dL (29.9-35.2); Mean Corpuscular Hemoglobin 29.6 pg (26.7-34.0); Mean Corpuscular Volume 91.6 fL (81.0-99.0); Mean Platelet Volume 10.1 fL (9.5-13.5); Monocytes Absolute Auto 1.4 10^3/uL (0.3-0.8); Monocytes Percent Auto 7.5 % (1.7-12.0); Neutrophils Absolute Auto 15.8 10^3/uL (1.4-6.5); Platelet Count 335 10^3/uL (150-450); Red Blood Count 4.16 10^6/uL (4.20-5.40); White Blood Count 18.6 10^3/uL (4.0-11.0)
[2023-04-30 17:56] LABS: Internal Control Within Normal Limits; Strep A Antigen Screen Negative
[2023-04-30 18:00] LABS: Troponin I High Sensitivity 7.1 pg/mL (4.0-51.3)
[2023-04-30 18:13] LABS: PROCALCITONIN 0.08 ng/mL (0.00-0.50)
[2023-04-30 18:14] LABS: Lactate/Lactic Acid 1.1 mmol/L (0.4-2.0)
[2023-04-30 18:23] LABS: Alanine Aminotransferase 22 U/L (14-59); Albumin Globulin Ratio 0.5; Albumin Level 2.7 g/dL (3.4-5.0); Alkaline Phosphatase 140 U/L (46-116); Aspartate Amino Transferase 15 U/L (15-37); BUN Creatinine Ratio 12.8; Bilirubin Total 0.4 mg/dL (0.2-1.0); Calcium 9.3 mg/dL (8.5-10.1); Carbon Dioxide 27.6 mmol/L (21.0-32.0); Chloride 97 mmol/L (98-107); Estimated GFR (African America >60 (>=60); Estimated GFR (Non-African Ame >60 (>=60); Globulin 5.1 g/dL; Glucose 127 mg/dL (74-106); Potassium 3.6 mmol/L (3.5-5.1); Sodium 135 mmol/L (136-145); Total Protein 7.8 g/dL (6.4-8.2)
[2023-04-30] MEDS: LEVOFLOXACIN IN DEXTROSE 5 % 750 MG/150 ML IV.SOLN 100 MG IV (18:38)
--- OUTSIDE RECORDS SUMMARY | 2023-04-30 18:47 | XMS_ITS | CCD ---
Author Name Unknown Address [address] [place] [address] Organization [facility] Care Team Providers Care Director Of Agriculture Name Role Phone Cyndie Hopkins DO Primary [...] JONES Consulting Unavailable PATRICIA CANNON Consulting [facility]available [facility] Primary Care Unavailable JUDITH VAUGHAN [...] Acetaminophen; Translations: [ACETAMINOPHEN] Drug Allergy 08-25-[address] [facility] (8 sources) Acetaminophen / oxyCODONE; Translations: [OXYCODONE-ACETAM INOPHEN] Drug Allergy 03-13-[address] [facility] Work Phone: (8 sources) Amoxicillin; Translations: [AMOXICILLIN] Drug Allergy 08-25-[address] [facility] Work Phone: (9 sources) Azithromycin; Translations: [AZITHROMYCIN] Drug Allergy 03-13-20 14 Itching [employer] Other (8 sources) Codeine; Translations: [CODEINE] Drug Allergy 03-13-[address] [facility] Work Phone: (8 sources) Doxycycline; Translations: [DOXYCYCLINE] Drug Allergy 09-15-19 16 Rash [employer] Other (9 sources) fentaNYL; Translations: [FENTANYL] Drug Allergy 03-13-20 14 Itching [employer] Other (9 sources) HYDROmorphone; Translations: [HYDROMORPHONE] Drug Allergy 03-13-20 14 Itching, Rash [employer] Other (9 sources) Morphine; Translations: [MORPHINE] Drug Allergy 03-13-20 14 Itching [employer] Other (9 sources) tiZANidine; Translations: [TIZANIDINE] Drug Allergy 03-14-20 17 Rash [employer] Other (9 sources) traZODone; Translations: [TRAZODONE] Drug Allergy 03-13-20 14 Unknown [employer] Other (1 source) Acetaminophen / oxyCODONE Drug Allergy Unknown [employer] Other (1 source) Amoxicillin-Pot Clavulanate Propensity to adverse reactions to drug 12-29-19 [facility] (1 source) Acetaminophen / oxyCODONE Drug Allergy 09-15-19 16 [facility] (1 source) Amoxicillin Drug Allergy [facility] (1 source) Codeine Drug Allergy 09-15-19 16 [facility] (1 source) Doxycycline Drug Allergy 09-15-19 16 [facility] (1 source) fentaNYL Drug Allergy 09-15-19 16 [facility] (1 source) HYDROmorphone Drug Allergy 09-15-19 16 [facility] (1 source) Morphine Drug Allergy 09-15-19 16 [facility] (1 source) tiZANidine Drug Allergy 02-13-20 19 [facility] (1 source) traZODone Drug Allergy 09-15-19 16 [facility] (1 source) benzonatate; Translations: [BENZONATATE] Drug Allergy 02-14-20 23 [facility] (1 source) Doxycycline; Translations: [DOXYCYCLINE HYCLATE] Drug Allergy 03-13-20 14 [facility] Medications Current Medications Medication Drug Class(es) Dates Sig (Normalized) Sig (Original) albuterol 0.83 mg/ml inhalation solution (11 sources) beta2-Adrenergic Agonist Start: 01-30-2023 take 3 mL by inhalation every six hours as needed for wheezing albuterol (PROVENTIL,VENTOLIN) 2.5 mg /3 mL (0.083 %) nebulizer solution Indications: Subacute cough , Bronchiectasis ([facility]) Inhale 3 mL (2.5 mg total) by [...] 3 mg/ml oral solution (4 sources) Uncompetitive H-xtbxtv-E-aspartate Receptor Antagonist, Sigma-1 Agonist Start: 02-08-2023 take [...] capsule by mo uth three times daily Aylett-3 Fatty Acids (FISH OIL) 1000 MG CAPS Take 2,000 mg by mouth 3 times daily 0 Active take 1 capsule by mouth three ti mes daily Aylett-3 Fatty Acids (FISH OIL) 1000 MG CAPS [...] 11-29-2021 Chronic Other aftercare (1 source) Other assisted (current) drug therapy; Translations: [OTH SHELTER CURRENT DRUG THERAPY] Onset: 06-12-2022 Episodic Other [...] but needs appt for additional refills. Normal [facility] Orders Onlyon 04-16-2023 Orders Only [id number] Diamante Stapleton 1965 F Date Provider Department Center 04/16/202301100-YVZEALBERTO TUTTLE [facility] No family history on file [facility] Documentationon 04-10-2023 Documentation [id number] Diamante Stapleton 1965 F Date Provider Department Center 04/10/202364715-IVMCALBERTO TUTTLE [facility] No family history on file [facility] Office Visiton 04-03-2023 Follow-up visit [id number] Navas 1965 F Date Provider Department Center 04/03/202347324-ORNCALBERTO TUTTLE [facility] PUL Comprehensiv No family history on file Level of Service:72110 [place] OFFICE/OUTPATIENT ESTABLISHED MOD MDM 30 MIN () Reason for Visit and Comments: 6 month follow-up [Other] - Patient states she dropped sample off to the lab for the sputum and she got a call from the lab saying the numbers did not match Normal [facility] 36on 03-13-2023 36 I called the patient and let her know we will need her to get this done again. I am faxing the order to [facility]. [facility] 36 Thank you Cecilia [facility] Follow-Upon 02-13-2023 Follow-Up [id number] Diamante Stapleton 1965 F Date Provider Department Center 02/13/2023 [facility] Comprehensiv No family history on file Level of Service:56752 [place] OFFICE/OUTPATIENT ESTABLISHED MOD MDM 30-39 MIN (GC) [facility] 36on 02-05-2023 36 I spoke with patient , she will be coming to see you in clinic next week at [facility] 36on 01-29-2023 36 Surya. Can you call t he patient, thanks [facility] Telephoneon 01-22-2023 Telephone [id number] Diamante Stapleton 1965 F Date Provider Department [place] 01/22/2023 CLAUDE LORENZ [facility] No family history on file [facility] Refillon 01-04-2023 Refill [id number] Diamante Stapleton 1965 F Date Provider Department [place] 01/04/2023 STEVEN HOUSE [facility] No family history on file Reason for Visit and Comments: Med Refill [[id number]] [facility] Orders Onlyon 12-29-2022 Orders Only [id number] Diamante Stapleton 1965 Provider Department [place] 12/29/2022 [id number], SURYA [facility] INT MED Comprehensiv No family history on file [facility] Office Visiton 11-15-2022 Follow-up visit [id number] Diamante Stapleton 1965 F Date Provider Department [place] 11/15/2022 [id number], SURYA [facility] No family history on file Level of Service:78820 [place] OFFICE/OUTPATIENT ESTABLISHED LOW MDM 20-29 MIN (GC) Reason for Visit and Comments: Follow-up [[id number]] - Results for ct and pets scan [facility] Refillon 09-14-2022 Refill [id number] Diamante Stapleton 1965 Provider Department [place] 09/14/2022 AN[facility]OL [facility] No family history on file Reason for Visit and Comments: Med Refill [[id number]] [facility] 36on 09-06-2022 36 Called and left message on patients voicemail. [facility] Telephoneon 09-05-2022 Telephone [id number] Diamante Stapleton 1965 Provider Department [place] [facility]/05/2022 [facility] No family history on file [facility] 36on 08-22-2022 36 Pt reports pharmacy did not receive rx for Singulair. When it was approved, the status was set to 'print', so it did not go electronically. I called in and left on pharmacy voicemail. [facility] Orders Onlyon 08-19-2022 Orders Only [id number] Diamante Stapleton 1965 Provider Department [place] 08/19/2022 [facility] No family history on file [facility] Refillon 08-18-2022 Refill [id number] Diamante Stapleton 1965 Provider Department [place] [facility]2022 [facility] family history on file Reason for Visit and Comments: Med Refill [[id number]] [facility] 37on 08-16-2022 37 IgG, IgM, IgA, IgE Singulair, Azithromycin CT chest w/o contrast RTC in 3 months [facility] Follow-Upon 08-16-2022 Follow-Up [id number] Diamante Stapleton 1965 Provider Department [place] 08/16/2022 [facility] No family history on file Level of Service:24157 [place] OFFICE/OUTPATIENT ESTABLISHED MOD MDM 30-39 MIN () Reason for Visit and Comments: Follow-up [[id number]] - 3 month follow up [facility] 36on 06-20-2022 36 Spoke with patient, she said she went to her PCP, the dizziness came from her having wax in her ear. She did do the labs. I let Dr. Zuniga know that has been done patient is due to lao her antibiotic on today [facility] Orders Onlyon 06-16-2022 Orders Only [id number] Diamante Stapleton 1965 F Date Provider Department Center 06/16/2022 ELIZABETH DOMINGO [facility] No family history on file [facility] 36on 06-14-2022 36 I called and left a message on the voicemail for the patient. Detailed message letting her know that lab work is needed. [facility] Orders Onlyon 06-14-2022 Orders Only [id number] Diamante Stapleton 1965 F Date Provider Department [place] 06/14/2022 STEVEN HOUSE [facility] No family history on file [facility] CBC AUTO DIFFon 06-08-2022 BASO # 0.0 103/ul Normal 0.0-0.1 [facility] Comment on above: Performed By: #### T SH, CMP, HSTROPN #### [facility] [address] [place] [address] Dr. Addy Reyes Basophils/100 WBC (Bld) 0.5 % Normal 0.2-2.0 [facility] Comment on above: Performed By: #### T SH, CMP, HSTROPN #### [facility] [address] [address] [address] Addy Reyes EO # 0.4 103/ul Normal 0.0-0.7 [facility] Comment on above: Performed By: #### T SH, CMP, HSTROPN #### [facility] [address] [address] [address] Addy Reyes Eosinophils/100 WBC (Bld) 5.0 % Normal 0.9-7.0 [facility] Comment on above: Performed By: #### T SH, CMP, HSTROPN #### [facility] [address] [place] [address] Dr. Addy Reyes Erythrocyte distribution width (RBC) [Ratio] 13.9 % Normal 11.0-15.0 [facility] Comment on above: Performed By: #### T SH, CMP, HSTROPN #### [facility] [address] [place] [address] Dr. Addy Reyes Hematocrit (Bld) [Volume fraction] 41.5 % Normal 36.0-48.0 [facility] Comment on above: Performed By: #### T SH, CMP, HSTROPN #### [facility] [address] [place] [address] Dr. Addy Reyes Hemoglobin (Bld) [Mass/Vol] 13.2 g/dL Normal 12.0-16.0 [facility] Comment on above: Performed By: #### T SH, CMP, HSTROPN #### [facility] [address] [place] [address] Dr. dAdy Reyes IG # 0.01 10e3/ul Normal 0.00-0.03 [facility] Comment on above: Performed By: #### T SH, CMP, HSTROPN #### [facility] [address] [place] [address] Dr. Addy Reyes IG % 0.1 % Normal 0.0-0.5 [facility] Comment on above: Performed By: #### T SH, CMP, HSTROPN #### [facility] [address] [place] [address] Dr. Addy Reyes LYMPH # 1.7 103/ul Normal 1.2-3.8 [facility] Comment on above: Performed By: #### T SH, CMP, HSTROPN #### [facility] [address] [place] [address] Dr. Addy Reyes Lymphocytes/100 WBC (Bld) 22.4 % Normal 20.5-60.0 [facility] Comment on above: Performed By: #### T SH, CMP, HSTROPN #### [facility] [address] [place] [address] Dr. Addy Reyes MANUAL DIFF REQ NO Normal [facility] Comment on above: Performed By: #### T SH, CMP, HSTROPN #### [facility] [address] [place] [address] Dr. Addy Reyes MCH (RBC) [Entitic mass] 29.5 pg Normal 26.7-34.0 [facility] Comment on above: Performed By: #### T SH, CMP, HSTROPN #### [facility] [address] [place] [address] Dr. Addy Reyes MCHC (RBC) [Mass/Vol] 31.8 g/dL Normal 29.9-35.2 [facility] Comment on above: Performed By: #### T SH, CMP, HSTROPN #### [facility] [address] [place] [address] Dr. Addy Reyes MCV (RBC) [Entitic vol] 92.8 fL Normal 81.0-99.0 [facility] Comment on above: Performed By: #### T SH, CMP, HSTROPN #### [facility] [address] [place] [address] Dr. Addy Reyes MONO # 0.7 103/ul Normal 0.3-0.8 [facility] Comment on above: Performed By: #### T SH, CMP, HSTROPN #### [facility] [address] [place] [address] Dr. Addy Reyes Monocytes/100 WBC (Bld) 8.5 % Normal 1.7-12.0 [facility] Comment on above: Performed By: #### T SH, CMP, HSTROPN #### [facility] [address] [place] [address] Dr. Addy Reyes NEUT # 4.9 103/ul Normal 1.4-6.5 [facility] Comment on above: Performed By: #### T SH, CMP, HSTROPN #### [facility] [address] [place] [address] Dr. Addy Reyes Neutrophils/100 WBC (Bld) 63.5 % Normal 43.0-75.0 [facility] Comment on above: Performed By: #### T SH, CMP, HSTROPN #### [facility] [address] [place] [address] Dr. Addy Reyes Platelet mean volume (Bld) [Entitic vol] 10.7 fL Normal 9.5-13.5 [facility] Comment on above: Performed By: #### T SH CMP, HSTROPN #### [facility] [address] [address] [address] Addy Reyes PLT 221 103/ul Normal 150-450 [facility] Comment on above: Performed By: #### T CAROLYN CMP, HSTROPN #### [facility] [address] [place] [address] Dr. Addy Reyes RBC 4.47 106/ul Normal 4.20-5.40 [facility] Comment on above: Performed By: #### T CAROLYN CMP, HSTROPN #### [facility] [address] [place] [address] Dr. Addy Reyes WBC 7.7 103/ul Normal 4.0-11.0 [facility] Comment on above: Performed By: #### T THONY LEON, HSTROPN #### [facility] [address] [place] [address] HEAD WO CONon [...] CADY BROWNLEE Date: 2022-06-08 16:26 Normal [facility] PROF CHEM 8 (BAS METB)on Anion gap [Moles/Vol] 10.4 mmol/L Normal [facility] Comment on above: Performed By: #### T SH, CMP, HSTROPN #### [facility] [address] [address] [address] Addy Reyes Calcium [Mass/Vol] 8.6 mg/dL Normal 8.5-10.1 [facility] Comment on above: Performed By: #### T SH, CMP, HSTROPN #### [facility] [address] [place] [address] Dr. Addy Reyes Chloride [Moles/Vol] 106 mmol/L Normal 98-107 [facility] Comment on above: Performed By: #### T SH, CMP, HSTROPN #### [facility] [address] [place] [address] Dr. Addy Reyes CO2 [Moles/Vol] 28.3 mmol/L Normal 21.0-32.0 [facility] Comment on above: Performed By: #### T SH, CMP, HSTROPN #### [facility] [address] [place] [address] Dr. Addy Reyes Creatinine [Mass/Vol] 0.76 mg/dL Normal 0.55-1.02 [facility] Comment on above: Performed By: #### T SH, CMP, HSTROPN #### [facility] [address] [place] [address] Dr. Addy Reyes EGFR-AF SAUDI ARABIAN >60 Normal >=60 [facility] Comment on above: Performed By: #### T SH, CMP, HSTROPN #### [facility] [address] [place] [address] Dr. Addy Reyes EGFR-NON AF SAUDI ARABIAN >60 Normal >=60 [facility] Comment on above: Performed By: #### T SH, CMP, HSTROPN #### [facility] [address] [place] [address] Dr. Addy Reyes Glucose [Mass/Vol] 104 mg/dL Normal 74-106 [facility] Comment on above: Performed By: #### T SH, CMP, HSTROPN #### [facility] [address] [address] [address] Addy Reyes Potassium [Moles/Vol] 3.7 mmol/L Normal 3.5-5.1 [facility] Comment on above: Performed By: #### T SH, CMP, HSTROPN #### [facility] [address] [address] [address] Addy Reyes Sodium [Moles/Vol] 141 mmol/L Normal 136-145 [facility] Comment on above: Performed By: #### T SH, CMP, HSTROPN #### [facility] [address] [address] [address] Addy Reyes Urea nitrogen [Mass/Vol] 18.0 mg/dL Normal 7.0-18.0 [facility] Comment on above: Performed By: #### T SH, CMP, HSTROPN #### [facility] [address] [address] [address] Addy Reyes Urea nitrogen/Creatinine [Mass ratio] 23.7 mg/mg Normal [facility] Comment on above: Performed By: #### T SH, CMP, HSTROPN #### [facility] [address] [address] [address] Addy Reyes Telephoneon 06-08-2022 Telephone [id number] Diamante Stapleton 1965 F Date Provider Department Center 06/08/2022 [facility] No family history on file [facility] 36on 05-23-2022 36 Apt 08/16/22. Does he need one sooner. 3 mo supply ordered. [facility] 36 Approving, but needs appt for additional refills. [facility] 36 I called and left a message on the voicemail for patient letting her know that [facility] doesn't normally deal with nebulizers, she would need to get that from a [employer] company. I asked her to call back if the message was to be something different. [facility] Telephoneon 05-23-2022 Telephone [id number] Diamante Stapleton 1965 Provider Department Center 05/23/2022 [facility]EV[facility]SE [facility] No family history on file Reason for Visit and Comments: Med Refill [[id number]] Nebulizer [Other] [facility] Follow-Upon 05-17-2022 Follow-Up [id number] Diamante Stapleton 1965 Provider Department Center 05/17/2022 [facility] No family history on file Level of Service:99778 [place] OFFICE/OUTPATIENT ESTABLISHED MOD MDM 30-39 MIN () Reason for Visit and Comments: Follow-up [[id number]] - Go over test results from [facility] and discuss medications. [facility] Letter (Out)on 05-12-2022 Letter (Out) [id number] Diamante Stapleton 1965 Provider Department [place] 05/12/2022 [facility] No family history on file [facility] Orders Onlyon 05-12-2022 Orders Only [id number] Diamante Stapleton 1965 Provider Department [place] 05/12/[address] [place] [address] [facility] No family history on file [facility] Telephoneon 05-12-2022 Telephone [id number] Diamante Stapleton 1965 Provider Department Center 05/12/2022 AnishaSTEVEN ZUNIGA [facility] No family history on file Reason for Visit and Comments: Med Refill [[id number]] - Pharmacy states they need additional info on the sig for the tobramycin inhaler. Please give them a call. [facility] Orders Onlyon 05-10-2022 Orders Only [id number] Diamante Stapleton 1965 Date Provider Department Center 05/10/2022 [id number]-JIMMY BURCIAGA [facility] PUL Comprehensiv No family history on file [facility] Orders Onlyon 05-05-2022 Orders Only [id number] Diamante Stapleton 1965 F Date Provider Department Center 05/05/2022 [facility] [address] P[facility] No family history on file Normal [facility] 29on 05-03-2022 29 Encounter addended b y: Lalito Bourgeois MD on: 07/13/2022 1:15 PM Actions taken: Cosign clinical note with attestation Normal [facility] 29 Encounter addended b y: Jimmy Burciaga MD on: 07/12/2022 4:53 PM Actions taken: Clinical Note Signed Normal [facility] AFB CULTUREon 05-03-2022 AFB CULTURE No growth at 42 days Normal [facility] Comment on above: Performed By: #### L [id number] #### [facility] ([facility]) [address] [place] [address] AFB STAIN No acid fast bacilli seen Normal [facility] Comment on above: Performed By: #### L [id number] #### [facility] ([facility]) [address] [place] [address] AFB CULTURE No growth at 42 days Normal [facility] Comment on above: Performed By: #### L [id number] #### [facility] ([facility]) [address] [place] [address] AFB STAIN No acid fast bacilli seen Normal [facility] Comment on above: Performed By: #### L [id number] #### [facility] ([facility]) [address] [place] [address] ANESon 05-03-2022 ANES -- Attestation signed by [...] History Anxiety COPD (chronic obstructive pulmonary disease) ([facility]) Depression Migraines Vertigo Allergies Acetaminophen Other reaction(s): [...] rhonchi, decreased breath sounds, wheezes, rales Normal [facility] BODY FLUID CELL DIFFERENTIAL on 05-03-2022 BASOPHILS TOTAL PER COUNTED LEUKOCYTES IN BODY FLUID BY MANUAL COUNT Normal [facility] Comment on above: Order Comment: Diffe rential performed on cytospin Performed By: #### L [id number] ####[facility] ([facility])[address] [place] [address] CELLS COUNTED TOTAL (#) IN BODY FLUID 100 [facility] Comment on above: Order Comment: Diffe rential performed on cytospin Performed By: #### L [id number] ####[facility] ([facility])[address] [place] [address] EOSINOPHILS TOTAL PER COUNTED LEUKOCYTES IN BODY FLUID BY MANUAL COUNT [facility] Comment on above: Order Comment: Diffe rential performed on cytospin Performed By: #### L [id number] ####[facility] ([facility])[address] [place] [address] LYMPHOCYTES TOTAL PER COUNTED LEUKOCYTES IN BODY FLUID BY MANUAL COUNT 6 [facility] Comment on above: Order Comment: Diffe rential performed on cytospin Performed By: #### L [id number] ####[facility] ([facility])[address] [place] [address] MESOTHELIAL CELLS TOTAL PER COUNTED LEUKOCYTES IN BODY FLUID BY MANUAL COUN [facility] Comment on above: Order Comment: Diffe rential performed on cytospin Performed By: #### L [id number] ####[facility] ([facility])[address] [place] [address] MONOCYTES+MACROPHAGE S TOTAL PER COUNTED LEUKOCYTES IN BODY FLUID BY MANUAL 5 [facility] Comment on above: Order Comment: Diffe rential performed on cytospin Performed By: #### L [id number] ####[facility] ([facility])[address] [place] [address] NEUTROPHILS TOTAL PER COUNTED LEUKOCYTES IN BODY FLUID BY MANUAL COUNT 89 [facility] Comment on above: Order Comment: Diffe rential performed on cytospin Performed By: #### L [id number] ####[facility] ([facility])[address] [place] [address] OTHER CELLS BODY FLUID (MANUAL) [facility] Comment on above: Order Comment: Diffe rential performed on cytospin Performed By: #### L [id number] ####[facility] ([facility])[address] [place] [address] ELECTRON MICROSCOPYon 2022 LAB AP DIAGNOSIS COMMENT Normal [facility] Comment on above: Result Comment: I [...] syndrome. Performed By: #### E LECTRON MICROSCOPY ####[facility] ([facility])[address] [place] [address] LAB AP MICROSCOPIC DESCRIPTION Normal [facility] Comment on above: Result Comment: A. [...] organisms. Performed By: #### E LECTRON MICROSCOPY ####[facility] ([facility])[address] [place] [address] LAB AP CASE REPORT Normal [facility] Comment on above: Result Comment: Elec simona Microscopy Case: [id number] Authorizing Provider: James Bourgeois Collected: 05/03/2022 0000 Ordering Location: [facility] Received: 05/03/2022 1319 Pathologist: Wade Patten, PhD Cosigner: Cheryl Nolan MD Specimen: Bronchial brushing Performed By: #### E LECTRON MICROSCOPY ####[facility] ([facility])[address] [place] [address] Result Comment: Non- gynecologic Cytology Case: [id number] Authorizing Provider: Lalito Bourgeois MD Collected: 05/03/2022 1052 [facility] Received: 05/03/2022 1222 [facility] Pathologist: Cheryl Nolan MD Specimen: Bronchoalveolar lavage, right upper lobe Performed By: #### L [id number] #### [facility] ([facility]) [address] [place] [address] LAB AP GROSS DESCRIPTION Normal [facility] Comment on above: Result Comment: A. [...] . Performed By: #### E LECTRON MICROSCOPY ####[facility] ([facility])[address] [place] [address] Result Comment: 15 m L pink, cloudy fluid Performed By: #### L [id number] #### [facility] ([facility]) [address] [place] [address] LAB AP REPORT FINAL DIAGNOSIS NARRATIVE Normal [facility] Comment on above: Result Comment: A., B., and C. Tracheal and right lung brushing biopsies have abnormal microtubular dynein arms, suggestive of ciliary dyskinesia. (See comment, microscopy descriptions, and textile machinery sales representative images). Performed By: #### E LECTRON MICROSCOPY ####[facility] ([facility])[address] [place] [address] Result Comment: A. L demond, right upper lobe, bronchoalveolar lavage: - Negative for malignancy. - Marked acute inflammation and blood. B. Trachea, brushing: - Specimen received for electron microscopy. (See [id number]). C. Lung, right upper lobe, bronchial brushing. - Specimen received for electron microscopy. (See [id number]). D. Lung, right lower lobe, bronchial brushing: - Specimen received for electron microscopy. (See [id number]). Performed By: #### L [id number] #### [facility] ([facility]) [address] [facility] [place] [address] FUNGAL CULTUREon 05-03-2022 FUNGAL SMEAR No yeast or fungal elements seen Normal [facility] Comment on above: Performed By: #### L [id number] #### [facility] ([facility]) [address] [facility] [place] [address] FUNGAL SMEAR No yeast or fungal elements seen Normal [facility] Comment on above: Performed By: #### L [id number] ####[facility] ([facility])[address] [place] [address] HPon 05-03-2022 HP -- Attestation signed by [...] Date Anxiety COPD (chronic obstructive pulmonary disease) ([facility]) Depression Migraines Vertigo Allergies Allergen Reactions Acetaminophen [...] mouth., Disp: , Rfl: fish oil concentrate (Aylett-3) 120-180 mg ca (more content not included)... Normal [facility] NON-MAIL DISTRIBUTOR CYTOLOGY - CELLULAR EXAMon 05-03-2022 LAB AP CLINICAL INFORMATION J47.9 - Bronchiectasis without acute exacerbation (CMS/HCC) [ICD-10-CM]. [facility] Comment on above: Performed By: #### L [id number] #### [facility] ([facility]) [address] [place] [address] OPNOTEon 05-03-2022 OPNOTE -- Attestation signed by [...] Dr. Bourgeois in 2 weeks in the [facility] Jimmy Burciaga Pulmonary and critical care fellow [facility] Normal [facility] PATHOLOGY REVIEWon PATHOLOGY REVIEW Electronically reji d by Carissa Mancuso MD on 05/08/22 at 12:20 PM. Normal [facility] Comment on above: Order Comment: Intra cellular bacteria present. Performed By: #### L [id number] ####[facility] ([facility])[address] [place] [address] RESPIRATORY CULTUREon 2022 Bacteria identified Cx Nom (Unsp spec) Abnormal [facility] Comment on above: Result Comment: STAP HYLOCOCCUS AUREUS >29426 CFU/mL Staphylococcus aureus For Susceptibility Results Please Refer to PSEUDOMONAS AERUGINOSA >63774 CFU/mL Pseudomonas aeruginosa For Susceptibility Results Please Refer to Performed By: #### L [id number] #### [facility] ([employer]) [address] [place] [address] GRAM STAIN RESULT Normal [facility] Comment on above: Result Comment: Poly morphonuclear leukocytes Gram positive cocci in clusters Cytocentrifuge sample Performed By: #### L [id number] #### [facility] ([facility]) [address] [place] [address] Aztreonam [Susc] <=2 Susceptible [facility] Comment on above: Performed By: #### L [id number] #### [facility] ([facility]) [address] [place] [address] Cefepime [Susc] 8 ug/ml Susceptible [facility] Comment on above: Performed By: #### L [id number] #### [facility] ([facility]) [address] [place] [address] Ciprofloxacin [Susc] >2 Resistant [facility] Comment on above: Performed By: #### L [id number] #### [facility] ([facility]) [address] [place] [address] Gentamicin [Susc] <=2 Susceptible [facility] Comment on above: Performed By: #### L [id number] #### [facility] ([facility]) [address] [place] [address] levoFLOXacin [Susc] 4 ug/ml Resistant [facility] Comment on above: Result Comment: This is an appended report. These results have been appended to a previously final verified report. Performed By: #### L [id number] #### [facility] ([facility]) [address] [place] [address] Meropenem [Susc] <=0.5 Susceptible [facility] Comment on above: Performed By: #### L [id number] #### [facility] ([facility]) [address] [place] [address] Piperacillin+Tazobac white [Susc] <=2/4 Susceptible [facility] Comment on above: Performed By: #### L [id number] #### [facility] ([facility]) [address] [place] [address] Tobramycin [Susc] <=2 Susceptible Ana garcia of [facility] Comment on above: Performed By: #### L [id number] #### [facility] ([facility]) [address] [place] [address] SCREENING MAMMOGRAM W/LIBRA, BILATERAL*on 04-14-2022 SCREENING MAMMOGRAM [...] VERY IMPORTANT TO YOUR HEALTH. THE CURRENT [place] [employer] OF [employer]IOLOG[employer] AND NATIONAL COMPREHENSIVE CANCER NETWORK GUIDELINES RECOMMENDS ANNUAL MAMMOGRAPHY BEGINNING AT AGE 39 THIS FACILITY USES A REMINDER SYSTEM TO ENSURE ALL PATIENTS RECEIVE REMINDER NOTIFICATIONS AT THE APPROPRIATE TIME BASED ON THE RECOMMENDATIONS OF THIS EXAM. Report reported and signed by Gopi Renteria on 04/14/2022 1009 Normal [facility] [employer] XR Chest 2 Views*on 04-13-19 23 XR [...] by Gopi Renteria on 04/14/2022 0741 Normal [facility] [employer] [facility] XR CHEST 1 Von 01-09-2022 XR CHEST [...] FARHAD RAMÍREZ Date: 2022-01-09 17:43 Normal [facility] CBC AUTO DIFFon 12-28-2021 BASO # 0.0 103/ul Normal 0.0-0.1 [facility] Comment on above: Performed By: #### T THONY LEON HSTROPN #### [facility] [address] [place] [address] Dr. Addy Reyes Basophils/100 WBC (Bld) 0.3 % Normal 0.2-2.0 [facility] Comment on above: Performed By: #### T CAROLYN CMP, HSTROPN #### [facility] [address] [place] [address] Dr. Addy Reyes EO # 0.2 103/ul Normal 0.0-0.7 [facility] Comment on above: Performed By: #### T CAROLYN CMP, HSTROPN #### [facility] [address] [place] [address] Dr. Addy Reyes Eosinophils/100 WBC (Bld) 1.3 % Normal 0.9-7.0 [facility] Comment on above: Performed By: #### T CAROLYN CMP, HSTROPN #### [facility] [address] [address] [address] Addy Reyes Erythrocyte distribution width (RBC) [Ratio] 13.8 % Normal 11.0-15.0 [facility] Comment on above: Performed By: #### T CAROLYN CMP, HSTROPN #### [facility] [address] [place] [address] Dr. Addy Reyes Hematocrit (Bld) [Volume fraction] 40.1 % Normal 36.0-48.0 [facility] Comment on above: Performed By: #### T SH, CMP, HSTROPN #### [facility] [address] [place] [address] Dr. Addy Reyes Hemoglobin (Bld) [Mass/Vol] 13.0 g/dL Normal 12.0-16.0 [facility] Comment on above: Performed By: #### T SH, CMP, HSTROPN #### [facility] [address] [place] [address] Dr. Addy Reyes IG # 0.05 10e3/ul Critically high 0.00-0.03 [facility] Comment on above: Performed By: #### T SH, CMP, HSTROPN #### [facility] [address] [place] [address] Dr. Addy Reyes IG % 0.4 % Normal 0.0-0.5 [facility] Comment on above: Performed By: #### T SH, CMP, HSTROPN #### [facility] [address] [place] [address] Dr. Addy Reyes LYMPH # 1.4 103/ul Normal 1.2-3.8 [facility] Comment on above: Performed By: #### T SH, CMP, HSTROPN #### [facility] [address] [place] [address] Dr. Addy Reyes Lymphocytes/100 WBC (Bld) 11.9 % Critically low 20.5-60.0 [facility] Comment on above: Performed By: #### T SH, CMP, HSTROPN #### [facility] [address] [place] [address] Dr. Addy Reyes MANUAL DIFF REQ NO Normal [facility] Comment on above: Performed By: #### T SH, CMP, HSTROPN #### [facility] [address] [place] [address] Dr. Addy Reyes MCH (RBC) [Entitic mass] 30.2 pg Normal 26.7-34.0 [facility] Comment on above: Performed By: #### T SH, CMP, HSTROPN #### [facility] [address] [place] [address] Dr. Addy Reyes MCHC (RBC) [Mass/Vol] 32.4 g/dL Normal 29.9-35.2 [facility] Comment on above: Performed By: #### T SH, CMP, HSTROPN #### [facility] [address] [place] [address] Dr. Addy Reyes MCV (RBC) [Entitic vol] 93.3 fL Normal 81.0-99.0 [facility] Comment on above: Performed By: #### T SH, CMP, HSTROPN #### [facility] [address] [place] [address] Dr. Addy Reyes MONO # 1.0 103/ul Critically high 0.3-0.8 [facility] Comment on above: Performed By: #### T SH, CMP, HSTROPN #### [facility] [address] [place] [address] Dr. Addy Reyes Monocytes/100 WBC (Bld) 8.1 % Normal 1.7-12.0 [facility] Comment on above: Performed By: #### T SH, CMP, HSTROPN #### [facility] [address] [place] [address] Dr. Addy Reyes NEUT # 9.2 103/ul Critically high 1.4-6.5 [facility] Comment on above: Performed By: #### T SH, CMP, HSTROPN #### [facility] [address] [place] [address] Dr. Addy Reyes Neutrophils/100 WBC (Bld) 78.0 % Critically high 43.0-75.0 [facility] Comment on above: Performed By: #### T SH, CMP, HSTROPN #### [facility] [address] [place] [address] Dr. Addy Reyes Platelet mean volume (Bld) [Entitic vol] 10.2 fL Normal 9.5-13.5 [facility] Comment on above: Performed By: #### T SH, CMP, HSTROPN #### [facility] [address] [place] [address] Dr. Addy Reyes PLT 213 103/ul Normal 150-450 [facility] Comment on above: Performed By: #### T THONY LEON, HSTROPN #### [facility] [address] [address] [address] Addy Reyes RBC 4.30 106/ul Normal 4.20-5.40 [facility] Comment on above: Performed By: #### T THONY LEON, HSTROPN #### [facility] [address] [address] [address] Addy Reyes WBC 11.8 103/ul Critically high 4.0-11.[address] [facility] Comment on above: Performed By: #### T THONY LEON, HSTROPN #### [facility] [address] [facility] WITHOUT IV CONTRAST. INDICATION: [...] PATRICIA CANNON Date: 2021-12-28 16:58 Normal [facility] CT HEAD WO CONon 12-28-2021 CT [...] NANY CHOWDHURY Date: 2021-12-28 16:46 Normal [facility] ER URINE PROFILEon 2 Bilirubin Ql (U) Negative Normal NEGATIVE [facility] Comment on above: Performed By: #### T CAROLYN CMP, HSTROPN #### [facility] [address] [place] [address] Dr. Addy Reyes Clarity (U) CLEAR Normal CLEAR [facility] Comment on above: Performed By: #### T CAROLYN CMP, HSTROPN #### [facility] [address] [address] [address] Addy Reyes Color (U) LT. YELLOW Normal YELLOW [facility] Comment on above: Performed By: #### T CAROLYN CMP, HSTROPN #### [facility] [address] [address] [address] Addy Reyes ERUAHD A micrscopic examination will be performed if indicated. Normal [facility] Comment on above: Performed By: #### T CAROLYN CMP, HSTROPN #### [facility] [address] [address] [address] Addy Reyes Glucose Ql (U) Negative Normal NEGATIVE [facility] Comment on above: Performed By: #### T CAROLYN, CMP, HSTROPN #### [facility] [address] [place] [address] Dr. Addy Reyes Hemoglobin Ql (U) Negative Normal NEGATIVE [facility] Comment on above: Performed By: #### T SH, CMP, HSTROPN #### [facility] [address] [place] [address] Dr. Addy Reyes Ketones Ql (U) Negative Normal NEGATIVE [facility] Comment on above: Performed By: #### T SH, CMP, HSTROPN #### [facility] [address] [place] [address] Dr. Addy Reyes LEUKOCYTES TRACE Abnormal NEGATIVE [facility] Comment on above: Performed By: #### T SH, CMP, HSTROPN #### [facility] [address] [place] [address] Dr. Addy Reyes Nitrite Ql (U) Negative Normal NEGATIVE [facility] Comment on above: Performed By: #### T SH, CMP, HSTROPN #### [facility] [address] [place] [address] Dr. Addy Reyes pH (U) 6.0 [pH] Normal 5-9 [facility] Comment on above: Performed By: #### T SH, CMP, HSTROPN #### [facility] [address] [place] [address] Dr. Addy Reyes SPEC GRAVITY <=1.005 Abnormal 1.005-<=1.025 [facility] Comment on above: Performed By: #### T SH, CMP, HSTROPN #### [facility] [address] [place] [address] Dr. Addy Reyes UA PROTEIN Negative Normal NEGATIVE/ TRACE [facility] Comment on above: Performed By: #### T SH, CMP, HSTROPN #### [facility] [address] [place] [address] Dr. Addy Reyes UR MICRO IND INDICATED Normal [facility] Comment on above: Performed By: #### T SH, CMP, HSTROPN #### [facility] [address] [place] [address] Dr. Addy Reyes Urobilinogen Qn (U) 0.2 {Ritesh'U}/dL Normal 0.2 - 1. 0 [facility] Comment on above: Performed By: #### T SH, CMP, HSTROPN #### [facility] [address] [address] [address] Addy Reyes PROF 14(COMP METB)on 022 Albumin [Mass/Vol] 3.3 g/dL Critically low 3.4-5.0 [facility] Comment on above: Performed By: #### T SH, CMP, HSTROPN #### [facility] [address] [address] [address] Addy Reyes Albumin/Globulin [Mass ratio] 0.9 {ratio} Normal [facility] Comment on above: Performed By: #### T SH, CMP, HSTROPN #### [facility] [address] [place] [address] Dr. Addy Reyes ALP [Catalytic activity/Vol] 115 U/L Normal 46-116 [facility] Comment on above: Performed By: #### T SH, CMP, HSTROPN #### [facility] [address] [address] [address] Addy Reyes ALT [Catalytic activity/Vol] 32 U/L Normal 14-59 [facility] Comment on above: Performed By: #### T SH, CMP, HSTROPN #### [facility] [address] [address] [address] Addy Reyes Anion gap [Moles/Vol] 4.6 mmol/L Normal [facility] Comment on above: Performed By: #### T SH, CMP, HSTROPN #### [facility] [address] [address] [address] Addy Reyes AST [Catalytic activity/Vol] 17 U/L Normal 15-37 [facility] Comment on above: Performed By: #### T SH, CMP, HSTROPN #### [facility] [address] [address] [address] Addy Reyes Bilirubin [Mass/Vol] 0.3 mg/dL Normal 0.2-1.0 [facility] Comment on above: Performed By: #### T SH, CMP, HSTROPN #### [facility] [address] [address] [address] Addy Reyes Calcium [Mass/Vol] 8.7 mg/dL Normal 8.5-10.1 [facility] Comment on above: Performed By: #### T SH, CMP, HSTROPN #### [facility] [address] [address] [address] Addy Reyes Chloride [Moles/Vol] 103 mmol/L Normal 98-107 [facility] Comment on above: Performed By: #### T SH, CMP, HSTROPN #### [facility] [address] [place] [address] Dr. Addy Reyes CO2 [Moles/Vol] 32.3 mmol/L Critically high 21.0-32.0 [facility] Comment on above: Performed By: #### T SH, CMP, HSTROPN #### [facility] [address] [place] [address] Dr. Addy Reyes Creatinine [Mass/Vol] 0.90 mg/dL Normal 0.55-1.02 [facility] Comment on above: Performed By: #### T SH, CMP, HSTROPN #### [facility] [address] [place] [address] Dr. Addy Reyes EGFR-AF SAUDI ARABIAN >60 Normal >=60 [facility] Comment on above: Performed By: #### T SH, CMP, HSTROPN #### [facility] [address] [place] [address] Dr. Addy Reyes EGFR-NON AF [place]UDI ARABIAN >60 Normal >=60 [facility] Comment on above: Performed By: #### T SH, CMP, HSTROPN #### [facility] [address] [place] [address] Dr. Addy Reyes Globulin (S) [Mass/Vol] 3.7 g/dL Normal [facility] Comment on above: Performed By: #### T SH, CMP, HSTROPN #### [facility] [address] [address] [address] Addy Ryees Glucose [Mass/Vol] 101 mg/dL Normal 74-106 [facility] Comment on above: Performed By: #### T SH, CMP, HSTROPN #### [facility] [address] [address] [address] Addy Reyes Potassium [Moles/Vol] 3.9 mmol/L Normal 3.5-5.1 [facility] Comment on above: Performed By: #### T SH, CMP, HSTROPN #### [facility] [address] [address] [address] Addy Reyes Protein [Mass/Vol] 7.0 g/dL Normal 6.4-8.2 [facility] Comment on above: Performed By: #### T SH, CMP, HSTROPN #### [facility] [address] [place] [address] Dr. Addy Reyes Sodium [Moles/Vol] 136 mmol/L Normal 136-145 [facility] Comment on above: Performed By: #### T SH, CMP, HSTROPN #### [facility] [address] [address] [address] Addy Reyes Urea nitrogen [Mass/Vol] 17.0 mg/dL Normal 7.0-18.0 [facility] Comment on above: Performed By: #### T SH, CMP, HSTROPN #### [facility] [address] [address] [address] Addy Reyes Urea nitrogen/Creatinine [Mass ratio] 18.9 mg/mg Normal [facility] Comment on above: Performed By: #### T SH, CMP, HSTROPN #### [facility] [address] [address] [address] Addy Reyes PROTIMEon 12-28-2021 INR Coag (PPP) [Relative time] 0.98 {INR} Normal [facility] Comment on above: Performed By: #### P TT, PT #### [facility] [address] [place] [address] Dr. Addy Reyes INR GUIDELINES SEE BELOW Normal [facility] Comment on above: Result Comment: ANDREI RED INR: 2.0 - 3.0 CONDITIONS NOT LISTED BELOW 2.5 - 3.5 FOR PROSTHETIC HEART VALVE REPLACEMENT 2.5 - 3.5 RECURRENT THROMBOSIS Performed By: #### P TT, PT #### [facility] [address] [place] [address] Dr. Addy Reyes PT Coag (PPP) [Time] 10.6 s Normal 9.0-11.6 [facility] Comment on above: Performed By: #### P TT, PT #### [facility] [address] [address] [address] Addy Reyes PTTon 12-28-2021 aPTT Coag (Bld) [Time] 30.8 s Normal 22.3-36.2 [facility] Comment on above: Performed By: #### P TT, PT #### [facility] [address] [place] [address] Dr. Addy Reyes TROPONIN, HIGH SENSITIVITYon 12-28-2021 HSTROP 5.3 pg/mL Normal 4.0-51.3 [facility] Comment on above: Result Comment: CUT- OFF POINTS HAVE BEEN ESTABLISHED BASED ON THE FOURTH UNIVERSAL DEFINITIONS OF MYOCARDIAL INFARCTION. THE UPPER REFERENCE LIMIT (URL) OF TROPONIN, DEFINED THE 99TH PERCENTILE OF cTnI DISTRIBUTION IN A REFERENCE POPULATION, HAS BEEN CONFIRMED THE DECISION THRESHOLD FOR [place] DIAGNOSIS. Performed By: #### T SH, CMP, HSTROPN #### [facility] [address] [place] [address] Dr. Addy Reyes TSHon 12-28-2021 TSH 0.969 uIU/mL Normal 0.358-3.740 [facility] Comment on above: Performed By: #### T SH, CMP, HSTROPN #### [facility] [address] [place] [address] Dr. Addy Reyes URINE MICROSCOPIC ONLYon BACTERIA NONE SEEN Normal NONE SEEN [facility] Comment on above: Performed By: #### T SH, CMP, HSTROPN #### [facility] [address] [place] [address] Dr. Addy Reyes Bacteria identified Cx Nom (U) NOT INDICATED Normal [facility] Comment on above: Performed By: #### T SH, CMP, HSTROPN #### [facility] [address] [place] [address] Dr. Addy Reyes CAST NONE SEEN Normal NONE SEEN [facility] Comment on above: Performed By: #### T SH, CMP, HSTROPN #### [facility] [address] [place] [address] Dr. Addy Reyes Crystals LM Nom (Urine sed) NONE SEEN Normal NONE SEEN [facility] Comment on above: Performed By: #### T SH, CMP, HSTROPN #### [facility] [address] [place] [address] Dr. Addy Reyes Epithelial cells LM Ql (Urine sed) RARE Normal NONE SEEN /RARE [facility] Comment on above: Performed By: #### T SH, CMP, HSTROPN #### [facility] [address] [place] [address] Dr. Addy Reyes MUCOUS TRACE Abnormal NONE SEEN [facility] Comment on above: Performed By: #### T SH, CMP, HSTROPN #### [facility] [facility] [address] [place] [address] Dr. Addy Reyes RBC 0-2 Normal 0-2 [facility] Comment on above: Performed By: #### T SH, CMP, HSTROPN #### [facility] [address] [place] [address] Dr. Addy Reyes WBC 0-2 Abnormal NONE SEEN [facility] Comment on above: Performed By: #### T SH, CMP, HSTROPN #### [facility] [address] [place] [address] Dr. Addy Reyes XR CHEST 2 Von [...] PABLITO JONES Date: 2021-12-28 17:49 Normal [facility] CBC with Diffon 11-30-2021 Abs. Basophil 0.04 k/uL Normal 0.00-0.20 [facility] Comment on above: Performed By: #### V D25FRANCOISE, CP #### [facility] [address] [place] [address] Spa Assistant Manager: Zion Mcgee MD Abs.Imm.Granulocyte <0.03 Normal 0.00-0.30 [facility] Comment on above: Performed By: #### V D25FRANCOISE, CP #### [facility] [employer] [address] [place] [address] Spa Assistant Manager: Zion Mcgee MD Abs.Neutrophil (Seg) 5.85 k/uL Normal 1.50-8.10 [facility] Comment on above: Performed By: #### V D2FRANCOISE Iverson, CP #### [facility] [employer] [address] [place] [address] Spa Assistant Manager: Zion Mcgee MD Basophils/100 WBC (Bld) 0 % Normal 0-2 [facility] Comment on above: Performed By: #### V D25FRANCOISE, CP #### [facility] [employer] [address] [place] [address] Spa Assistant Manager: Zion Mcgee MD Eosinophils (Bld) [#/Vol] 0.37 10*3/uL Normal 0.00-0.44 [facility] Comment on above: Performed By: #### V D25FRANCOISE, CP #### [facility] [address] [place] [address] Spa Assistant Manager: Zion Mcgee MD Eosinophils/100 WBC (Bld) 4 % Normal 1-4 [facility] Comment on above: Performed By: #### V D25FRANCOISE, CP #### [facility] [address] [place] [address] Spa Assistant Manager: Zion Mcgee MD Erythrocyte distribution width (RBC) [Ratio] 13.6 % Normal 11.8-14.4 [facility] Comment on above: Performed By: #### V Dominga, FRANCOISE, CP #### [facility] [address] [place] [address]47 Spa Assistant Manager: Zion Mcgee MD Hematocrit (Bld) [Volume fraction] 44.4 % Normal 36.3-47.1 [facility] Comment on above: Performed By: #### V D2FRANCOISE Iverson, CP #### [facility] [employer] [address] [place] [address] Spa Assistant Manager: Zion Mcgee MD Hemoglobin (Bld) [Mass/Vol] 13.5 g/dL Normal 11.9-15.1 [facility] Comment on above: Performed By: #### V FRANCOISE Orr, CP #### [facility] [address] [place] [address] Spa Assistant Manager: Zion Mcgee MD Immature granulocytes/100 WBC (Bld) 0 % Normal 0 [facility] Comment on above: Performed By: #### V FRANCOISE Orr, CP #### [facility] [address] [place] [address] Spa Assistant Manager: Zion Mcgee MD Lymphocytes (Bld) [#/Vol] 2.06 10*3/uL Normal 1.10-3.70 [facility] Comment on above: Performed By: #### V D2FRANCOISE Iverson, CP #### [facility] [address] [place] [address] Spa Assistant Manager: Zion Mcgee MD Lymphocytes/100 WBC (Bld) 22 % Low 24-43 [facility] Comment on above: Performed By: #### V FRANCOISE Orr, CP #### [address] [address] Spa Assistant Manager: Zion Mcgee MD MCH (RBC) [Entitic mass] 29.3 pg Normal 25.2-33.5 [facility] Comment on above: Performed By: #### V FRANCOISE Orr, CP #### [address] [address] Spa Assistant Manager: Zion Mcgee MD MCHC (RBC) [Mass/Vol] 30.4 g/dL Normal 28.4-34.8 [facility] Comment on above: Performed By: #### FRANCOISE Shea, CP #### [address] [address] Spa Assistant Manager: Zion Mcgee MD MCV (RBC) [Entitic vol] 96.3 fL Normal 82.6-102.9 [facility] Comment on above: Performed By: #### FRANCOISE Shea, CP #### [address] [address] Spa Assistant Manager: Zion Mcgee MD Monocytes (Bld) [#/Vol] 0.87 10*3/uL Normal 0.10-1.20 [facility] Comment on above: Performed By: #### FRANCOISE Shea, CP #### [place] [address] Spa Assistant Manager: Zion Mcgee MD Monocytes/100 WBC (Bld) 9 % Normal 3-12 [facility] Comment on above: Performed By: #### V FRANCOISE Orr, CP #### [address] [address] Spa Assistant Manager: Zion Mcgee MD Neutrophil (Seg) 65 % Normal 36-65 [facility] Comment on above: Performed By: #### V Dominga CDP, CP #### [facility] [employer] [address] [place] [address] Spa Assistant Manager: Zion Mcgee MD NRBC Automated 0.0 per 100 WBC Normal 0.0 [facility] Comment on above: Performed By: #### V FRANCOISE Orr, CP #### [facility] [employer] [address] [place] [address] Spa Assistant Manager: Zion Mcgee MD Platelet mean volume (Bld) [Entitic vol] 11.1 fL Normal 8.1-13.5 [facility] Comment on above: Performed By: #### FRANCOISE Shea, CP #### [facility] [employer] [address] [place] [address] Spa Assistant Manager: Zion Mcgee MD Platelets (Bld) [#/Vol] 278 10*3/uL Normal 138-453 [facility] Comment on above: Performed By: #### FRANCOISE Shae, CP #### [facility] [employer] [address] [place] [address] Spa Assistant Manager: Zion Mcgee MD RBC (Bld) [#/Vol] 4.61 10*6/uL Normal 3.95-5.11 [facility] Comment on above: Performed By: #### FRANCOISE Shea, CP #### [address] [address] Spa Assistant Manager: Zion Mcgee MD WBC (Bld) [#/Vol] 9.2 10*3/uL Normal 3.5-11.3 [facility] Comment on above: Performed By: #### V FRANCOISE Orr, CP #### [address] [address] Spa Assistant Manager: Zion Mcgee MD Comp Metabolic Profon 2021 Bilirubin [Mass/Vol] mg/dL Low 0.3-1.2 [facility] Comment on above: Performed By: #### Kayden D2FRANCOISE Iverson, CP #### [facility] [address] [place] [address]27 Spa Assistant Manager: Zion Mcgee MD (cont.) [facility] Comment on above: Result Comment: Aver age GFR for 50-59 years old: 93 mL/min/1.73sq m Chronic Kidney Disease: <60 mL/min/1.73sq m Kidney failure: <15 mL/min/1.73sq m eGFR calculated using average adult body mass. Additional eGFR calculator available at: http://www.Results [employer]/multiple_crcl_2012.htm Performed By: #### FRANCOISE Shea, CP #### [facility] [address] [place] [address] Spa Assistant Manager: Zion Mcgee MD Albumin [Mass/Vol] 4.1 g/dL Normal 3.5-5.2 [facility] Comment on above: Performed By: #### FRANCOISE Shea, CP #### [facility] [address] [place] [address] Spa Assistant Manager: Zion Mcgee MD Albumin/Glob Ratio 1.5 Normal 1.0-2.5 [facility] Comment on above: Performed By: #### FRANCOISE Shea, CP #### [facility] [address] [place] [address] Spa Assistant Manager: Zion Mcgee MD Alkaline Phos 114 U/L High 35-104 [facility] Comment on above: Performed By: #### V FRANCOISE Orr, CP #### [employer] [facility] [place] [address] Spa Assistant Manager: Zion Mcgee MD ALT [Catalytic activity/Vol] 22 U/L Normal 5-33 [facility] Comment on above: Performed By: #### V D2Kishor, CDP, CP #### [facility] [address] [place] [address] [phone] Spa Assistant Manager: Zion Mcgee MD Anion gap [Moles/Vol] 11 mmol/L Normal 9-17 [facility] Comment on above: Performed By: #### V Dominga CDP, CP #### [address] [address] Spa Assistant Manager: Zion Mcgee MD AST [Catalytic activity/Vol] 20 U/L Normal <32 [facility] Comment on above: Performed By: #### V Dominga, CDP, CP #### [facility] [employer] [address] [place] [address] Spa Assistant Manager: Zion Mcgee MD Calcium [Mass/Vol] 9.0 mg/dL Normal 8.6-10.4 [facility] Comment on above: Performed By: #### V FRANCOISE Orr, CP #### [address] [address] Spa Assistant Manager: Zion Mcgee MD Chloride [Moles/Vol] 103 mmol/L Normal 98-107 [facility] Comment on above: Performed By: #### V FRANCOISE Orr, CP #### [facility] [employer] [address] [place] [address] Spa Assistant Manager: Zion Mcgee MD CO2 [Moles/Vol] 26 mmol/L Normal 20-31 [facility] Comment on above: Performed By: #### V Dominga CDP, CP #### [facility] [employer] [address] [place] [address] 13544 Spa Assistant Manager: Zion Mcgee MD Creatinine [Mass/Vol] 0.81 mg/dL Normal 0.50-0.90 [facility] Comment on above: Performed By: #### V Dominga, CDP, CP #### [facility] [employer] [address] [place] [address]678 Spa Assistant Manager: Zion Mcgee MD GFR, Amer >60 Normal >60 [facility] Comment on above: Performed By: #### V D25, CDP, CP #### [facility] [employer] [address] [place] [address] Spa Assistant Manager: Zion Mcgee MD GFR,non Amer >60 Normal >60 [facility] Comment on above: Performed By: #### V D25, CDP, CP #### [facility] [address] [place] [address]10 Spa Assistant Manager: Zion Mcgee MD Glucose [Mass/Vol] 81 mg/dL Normal 70-99 [facility] Comment on above: Performed By: #### V D25, CDP, CP #### [facility] [employer] [address] [place] [address] Spa Assistant Manager: Zion Mcgee MD Potassium [Moles/Vol] 4.2 mmol/L Normal 3.7-5.3 [facility] Comment on above: Performed By: #### V D25, CDP, CP #### [facility] [employer] [address] [place] [address] 07850 Spa Assistant Manager: Zion Mcgee MD Protein [Mass/Vol] 6.8 g/dL Normal 6.4-8.3 [facility] Comment on above: Performed By: #### V D25, CDP, CP #### [facility] [address] [place] [address] Spa Assistant Manager: Zion Mcgee MD Sodium [Moles/Vol] 140 mmol/L Normal 135-144 [facility] Comment on above: Performed By: #### V D25, CDP, CP #### [facility] [address] [place] [address] Spa Assistant Manager: Zion Mcgee MD Urea nitrogen [Mass/Vol] 9 mg/dL Normal 6-20 [facility] Comment on above: Performed By: #### V D25, CDP, CP #### [facility] [address] [place] [address], [place] [phone] Spa Assistant Manager: Zion Mcgee MD Vitamin D 25 Hydroxyon 11-30 Vit D, 25-Hydroxy 38 ng/mL 29.9 - PIN F ng/mL [facility] Comment on above: Reference Range: Vitamin D status Range Deficiency <20 ng/mL Mild Deficiency 20-30 ng/mL Sufficiency 30-100 ng/mL Toxicity >100 ng/mL [facility] Vitamin D 25 OHon 11-30-2021 Vitamin D 25 OH 38.0 ng/mL Normal >29.9 [facility] Comment on above: Result Comment: Reference Range: Vitamin D status Range Deficiency <20 ng/mL Mild Deficiency 20-30 ng/mL Sufficiency 30-100 ng/mL Toxicity >100 ng/mL Performed By: #### V D25, CDP, CP #### [facility] [employer] [address] [place] [address] Spa Assistant Manager: iZon Mcgee MD CBC with Auto Differentialon 11-29-2021 Absolute Eos # 0.37 [facility] Absolute Immature Granulocyte [facility] Absolute Lymph # 2.06 [facility] Absolute [place] # 0.87 [facility] Basophils (Bld) [#/Vol] 0.04 10*3/uL [facility] Basophils/100 WBC (Bld) 0 % 0 - 2 % [facility] Eosinophils/100 WBC (Bld) 4 % 1 - 4 % [facility] Hematocrit (Bld) [Volume fraction] 44.4 % 36.3 - 47.1 % [facility] Hemoglobin (Bld) [Mass/Vol] 13.5 g/dL 11.9 - 15.1 g/dL [facility] Immature granulocytes/100 WBC (Bld) 0 % 0 [facility] Interpretation and review of laboratory results Abnormal [facility] Lymphocytes/100 WBC (Bld) 22 % Low 24 - 43 % [facility] MCH (RBC) [Entitic mass] 29.3 pg 25.2 - 33.5 pg [facility] MCHC (RBC) [Mass/Vol] 30.4 g/dL 28.4 - 34.8 g/dL [facility] MCV (RBC) [Entitic vol] 96.3 fL 82.6 - 102.9 fL [facility] Monocytes/100 WBC (Bld) 9 % 3 - 12 % [facility] NRBC Automated 0.0 0.0 per 100 WBC [facility] Platelet distribution width (Bld) [Ratio] 13.6 % 11.8 - 14.4 % [facility] Platelet mean volume (Bld) [Entitic vol] 11.1 fL 8.1 - 13.5 fL [facility] Platelets (Bld) [#/Vol] 278 10*3/uL [facility] RBC (Bld) [#/Vol] 4.61 10*6/uL 3.95 - 5.1 1 m/uL [facility] Segmented neutrophils/100 WBC (Bld) 65 % 36 - 65 % [facility] Segs Absolute 5.85 [facility] WBC (Bld) [#/Vol] 9.2 10*3/uL [facility] Comprehensive Metabolic Pane kimberlee 11-29-2021 Albumin [Mass/Vol] 4.1 g/dL 3.5 - 5.2 g/dL [facility] Albumin/Globulin [Mass ratio] 1.5 {ratio} 1 - 2.5 [facility] ALP (Bld) [Catalytic activity/Vol] 114 U/L High 35 - 104 U/L [facility] ALT [Catalytic activity/Vol] 22 U/L 5 - 33 U/L [facility] Anion gap [Moles/Vol] 11 mmol/L 9 - 17 mmol/L [facility] AST [Catalytic activity/Vol] 20 U/L NINF - 32 U/L [facility] Bilirubin [Mass/Vol] mg/dL Low 0.3 - 1 .2 mg/dL [facility] Calcium [Mass/Vol] 9.0 mg/dL 8.6 - 10. 4 mg/dL [facility] Chloride [Moles/Vol] 103 mmol/L 98 - 10 7 mmol/L [facility] CO2 [Moles/Vol] 26 mmol/L 20 - 31 mmol/L [facility] Creatinine [Mass/Vol] 0.81 mg/dL 0.5 - 0.9 mg/dL [facility] Free PSA/Total PSA [Mass fraction] 6.8 g/dL 6.4 - 8.3 g/dL [facility] GFR >60 60 - PI NF mL/min [facility] GFR Non- >60 60 - PINF mL/min [facility] GFR/1.73 sq M.predicted MDRD (S/P/Bld) [Vol rate/Area] [facility] Comment on above: Average GFR for 50-5 9 years old: 93 mL/min/1.73sq m Chronic Kidney Disease: <60 mL/min/1.73sq m Kidney failure: <15 mL/min/1.73sq m eGFR calculated using average adult body mass. Additional eGFR calculator available at: http://www.[employer]/multiple_crcl_2012.htm Glucose [Mass/Vol] 81 mg/dL 70 - 99 mg/dL [facility] Interpretation and review of laboratory results Abnormal [facility] Potassium [Moles/Vol] 4.2 mmol/L 3.7 - 5.3 mmol/L [facility] Sodium [Moles/Vol] 140 mmol/L 135 - 144 mmol/L [facility] Urea nitrogen (BldV) [Mass/Vol] 9 mg/dL 6 - 20 mg/dL [facility] XR Abdomen Single View (KUB) *on [...] by Gopi Renteria on 09/29/2021 1435 Normal [facility] [employer] Pulmonary Functionon 022 Pulmonary Function MR #: [id number] [facility] PT. Name: Diamante Stapleton Date: 06/06/2021 [...] Dickens MD Date Trans: 06/24/2021 12:46 P/ [id number]_[id number] cc: Gamaliel Dennison M.D. [address] [facility] [address] Normal [facility] CBC with Auto Differentialon 05-31-2021 Absolute Eos # 0.21 [facility] th Absolute Immature Granulocyte 0.04 [facility] Absolute Lymph # 2.17 [facility] Absolute [place] [facility] 0.67 [facility] Basophils (Bld) [#/Vol] 0.05 10*3/uL [facility] Basophils/100 WBC (Bld) 1 % 0 - 2 % [facility] Eosinophils/100 WBC (Bld) 2 % 1 - 4 % [facility] Hematocrit (Bld) [Volume fraction] 46.4 % 36.3 - 47.1 % [facility] Hemoglobin.gastroint estinal spec 1 Ql (Stl) 14.5 g/dL 11.9 - 15.1 g/dL [facility] Immature granulocytes/100 WBC (Bld) 0 % 0 [facility] Interpretation and review of laboratory results Abnormal [facility] Lymphocytes/100 WBC (Bld) 20 % Low 24 - 43 % [facility] MCH (RBC) [Entitic mass] 29.5 pg 25.2 - 33.5 pg [facility] MCHC (RBC) [Mass/Vol] 31.3 g/dL 28.4 - 34.8 g/dL [facility] MCV (RBC) [Entitic vol] 94.5 fL 82.6 - 102.[address] [facility] Monocytes/100 WBC (Bld) 6 % 3 - 12 % [facility] NRBC Automated 0.0 0.[address] [facility] Platelet distribution width (Bld) [Ratio] 12.8 % 11.8 - 14.4 % [facility] Platelet mean volume (Bld) [Entitic vol] 10.9 fL 8.1 - 13.[address] [facility] Platelets (Bld) [#/Vol] 283 10*3/uL [facility] RBC (Bld) [#/Vol] 4.91 10*6/uL 3.95 - 5.1 1 m/uL [facility] Segmented neutrophils/100 WBC (Bld) 71 % High 36 - 65 % [facility] Segs [facility].48 [facility] W[facility] (Bld) [#/Vol] 10.6 10*3/uL [facility] Comprehensive Metabolic Pane kimberlee 05-31-2021 Albumin [Mass/Vol] 4.3 g/dL 3.5 - 5.2 g/dL [facility] Albumin/Globulin [Mass ratio] 1.8 {ratio} [facility] ALP (Bld) [Catalytic activity/Vol] 110 U/L High 35 - 104 U/L [facility] ALT [Catalytic activity/Vol] 20 U/L 5 - 33 U/L [facility] Anion gap [Moles/Vol] 11 mmol/L 9 - 17 mmol/L [facility] AST [Catalytic activity/Vol] 19 U/L <32 [facility] Bilirubin [Mass/Vol] mg/dL Low 0.3 - 1 .2 mg/dL [facility] Calcium [Mass/Vol] 9.5 mg/dL 8.6 - 10. 4 mg/dL [facility] Chloride [Moles/Vol] 101 mmol/L 98 - 10 7 mmol/L [facility] CO2 [Moles/Vol] 28 mmol/L 20 - 31 mmol/L [facility] Creatinine [Mass/Vol] 0.72 mg/dL 0.50 - 0.90 mg/dL [facility] Free PSA/Total PSA [Mass fraction] 6.7 g/dL 6.4 - 8.3 g/dL [facility] GFR >60 >60 mL/min [facility] GFR Non- >60 >60 mL/min [facility] GFR/1.73 sq M.predicted MDRD (S/P/Bld) [Vol rate/Area] [facility] Comment on above: Average GFR for 50-5 9 years old: 93 mL/min/1.73sq m Chronic Kidney Disease: <60 mL/min/1.73sq m Kidney failure: <15 mL/min/1.73sq m eGFR calculated using average adult body mass. Additional eGFR calculator available at: http://www.Results [employer]/multiple_crcl_2012.htm Glucose [Mass/Vol] 99 mg/dL 70 - 99 mg/dL [facility] Interpretation and review of laboratory results Abnormal [facility] Potassium [Moles/Vol] 4.3 mmol/L 3.7 - 5.3 mmol/L [facility] Sodium [Moles/Vol] 140 mmol/L 135 - 144 mmol/L [facility] Urea nitrogen (BldV) [Mass/Vol] 11 mg/dL 6 - 20 mg/dL [facility] MR head/brain wo/w conon MR head/brain wo/w con [facility] [address] [place], [place] [id number] MRI Report Signed Patient: Diamante Stapleton MR#: [id number] 9 : 1965 Acct:[id number] Age/Sex: 54 / F ADM Date: 08/24/20 Loc: MR Room: Type: [facility] Attending Dr: Kristen Mcclure PA-C Ordering Provider: [...] Summers Jr., M.D.08/24/2020 3:34 PM Dictation Location: [place] [address] Transcribed By: JOHN 08/24/20 1534 Dictated By: Prudencio Summers Jr, MD 08/24/20 1518 Signed By: 08/24/20 1534 [facility] Vital Signs Date Time Vital Sign Value Performing Clinician Facility 04-04-2023 09:58-0500 Body height 147.3 cm Nany Bro Work Phone: [employer] 04-04-2023 09:58-0500 Body mass index (BMI) [Ratio] 27.59 kg/m2 Nany Bro Work Phone: [facility] 04-04-2023 09:58-0500 Body weight 59.88 kg Nany Bro Work Phone: [facility] 04-04-2023 09:58-0500 Diastolic blood pressure 76 mm[Hg] Nany Bro DO Work Phone: [facility] 04-04-2023 09:58-0500 Systolic blood pressure 122 mm[Hg] Nany Bro DO Work Phone: [facility] 01-21-2021 12:45-0400 Body height 147.32 cm Kristen Juana Other [employer] Other 01-21-2021 12:45-0400 Body mass index (BMI) [Ratio] 28 kg/m2 Kristen Arias Other [employer] Other 01-21-2021 12:45-0400 Body temperature 96.8 [degF] Kristen Juana Other [employer] Other 01-21-2021 12:45-0400 Body weight 60.78 kg Kristen Juana Other [employer] Other 01-21-2021 12:45-0400 Diastolic blood pressure 45 mm[Hg] Kristen Arias Other [employer] Other 01-21-2021 12:45-0400 Respiratory rate 18 /min Kristen Arias Other [employer] Other 01-21-2021 12:45-0400 SaO2% (BldA) [Mass fraction] 97 % Kristen Arias Other [employer] Other 01-21-2021 12:45-0400 Systolic blood pressure 106 mm[Hg] Kristen Arias Other [employer] Other Encounters Encounter Date Encounter Type Care Provider Facility Start: 04-16-2023 Jenna Thorpe MD Work Phone: [facility] Comment on above: Generalized anxiety disorder Start: 04-07-2023 Jenna Thorpe MD Work Phone: [facility] Comment on above: Mood disorder (CMS-H CC) Start: 04-04-2023 End: 04-04-2023 ambulatory NANY BRO [facility] Start: 04-04-2023 End: 04-04-2023 Office outpatient visit 15 minutes Nany Bro DO Work Phone: [facility] Comment on above: Change in bowel habi ts (Primary Dx) Start: 04-03-2023 End: 04-03-2023 ambulatory ALBERTO TUTTLE [facility] Start: 03-29-2023 Jenna Thorpe MD Work Phone: [facility] Comment on above: Gastro-esophageal re flux disease with esophagitis, without bleeding Start: 02-20-2023 End: 02-21-2023 ambulatory JEROMY LUCERO [facility] Start: 02-13-2023 End: 02-13-2023 ambulatory JIMMY BURCIAGA [facility] Start: 11-15-2022 End: 11-15-2022 ambulatory SURYA AL-CRISRIT [facility] Start: 08-16-2022 End: 08-16-2022 ambulatory CLAUDE PASTOR [facility] Start: 06-08-2022 End: 06-08-[address] DOCTOR KHAN Facility:[facility] Start: 05-17-2022 End: 05-17-2022 ambulatory ELIZABETH RODRIGUEZED [facility] Start: 05-03-2022 End: 05-04-2022 ambulatory RAGHEB [facility] Start: 05-03-2022 End: 05-03-2022 ambulatory RAGHEB [facility] Start: 05-01-2022 End: 05-02-2022 ambulatory FRIEDA TRAM [facility] Start: 01-09-2022 End: 01-09-[address] DOCTOR KHAN Facility:[facility] Start: 12-28-2021 End: 12-28-2021 ambulatory JUDITH Bhandari Facility:[facility] Start: 11-29-2021 End: 11-30-2021 ambulatory TRAM CARBONE [facility] Start: 11-29-2021 End: 11-29-2021 Subsequent hospital visit [...] Screening for malignant neoplasm of colon Colonoscopy [facility] Start: 03-16-2026 Lipid panel Lipids [facility] Start: 04-04-2024 Adult BMI Screening Adult BMI Screening [facility] Start: 04-04-2024 Tobacco Screening Tobacco Screening [facility] Start: 03-07-2024 Adult BMI Screening Adult BMI Screening [facility] Start: 03-07-2024 Tobacco Screening Tobacco Screening [facility] Start: 02-21-2024 Screening for malignant neoplasm of breast Mammogram [facility] Start: 07-19-2023 Depression Screening Depression Screening [facility] Start: 04-04-2023 End: 04-04-2023 Patient encounter procedure 04/04/2023 10:00 AM EST Office Visit [facility] [address] [place], [place] [id number] [place] [address] [place] [address] [id number] [facility] Start: 01-21-2023 Screening for malignant neoplasm of breast Breast cancer screen [facility] Start: 11-24-2022 Influenza vaccination Influenza Vaccine [facility] Start: 07-03-2022 End: 07-03-2022 Patient encounter procedure 07/03/2022 Office Visit Neurology Tram Carbone MD [address] [address] [facility] Start: 11-29-2021 End: 11-29-2021 Patient encounter procedure 11/29/2021 Office Visit Neurology rTam Carbone MD [address] [address] [facility] Start: 11-24-2021 Influenza vaccination Flu vaccine (#1) [facility] Start: 11-24-2020 Influenza vaccination Flu vaccine (#1) [facility] Start: 2014 Administration of varicella zoster vaccine Zoster (Shingles) Vaccine (1 of 2) [facility] Start: 2014 Shingles Vaccine (1 of 2) Shingles Vaccine (1 of 2) [facility] Start: 2009 Screening for malignant neoplasm of colon [facility] Start: 2004 Lipid panel Lipid screen [facility] Start: 11-24-1999 Diabetes screen Diabetes screen [facility] Start: 1994 Screening for malignant neoplasm of cervix [facility] Start: 1985 Screening for malignant neoplasm of cervix Pap smear [facility] Start: 11-24-1983 DTaP,Tdap and Td Vaccines (1 - Tdap) DTaP,Tdap and Td Vaccines (1 - Tdap) [facility] Start: 11-24-1983 DTaP/Tdap/Td vaccine (1 - Tdap) DTaP/Tdap/Td vaccine (1 - Tdap) [facility] Start: 1982 Adult BMI Follow Up Plan Adult BMI Follow Up Plan [facility] Start: 1982 Hepatitis C screening Hepatitis C screen [facility] Start: 11-24-1979 HIV screening HIV screen [facility] Start: 1976 Depression Screen Depression Screen [facility] Start: 1969 COVID-19 Vaccine (1) COVID-19 Vaccine (1) [facility] Start: 05-23-1965 COVID-19 Vaccine (#1) COVID-19 Vaccine (#1) [facility] Start: 1964 Hepatitis C screening Hepatitis C screen [facility] Immunizations Immunization Date Immunization Notes Care Provider Fa cility 04-04-2022 pneumococcal polysaccharide vaccine, 23 valent Garrett Thorpe MD Work Phone: [facility] 01-21-2021 KENALOG - 10 mg Kristen Dymon d Other [employer] Other 04-09-2017 pneumococcal conjuga te vaccine, 13 valdeshawn Thorpe MD Work Phone: [employer] 04-05-2017 pneumococcal polysaccharide vaccine, 23 valdeshawn Thorpe MD Work Phone: [employer] 12-09-2015 KENALOG - 10 mg Kristenamirah willett Other [employer] Other Payers Date Payer Category Payer Unknown [employer] [id number] 2021-Present [phone] [address] [place] [address] [id number] 1965 Unknown [id number] 1965 Unknown [id number] 1965 Unknown [id number] 1965 Unknown [id number] 1965 Unknown [id number] 1960 Unknown [id number] [facility] [id number] Social History Date Type Detail Facility Start: 12-01-2020 Tobacco smoking stat [facility] Never smoked tobacco [employer] Other Start: 12-01-2020 End: 06-20-2022 Tobacco use and exposure Smokeless tobacco non-user [employer] Phone: Start: 05-31-2021 End: 11-29-2021 Alcohol intake Lifetime non-drinker (finding) [employer] Phone: Start: 12-01-2020 History SDOH Alcohol Frequency 1 [employer] Phone: Start: 1965 Sex Assigned At Not on file [facility] [employer] Phone: Start: 11-19-2021 End: 11-29-2021 Exposure to SARS-CoV-2 (event) Not sure [employer] Start: 05-06-2020 End: 03-07-2023 [facility] Start: 06-20-2022 Tobacco smoking stat [facility] Ex-smoker [facility] History of tobacco use Current smoker [facility] Start: 03-07-2023 End: 04-04-2023 Alcohol intake [facility]dr[facility]finding[facility] Start: 05-06-2020 End: 03-07-2023 History of [facility] function [facility]og Adolescent depressio n screening assessment 0 [facility] Clinical Notes 01-21-2021 to 04-04-2023 Nany Bro, DO - 04/04/2023 10:00 AM EST Note Date & Type Note Facility 04-04-2023 History of Present illness Narrative Images from the original note were not included. [facility] [address] [facility] [phone] CONSULT NOTE Diamante Stapleton 57 y.o. CHIEF [...] COPD for which she sees pulmonology at [facility]. She denies any diarrhea or bloody stools. She was diagnosed with pneumonia in January and prior to [place]. She has a history of multiple sclerosis. [...] MORNING, Disp: 16 mL, Rfl: 2 fremanezumab-vfrm ([employer] SUBQ), Inject under the skin., Disp: [...] Anxiety Asthma COPD (chronic obstructive pulmonary disease) ([facility]) Depression Glaucoma Kidney stone MS (multiple sclerosis) ([facility]) Pneumonia Shortness of breath SURGICAL HISTORY Past Surgical History: Procedure Laterality Date COLONOSCOPY N/A 09/18/2019 Performed by Nany Bro DO at [facility] EGD N/A 09/18/2019 Performed by Nany Bro DO at [facility] HERNIA REPAIR HYSTERECTOMY 2002 COMPLETE LUNG SURGERY [...] should contact me or her PCP or dietary director to make sure she does not have [...] patient/family/caregiver Referring and communicating with other health vision care associate No primary diagnosis found. Nany Bro DO This note was created with the assistance of a speech recognition program. While intending to generate a timely document that accurately reflects the content of the visit, no guarantee can be provided that every grammatical or spelling mistake has been or will be identified or corrected. Thank you for your understanding. documented in this encounter [facility] 04-03-2023 Note Outpatient Pulmonary Clinic Visit Note Patient: Diamante Stapleton Age: 57 y.o. : 1965 Account No.: [id number] Chief complaint: Recurrent pneumonia Bronchiectasis HPI / [...] This month she had 3 trips to [facility] ER for worsening shortness of breath, [...] Date Anxiety COPD (chronic obstructive pulmonary disease) ([facility]) Depression Migraines Vertigo Past Surgical History: Procedure [...] 3 TIMES DAILY. 05/31/21 Yes Historical Provider, dhnsjgyuuivmojj-mivponljd-FA 2-30-10 mg/5 mL syrup TAKE 10ML BY [...] tablet Yes Hi (more content not included)... [facility] 02-13-2023 Note Attestation signed by Jesse [...] Age: 57 y.o. : 1965 Account No.: [id number] Chief complaint: Follow up HPI 56 y.o. [...] This month she had 3 trips to [facility] ER for worsening shortness of breath, [...] THREE TIMES A DAY NEEDED Historical Provider, kdeeyykyejvoyzr-cnkadeaaj-DE 2-30-10 mg/5 mL syrup TAKE 10ML BY [...] ointment 06/05/21 Historical Provider, fish oil concentrate (Aylett-3) 120-180 mg capsule Take 2,000 mg by mouth. Historical Provider, fluoride, sodium, 1.1 % gel DentaGel 1.1 % APPLY A THIN RIBBON OF (more content not included)... [facility] 11-15-2022 Note Attestation signed by Claude [...] Age: 56 y.o. : 1965 Account No.: [id number] HPI Diamante Stapleton is a 56 y.o. [...] Date Anxiety COPD (chronic obstructive pulmonary disease) ([facility]) Depression Migraines Vertigo Past Surgical History: Procedure [...] TIMES A DAY NEEDED Yes Historical Provider, ylrcfneynmjdmum-zszegznls-HF 2-30-10 mg/5 mL syrup TAKE 10ML BY [...] 02/27/22 Yes Histori (more content not included)... [facility] 08-16-2022 Note Attestation signed by Ricahrd Restrepo MD at 08/18/2022 9:35 AM Patient [...] Age: 56 y.o. : 1965 Account No.: [id number] HPI Interval update: Patient completed voriconazole for [...] Date Anxiety COPD (chronic obstructive pulmonary disease) ([facility]) Depression Migraines Vertigo Past Surgical History: Procedure [...] BY MOUTH THRE (more content not included)... [facility] 05-17-2022 Note Attestation signed by Richard [...] Assessment/Plan: 1. Pneumonia due to Pseudomonas aeruginosa ([facility]) - Ordering inhaled tobramycin for use with nebulizer - Previously ordered LINWOOD pod inhaler but was not approved by insurance - tobramycin (Bethkis) 300 mg/4 mL solution for nebulization; Take 4 mL (300 mg) by nebulization every 12 (twelve) hours. Dispense: 240 mL; Refill: 0 - Home nebulizer 2. Bronchiectasis with acute exacerbation ([facility]) - PFTs as above - IgE level normal - Respiratory cultures positive for Aspergillus and Pseudomonas - Treating with inhaled tobramycin and voriconazole, prior authorization pending 3. 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 [facility] 05-10-2022 Note Attestation signed by Lalito Bourgeois MD at 07/05/2022 12:[address] Mehta starting antifungal. Updated the patient about the BAL result (growing Aspergillus) and the need to be on Voriconazole 200 mg BID for 8 weeks. Prescription was sent to the patient pharmacy. Will try to get her in the clinic on 05/17/[address] Bourgeois at [facility] 05-03-2022 Note Pt stated she has [...] persist or worsen prior to neurology appt. [facility] 05-03-2022 Note A. Satisfactory for evaluation. Examination of the ThinPrep slide and cell block reveals few alveolar macrophages amid abundant acute inflammation and blood. [facility] Comment on above: Performed By: #### L [id number] #### [facility]) [address] [place] [address] 05-03-2022 Note IGE was normal in 2019 [facility] 12-21-2021 Note PROCEDURE: VEASYTT 64, 5 mm slice axial images were [...] and signed by Gopi Renteria on 12/21/[address] [place] [address] [employer] 01-21-2021 Evaluation note Encounter Date Diagnosis Assessment [...] Contact dermatitis home care material was printed [employer] Other Evaluation note* Diagnosis Multiple sclerosis (HCC) Multiple sclerosis Vitamin D deficiency Unspecified vitamin D deficiency documented in this encounter [email or web address] Phone: evaluation note* Diagnosis Gastro-esophageal reflux disease with esophagitis, without bleeding [facility] Diagnosis Change in bowel habits- Primary Other symptoms involving digestive system [facility] Diagnosis Mood disorder ([facility]) Unspecified episodic mood disorder documented in this [facility]* Diagnosis Generalized anxiety disorder [facility] - Reported* Type Description Date Medical History ms Medical History [place] Medical History asthma Surgical History reconstructive jaw surgeries Surgical History 2 [facility] Surgical History hysterectomy Surgical History kidney stone Hospitalization History see [facility] Other InstructionsNot on filedocumented in this encounter [...] section and content) DATE CREATED AUTHOR 04/13/2021 [facility] DATE CREATED AUTHOR AUTHOR'S ORGANIZ ATION 06/27/2021 [facility] DATE CREATED AUTHOR AUTHOR'S ORGANIZ ATION 04/19/2022 [facility] dical Specialist DATE CREATED AUTHOR AUTHOR'S ORGANIZ ATION 06/12/[address] [facility] DATE CREATED AUTHOR AUTHOR'S ORGANIZ ATION 07/21/2022 [facility] DATE CREATED AUTHOR AUTHOR'S ORGANIZ ATION 04/08/2023 [facility] DATE CREATED AUTHOR AUTHOR'S ORGANIZ ATION 04/23/2023 [facility] Care Teams (unrecognized sec tion and content) Director Of Agriculture Relationship Specialty Start Date End Date Cyndie Hopkins, DO [address] [place] [address] PCP - General 05/31/21 Director Of Agriculture Relationship Specialty Start Date End Date Cyndie Hopkins, DO [address] [place] [address] PCP - General 05/31/21 Director Of Agriculture Relationship Specialty Start Date End Date Garrett Thorpe MD [address] [place] [address] PCP - General Internal Medicine 06/20/22 Director Of Agriculture Relationship Specialty Start Date End Date Garrett Thorpe MD [address] [place] [address] PCP - General Internal Medicine 06/20/22 Director Of Agriculture Relationship Specialty Start Date End Date Garrett Thorpe MD [address] [place], [place] [id number] PCP - General Internal Medicine 06/20/22 REASON [...] BE BASED ON THE PRIMARY CLINICAL RECORDS. [employer] provides no warranty or guarantee of the accuracy or completeness of information in this document.
[2023-04-30] MEDS: ENOXAPARIN SODIUM 40 MG/0.4 ML SYRINGE SUBQ (20:21)
[2023-04-30] MEDS: IPRATROPIUM/ALBUTEROL SULFATE 3 ML AMPUL.NEB IH (20:32)
[2023-05-01] VITALS (22 sets, daily range): BP systolic 94–127; BP diastolic 48–74; PULSE 85–114; RESP 16–20; TEMP 36.7–36.8; O2SAT 92–100
[2023-05-01] MEDS: GABAPENTIN 100 MG CAPSULE PO ×3 (00:56→23:26)
[2023-05-01] MEDS: BACLOFEN 10 MG TABLET 15 MG PO ×4 (00:57→23:25)
[2023-05-01] MEDS: MONTELUKAST SODIUM 10 MG TABLET PO ×2 (00:57→09:02)
[2023-05-01] MEDS: AMITRIPTYLINE HCL 50 MG TABLET 75 MG PO ×2 (00:57→22:08)
[2023-05-01] MEDS: PRIMIDONE 50 MG TABLET PO ×4 (00:58→23:27)
[2023-05-01] MEDS: QUETIAPINE FUMARATE 25 MG TABLET 50 MG PO ×2 (00:58→22:10)
[2023-05-01] MEDS: DIAZEPAM 5 MG TABLET PO ×2 (00:58→22:09)
[2023-05-01] MEDS: IPRATROPIUM/ALBUTEROL SULFATE 3 ML AMPUL.NEB IH ×4 (04:33→20:34)
--- NOTE | 2023-05-01 04:33 | RESP.RT ---
titrated down to 1L
[2023-05-01] MEDS: METHYLPREDNISOLONE SOD SUCC PF 40 MG/ML VIAL IVP ×3 (05:06→22:10)
[2023-05-01 05:19] LABS: Basophils Percent Auto 0.2 % (0.2-2.0); Eosinophils Percent Auto 0.1 % (0.9-7.0); Hemoglobin 11.1 g/dL (12.0-16.0); Immature Granulocytes Abs Auto 0.08 10^3/uL (0.00-0.03); Immature Granulocytes Pct Auto 0.5 % (0.0-0.5); Lymphocytes Absolute Auto 1.8 10^3/uL (1.2-3.8); Lymphocytes Percent Auto 11.7 % (20.5-60.0); Mean Corpuscular HGB Conc 30.8 g/dL (29.9-35.2); Mean Corpuscular Hemoglobin 28.8 pg (26.7-34.0); Mean Corpuscular Volume 93.5 fL (81.0-99.0); Mean Platelet Volume 10.2 fL (9.5-13.5); Monocytes Absolute Auto 1.2 10^3/uL (0.3-0.8); Monocytes Percent Auto 7.7 % (1.7-12.0); Neutrophils Absolute Auto 12.3 10^3/uL (1.4-6.5); Neutrophils Percent Auto 79.8 % (43.0-75.0); Platelet Count 300 10^3/uL (150-450); Red Blood Count 3.85 10^6/uL (4.20-5.40); Red Cell Distribution Width 14.2 % (11.0-15.0); White Blood Count 15.4 10^3/uL (4.0-11.0)
[2023-05-01 05:27] LABS: Anion Gap 9.1; BUN Creatinine Ratio 11.6; Calcium 8.9 mg/dL (8.5-10.1); Chloride 101 mmol/L (98-107); Estimated GFR (African America >60 (>=60); Estimated GFR (Non-African Ame >60 (>=60); Glucose 128 mg/dL (74-106); Potassium 3.1 mmol/L (3.5-5.1); Sodium 135 mmol/L (136-145)
--- NOTE | 2023-05-01 08:35 | CT_ITS ---
[address] [address] Patient Name: ELVIRA STAPLETON MRN: [id number] date: 1965 Sex: F Assigned Patient Location: [place] Current Patient Location: [place] Accession/Order Number: [id number] Exam Date: 05/01/2023 08:35 Report Date: 05/01/2023 10:35 At the request of: VIKKI MIMS Procedure: CT chest w con EXAMINATION: CT chest w con HISTORY: SOB, r/o nodule per CXR , cough COMPARISON: XR chest 04/30/2023, CT chest 02/06/2023 TECHNIQUE: Multi-planar CT images were obtained without and/or with IV contrast as indicated by examination type. Axial, Coronal, and Sagittal images. Dose reduction techniques were achieved by using automated exposure control and/or adjustment of mA and/or kV according to patient size and/or use of iterative reconstruction technique. FINDINGS: LUNGS: Patchy and confluent opacities scattered within right upper lobe probably involving the anterior segment. Several bulla within the apex. Complete collapse/consolidation of the right middle lobe due to central bronchial obstruction. Mild infiltrates within right lower lobe with possible 1.1 cm mass within its superior segment. Complete clearing of previously seen infiltrates within left lung. PLEURA: No mass, effusion, or pneumothorax. VASCULATURE: No abnormality. TAD: Mild right hilar adenopathy. MEDIASTINUM: Mild adenopathy. CARDIAC: No enlargement, pericardial thickening, or significant calcification. AORTA: No aneurysm or dissection. CHEST WALL: No mass or axillary adenopathy. BONES: No bone lesion or fracture. LIMITED ABDOMEN: Stable medial right hepatic lobe cyst versus hemangioma. Limited images of the upper abdomen. OTHER: Negative. CT/CT chest w con IMPRESSION: 1. Interval changes within the right lung suspected to represent change in configuration of multifocal pneumonia. A small underlying mass within right lower lobe superior segment cannot be excluded. Overall improvement of some areas and development of infiltrates within other areas. Persistent right middle lobe collapse with central bronchial obstruction. 2. Complete clearing of previously seen left lung infiltrates. 3. Stable mild right hilar and mediastinal adenopathy; likely reactive. Electronically authenticated by: ALIN ALEXANDRE Date: 05/01/2023 10:35
[2023-05-01] MEDS: OMEPRAZOLE 40 MG CAPSULE.DR PO ×2 (09:01→16:41)
[2023-05-01] MEDS: AMANTADINE HCL 100 MG CAPSULE PO (09:01)
[2023-05-01] MEDS: BUPROPION HCL 150 MG XL TABLET 24H 300 MG PO (09:01)
[2023-05-01] MEDS: CHOLECALCIFEROL (VITAMIN D3) 125 MCG/5000 UNIT TABLET PO (09:02)
[2023-05-01] MEDS: BUSPIRONE HCL 15 MG TABLET 30 MG PO ×2 (09:02→22:07)
[2023-05-01] MEDS: FLUTICASONE PROPIONATE 50 MCG NASAL SPRAY 1 SPRAY NS (09:04)
[2023-05-01] MEDS: PROPRANOLOL HCL 20 MG TABLET 40 MG PO ×3 (09:14→23:46)
--- NOTE | 2023-05-01 09:51 | CM.NOTE ---
Rounds made with Dr. Stone. Dr. Stone would like to continue IV antibiotics and wean oxygen today. Diamante verbalizes understanding.
[2023-05-01] MEDS: BUDESONIDE 0.5 MG/2 ML AMPULE NEB IH ×2 (10:50→20:34)
[2023-05-01] MEDS: POTASSIUM CHLORIDE 10 MEQ ER TABLET 40 MEQ PO (10:52)
--- NOTE | 2023-05-01 11:00 | P.HP_ITS ---
<Statement entered by Elliot Stone MD - 05/01/23 20:15> This documentation has been reviewed and approved. Pt seen and examined early this am Agree with input and findings and treatment plan H&P: HPI History of Present Illness Chief complaint: Cough, Wants xray, Multifocal Pneumonia, Sepsis Narrative: 05/01/23 1005 This is a 57-year-old female patient with a past medical history as outlined below including bronchiectasis s/p RML lobectomy, COPD, depression, and MS; who presented to the ED yesterday evening complaining of severe prolonged coughing. She reports onset of coughing on Sunday evening, but by Sunday (yesterday) her coughing was nonstop since 3:30 in the morning. She was seen by her PCPs office and was told it was a viral infection and given a prednisone burst. As her coughing it became even more severe she presented to the ED for further evaluation. Of note, the patient was recently initiated on a cystic fibrosis fast late in March, but she stopped using the vest about 2 weeks ago due to increased cough. Her cough improved for a time and then began became severe in the last few days. Workup in the ED revealed fever (101.2), tachycardia (125), tachypnea (24), and hypoxia (87 to 91%). Chest x-ray revealed right-sided multifocal infiltrates greatest at the right upper lobe. Due to the possibility of a nodule, a CT of the chest was recommended. She was admitted to the hospitalist service overnight for multifocal pneumonia and sepsis. She was treated with IVF, IV steroids, and started on IV Levaquin. At the time of my exam the patient is resting comfortably in bed. She was hypoxic at the time of admission with inpatient level acuity suspected w/ multifocal pneumonia and sepsis. She has recovered more quickly than expected and has been weaned off of O2 supplementation earlier this morning and is not in current respiratory distress. She reports that her cough is significantly improved. A CT of the chest has been ordered and obtained but results are still pending at the time of exam. The patient follows closely with a talent analyst and she will take the CT results to her talent analyst for further review after discharge. As her respiratory status is somewhat fragile with her history of bronchiectasis, lung collapse, lobectomy, and recurrent pneumonias, we will keep the patient in the hospital for an additional day for further IV antibiotics, high-dose IV steroids, and close monitoring of her respiratory status. Review of Systems ROS Status of ROS 10 or more systems reviewed and unremark able except as noted in h istory and below PFSH [facility] Medical History (Updated 05/01/23 @ 11:56 by Eileen Pacheco NP) Migraine ?G43.909 - Migraine, unspecified, not intractable, without status migrainosus (ICD-10) GERD (gastroesophageal reflux disease) ?K21.9 - Gastro-esophageal reflux disease without esophagitis (ICD-10) Depression ?F32.A - Depression, unspecified (ICD-10) Bronchiectasis ?J47.9 - Bronchiectasis, uncomplicated (ICD-10) COPD (chronic obstructive pulmonary disease) ?J44.9 - Chronic obstructive pulmonary disease, unspecified (ICD-10) Multiple sclerosis ?G35 - Multiple sclerosis (ICD-10) Surgical History (Updated 04/30/23 @ 21:51 by Portia Tomas) Hernia ?K46.9 - Unspecified abdominal hernia without obstruction or gangrene (ICD- 10) H/O dilation and curettage ?Z98.890 - Other specified postprocedural states (ICD-10) H/O: hysterectomy ?Z90.710 - Acquired absence of both cervix and uterus (ICD-10) History of lobectomy of lung ?Z90.2 - Acquired absence of lung [part of] (ICD-10) Family History (Updated 04/30/23 @ 20:04 by Portia Tomas) Aunt Family history of cancer Mother Family history of diabetes mellitus Family history of hypertension Social History (Updated 04/30/23 @ 20:02 by Portia Tomas) Within the past year, how often did you have a drink containing alcohol: never Score interpretation: A score less than 3 is consistent with normal alcohol consumption. Smoking status: Former smoker Non-prescribed substance use: denies use Previous occupational history: retired Highest level of school completed/degree received: high school graduate Are you now , , , , never or living with a partner: In a typical week, how many times do you talk on the telephone with family, friends, or neighbors: 3 or more times per week How often do you get together with friends or relatives: 3 or more times per week How often do you attend taoism or sikh services: never Do you belong to any clubs or organizations such as taoism groups unions, fraternal or athletic groups, or school groups: no Total score: 2 Score interpretation: A score of greater than or equal to 2 indicates the lowest level of social isolation. Little interest or pleasure in doing things: not at all Feeling down, depressed, or hopeless: not at all Feel stressed/tense/nervous/anxious/difficulty sleeping: not at all Do you think of yourself as: straight/heterosexual Gender Identity: female Meds Home Medications and Allergies Home Medications Medication Instructions Recorded Confirmed Type albuterol sulfate 90 mcg/actuation 2 puff inhalation Q6H PRN 01/03/23 04/30/23 History aerosol inhaler shortness of breath or wheezing amantadine HCl 100 mg capsule 100 mg PO BID 01/03/23 04/30/23 History amitriptyline 50 mg tablet 75 mg PO .QHS 01/03/23 04/30/23 History baclofen 10 mg tablet 15 mg PO Q8H 01/03/23 04/30/23 History buspirone 30 mg tablet 30 mg PO BID 01/03/23 04/30/23 History dalfampridine 10 mg 10 mg PO Q12H 01/03/23 04/30/23 History tablet,extended release,12 hr diazepam 5 mg tablet 5 mg PO .QD muscle spasm 01/03/23 04/30/23 History glatiramer 40 mg/mL subcutaneous 40 mg subcut Q48H 01/03/23 05/01/23 History syringe meclizine 25 mg tablet 25 mg PO TID PRN dizziness 01/03/23 04/30/23 History montelukast 10 mg tablet 10 mg PO QDAY 01/03/23 04/30/23 History omeprazole 40 mg capsule,delayed 40 mg PO BIDWM 01/03/23 04/30/23 History release primidone 50 mg tablet 50 mg PO Q8H 01/03/23 04/30/23 History propranolol 40 mg tablet 40 mg PO Q8H 01/03/23 04/30/23 History quetiapine 50 mg tablet 50 mg PO .qhs 01/03/23 04/30/23 History rizatriptan 10 mg tablet 10 mg PO Q2H PRN migraine headache 01/03/23 05/01/23 History sucralfate 1 gram tablet 1 g PO Q6H 01/03/23 04/30/23 History L.acid,gasseri,plant,rham-B.animalis-cran 1 cap PO DAILY 04/30/23 04/30/23 History 5 billion cell-250mg capsule (up4 Probiotics Women's) azithromycin 250 mg tablet 250 mg PO Q72H 04/30/23 04/30/23 History cholecalciferol (vitamin D3) 125 5,000 unit PO DAILY 04/30/23 04/30/23 History mcg (5,000 unit) capsule cyclobenzaprine 10 mg tablet 10 mg PO Q8H PRN muscle spasm 04/30/23 04/30/23 History fluticasone propionate 230 2 puff inhalation Q12H 04/30/23 04/30/23 History mcg-salmeterol 21 mcg/actuation HFA inhaler (Advair HFA) fluticasone propionate 50 1 spray intranasal .QD 04/30/23 04/30/23 History mcg/actuation nasal spray,suspension gabapentin 100 mg capsule 100 mg PO Q12H 04/30/23 04/30/23 History ibuprofen 600 mg tablet 600 mg PO Q8H PRN pain 04/30/23 04/30/23 History mecobalamin (vitamin B12) 500 mcg 500 mcg PO DAILY 04/30/23 04/30/23 History chewable tablet melatonin 10 mg tablet 40 mg PO .hs 04/30/23 04/30/23 History niacin 500 mg tablet (Niacor) 500 mg PO DAILY 04/30/23 04/30/23 History omega-3 fatty acids-fish oil 360 2 cap PO DAILY 04/30/23 04/30/23 History mg-1,200 mg capsule (Fish Oil) promethazine 25 mg tablet 6.25 mg PO Q6H PRN nausea 04/30/23 04/30/23 History tiotropium 2.5 mcg-olodaterol 2.5 2 inh inhalation .QD 04/30/23 04/30/23 History mcg/actuation mist for inhalation (Stiolto Respimat) vitamin E 100 unit capsule 100 unit PO DAILY 04/30/23 05/01/23 History albuterol sulfate 2.5 mg/3 mL 2.5 mg inhalation Q6H PRN 05/01/23 05/01/23 History (0.083 %) solution for nebulization shortness of breath or wheezing bupropion HCl 300 mg 24 hr tablet, 300 mg PO QDAY 05/01/23 05/01/23 History extended release lifitegrast 5 % eye drops in a 1 drp ophthalmic (eye) Q12H 05/01/23 05/01/23 History dropperette (Xiidra) Allergies Allergy/AdvReac Type Severity Reaction Status Date / Time hydromorphone [From Dilaudid] Allergy Severe Difficulty Verified 05/01/23 10:42 Breathing acetaminophen [From Percocet] Allergy Intermediate Hives Verified 05/01/23 10:42 fentanyl Allergy Intermediate Hives Verified 05/01/23 10:42 tizanidine [From Zanaflex] Allergy Intermediate Hives Verified 05/01/23 10:42 amoxicillin Allergy Mild Rash Verified 05/01/23 10:42 doxycycline Allergy Mild Hives Verified 05/01/23 10:42 oxycodone [From Percocet] Allergy Mild Rash Verified 05/01/23 10:42 clavulanic acid AdvReac Intermediate Diarrhea Verified 05/01/23 10:42 [From Augmentin] codeine AdvReac Mild Nausea Verified 05/01/23 10:42 morphine AdvReac Mild Nausea Verified 05/01/23 10:42 Exam Constitutional Vital Signs, click to edit/add: Last Vital Signs Temp 98.0 F 05/01/23 07:48 Pulse 114 H 05/01/23 09:56 Resp 16 05/01/23 07:48 BP 111/53 05/01/23 07:48 Pulse Ox 96 05/01/23 07:48 O2 Del Method Nasal Cannula 05/01/23 07:48 O2 Flow Rate 0.5 05/01/23 07:48 Common normals: no apparent distress, oriented x3, alert and well nourished General appearance: cooperative Orientation/consciousness: Yes awake HENMT Common normals: normocephalic, head/scalp atraumatic, hearing grossly normal bilaterally, external nose normal and moist oral mucous membranes Eye Common normals: PERRL, EOMs intact bilaterally, conjunctivae normal and no scleral icterus Alignment: alignment normal Eyelid: eyelids normal Neck & C-Spine Common normals: full ROM, supple and no JVD Chest Common normals: inspection of chest normal Chest: symmetrical chest wall rise Respiratory Common normals: normal respiratory effort, no retractions and no use of accessory muscles Auscultation: wheezes (faint EE R anterior mid) Cardio Common normals: no JVD, regular rate, regular rhythm, S1 normal heart sound, S2 normal heart sound, no gallops, no clicks, no murmurs, no rub and peripheral pulses 2+ throughout GI Common normals: Normal to inspection, nondistended, normoactive bowel sounds present, soft to palpation, non-tender, no hepatosplenomegaly, no masses and no bruits Bladder/kidney exam: bladder normal to palpation Back & Pelvis Common normals: thoracic and lumbar spine normal to inspection Extremity Common normals: normal capillary refill and no pedal edema General: normal exam except as noted; no clubbing and no cyanosis Neuro Humble Coma Scale: GCS not evaluated Common normals: CN's II-XII intact bilaterally, moves all extremities, no focal motor deficits and no sensory deficits noted Speech: speech normal Motor exam: strength 5/5 throughout Psych Common normals: mental status grossly normal, thought process normal, affect normal and activity/motor behavior normal Results Labs Labs: Short CBC 04/30/23 05/01/23 Range/Units 17:16 04:27 WBC 18.6 H 15.4 H (4.0-11.0) 10^3/uL Hgb 12.3 11.1 L (12.0-16.0) g/dL Hct 38.1 36.0 (36.0-48.0) % Plt Count 335 300 (150-450) 10^3/uL BMP 04/30/23 05/01/23 17:16 04:27 Sodium 135 L 135 L Potassium 3.6 3.1 L Chloride 97 L 101 Carbon Dioxide 27.6 28.0 BUN 10.0 8.0 Creatinine 0.78 0.69 Glucose 127 H 128 H Calcium 9.3 8.9 Liver Function 04/30/23 Range/Units 17:16 Total Bilirubin 0.4 (0.2-1.0) mg/dL AST 15 (15-37) U/L ALT 22 (14-59) U/L Alkaline Phosphatase 140 H (46-116) U/L Albumin 2.7 L (3.4-5.0) g/dL ABG ABG results: 04/30/23 17:16 VBG pH 7.464 H VBG pCO2 39.0 L Pulse Oximetry Attestation: I have reviewed the pertinent pulse oximetry results. Imaging Chest x-ray: Attestation: I have reviewed the pertinent imaging results. Radiologist's impression: IMPRESSION: Interstitial and airspace opacities greatest in the right lung, increased compared to prior exam. Differential could include worsening of pneumonia versus fluid overload and/or underlying nodule. CT scan of the chest is recommended for further evaluation. CT scan - chest: Attestation: I have reviewed the pertinent imaging results. Radiologist's impression: IMPRESSION: 1. Interval changes within the right lung suspected to represent change in configuration of multifocal pneumonia. A small underlying mass within right lower lobe superior segment cannot be excluded. Overall improvement of some areas and development of infiltrates within other areas. Persistent right middle lobe collapse with central bronchial obstruction. 2. Complete clearing of previously seen left lung infiltrates. 3. Stable mild right hilar and mediastinal adenopathy; likely reactive. Assessment and Plan Assessment and Plan (1) Multifocal pneumonia: Assessment and Plan: ACUTE * Adm inpatient * R side multifocal pneumonia w/ sepsis * IVPB Levaquin for broad coverage including atypical coverage * NS IV at 75 ml/hr * Duonebs schedule QID, Pulmicort BID. PRN albuterol nebs q4h * Solumedrol 125 x 1, then 40 mg q8h for suspected concurrent COPD exacerbation * CT chest to further assess for infiltrate vs possible Nodule as noted on CXR * CBC, CMP in AM (2) Sepsis: Assessment and Plan: ACUTE * AEB: Fever 101.2, tachycardia 125, tachypnea 24, Leukocytosis 18.6, Source - Multifocal pneumonia * 1 Liter IVFs given in ED * Continue w/ IVF at 75 ml/hr * BP and mentation stable, no evidence of mottling on exam (3) Acute respiratory failure: Assessment and Plan: ACUTE * O2 sats down to 87% in ED even on 2L O2 supplementation * 2/2 multifocal PNA and suspected COPD/bronchiectasis exacerbation * Started on 2L supplementation in the ED and continued overnight * Nursing able to wean off O2 this morning and pt is currently stable on RA. Resolving (4) COPD (chronic obstructive pulmonary disease): Assessment and Plan: CHRONIC * Suspect acute exacerbation - see multifocal pneumonia (5) Multiple sclerosis: Assessment and Plan: CHRONIC * Continue home glatiramer, amantadine, baclofen, dalfampridine, primidone (6) Bronchiectasis: Assessment and Plan: CHRONIC * See multifocal PNA * Follows outpatient / [facility] pulmonology (7) Depression: Assessment and Plan: CHRONIC * With anxiety * Continue home bupropion, buspirone, quetiapine, diazepam (8) GERD (gastroesophageal reflux disease): Assessment and Plan: CHRONIC * Continue home PPI (9) Migraine: Assessment and Plan: CHRONIC * Continue home PRN Triptan
[2023-05-01] MEDS: GUAIFENESIN PO (11:36)
[2023-05-01] MEDS: PSEUDOEPHEDRINE PO (11:36)
[2023-05-01] MEDS: 0.9 % SODIUM CHLORIDE 1,000 ML 75 ML IV (13:29)
[2023-05-01] MEDS: LEVOFLOXACIN IN DEXTROSE 5 % 500 MG/100 ML PIGGYBACK 100 MG IV (18:50)
[2023-05-01] MEDS: LIFITEGRAST OP (22:08)
[2023-05-01] MEDS: DALFAMPRIDINE 10 MG 10 EACH PO (23:26)
[2023-05-02] VITALS (9 sets, daily range): BP systolic 123–129; BP diastolic 66–73; PULSE 76–110; RESP 16–18; TEMP 36.7; O2SAT 94–95
[2023-05-02] MEDS: 0.9 % SODIUM CHLORIDE 1,000 ML 75 ML IV (04:41)
[2023-05-02] MEDS: IPRATROPIUM/ALBUTEROL SULFATE 3 ML AMPUL.NEB IH (04:55)
[2023-05-02] MEDS: METHYLPREDNISOLONE SOD SUCC PF 40 MG/ML VIAL IVP (05:08)
[2023-05-02 05:35] LABS: Basophils Percent Auto 0.1 % (0.2-2.0); Hematocrit 36.4 % (36.0-48.0); Hemoglobin 11.2 g/dL (12.0-16.0); Immature Granulocytes Abs Auto 0.06 10^3/uL (0.00-0.03); Immature Granulocytes Pct Auto 0.4 % (0.0-0.5); Lymphocytes Absolute Auto 1.5 10^3/uL (1.2-3.8); Mean Corpuscular HGB Conc 30.8 g/dL (29.9-35.2); Mean Corpuscular Hemoglobin 28.8 pg (26.7-34.0); Mean Corpuscular Volume 93.6 fL (81.0-99.0); Monocytes Absolute Auto 0.6 10^3/uL (0.3-0.8); Monocytes Percent Auto 4.4 % (1.7-12.0); Neutrophils Absolute Auto 11.2 10^3/uL (1.4-6.5); Neutrophils Percent Auto 84.1 % (43.0-75.0); Platelet Count 338 10^3/uL (150-450); Red Blood Count 3.89 10^6/uL (4.20-5.40); Red Cell Distribution Width 14.3 % (11.0-15.0); White Blood Count 13.3 10^3/uL (4.0-11.0)
[2023-05-02 06:20] LABS: Alanine Aminotransferase 44 U/L (14-59); Albumin Globulin Ratio 0.5; Albumin Level 2.3 g/dL (3.4-5.0); Alkaline Phosphatase 134 U/L (46-116); Anion Gap 12.1; Aspartate Amino Transferase 41 U/L (15-37); BUN Creatinine Ratio 17.5; Bilirubin Total 0.2 mg/dL (0.2-1.0); Calcium 9.2 mg/dL (8.5-10.1); Carbon Dioxide 23.8 mmol/L (21.0-32.0); Chloride 105 mmol/L (98-107); Estimated GFR (African America >60 (>=60); Estimated GFR (Non-African Ame >60 (>=60); Globulin 4.8 g/dL; Glucose 119 mg/dL (74-106); Potassium 3.9 mmol/L (3.5-5.1); Sodium 137 mmol/L (136-145); Total Protein 7.1 g/dL (6.4-8.2)
[2023-05-02] MEDS: OMEPRAZOLE 40 MG CAPSULE.DR PO (09:13)
[2023-05-02] MEDS: BUSPIRONE HCL 15 MG TABLET 30 MG PO (09:13)
[2023-05-02] MEDS: BUPROPION HCL 150 MG XL TABLET 24H 300 MG PO (09:14)
[2023-05-02] MEDS: MONTELUKAST SODIUM 10 MG TABLET PO (09:14)
[2023-05-02] MEDS: FLUTICASONE PROPIONATE 50 MCG NASAL SPRAY 1 SPRAY NS (09:14)
[2023-05-02] MEDS: CHOLECALCIFEROL (VITAMIN D3) 125 MCG/5000 UNIT TABLET PO (09:14)
[2023-05-02] MEDS: AMANTADINE HCL 100 MG CAPSULE PO (09:14)
[2023-05-02] MEDS: VITAMIN E CAPSULE 671 MG PO (09:16)
[2023-05-02] MEDS: [UNRECOGNIZED DRUG - OTHER] PO (09:17)
[2023-05-02] MEDS: LIFITEGRAST OP (09:18)
[2023-05-02] MEDS: MECOBALAMIN 500 MCG 500 EACH PO (09:18)
[2023-05-02] MEDS: BACLOFEN 10 MG TABLET 15 MG PO (09:26)
[2023-05-02] MEDS: PRIMIDONE 50 MG TABLET PO (09:26)
[2023-05-02] MEDS: PROPRANOLOL HCL 20 MG TABLET 40 MG PO (09:26)
[2023-05-02] MEDS: DALFAMPRIDINE 10 MG 10 EACH PO (09:36)
--- NOTE | 2023-05-02 10:19 | CM.NOTE ---
Rounds made with Dr. Stone. Potential plan for discharge today. Dr. Stone to discuss with YUSEF Arellano.
[2023-05-02] MEDS: GUAIFENESIN PO (11:38)
[2023-05-02] MEDS: GABAPENTIN 100 MG CAPSULE PO (11:38)
[2023-05-02] MEDS: PSEUDOEPHEDRINE PO (11:38)
--- NOTE | 2023-05-02 12:00 | P.DS_ITS ---
<Statement entered by Elliot Stone MD - 05/02/23 19:57> This documentation has been reviewed and approved. She is seen and examined this morning, much improved from previous day. She feels she is back to her baseline. Agree with input and diagnoses provided by nurse practitioner's documentation. No additional physical findings DS: Providers Provider Date of admission: 04/30/23 18:37 Primary care physician: Non-Staff Physician, Discharging clinician: Eileen Pacheco DS: Diagnosis Discharge Diagnosis (1) Multifocal pneumonia: (2) Sepsis: (3) Acute respiratory failure: (4) COPD (chronic obstructive pulmonary disease): (5) Multiple sclerosis: (6) Bronchiectasis: (7) Depression: (8) GERD (gastroesophageal reflux disease): (9) Migraine: (10) History of Clostridioides difficile infection: DS: Summary Hospital Course Hospital Course: The patient was admitted with multifocal pneumonia, sepsis, and acute respiratory failure in setting of chronic bronchiectasis and COPD. She was initially hypoxic requiring O2 supplementation, but this improved much more quickly than expected and she has been on room air for 24 hours at the time of discharge. Her pneumonia was treated with IVPB Levaquin and the patient tolerated this well with improvement of symptoms. In addition, all signs and symptoms of sepsis resolved by the time of discharge after IV fluid administration. The patient is being discharged home in stable condition with a further 8-day course of Levaquin (total 10-day course). In addition she was prescribed p.o. vancomycin prophylactic dosing for C. difficile due to her history of severe C. difficile infection in the past and plans to travel outside of the country within the next week making medical care difficult. In addition she was prescribed Diflucan for anticipated vaginal candidiasis infection with antibiotic administration. The patient is to follow-up with her PCP as needed and with her harpooner as previously scheduled this Sunday. They should discuss whether a repeat CT of the chest is indicated in the next 3 to 6 months based on the finding of a possible nodule of the right lower lobe on CT imaging during this admission. Mild, isolated AST elevation was noted on labs on the day of discharge. This is possibly secondary to Levaquin administration but is not clinically concerning at this time. We defer to the patient's outpatient providers for follow-up labs which we recommend in 1 week. Time Spent with Patient Time attestation: Total time spent providing and/or coordinating discharge services: Time spent: greater than 30 minutes Specific discharge activities: Physical exam, discussion of discharge plan, questions answered. Exam Constitutional Vital Signs, click to edit/add: Last Vital Signs Temp 98.1 F 05/02/23 04:34 Pulse 110 H 05/02/23 09:56 Resp 18 05/02/23 08:00 BP 123/66 05/02/23 09:26 Pulse Ox 95 05/02/23 04:55 O2 Del Method Room Air 05/02/23 04:55 O2 Flow Rate 0.5 05/01/23 07:48 Common normals: no apparent distress, oriented x3 and alert General appearance: cooperative Orientation/consciousness: Yes awake HENMT Common normals: normocephalic and head/scalp atraumatic Head and scalp: normocephalic and atraumatic Eye Common normals: PERRL, EOMs intact bilaterally, conjunctivae normal and no scleral icterus Conjunctiva: conjunctiva(e) normal Pupil: PERRL Neck & C-Spine Common normals: no JVD Respiratory Common normals: normal respiratory effort, no use of accessory muscles and clear to auscultation bilaterally Effort & inspection: able to speak in complete sentences and symmetric chest movement Auscultation: clear to auscultation bilaterally Other: Cough resolving Cardio Common normals: no JVD, regular rate, regular rhythm, S1 normal heart sound, S2 normal heart sound, no murmurs and peripheral pulses 2+ throughout Rate: regular rate Rhythm: regular rhythm Heart sounds: S1 normal and S2 normal Peripheral pulses: pulses 2+ throughout GI Common normals: Normal to inspection, nondistended, normoactive bowel sounds present, soft to palpation and non-tender Palpation: soft Bladder/kidney exam: bladder normal to palpation Bimanual exam- vagina & uterus: bladder normal to palpation Extremity Common normals: normal to inspection, full ROM, normal capillary refill and no pedal edema General: no clubbing and no cyanosis Neuro Common normals: oriented x3, moves all extremities, no focal motor deficits and no sensory deficits noted Sensorium/orientation: awake and alert Speech: speech normal Psych Common normals: mental status grossly normal and activity/motor behavior normal DS: Data Data Completed and Pending Labs on day of discharge: Labs from last 24 hours 05/02/23 04:34 WBC 13.3 H RBC 3.89 L Hgb 11.2 L Hct 36.4 MCV 93.6 MCH 28.8 MCHC 30.8 RDW 14.3 Plt Count 338 MPV 10.0 Neut % (Auto) 84.1 H Lymph % (Auto) 11.0 L [place] % (Auto) 4.4 Eos % (Auto) 0.0 L Baso % (Auto) 0.1 L Neut # (Auto) 11.2 H Lymph # (Auto) 1.5 [place] # (Auto) 0.6 Eos # (Auto) 0.0 Baso # (Auto) 0.0 Abs Immat Gran (auto) 0.06 H Imm/Tot Granulo (auto) 0.4 Sodium 137 Potassium 3.9 Chloride 105 Carbon Dioxide 23.8 Anion Gap 12.1 BUN 11.0 Creatinine 0.63 Est GFR ( Amer) >60 Est GFR (Non-Af Amer) >60 BUN/Creatinine Ratio 17.5 Glucose 119 H Calcium 9.2 Total Bilirubin 0.2 AST 41 H ALT 44 Alkaline Phosphatase 134 H Total Protein 7.1 Albumin 2.3 L Globulin 4.8 Albumin/Globulin Ratio 0.5 Preliminary micro results at discharge 04/30/23 14:55 Group A Streptococcus Screen ([facility]) - Preliminary Throat Imaging Chest x-ray: Radiologist's impression: IMPRESSION: Interstitial and airspace opacities greatest in the right lung, increased compared to prior exam. Differential could include worsening of pneumonia versus fluid overload and/or underlying nodule. CT scan of the chest is recommended for further evaluation. CT scan - chest: Radiologist's impression: IMPRESSION: 1. Interval changes within the right lung suspected to represent change in configuration of multifocal pneumonia. A small underlying mass within right lower lobe superior segment cannot be excluded. Overall improvement of some areas and development of infiltrates within other areas. Persistent right middle lobe collapse with central bronchial obstruction. 2. Complete clearing of previously seen left lung infiltrates. 3. Stable mild right hilar and mediastinal adenopathy; likely reactive. Discharge Plan Discharge Disposition: Home, Self-Care Condition: Good Discharge Medications: New levofloxacin 750 mg tablet 750 mg PO DAILY 8 Days Qty: 8 0RF fluconazole [Diflucan] 200 mg tablet 200 mg PO DAILY PRN (Reason: Yeast infection) Qty: 3 0RF Rx Instructions: Take if vaginal yeast infection develops while on Levaquin vancomycin [Vancocin] 125 mg capsule 125 mg PO BID 10 Days Qty: 20 0RF Continued albuterol sulfate 90 mcg/actuation HFA aerosol inhaler 2 puff INHALATION Q6H PRN (Reason: shortness of breath or wheezing) amantadine HCl 100 mg capsule 100 mg PO BID amitriptyline 50 mg tablet 75 mg PO .QHS Patient Comments: 1 and 1/2 tab baclofen 10 mg tablet 15 mg PO Q8H buspirone 30 mg tablet 30 mg PO BID dalfampridine 10 mg tablet extended release 12 hr 10 mg PO Q12H diazepam 5 mg tablet 5 mg PO .QD glatiramer 40 mg/mL syringe 40 mg SUBCUT Q48H meclizine 25 mg tablet 25 mg PO TID PRN (Reason: dizziness) montelukast 10 mg tablet 10 mg PO QDAY omeprazole 40 mg capsule,delayed release(DR/EC) 40 mg PO BIDWM primidone 50 mg tablet 50 mg PO Q8H propranolol 40 mg tablet 40 mg PO Q8H quetiapine 50 mg tablet 50 mg PO .qhs rizatriptan 10 mg tablet 10 mg PO Q2H PRN (Reason: migraine headache) Rx Instructions: max of 2 tabs in 24 hours sucralfate 1 gram tablet 1 g PO Q6H Patient Comments: with meals azithromycin 250 mg tablet 250 mg PO Q72H cyclobenzaprine 10 mg tablet 10 mg PO Q8H PRN (Reason: muscle spasm) fluticasone propion-salmeterol [Advair HFA] 230-21 mcg/actuation HFA aerosol inhaler 2 puff INHALATION Q12H fluticasone propionate 50 mcg/actuation spray,suspension 1 spray INTRANASAL .QD gabapentin 100 mg capsule 100 mg PO Q12H ibuprofen 600 mg tablet 600 mg PO Q8H PRN (Reason: pain) Stiolto Respimat 2.5-2.5 mcg/actuation mist 2 inh INHALATION .QD cholecalciferol (vitamin D3) 125 mcg (5,000 unit) capsule 5,000 unit PO DAILY mecobalamin (vitamin B12) 500 mcg tablet,chewable 500 mcg PO DAILY niacin [Niacor] 500 mg tablet 500 mg PO DAILY omega-3 fatty acids-fish oil [Fish Oil] 360-1,200 mg capsule 2 cap PO DAILY vitamin E 100 unit capsule 100 unit PO DAILY melatonin 10 mg tablet 40 mg PO .hs promethazine 25 mg tablet 6.25 mg PO Q6H PRN (Reason: nausea) Rx Instructions: 3 doses during day; last dose no later than 4 hr before bedtime up4 Probiotics Women's 5 billion cell- 250 mg capsule 1 cap PO DAILY albuterol sulfate 2.5 mg /3 mL (0.083 %) solution for nebulization 2.5 mg inhalation Q6H PRN (Reason: shortness of breath or wheezing) bupropion HCl 300 mg tablet extended release 24 hr 300 mg PO QDAY Xiidra 5 % dropperette 1 drp OPHTHALMIC (EYE) Q12H acetylcysteine (bulk) Powder 1 ea miscellaneous DAILY zinc 22 mg tablet 22 mg PO DAILY Activity: increase activity as tolerated Diet: advance to your usual diet Diet Detail: regular Print Language: Citizen Of [place] Patient Instructions: Fluconazole (By mouth), Levofloxacin (By mouth), Vancomycin (By mouth), Acute Bronchitis (ED), Pneumonia (DC) Activity Restrictions/Additional Instructions: Medically stable for travel. Pt is not infectious. - Take probiotic twice daily until Levaquin is completed, then resume usual dosing - Discuss possible follow up CT Chest in 3-6 months with your harpooner (possible nodule) - Discuss repeat CMP with PCP or Official Court Interpreter (mild AST elevation on labs) - recommend in one week Forms: Portal Instructions Follow Up Appointments: Apr. 9 @ 3pm with [facility] [phone] Discharge Date/Time: 05/02/23 12:17 Discharge location: home
--- NOTE | 2023-05-07 15:34 | CM.DCFOLLOWU ---
Person spoke with: patient How are you feeling? thinks she has C-DIFF How is your pain? no pain Did you understand your discharge instructions? yes Do you have any questions about your discharge instructions? no Were you given any prescriptions at discharge? yes Were you able to get your prescriptions filled? yes Do you understand how to take your medications as ordered? yes Do you have any questions about your follow up appointment and do you plan to keep your follow up appointment? no questions, had to go to [place] [facility] and miss her cruise since she thinks she has C-DIFF Is there anything else that you would like to discuss? NO Questions/Comments/Concerns/Other: N/A
== END 2023-05-02 12:17 | disposition home or self-care (01) | DRG 871 ==
LOC: ER 18:31 → MS 18:45
PROVIDERS: Physician Assistant; Registered Nurse; Admitting Provider Family Medicine; Emergency Provider Emergency Medicine; Visit Provider Nurse Practitioner
DX: A41.01 Sepsis due to Methicillin susceptible Staphylococcus aureus (principal); J18.9 Pneumonia, unspecified organism; J96.01 Acute respiratory failure with hypoxia; J44.0 Chronic obstructive pulmonary disease with (acute) lower respiratory infection; J47.0 Bronchiectasis with acute lower respiratory infection; Z87.891 Personal history of nicotine dependence; Z79.899 Other long term (current) drug therapy; G35 Multiple sclerosis; Z90.2 Acquired absence of lung [part of]; K21.9 Gastro-esophageal reflux disease without esophagitis; Z90.710 Acquired absence of both cervix and uterus; Z86.19 Personal history of other infectious and parasitic diseases; G43.909 Migraine, unspecified, not intractable, without status migrainosus; R91.8 Other nonspecific abnormal finding of lung field; Z87.01 Personal history of pneumonia (recurrent); F41.8 Other specified anxiety disorders
CPT/HCPCS: 0202U; 36415; 71045; 71260; 80048; 80053; 82800; 83605; 83880; 84145; 84484; 85025; 87040; 87070; 87150; 87186; 87880; 93005; 94640; 94667; 94668; 94761; 96365; 96372; 96375; 96376; 99285; J2920; J2930; Q9967